=== PATIENT | male | born 1960 | race Caucasian/White ===

== ENCOUNTER 2017-09-03 15:31 | Emergency (ER) | payer MEDICARE, MEDICAID, SELFPAY ==
[2017-09-03 15:32] VITALS: BP 140/79; PULSE 104; RESP 22; TEMP 36.6; O2SAT 99; BMI 30.8
--- NOTE | 2017-09-03 15:54 | EKG12_ITS ---
Test Reason : CP Blood Pressure : / mmHG Vent. Rate : 100 BPM Atrial Rate : 100 BPM P-R Int : 140 ms QRS Dur : 072 ms QT Int : 364 ms P-R-T Axes : 040 -17 033 degrees QTc Int : 469 ms Normal sinus rhythm Normal ECG Confirmed by BALDO ASIF, VICTORIANO ([id number]), newspaper managing editor NGHIA SALAMANCA ([id number]) on 09/05/2017 1:46:38 PM Referred By: ABELINO Confirmed By:VICTORIANO BLAND MD
--- NOTE | 2017-09-03 15:55 | RAD_ITS ---
STUDY: X-RAY CHEST REASON FOR EXAM: Male, 57 years old. Chest pain x2 days TECHNIQUE: PA and lateral views of the chest. COMPARISON: July 10, 2013 FINDINGS: The lungs are clear and expanded. There is no demonstrated pleural abnormality. There is borderline cardiomegaly. Normal mediastinum and dread. Normal visualized pulmonary arteries. Normal visualized aortic arch and descending thoracic aorta. Normal visualized thoracic spine. Normal visualized ribs, clavicles, and shoulders. There is no demonstrated abnormality of the visualized soft tissue structures of the upper abdomen. RAD/Chest PA and Lateral IMPRESSION: No acute cardiopulmonary disease Electronically Signed: Dionisio Alcaraz DO at 16:42 EDT Tel , Service support ,
[2017-09-03 16:02] LABS: Absolute Lymphocyte Count 1.59 X10^3/ul (0.83-4.51); Absolute Neutrophil Count 4.9 X10^3/uL (2.0-7.7); Basophil# 0.02 X10^3/uL; Basophil% 0.3 % (0-1); Eosinophil# 0.15 X10^3/uL; Eosinophils% 2.1 % (0-5); Hematocrit 44.8 % (40-54); Hemoglobin 15.2 g/dl (13.0-16.5); Lymphocyte # 1.59 X10^3/ul (4.0); Lymphocyte % 21.9 % (19-41); Mean Corp Hgb Conc 33.9 g/gl (32-36); Mean Corpuscular Hgb 30.8 pg (27.0-32.0); Mean Corpuscular Volume 90.9 fL (80-94); Mean Platelet Vol. 11.3 fl (6.2-12.0); Monocyte# 0.54 X10^3/uL; Monocyte% 7.4 % (0-10); Neutrophil # 4.94 X10^3/uL (2.7-7.7); Neutrophil % 68.2 % (47-70); Platelet Count 155 K/mm3 (150-450); RBC Distribution Width CV 13.7 % (11.6-14.6); RBC Distribution Width SD 44.8 fl (35.1-43.9); Red Blood Count 4.93 M/mm3 (4.6-6.2); White Blood Count 7.3 K/mm3 (4.4-11.0)
[2017-09-03 16:10] LABS: Bedside Glucose 224 mg/dL (70-110)
[2017-09-03] MEDS: 0.9% Normal Saline 1,000 ML 1000 ML IV (16:12)
[2017-09-03 16:13] VITALS: BP 132/79; PULSE 87; RESP 24; O2SAT 97
[2017-09-03 16:16] LABS: Anion Gap 10 (5-15); BUN 20 mg/dL (7-18); BUN/Creat Ratio 14.4 RATIO (10-20); Calcium,Total 9.1 mg/dL (8.5-10.1); Chloride 108 mmol/L (98-107); Creatinine, Serum 1.39 mg/dL (0.70-1.30); EST Glomerular Filtration Rate 56 mL/min (>60); Est Glom Filt Rate - Afr Amer 67 mL/min (>60); Estimated Creatinine Clearance 46.05 ml/min; Glucose 201 mg/dL (74-106); Potassium 3.8 mmol/L (3.5-5.1); Sodium Level 143 mmol/L (136-145)
[2017-09-03 16:18] LABS: POSITIVE COUNT NO; POSITIVE DIFFERENTIAL NO; POSITIVE MORPHOLOGY NO
--- NOTE | 2017-09-03 16:45 | ED.DCSUM_ITS ---
- ER Visit Summary Date of Service: 09/03/17 Chief Complaint: Hypoglycemia and chest pain History of Present Illness: The patient is a 57 M presenting for evaluation first off for hyperglycemia. Patient states that over the course of the last couple days he has had blood sugars in the 300s. Patient states that this is not associated with any changes in his medication or diet. He denies any illness. Patient states that he has been getting some intermittent chest pain with this. Patient states that it has no exacerbating relieving factors will come on for a couple of seconds and then go away. States that it intermittently is associated with diaphoresis. Physical Examination: Vital signs are within normal limits except for blood pressure of 170/79 and heart rate of 104, patient is afebrile. General: Patient is well-nourished well-developed and in no acute distress. Head: Normocephalic, atraumatic Eyes: Pupils equal round and reactive bilaterally, extra occular motion intact bialterally ENT: Moist mucous membranes Neck: Supple, no lymphadenopathy, no JVD, no meningismus CVS: Heart regular rate and rhythm, 2 out of 6 systolic murmur, radial pulses 2 + bilaterally Resp: Respirations nondistressed, lung sounds clear bilaterally Abdomen: Soft, nontender, nondistended, no palpable masses, normal bowel sounds Back: Nontender Extremities: Nontender, atraumatic, active full range of motion, no peripheral edema Skin: warm, no rashes, no petechia Neuro: Alert and oriented x 4, CN 2-12 intact, no lateralizing neurological defecits Psyc: Normal affect Test Results: EKG shows sinus rate of [address] segments normal T waves no evidence of acute ischemia or arrhythmia. CBC unremarkable, chemistry shows creatinine 1.39 glucose of 201. Troponin found to be negative. Chest x- ray shows chronic changes. Emergency Department Course and Treatment: Patient presented for evaluation secondary chest pain. Patient has an aspirin allergy, aspirin was not administered. Patient's workup was negative as noted above. Patient's PRABHAKAR profile is 1 out of 7 his heart score is 3. His chest pain seems very atypical I do not believe he requires admission for this. Likewise the patient's hyperglycemia is only in the 200s and he does not have any evidence of anion gap or acidosis. I believe the patient can safely be discharged at this time. He will follow-up with his primary care physician. Disposition: Discharge Impression: 1. Chest pain 2. Hyperglycemia This note was generated with [employer] dictation software. It may contain incorrect words, spelling, and punctuation that were not noted in review of the chart prior to signing ED Disposition - Plan for ED Patient: Disposition: Home or Assisted Living Chief Complaint: Hyperglycemia Diagnosis: Chest pain, Hyperglycemia Instructions: ED Hyperglycemia Diabetic Referrals: Ligia Johnson MD [Primary Care Provider] - 1 Week
[2017-09-03 16:56] VITALS: BP 132/77; PULSE 85; RESP 17; O2SAT 95
== END 2017-09-03 16:57 | disposition home or self-care (01) ==
PROVIDERS: Emergency Provider Emergency Medicine; Family Provider Internal Medicine; PCP Internal Medicine
DX: R07.9 Chest pain, unspecified (principal); E11.65 Type 2 diabetes mellitus with hyperglycemia; I10 Essential (primary) hypertension; E78.00 Pure hypercholesterolemia, unspecified; J45.909 Unspecified asthma, uncomplicated; Z72.0 Tobacco use; Z88.6 Allergy status to analgesic agent; R01.1 Cardiac murmur, unspecified
CPT/HCPCS: 71046; 80048; 82962; 84484; 85025; 93005; 96360; 99285; J7030; A4216

== ENCOUNTER → 2017-10-11 08:47 | Outpatient (CLI) | payer MEDICARE, MEDICAID, SELFPAY ==
--- NOTE | 2017-10-11 08:52 | RAD_ITS ---
PROCEDURE: Fluoroscopic guided Hip Injection DATE: October 11, 2017. INDICATION: Male, 57 years old. Chronic right hip pain. PHYSICIAN: Darien Samuels M.D. MEDICATIONS: 80 mg of Kenalog, 3 cc of 0.5%.marcaine. 2.0% lidocaine administered subcutaneously for local anesthesia. ACCESS SITE: Right hip. NEEDLE: 22-gauge spinal needle. FLUOROSCOPY TIME (if supplied): (30 seconds) minutes/seconds FINDINGS: The risks, benefits, and alternatives to the procedure were explained to the patient. The specific risks of bleeding, infection, and neurovascular injury were detailed and accepted. Witnessed informed consent was obtained. A 22-gauge spinal needle was positioned under radiographic fluoroscopic localization. Approximately 2 cc of Isovue-300 instilled for localization purposes. Medication was then injected. The patient tolerated the procedure well without any immediate complications. The patient was placed supine with head elevated and returned to the floor in stable condition. RAD/Inj/Asp Fanatsma Jt Should/Hip/Knee IMPRESSION: 1. Successful fluoroscopic guided hip injection. Electronically Signed: Darien Samuels MD at 10:26 EDT Tel [phone], Service support ,
== END ==
PROVIDERS: Family Provider Internal Medicine; PCP Internal Medicine; Visit Provider Orthopaedic Surgery
DX: M16.11 Unilateral primary osteoarthritis, right hip (principal); M25.551 Pain in right hip
CPT/HCPCS: 20610; 77002; Q9965

== ENCOUNTER 2018-01-11 17:09 | Emergency (ER) | payer MEDICARE, SELFPAY ==
[2018-01-11 17:09] VITALS: BP 116/76; PULSE 95; RESP 18; TEMP 37.1; O2SAT 98; BMI 31.5
--- NOTE | 2018-01-11 17:44 | ED.DCSUM_ITS ---
"- ER Visit Summary Date of Service: 01/11/18 Chief Complaint: Hand wound History of Present Illness: The patient is a 57 M presenting with an abrasion on the dorsal aspect of his left hand. He believes that he scraped it against a door frame. Denies any other injuries. He noticed a small amount of bleeding and wanted to get it checked out. Denies any other injuries or pain with range of motion. Denies taking blood thinners. Physical Examination: He has a superficial approximately 2-3 mm abrasion on the dorsal aspect of his left hand. There is no bleeding. No evidence of infection. No bony tenderness at all. Test Results: None performed Emergency Department Course and Treatment: His wound was cleansed and dressed. He will use topical antibiotic ointment and follow-up as needed Treatment Plan: Disposition: Home stable condition Impression: Initial encounter superficial left hand abrasion This note was generated with [employer] dictation software. It may contain incorrect words, spelling, and punctuation that were not noted in review of the chart prior to signing ED Disposition - Plan for ED Patient: Chief Complaint: Wound Check Instructions: ED Wound Check Post Op No Infec Prescriptions: Bacitracin Ointment 1 applic TOPICAL 4X/DAY #1 tube Referrals: Ligia Johnson MD [Primary Care Provider] -"
== END 2018-01-11 17:50 | disposition home or self-care (01) ==
PROVIDERS: Emergency Provider Emergency Medicine; Family Provider Internal Medicine; PCP Internal Medicine
DX: S60.512A Abrasion of left hand, initial encounter (principal); W22.8XXA Striking against or struck by other objects, initial encounter; Y93.9 Activity, unspecified; Y92.89 Other specified places as the place of occurrence of the external cause; Y99.9 Unspecified external cause status
CPT/HCPCS: 99282

== ENCOUNTER 2018-03-09 11:26 | Emergency (ER) | payer MEDICARE, SELFPAY ==
[2018-03-09 11:27] VITALS: BP 128/89; PULSE 99; RESP 20; TEMP 36.1; O2SAT 99; BMI 30.4
--- NOTE | 2018-03-09 11:38 | CT_ITS ---
STUDY: CT ABDOMEN AND PELVIS WITH CONTRAST REASON FOR EXAM: Male, 58 years old. ABD PAIN, WHEEZING, ELEV BS RADIATION DOSAGE (If Supplied By Facility): CTDIvol = ( 16.88 ) mGy, DLP = ( 1031.44 ) mGycm TECHNIQUE: Transaxial images were obtained from the dome of the diaphragm to the symphysis pubis without oral contrast. 100cc ml of Isovue 300 contrast was administered. Sagittal and coronal images were reconstructed. Individualized dose optimization techniques were used for this CT. COMPARISON: None. FINDINGS: The visualized lung bases are unremarkable. The visualized portions of the heart are within normal limits. Normal liver. Normal gallbladder and extrahepatic biliary system. Normal spleen. Normal pancreas. Normal bilateral adrenal glands. Normal right kidney. Normal left kidney. Normal visualized stomach. Normal small intestine. Normal colon. The appendix is visualized and appears normal. Normal abdominal aorta. Normal inferior vena cava. Normal retroperitoneum. Normal urinary bladder. Normal abdominal wall. There are diffuse degenerative changes of the visualized lumbar spine. CT/Abdomen/Pelvis WITH Contrast IMPRESSION: Normal enhanced CT of the abdomen and pelvis. Electronically Signed: Francisco Calhoun MD at 14:26 EDT Tel , Service support ,
--- NOTE | 2018-03-09 11:38 | EKG12_ITS ---
Test Reason : HYPERGLYCEMIA Blood Pressure : / mmHG Vent. Rate : 084 BPM Atrial Rate : 084 BPM P-R Int : 136 ms QRS Dur : 070 ms QT Int : 372 ms P-R-T Axes : 040 -15 036 degrees QTc Int : 439 ms Normal sinus rhythm Possible Left atrial enlargement Septal infarct , age undetermined Abnormal ECG Confirmed by BALDO ASIF, VICTORIANO ([id number]), book or script editor NGHIA SALAMANCA ([id number]) on 03/13/2018 2:26:37 PM Referred By: HELEN Confirmed By:VICTORIANO BLAND MD
--- NOTE | 2018-03-09 11:50 | RAD_ITS ---
STUDY: X-RAY CHEST REASON FOR EXAM: Male, 58 years old. Wheezing, hyperglycemia TECHNIQUE: Single AP portable view of the chest. COMPARISON: 09/03/2017 FINDINGS: The lungs are clear and expanded. There is no demonstrated pleural abnormality. Normal size heart. Normal mediastinum and dread. Normal visualized pulmonary arteries. Normal visualized aortic arch and descending thoracic aorta. Normal visualized thoracic spine. Normal visualized ribs, clavicles, and shoulders. There is no demonstrated abnormality of the visualized soft tissue structures of the upper abdomen. RAD/Chest 1 View (Portable) IMPRESSION: No acute pulmonary process Electronically Signed: Rajesh Cote MD at 12:10 EDT , Service support ,
[2018-03-09] MEDS: 0.9% Normal Saline 1,000 ML 150 ML IV (12:01)
[2018-03-09 12:09] LABS: Basophil# 0.02 X10^3/uL; Basophil% 0.3 % (0-1); Eosinophil# 0.14 X10^3/uL; Eosinophils% 2.4 % (0-5); Hematocrit 44.5 % (40-54); Hemoglobin 15.6 g/dl (13.0-16.5); Lymphocyte % 22.1 % (19-41); Mean Corp Hgb Conc 35.1 g/gl (32-36); Mean Corpuscular Hgb 31.8 pg (27.0-32.0); Mean Corpuscular Volume 90.6 fL (80-94); Mean Platelet Vol. 10.7 fl (6.2-12.0); Monocyte# 0.45 X10^3/uL; Monocyte% 7.7 % (0-10); Neutrophil # 3.95 X10^3/uL (2.7-7.7); Neutrophil % 67.2 % (47-70); Platelet Count 153 K/mm3 (150-450); RBC Distribution Width CV 13.1 % (11.6-14.6); RBC Distribution Width SD 43.1 fl (35.1-43.9); Red Blood Count 4.91 M/mm3 (4.6-6.2); White Blood Count 5.9 K/mm3 (4.4-11.0)
[2018-03-09 12:10] LABS: POSITIVE COUNT NO; POSITIVE DIFFERENTIAL NO; POSITIVE MORPHOLOGY NO
--- NOTE | 2018-03-09 12:12 | ED.RN ---
ETOH 431 PER LAB, MD AND PRIMARY RN NOTIFIED.
[2018-03-09 12:24] LABS: ALB/GLOB Ratio 1.4 RATIO (0.9-2.4); AST(SGOT) 14 U/L (15-37); Alanine Aminotransfer ALT/SGPT 24 U/L (16-61); Albumin, Serum 4.4 g/dL (3.2-5.0); Alkaline Phosphatase 94 U/L (45-117); Anion Gap 9 (5-15); BUN 29 mg/dL (7-18); Calcium,Total 9.1 mg/dL (8.5-10.1); Chloride 103 mmol/L (98-107); Creatinine, Serum 1.21 mg/dL (0.70-1.30); EST Glomerular Filtration Rate 65 mL/min (>60); Est Glom Filt Rate - Afr Amer 79 mL/min (>60); Estimated Creatinine Clearance 50.14 ml/min; Globulin 3.1 g/dL (2.2-4.2); Glucose 200 mg/dL (74-106); Lipase 1202 U/L (73-393); Potassium 4.5 mmol/L (3.5-5.1); Protein, Total 7.5 g/dL (6.4-8.2); Sodium Level 136 mmol/L (136-145)
[2018-03-09 12:34] LABS: Lactic Acid 1.9 mmol/L (0.4-2.0)
[2018-03-09 12:39] LABS: Mucous, Urine 0 SEEN /hpf (<or=2+); Red Blood Cells-Urine 0 SEEN /hpf (0-5); Squamous Epithelial Cells - UA 0 SEEN /hpf (0-5); White Blood Cells 0 SEEN /hpf (0-5)
[2018-03-09 12:45] LABS: Color, Urine Yellow (Yellow); Glucose, Dipstick 1000 mg/dl (Normal); Ketone-Dipstick Negative (Negative); Leukocyte Esterase-Dipstick Negative /ul (Negative); Nitrite-Dipstick Negative (Negative); Occult Blood-Urine Negative /ul (Negative); Protein-Dipstick Negative (Negative); Specific Gravity, Urine 1.015 (1.002-1.030); Urine Bilirubin Dipstick Negative (Negative); Urine Clarity Clear (Clear); Urine Urobilinogen Normal (Normal)
[2018-03-09 13:10] LABS: Bacteria RARE /hpf (None Seen)
--- NOTE | 2018-03-09 14:49 | ED.VISSUMM ---
- ER Visit Summary Date of Service: 03/09/18 Chief Complaint: [Hyperglycemia] History of Present Illness: The patient is a 58 M [since the emergency department complaint of hyperglycemia since yesterday. Patient states yesterday his blood sugars were in the 300s. This morning the blood sugars were in the 200s. Patient also complains of diffuse abdominal discomfort. He has had no vomiting he denies any fever or cough but he states he had some wheezing. Patient has a history of diabetes and high cholesterol. Patient states that he has been compliant with his medications. Patient denies urinary symptoms.] Physical Examination: HEENT-PERRLA, EOMI. Cranial nerves II through XII grossly intact. TMs clear. Mucous membranes moist. No adenopathy. Patient nontoxic-appearing. Cardiovascular-regular rate and rhythm without murmur or ectopy Lungs-clear to auscultation, chest wall stable without crepitus or subcu emphysema Abdomen-normoactive bowel sounds, soft that is mildly tender in the epigastric region and right lower quadrant. There is no rebound, rigidity, or perineal signs.. Patient has somewhat of a protuberant abdomen Extremities-intact ?4, normal range of motion, normal pulses, atraumatic] Test Results: [CBC with differential is normal. Chemistries were normal. Urinalysis was normal. EKG obtained on arrival showed a sinus rhythm with a ventricular rate of 89 bpm with an old septal infarct. Chest x-ray showed nothing acute. CT scan of the abdomen pelvis was normal.] Blood glucose in the department was 200. Emergency Department Course and Treatment: [Patient was given normal saline in the emergency department] Treatment Plan: [On repeat examination patient is without any abdominal pain. He denies any difficult he breathing. He feels well.] Disposition: [Discharged home in stable condition.] Impression: [Hyperglycemia Abdominal pain-resolved] This note was generated with [employer] dictation software. It may contain incorrect words, spelling, and punctuation that were not noted in review of the chart prior to signing ED Disposition - Plan for ED Patient: Chief Complaint: Hyperglycemia Referrals: Ligia Johnson MD [Primary Care Provider] -
--- NOTE | 2018-03-09 14:52 | ED.DCSUM_ITS ---
- ER Visit Summary Date of Service: 03/09/18 Chief Complaint: [Hyperglycemia] History of Present Illness: The patient is a 58 M [since the emergency department complaint of hyperglycemia since yesterday. Patient states yesterday his blood sugars were in the 300s. This morning the blood sugars were in the 200s. Patient also complains of diffuse abdominal discomfort. He has had no vomiting he denies any fever or cough but he states he had some wheezing. Patient has a history of diabetes and high cholesterol. Patient states that he has been compliant with his medications. Patient denies urinary symptoms.] Physical Examination: HEENT-PERRLA, EOMI. Cranial nerves II through XII grossly intact. TMs clear. Mucous membranes moist. No adenopathy. Patient nontoxic- appearing. Cardiovascular-regular rate and rhythm without murmur or ectopy Lungs-clear to auscultation, chest wall stable without crepitus or subcu emphysema Abdomen-normoactive bowel sounds, soft that is mildly tender in the epigastric region and right lower quadrant. There is no rebound, rigidity, or perineal signs.. Patient has somewhat of a protuberant abdomen Extremities-intact ?4, normal range of motion, normal pulses, atraumatic] Test Results: [CBC with differential is normal. Chemistries were normal. Urinalysis was normal. EKG obtained on arrival showed a sinus rhythm with a ventricular rate of 89 bpm with an old septal infarct. Chest x-ray showed nothing acute. CT scan of the abdomen pelvis was normal.] Blood glucose in the department was 200. Emergency Department Course and Treatment: [Patient was given normal saline in the emergency department] Treatment Plan: [On repeat examination patient is without any abdominal pain. He denies any difficult he breathing. He feels well.] Disposition: [Discharged home in stable condition.] Impression: [Hyperglycemia Abdominal pain-resolved] This note was generated with [employer] dictation software. It may contain incorrect words, spelling, and punctuation that were not noted in review of the chart prior to signing ED Disposition - Plan for ED Patient: Chief Complaint: Hyperglycemia Referrals: Ligia Johnson MD [Primary Care Provider] -
--- NOTE | 2018-03-09 14:52 | ED.DEP ---
ED Disposition - Plan for ED Patient: Chief Complaint: Hyperglycemia Instructions: ED Hyperglycemia Diabetic, ED Abdominal Pain Unkn Cause Referrals: Ligia Johnson MD [Primary Care Provider] - 3-5 Days
[2018-03-09 15:00] VITALS: BP 103/72; PULSE 65; RESP 18; O2SAT 97
== END 2018-03-09 15:02 | disposition home or self-care (01) ==
LOC: ED 12:14
PROVIDERS: Emergency Provider Emergency Medicine; Family Provider Internal Medicine; PCP Internal Medicine
DX: E11.65 Type 2 diabetes mellitus with hyperglycemia (principal); R10.9 Unspecified abdominal pain; E78.00 Pure hypercholesterolemia, unspecified
CPT/HCPCS: 71045; 74177; 80053; 81001; 83605; 83690; 84484; 85025; 93005; 99283; J7030; Q9967; A4216

== ENCOUNTER → 2019-01-29 10:02 | Outpatient (CLI) | payer MEDICARE, SELFPAY ==
[2019-01-29 12:52] LABS: Basophil# 0.03 X10^3/uL; Basophil% 0.4 % (0-1); Hematocrit 43.8 % (40-54); Hemoglobin 14.4 g/dL (13.0-16.5); Lymphocyte % 14.9 % (19-41); Mean Corp Hgb Conc 32.9 g/dL (32-36); Mean Corpuscular Hgb 31.6 pg (27.0-32.0); Mean Corpuscular Volume 96.1 fL (80-94); Mean Platelet Vol. 11.8 fl (6.2-12.0); Monocyte# 0.45 X10^3/uL; Monocyte% 6.7 % (0-10); NRBC Flagged by Analyzer 0 % (0-5); Neutrophil # 5.01 X10^3/uL (2.7-7.7); Neutrophil % 74.7 % (47-70); Platelet Count 164 K/mm3 (150-450); RBC Distribution Width CV 13.3 % (11.6-14.6); RBC Distribution Width SD 47.5 fl (35.1-43.9); Red Blood Count 4.56 M/mm3 (4.6-6.2); White Blood Count 6.7 K/mm3 (4.4-11.0)
== END ==
PROVIDERS: Family Provider Internal Medicine; PCP Internal Medicine; Referring Provider Specialist; Visit Provider Specialist
DX: M16.11 Unilateral primary osteoarthritis, right hip (principal)
CPT/HCPCS: 36415; 85025

== ENCOUNTER 2019-03-28 05:26 | Inpatient (IN) | payer MEDICARE, SELFPAY ==
[2019-03-16 13:23] VITALS: BP 117/64; PULSE 72; RESP 16; TEMP 36.8; O2SAT 99; BMI 26.4
--- NOTE | 2019-03-16 13:39 | SDCEKG_ITS ---
Test Reason : Blood Pressure : / mmHG Vent. Rate : 075 BPM Atrial Rate : 075 BPM P-R Int : 132 ms QRS Dur : 070 ms QT Int : 382 ms P-R-T Axes : 053 -02 040 degrees QTc Int : 426 ms Normal sinus rhythm Septal infarct (cited on or before 09-MAR-2018), age undetermined Abnormal ECG Confirmed by GIAN ASIF, CHIDI ([id number]), visual effects editor BRIE BELL ([id number]) on 03/21/2019 9:49:00 A M Referred By: Gutierrez Billy Confirmed By:KARLA SPRINGER MD
--- NOTE | 2019-03-18 08:51 | PCM.HP.BLA ---
History and Physical Patient Name: Kal Laguerre : 1960 From: DANA MILLS PA-C DATE OF SURGERY: 03/28/2019 SCHEDULED PROCEDURE: right total hip arthroplasty HISTORY OF PRESENT ILLNESS: History and physical exam was performed on March 16, 2019. This is a 59-year-old male who has been having ongoing pain in his right hip for over 2 years. Patient does present with a caregiver. He has history of MRDD. Patient does ambulate with a cane. His pain is significantly increased over the past 1 year. Patient states his pain is constant, achy, sore. Pain is increased with going up and down stairs, walking, and sitting. He has difficult time with activities of daily living including shopping and leisure activities such as walking around town. He has difficult time with getting dressed and undressing himself. He has difficult time picking up items off the floor. Patient has fallen due to his hip pain. Patient has tried rest, ice, heat, elevation with no significant relief. He has tried home exercises without relief. Patient has been on oral anti-inflammatories, Tylenol, Voltaren gel without any relief in symptoms. He has been seen in the past for his right hip by Dr. Gomez at the [facility]. Patient currently denies any chest pain, shortness of breath, fevers chills, recent infections. Patient has medical history pertinent for diabetes, MRDD, and previous ulcers. He states he is unable to take aspirin. We have obtain surgical clearance from Dr. Johnson. After failing conservative measures and discussing treatment options with Dr. Gutierrez Billy, the patient does wish to proceed with a right total hip arthroplasty. REVIEW OF SYSTEMS: ROS: Const: Reports weight change, but denies change in appetite and fever. CV: Denies chest pain, heart murmur and irregular heartbeat. Resp: Denies cough, pneumonia, shortness of breath, tuberculosis and wheezing. GI: Denies constipation, diarrhea, heartburn, nausea, rectal itching, bloody stools and vomiting. : Denies incontinence. Musculo: Reports pain, trouble walking and weakness, but denies leg swelling. Skin: Reports tattoo, but denies Raynaud's and history of shingles. Neuro: Reports ambulatory dysfunction but denies dizziness, numbness/tingling and tremor. Psych: Denies anxiety, insomnia and stress. Frank/Lymph: Denies anemia, bleeding/bruising tendency and past transfusion. Reviewed, no changes. PAST MEDICAL HISTORY: Advance Care Plan: No Advance Directives Effective Date: 01/29/2019 PMH: Medical Problems: Arthritis, Diabetes, Hard of Hearing, Hypercholesterolemia, Ulcers Accidents: Fracture - RT Leg - [facility] LT Pinky - WC Surgical Hx: None Anesthesia Complications: None Assistive Devices: Glasses - Reading only, Hearing Aid, Cane Reviewed, no changes. SOCIAL HISTORY: SH: Marital: Single.Occupation: Not Currently Working.Work Status: Not Working Currently.Hand Dominance: Right-handed. Personal Habits: Cigarette Use: Former.Smokeless Tobacco: Never Used Smokeless Tobacco.E-Cigarette Use: Never used.Alcohol: Denies use.Drug Use: Denies Use.Enjoy Exercising: Daily. Reviewed and updated. VITALS: Ht: 60.5 Wt: 141lb Wt k.958 BMI: 27.1 BP: 98/66 Pulse: 70 Resp: 18 T: 98.2 T: 36.8C ALLERGIES: Codeine Aspir-Low MEDICATIONS: Ensure Surgery Immunonutrition Shake ensure surgery immuno nutrition shake bid with meals, Jardiance 25 mg 1po qday, Lisinopril 2.5 mg 1po qday, Onglyza 5 mg 1po qday, Esomeprazole Magnesium 20 mg 1po qday, Atorvastatin Calcium 40 mg 1po qday, Metformin HCL ER (Mod) 1000 mg 1po bid, Glimepiride 4 mg 1po qday, Oxaprozin 600 mg 1po bid PRE-OP EXAM: General appearance:NORMAL Other: Eyes: Conjunctivae and lids: NORMAL Pupils: ERR Ears, Nose, Mouth, and Throat: NORMAL Other: Inspection of lips, teeth and gums: NORMAL Other: Neck: Examination of neck: no masses noted. Respiratory: Assessment of respiratory effort: NORMAL Other: Auscultation of lungs: clear to auscultation no wheezes, rhonchi or rales. Cardiovascular: Auscultation of heart: regular rate and rhythm, no murmurs, gallops or rubs. Gastrointestinal: Exam of abdomen: soft, nontender, nondistended bowel sounds present. PHYSICAL EXAMINATION: Patient walks with an antalgic gait. Currently using cane. There is tenderness to palpation over the right greater trochanteric region. Range of motion right hip: Lacks 40 extension to 85 flexion, external rotation 10, internal rotation 5. Patient does have obligatory external rotation and flexion contracture. Sensation intact to light touch. IMAGING STUDIES: The right hip reveal severe joint space narrowing with subchondral sclerosis, osteophyte formation, subchondral cyst with severe osteoarthritis. IMPRESSION: 1. Severe right hip osteoarthritis 2. MR DD 3. Diabetes 4. Hypercholesterolemia 5. Ulcers PLAN: Dr. Gutierrez Billy did discuss and review with the patient all treatment options including surgical versus nonsurgical options. Patient does wish to proceed with the above-stated procedure. Potential risks, benefits, and complications of the procedure were discussed in detail including but not limited to , infection, nerve and blood vessel damage, persistent pain, numbness, tingling, paresthesias, blood clot, pulmonary embolism, and requirement for possible further surgery. The patient expressed full understanding and has no further questions for the doctor. Patient does agree to proceed with the above-stated procedure and has signed the surgery consent form. This dictation was created using voice recognition software. Phonetic and/or grammatical errors may exist. ___ I have re-examined the patient. There are no clinical changes since date of exam. ___ See progress notes for changes. ___ Dictated on admission Date: Time: Signature:
[2019-03-28] VITALS (16 sets, daily range): BP systolic 91–128; BP diastolic 52–68; PULSE 65–83; RESP 16–20; TEMP 36.1–36.8; O2SAT 95–100; BMI 26.4
[2019-03-28] MEDS: Lactated Ringers 1,000 ML 100 ML IV (06:38)
[2019-03-28] MEDS: Acetaminophen 500 MG Tablet 1000 MG PO ×3 (06:39→22:28)
[2019-03-28] MEDS: Magnesium Sulfate 4gm/100mL 4 GM/100 ML IV.SOLN. IV (06:39)
[2019-03-28] MEDS: Celecoxib 200 MG Capsule 400 MG PO (06:39)
[2019-03-28 06:40] LABS: Bedside Glucose 313 mg/dL (70-110)
[2019-03-28] MEDS: Gabapentin 600 MG Tablet PO (06:40)
[2019-03-28] MEDS: Lactated Ringers 1,000 ML 999 ML IV (07:16)
[2019-03-28] MEDS: Cefazolin 2 GM in 0.9% Normal Saline 100 ML IV (07:30)
--- NOTE | 2019-03-28 07:30 | HIP_PTH ---
PATIENT: WILLIAM JONES LOC: [id number] U#:[id number] AGE/SX: 59/M ROOM: [facility] [place]03/28/[address]: Dr. Gutierrez Billy MD : 1960 BED: 1 DIS: 03/30/2019 SPEC #: [id number] RECD: 03/28/19 13:28 STATUS: BERNA REQ #: [id number] ANAHI: 03/28/19 07:[address]: Gutierrez Billy DEPT: SURGICAL PATHOLOGY RECD BY: Pete Lopez ENTERED: 03/28/19 13:43 SP TYPE: TOTAL HIP OTHR DR: Dr. Ligia Johnson MD Tissues: Hip, NOS Procedures: Decalcification bone/plaque Surgery Specimen Level IV HEADER OPERATION: ERAS, total hip anterior approach PRE-OP DIAGNOSIS: Severe right hip osteoarthritis TISSUE SUBMITTED: Right hip bone MICROSCOPIC DIAGNOSIS Right hip bone, total hip replacement/resection: Femoral head with degenerative osteoarthritic changes. SJ:marilin 04/02/19 MICROSCOPIC DESCRIPTION Slides are reviewed. GROSS DESCRIPTION Received is one container labeled with the patient's name and designated right hip bone. The specimen consists of a rosa femoral head measuring 4.5 x 4.5 x 4.5 cm. The articular surface displays prominent osteophyte formation, eburnation and bone erosion. No soft tissue is identified. Regulatory Affairs Intern sections are submitted in one cassette after decalcification. / DEMARCUS:marilin 03/28/19 TC:5 CPT: 50907, 21845
--- NOTE | 2019-03-28 08:23 | RAD_ITS ---
STUDY: X-RAY - PELVIS AND RIGHT HIP REASON FOR EXAM: Male, 59 years old. Total hip replacement. TECHNIQUE: 3 views of the pelvis and hip. COMPARISON: None. FINDINGS: The patient is status post right total hip replacement. There is good alignment. Postoperative soft tissue changes. RAD/Hip 1 view with Pelvis IMPRESSION: Status post right total hip replacement. There is good alignment. Postoperative soft tissue changes Electronically Signed: Darien Samuels, at 10:37 EDT , Service support ,
--- NOTE | 2019-03-28 08:50 | PCM.OPRPT ---
Report of Operation Date of Procedure: 03/28/19 Pre-Operative Diagnosis: Right hip primary osteoarthritis Post-Operative Diagnosis: Right hip primary osteoarthritis Surgery/Procedure Performed:: Right minimally invasive direct anterior total hip replacement Description of Surgical Findings:: Stable hip with equal leg lengths on radiograph video game maker: Mela Chi Type of Anesthesia:: Spinal Anesthesiologist: Christopher Vargas Special Medications: 2 g Ancef, 1 g TXA at incision, 1 g TXA closure, 10 mg Decadron, joint cocktail (5 mg Duramorph, 30 mL of 0.5% Ropivicaine, 1000 units of epinephrine, 30 mg of Toradol) Specimen's removed: Bony cuts Estimated Blood Loss (mL): 150 Fluids Replaced: 1500 mL crystalloid Description of Procedure: Components used: 1. Accolade 2 Jethro femoral stem size 3 132? 2. Jethro trident 2 acetabular shell size 52 mm 3. Needham X3 polyethylene e 4. Needham Biolox delta 36mm, -5mm femoral head Brief history operative indications: 59 yo M who failed conservative measures for their hip osteoarthritis. X-rays were consistent with osteoarthritis including joint space narrowing, osteophyte formation and subchondral cysts. Total hip replacement was discussed with the patient with risks and benefits including but not limited to blood loss, DVTs, PEs, neurovascular damage, dislocation, general risks of anesthesia including loss of life. Patient demonstrated an understanding medical clearance is obtained the patient was consented for surgery. Procedure: On the date of procedure the patient's R hip was marked in the preoperative area. Patient was then taken back to the operating room where anesthesia assumed control of the C-spine and airway and administered anesthetic. Patient was transferred to the operating table and placed in the supine position. The hips were placed at the break of the bed and a sacral bump was placed. The R lower extremity was then prepped out in a sterile fashion using chlorhexidine while the surgeon scrubbed. The PA was vital in the positioning of the patient. Upon reentering the room the R lower extremity was draped in the standard orthopedic fashion and the incision was marked. A timeout was called and everyone agreed upon the side, the site, the procedure be performed, antibody given, and patient's identity. At this time incision was made through skin, subcutaneous tissue, and fat down to fascia. The fascia was then incised and the TFL was retracted laterally. A retractor was placed on the lateral border of the femoral neck. Attention was directed to the inferior portion of the approach and all crossing vessels were identified and appropriately coagulated. A retractor was then placed on the medial portion of the femoral neck. The anterior capsule was then cleared of all soft tissue and then H shaped capsulotomy was made. The retractors were then placed inside the capsule. The femoral neck was identified and a cleanup cut was made. At this time a power corkscrew was used to remove the femoral head. Attention was then turned toward the acetabulum where the soft tissues were appropriately retracted and the acetabulum was sequentially reamed to 52 mm. A 52 mm cup was then selected and impacted into place. Acetabular liner was impacted into place and locking mechanism was verified. The position of the acetabular cup was then verified under live fluoroscopy. Attention was then turned to the femur. Soft tissue releases on the medial and lateral femoral neck were appropriately done, the leg was externally rotated and lateralized. A Castañeda retractor was placed medially and proximally to the greater trochanter this allowed appropriate visualization and exposure of the femoral canal. Rongeour was then used to remove excess lateral bone. A canal finder and entry broach were used to open the proximal canal. Once we verified we were down the femoral canal we subsequently broached up to a size 3 femur. The appropriate neck was placed in the previously selected head was trialed with a -5 mm neck. Traction was pulled and the hip was reduced with internal rotation. Once it was appropriately reduced and stability was checked. There was minimal shuck, equal leg lengths and appropriate stability with hyperextension and external rotation as well as with 90? flexion and internal rotation. Fluoroscopy was then also used to verify the position of the components and leg lengths using the contralateral side for comparison. The trial components were then dislocated the proximal femur was again exposed and the components were removed from the wound. The final components were verified and opened. The wound was copiously irrigated out with normal saline. The acetabulum was checked for any residual debris. The final components were placed and impacted. Traction and internal rotation were again used to reduce the hip. After adequate reduction the hip remained stable with appropriate leg lengths. The final components were once again checked with live fluoroscopy and were found to be satisfactory. The wound was then copiously irrigated with normal saline once more, and hemostasis was obtained. Closure was then done using #1 Vicryl runner to close the fascia. A 2-0 vicryl interuppted sutures were used to close the subcutaneous skin. A 3-0 Monocryl and Steri-Strips were used for final skin closure. A Silverlon dressing was placed. Patient was awakened by anesthesia and transferred to the [facility]. Patient was then transferred to the PACU for recovery. Postoperative plan: Patient will get 24 hours postop antibiotics. Patient will get in-house physical therapy and will be weight-bear as tolerated. Patient will follow up in office in 2 weeks for a wound check and x-rays. Grafts/Implants Used: Jethro - Complications No intraoperative complications - Admit VTE Documentation VTE Present on Admission: No VTE Mechan Device Prophylaxis: SCD's, Thigh High FIDEL Hose VTE Pharm Prophylaxis ordered?: Yes
--- NOTE | 2019-03-28 09:34 | RAD_ITS ---
STUDY: X-RAY - PELVIS AND RIGHT HIP REASON FOR EXAM: Male, 59 years old. Total hip replacement. TECHNIQUE: 3 views of the pelvis and hip. COMPARISON: None. FINDINGS: The patient is status post right total hip replacement. There is good alignment. Postoperative soft tissue changes. RAD/Hip Min 2 Views (Portable) IMPRESSION: Status post right total hip replacement. There is good alignment. Postoperative soft tissue changes Electronically Signed: Darien Samuels, at 10:37 EDT , Service support ,
[2019-03-28 11:35] LABS: Bedside Glucose 151 mg/dL (70-110)
[2019-03-28] MEDS: Lactated Ringers 1,000 ML 125 ML IV ×3 (11:41→19:32)
--- NOTE | 2019-03-28 12:47 | PCM.CONS.GEN ---
Problem List (1) Arthropathy of right hip Status: Acute (2) DM2 (diabetes mellitus, type 2) Status: Chronic (3) Essential (primary) hypertension Status: Chronic (4) Dyslipidemia Status: Chronic Reason for Consult Date of Consultation: 03/28/19 Reason for Consultation: Postoperative medical management of diabetes and hypertension History of Present Illness: The patient is a 59 year old M with multiple comorbidities including diabetes hypertension generalized osteoarthritis who underwent right total hip arthroplasty on 03/28/2019. The hospitalist service was consulted by Dr. Billy orthopedic surgery to assist with management of patient medical comorbidities including above-mentioned problems.. Seen after surgery patient denies any shortness of breath no nausea no vomiting. Past Medical History Past Medical History (Chronic Problems): Chronic Problems DM2 (diabetes mellitus, type 2) (Chronic) Essential (primary) hypertension (Chronic) Dyslipidemia (Chronic) Allergies aspirin Allergy (Verified 03/28/19 06:00) Unknown codeine Allergy (Verified 03/28/19 06:00) Unknown Home Medications: Ambulatory Orders Medication Instructions Recorded Atorvastatin Calcium [Lipitor] 40 mg PO QHS 07/10/13 Esomeprazole Magnesium [Nexium] 20 mg PO DAILY 07/10/13 Ipratropium/Albuterol Respimat 1 puff INHALATION BID PRN 07/10/13 [Combivent Respimat Inhal [place]] Metformin [Metformin HCl] 1,000 mg PO BID 07/10/13 Glimepiride [Amaryl] 4 mg PO BID 06/16/17 Oxaprozin 600 mg PO BID 09/03/17 Acetaminophen [Tylenol] 650 mg PO BID 03/16/19 Empagliflozin [Jardiance] 25 mg PO DAILY 03/16/19 Fluticasone 0.05% [Flonase Nasal 1 spray NASAL DAILY 03/16/19 [place]] Lisinopril [Zestril] 2.5 mg PO DAILY 03/16/19 Saxagliptin HCl [Onglyza] 5 mg PO DAILY 03/16/19 Smoking Status: Former smoker Tobacco Use: Non-smoker - *Family History Paternal History Items: Heart Disease Review of Systems Constitutional: Denies: Anorexia, Chills, Fever, Night Sweats, Weight Change HEENT: Denies: Head Aches, Sinus Congestion, Sinus Drainage Cardiovascular: Denies: Chest Pain, Orthopnea, Palpitations, Paroxysmal Noc. Dyspnea Respiratory: Denies: Cough, Shortness of breath at rest, Shortness of breath upon exertion, Sputum production Gastrointestinal: Denies: Abdominal Pain, Hematemesis, Hematochezia, Nausea, Melena, Vomiting Genitourinary: Denies: Dysuria, Frequency, Hematuria, Urgency Musculoskeletal: Reports: Joint Pain. Denies: Joint Tenderness Skin: Denies: Rash Neurological: Denies: Focal weakness, Numbness, Tingling Psychiatric: Denies: Homicidal Ideations, Suicidal Ideations Hematologic/ Lymphatic: Denies: Easy Bruising, Easy Bleeding Patient Problems: Active and Suspected Problems Arthropathy of right hip (Acute) Objective: GENERAL: cooperative HEENT: Atraumatic; EYES; Anicteric, Normal Conjunctiva NECK; supple, normal thyroid, RESPIRATORY: Diminished to auscultation CARDIOVASCULAR: Regular S1 S2, GI: soft, normoactive bowel sounds, : No Renal angle tenderness; EXTREMITIES: No edema, no clubbing, MUSCULOSKELETAL: no muscle waisting NEURO: Awake; no lateralizing signs. SKIN: No Rash PSYCH; Flat affect - Physical Exam Vitals/I&O's: Vital Signs Temp Pulse Resp BP Pulse Ox 97.6 F L 74 18 109/68 100 03/28/19 12:05 03/28/19 12:05 03/28/19 12:05 03/28/19 12:05 03/28/19 12:05 Oxygen Flow Rate (L/min) 6 Oxygen Delivery Method Room Air Weight: 65.5 kg Body Mass Index (BMI) 26.4 Finger Stick Blood Glucose 224 Intake and Output for Last 24 Hours 03/26/19 03/27/19 03/28/19 23:59 23:59 23:59 Intake Total 2475.83 / 2475.83 Balance 2475.83 / 2475.83 Laboratory Results 03/28/19 06:10: POC Glucose 313 H 03/28/19 11:32: POC Glucose 151 H Current Medications Acetaminophen (Tylenol) 1,000 mg PO Q8 [facility] Albuterol/Ipratropium (Duoneb) 3 ml INHALATION Q6HWA.RT PRN PRN Reason: SOB &/OR WHEEZING Atorvastatin Calcium (Lipitor) 40 mg PO QHS [facility] Empagliflozin (Jardiance) 25 mg PO DAILY [facility] Enteral Nutritional Formula (Ensure Surgery) 237 ml PO TIDCM [facility] Last Admin: 03/28/19 12:04 Dose: Not Given Documented by: Famotidine (Pepcid) 20 mg PO DAILY [facility] Fluticasone Propionate (Flonase Nasal [place]) 1 spray NASAL DAILY [facility] Glimepiride (Amaryl) 4 mg PO BIDCM [facility] Lactated Ringer's () 1,000 mls @ 125 mls/hr IV .Q8H [facility] Cefazolin Sodium () 1 gm in 50 mls @ 150 mls/hr IV Q8H [facility] Stop: 03/28/19 23:49 Sodium Chloride () 250 mls @ 15 mls/hr IV .[id number] PRN PRN Reason: Saline Flush Insulin Human Lispro (Humalog Kwikpen (Bkc)) 1 - 6 unit SC Q4H PRN PRN; Protocol PRN Reason: BG>/= 180, SEE PROTOCOL Ketorolac Tromethamine (Toradol) 15 mg IV Q6H PRN PRN PRN Reason: Pain Score 1-5/10 Stop: 03/30/19 07:06 Linagliptin (Tradjenta) 5 mg PO DAILY [facility] Lisinopril (Zestril) 2.5 mg PO DAILY [facility] Meloxicam (Mobic) 7.5 mg PO BID [facility] Metformin HCl (Glucophage) 1,000 mg PO BIDCM [facility] Ondansetron HCl (Zofran) 4 mg IV Q8H PRN PRN PRN Reason: NAUSEA Oxycodone HCl (Oxyir) 2.5 mg PO Q4H PRN PRN PRN Reason: Pain Score 4-10/10 Pantoprazole Sodium (Protonix) 20 mg PO DAILY [facility] Promethazine HCl (Phenergan) 12.5 mg IM Q6H PRN PRN; Protocol PRN Reason: NAUSEA/VOMITING Rivaroxaban (Xarelto) 10 mg PO DAILY@0600 [facility] Senna/Docusate Sodium (Senokot-S, Guadalupe-Colace) 2 tablet PO BID [facility] Last Admin: 03/28/19 12:04 Dose: Not Given Documented by: Sodium Chloride () 10 - 40 ml IV UD PRN PRN Reason: SALINE FLUSH Assessment/Plan All Active Problems Arthropathy of right hip (Acute) 1. Status post right total hip arthroplasty ~ on 04/28/2019 on account of osteoarthritis involving the right hip for which patient filled conservative management 2. Diabetes mellitus type II ~Controlled patient's oral hypoglycemics held. Placed on long acting insulin, Accu-Cheks a.c. and at bedtime and covered with sliding scale insulin 3. Dyslipidemia ~patient is on statin therapy, continued at home dose 4. Hypertension ~ blood pressure controlled, home medications continued with dose adjustment as needed 5. Dyslipidemia ~patient is on statin therapy, continued at home dose 6. DVT prophylaxis ?P.o. Xarelto Code Visit Office Visits / Consults: [id number] IP Consult L4
[2019-03-28] MEDS: Famotidine 20 MG Tablet PO (13:24)
[2019-03-28] MEDS: LINAGLIPTIN 5 MG TABLET PO (13:25)
--- NOTE | 2019-03-28 13:34 | CASEMGMT ---
Addendum entered by Shivani Ellison 03/28/19 13:55: SW called [facility], spoke w/her in regard to pt and sent initial referral. PT/OT to be sent once completed. WERNER العلي Original Note: SW met w/pt and his supportive living tech, Isaakesa Briana in room, to talk about prior level of care and discharge plan. PCP: Dr. Johnson Insurance/Prescription plan: [facility] Pharmacy: [facility] BHATIA/LW/POA: Sister in law Pia Laguerre who is pt's POA, forms on chart. Pt is his own guardian. He states his brother and his sister in law is his POA but she has him make his own decisions. Support: Pt has Alina Warren supportive [employer] tech through [facility] [employer]. Pt has sister in law Pia Laguerre, though it seems is not very involved. Pt's managed services consultant through [facility] DD, Anahy Freeman. Pt is part of [facility]. Prior level of function: Alina helps pt with laundry, transporting to store/appointments, bills. Pt independent w/personal ADL's such as bathing and dressing. Pt uses a cane for ambulation. Pt lives in a one story apartment, no steps to enter DME: Has a cane, sister in law got pt a walker Discharge plan: Pt and supportive living tech state pt will need to go to a alf at discharge. Pt has not been to a alf in the past. Pt initially mentioned [facility], but then stated did not care where he went. ISABEL explained will bring a list to him for him to decide. Alina explained that they are working on getting an emergency waiver for pt to go to a retirement for 90 days for respite, but that has not come through yet. In the interim the plan would be for pt to go to alf as he lives alone and cannot care for himself, has a high tub and cannot get into it. ISABEL printed a list and brought it to pt, pt's first choice is [facility]. SW will start the referral process. WERNER العلي
--- NOTE | 2019-03-28 14:01 | CASEMGMT ---
LW/POA forms in paper chart. Pt's brother has ; pt' sister in law Pia Laguerre is POA. WERNER العلي
--- NOTE | 2019-03-28 14:04 | CASEMGMT ---
Social Work Note SW placed transfer to extended care facility document on pt's chart. Brittanie Camejo IMPROVEMENT MANAGER, ROUNDING AND BACKING MACHINE OPERATOR
[2019-03-28] MEDS: Fluticasone 0.05% 1 SPRAY NASAL.SRY NASAL (14:29)
[2019-03-28] MEDS: Empagliflozin 25 MG Tablet PO (14:30)
[2019-03-28] MEDS: Cefazolin 1 GM/50 ML BAG IV ×2 (14:32→22:28)
[2019-03-28] MEDS: metFORMIN HCl 1,000 MG Tablet 1000 MG PO (16:26)
[2019-03-28] MEDS: Glimepiride 4 MG Tablet PO (16:26)
[2019-03-28] MEDS: Ketorolac 15 MG/ML Vial IV (16:27)
[2019-03-28 16:35] LABS: Bedside Glucose 130 mg/dL (70-110)
[2019-03-28] MEDS: oxyCODONE 5 MG Tablet 2.5 MG PO (19:30)
[2019-03-28] MEDS: Senna/Docusate Sodium 1 Tablet 2 TABLET PO (22:28)
[2019-03-28] MEDS: Atorvastatin Calcium 40 MG Tablet PO (22:29)
[2019-03-29] MEDS: Ketorolac 15 MG/ML Vial IV ×2 (02:29→10:00)
[2019-03-29] MEDS: 0.9% Saline Lock 10 ML Syringe IV ×2 (02:30→10:00)
[2019-03-29 02:36] VITALS: BP 113/64; PULSE 67; RESP 16; TEMP 36.8; O2SAT 95
[2019-03-29] MEDS: Acetaminophen 500 MG Tablet 1000 MG PO ×3 (05:17→21:32)
[2019-03-29] MEDS: Rivaroxaban 10 MG Tablet PO (05:18)
[2019-03-29 05:23] LABS: Hematocrit 36.7 % (40-54); Hemoglobin 12.1 g/dL (13.0-16.5); Mean Corpuscular Hgb 31.8 pg (27.0-32.0); Mean Corpuscular Volume 96.6 fL (80-94); Mean Platelet Vol. 11.2 fl (6.2-12.0); Platelet Count 128 K/mm3 (150-450); RBC Distribution Width CV 12.8 % (11.6-14.6); RBC Distribution Width SD 45.1 fl (35.1-43.9); White Blood Count 6.3 K/mm3 (4.4-11.0)
[2019-03-29 05:26] LABS: Scan Indicated on CBC? Y/N NO
[2019-03-29 05:52] LABS: Anion Gap 4 (5-15); BUN 14 mg/dL (7-18); BUN/Creat Ratio 13.6 RATIO (10-20); Calcium,Total 8.1 mg/dL (8.5-10.1); Chloride 108 mmol/L (98-107); Creatinine, Serum 1.03 mg/dL (0.70-1.30); EST Glomerular Filtration Rate 78 mL/min (>60); Est Glom Filt Rate - Afr Amer 94 mL/min (>60); Estimated Creatinine Clearance 58.16 ml/min; Glucose 149 mg/dL (74-106); Potassium 4.5 mmol/L (3.5-5.1); Sodium Level 141 mmol/L (136-145)
[2019-03-29 05:54] VITALS: BP 98/47; PULSE 67; RESP 16; TEMP 37; O2SAT 96
[2019-03-29] MEDS: oxyCODONE 5 MG Tablet 2.5 MG PO ×3 (06:40→23:49)
--- NOTE | 2019-03-29 07:20 | PN_ITS ---
Patient Problems: Active and Suspected Problems Arthropathy of right hip (Acute) Subjective: CC follow-up right hip arthroplasty Postoperative day 1 following right hip arthroplasty, patient seen describes his pain at being 5 out of 10. Objective: GENERAL: cooperative HEENT: Atraumatic; EYES; Anicteric, Normal Conjunctiva NECK; supple, normal thyroid, RESPIRATORY: Diminished to auscultation CARDIOVASCULAR: Regular S1 S2, GI: soft, normoactive bowel sounds, : No Renal angle tenderness; EXTREMITIES: No edema, no clubbing, MUSCULOSKELETAL: no muscle waisting NEURO: Awake; no lateralizing signs. SKIN: No Rash PSYCH; Flat affect Vitals/I&O's: Vital Signs Temp Pulse Resp BP Pulse Ox 98.6 F 67 16 98/47 L 96 03/29/19 05:54 03/29/19 05:54 03/29/19 05:54 03/29/19 05:54 03/29/19 05:54 Oxygen Flow Rate (L/min) 6 Oxygen Delivery Method Room Air Weight: 65.5 kg Body Mass Index (BMI) 26.4 Finger Stick Blood Glucose 224 Intake and Output for Last 24 Hours 03/27/19 03/28/19 03/29/19 23:59 23:59 23:59 Intake Total 4190.00 / 4190.00 481.25 / 481.25 Balance 4190.00 / 4190.00 481.25 / 481.25 Laboratory Results 03/28/19 11:32: POC Glucose 151 H 03/28/19 16:11: POC Glucose 130 H 03/29/19 05:06: WBC 6.3, RBC 3.80 L, Hgb 12.1 L, Hct 36.7 L, MCV 96.6 H, MCH 31.8, MCHC 33.0, RDW Std Deviation 45.1 H, RDW Coeff of [place] 12.8, Plt Count 128 L, MPV 11.2 03/29/19 05:06: Sodium 141, Potassium 4.5, Chloride 108 H, Carbon Dioxide 29.0, Anion Gap 4 L, BUN 14, Creatinine 1.03, Estim Creat Clear Calc 58.16, Est GFR (MDRD) Af Amer 94, Est GFR (MDRD) Non-Af 78, BUN/Creatinine Ratio 13.6, Glucose 149 H, Calcium 8.1 L Current Medications Acetaminophen (Tylenol) 1,000 mg PO Q8 [facility] Last Admin: 03/29/19 05:17 Dose: 1,000 mg Documented by: Albuterol/Ipratropium (Duoneb) 3 ml INHALATION Q6HWA.RT PRN PRN Reason: SOB &/OR WHEEZING Atorvastatin Calcium (Lipitor) 40 mg PO QHS [facility] Last Admin: 03/28/19 22:29 Dose: 40 mg Documented by: Empagliflozin (Jardiance) 25 mg PO DAILY [facility] Last Admin: 03/28/19 14:30 Dose: 25 mg Documented by: Enteral Nutritional Formula (Ensure Surgery) 237 ml PO TIDCM [facility] Last Admin: 03/28/19 16:27 Dose: Not Given Documented by: Famotidine (Pepcid) 20 mg PO DAILY [facility] Last Admin: 03/28/19 13:24 Dose: 20 mg Documented by: Fluticasone Propionate (Flonase Nasal [place]) 1 spray NASAL DAILY [facility] Last Admin: 03/28/19 14:29 Dose: 1 spray Documented by: [facility] Admin: 03/28/19 16:26 Dose: 4 mg Documented by: Sodium Chloride () 250 mls @ 15 mls/hr IV .[id number] PRN PRN Reason: Saline Flush Ketorolac Tromethamine (Toradol) 15 mg IV Q6H PRN PRN PRN Reason: Pain Score 1-5/10 Stop: 03/30/19 07:06 Last Admin: 03/29/19 02:29 Dose: 15 mg Documented by: Linagliptin (Tradjenta) 5 mg PO DAILY [facility] Last Admin: 03/28/19 13:25 Dose: 5 mg Documented by: Lisinopril (Zestril) 2.5 mg PO DAILY [facility] Meloxicam (Mobic) 7.5 mg PO BID [facility] Metformin [facility] (Glucophage) [facility] Last Admin: 03/28/19 16:26 Dose: 1,000 mg Documented by: Ondansetron HCl (Zofran) 4 mg IV Q8H PRN PRN PRN Reason: NAUSEA Oxycodone HCl (Oxyir) 2.5 mg PO Q4H PRN PRN PRN Reason: Pain Score 4-10/10 Last Admin: 03/29/19 06:40 Dose: 2.5 mg Documented by: Pantoprazole Sodium (Protonix) 20 mg PO DAILY [facility] Promethazine HCl (Phenergan) 12.5 mg IM Q6H PRN PRN; Protocol PRN Reason: NAUSEA/VOMITING Rivaroxaban (Xarelto) 10 mg PO DAILY@0600 [facility] Last Admin: 03/29/19 05:18 Dose: 10 mg Documented by: Senna/Docusate Sodium (Senokot-S, Guadalupe-Colace) 2 tablet PO BID [facility] Last Admin: 03/28/19 22:28 Dose: 2 tablet Documented by: Sodium Chloride () 10 - 40 ml IV UD PRN PRN Reason: SALINE FLUSH Last Admin: 03/29/19 02:30 Dose: 10 ml Documented by: STROKE Vital Signs/Narrative: Vital Signs Temp Pulse Resp BP Pulse Ox 03/29/19 05:54 98.6 F 67 16 98/47 L 96 Medical Necessity - Tobacco Use Smoking Status: Former smoker Tobacco Use: Non-smoker Assessment/Plan All Active Problems Arthropathy of right hip (Acute) 1. Status post right total hip arthroplasty ~ on 03/28/2019 on account of osteoarthritis involving the right hip for which patient filled conservative management ?03/29/2019Postoperative day 1 following right hip arthroplasty, patient seen describes his pain at being 5 out of 10. 2. Diabetes mellitus type II ~Controlled patient's oral hypoglycemics held. Placed on long acting insulin, Accu-Cheks a.c. and at bedtime and covered with sliding scale insulin 3. Dyslipidemia ~patient is on statin therapy, continued at home dose 4. Hypertension ~ blood pressure controlled, home medications continued with dose adjustment as needed 5. Dyslipidemia ~patient is on statin therapy, continued at home dose 6. DVT prophylaxis ?P.o. Xarelto Code Visit Inpatient E&M: 99487 Subs Hosp L2
[2019-03-29 07:52] VITALS: BP 84/49; PULSE 81; RESP 18; TEMP 37; O2SAT 98
--- NOTE | 2019-03-29 08:01 | PCM.PN.ORT ---
Patient Problems: Active and Suspected Problems Arthropathy of right hip (Acute) Subjective: The patient was sitting in bedside chair upon examination. Patient denies any chest pain, shortness of breath, dizziness, lightheadedness, nausea or vomiting, or calf pain. Pain is controlled on medications. No adverse overnight events. Patient does report pain in his right hip. Medications are helpful. Plan is for patient to go to jail facility upon discharge. Objective: Vital signs stable and afebrile. Patient is able to plantarflex and dorsiflex actively. Sensation is intact to light touch to saphenous, sural, superficial and deep peroneal, and tibial distribution. Dressing is with drainage over the lateral one third of the incision, new dressing will be placed Negative Homans bilaterally, negative signs and symptoms of DVT. - Physical Exam Vitals/I&O's: Vital Signs Temp Pulse Resp BP Pulse Ox 98.6 F 81 18 84/49 L 98 03/29/19 07:52 03/29/19 07:52 03/29/19 07:52 03/29/19 07:52 03/29/19 07:52 Oxygen Flow Rate (L/min) 6 Oxygen Delivery Method Room Air Weight: 65.5 kg Body Mass Index (BMI) 26.4 Finger Stick Blood Glucose 224 Intake and Output for Last 24 Hours 03/27/19 03/28/19 03/29/19 23:59 23:59 23:59 Intake Total 4190.00 / 4190.00 481.25 / 481.25 Balance 4190.00 / 4190.00 481.25 / 481.25 General: Alert, Oriented x3, Cooperative, No apparent distress Laboratory Results 03/28/19 11:32: POC Glucose 151 H 03/28/19 16:11: POC Glucose 130 H 03/29/19 05:06: WBC 6.3, RBC 3.80 L, Hgb 12.1 L, Hct 36.7 L, MCV 96.6 H, MCH 31.8, MCHC 33.0, RDW Std Deviation 45.1 H, RDW Coeff of Namrata 12.8, Plt Count 128 L, MPV 11.2 03/29/19 05:06: Sodium 141, Potassium 4.5, Chloride 108 H, Carbon Dioxide 29.0, Anion Gap 4 L, BUN 14, Creatinine 1.03, Estim Creat Clear Calc 58.16, Est GFR (MDRD) Af Amer 94, Est GFR (MDRD) Non-Af 78, BUN/Creatinine Ratio 13.6, Glucose 149 H, Calcium 8.1 L Current Medications Acetaminophen (Tylenol) 1,000 mg PO Q8 [facility] Last Admin: 03/29/19 05:17 Dose: 1,000 mg Documented by: Albuterol/Ipratropium (Duoneb) 3 ml INHALATION Q6HWA.RT PRN PRN Reason: SOB &/OR WHEEZING Atorvastatin Calcium (Lipitor) 40 mg PO QHS [facility] Last Admin: 03/28/19 22:29 Dose: 40 mg Documented by: Empagliflozin (Jardiance) 25 mg PO DAILY [facility] Last Admin: 03/28/19 14:30 Dose: 25 mg Documented by: Enteral Nutritional Formula (Ensure Surgery) 237 ml PO TIDCM [facility] Last Admin: 03/28/19 16:27 Dose: Not Given Documented by: Famotidine (Pepcid) 20 mg PO DAILY [facility] Last Admin: 03/28/19 13:24 Dose: 20 mg Documented by: Fluticasone Propionate (Flonase Nasal [place]) 1 spray NASAL DAILY [facility] Last Admin: 03/28/19 14:29 Dose: 1 spray Documented by: [facility] ([facility]l) [facility] Last Admin: 03/28/19 16:26 Dose: 4 mg Documented by: Sodium Chloride () 250 mls @ 15 mls/hr IV .[id number] PRN PRN Reason: Saline Flush Ketorolac Tromethamine (Toradol) 15 mg IV Q6H PRN PRN PRN Reason: Pain Score 1-5/10 Stop: 03/30/19 07:06 Last Admin: 03/29/19 02:29 Dose: 15 mg Documented by: Linagliptin (Tradjenta) 5 mg PO DAILY [facility] Last Admin: 03/28/19 13:25 Dose: 5 mg Documented by: Lisinopril (Zestril) 2.5 mg PO DAILY [facility] Meloxicam (Mobic) 7.5 mg PO BID [facility] Metformin HCl (Glucophage) 1,000 mg PO BIDCM [facility] Last Admin: 03/28/19 16:26 Dose: 1,000 mg Documented by: Ondansetron HCl (Zofran) 4 mg IV Q8H PRN PRN PRN Reason: NAUSEA Oxycodone HCl (Oxyir) 2.5 mg PO Q4H PRN PRN PRN Reason: Pain Score 4-10/10 Last Admin: 03/29/19 06:40 Dose: 2.5 mg Documented by: Pantoprazole Sodium (Protonix) 20 mg PO DAILY [facility] Promethazine HCl (Phenergan) 12.5 mg IM Q6H PRN PRN; Protocol PRN Reason: NAUSEA/VOMITING Rivaroxaban (Xarelto) 10 mg PO DAILY@0600 [facility] Last Admin: 03/29/19 05:18 Dose: 10 mg Documented by: Senna/Docusate Sodium (Senokot-S, Guadalupe-Colace) 2 tablet PO BID [facility] Last Admin: 03/28/19 22:28 Dose: 2 tablet Documented by: Sodium Chloride () 10 - 40 ml IV UD PRN PRN Reason: SALINE FLUSH Last Admin: 03/29/19 02:30 Dose: 10 ml Documented by: Medical Necessity - Tobacco Use Smoking Status: Former smoker Tobacco Use: Non-smoker Assessment/Plan All Active Problems Arthropathy of right hip (Acute) 1. S/P right direct anterior total hip arthroplasty POD #1 2. Continue Pain Medications: Tylenol and OxyIR 3. DVT Prophylaxis: Xarelto 4. PT/OT: Weightbearing as tolerated 5. H & H: 12.1/36.7, asymptomatic 6. Continue postoperative medical management per medicine 7. Encouraged Incentive Spirometry 8. Disposition: Plan will be for discharge to jail facility. Case management is involved. Will replace Mepilex dressing over the right hip but continue with physical therapy. Continue to monitor.
[2019-03-29] MEDS: Glimepiride 4 MG Tablet PO ×2 (08:03→16:15)
[2019-03-29] MEDS: metFORMIN HCl 1,000 MG Tablet 1000 MG PO ×2 (08:04→16:16)
[2019-03-29] MEDS: Fluticasone 0.05% 1 SPRAY NASAL.SRY NASAL (08:05)
[2019-03-29] MEDS: Pantoprazole Sodium 20 MG Tablet PO (08:06)
[2019-03-29] MEDS: Meloxicam 7.5 MG Tablet PO ×2 (08:06→21:32)
[2019-03-29] MEDS: Empagliflozin 25 MG Tablet PO (08:06)
[2019-03-29] MEDS: Senna/Docusate Sodium 1 Tablet 2 TABLET PO ×2 (08:06→21:32)
[2019-03-29] MEDS: LINAGLIPTIN 5 MG TABLET PO (08:07)
[2019-03-29] MEDS: Ensure Surgery 237 ML LIQUID PO ×3 (08:23→16:15)
--- NOTE | 2019-03-29 08:51 | CASEMGMT ---
Staci from [facility] left a message stating they can take pt. ISABEL faxed PT/OT over this morning, left a message for Staci to let her know the notes are being faxed over and to follow up w/the SW on the floor. Staci had also asked about pt, being that he has services from [facility]. A hospital exemption can be completed, a PAS/RR is not needed as it is anticipated pt will be there less than 30 days and is inpt, so he will not need a further review. ISABEL explained this in the message to Staci. ISABEL remains available for any additional assist. WERNER العلي
[2019-03-29] MEDS: Famotidine 20 MG Tablet PO (10:12)
[2019-03-29 11:26] LABS: Bedside Glucose 135 mg/dL (70-110)
--- NOTE | 2019-03-29 13:37 | CASEMGMT ---
Social Work Note Esha from [facility] at [facility] and speaking with pt. SW received message from Staci at [facility] stating she submitted for pre-cert. SW received call from Hermelindo PALAFOX and updated him that pt will need pre-cert to go to SNF which will likely be obtained tomorrow. Plan: [facility] pending pre-cert Brittanie Camejo MEDICAL LIBRARIAN, SR. MANAGER
[2019-03-29 14:00] VITALS: BP 99/50; PULSE 78; RESP 18; TEMP 36.7; O2SAT 97
[2019-03-29 16:10] LABS: Bedside Glucose 195 mg/dL (70-110)
[2019-03-29 20:00] VITALS: BP 109/49; PULSE 79; RESP 16; TEMP 36.9; O2SAT 96
[2019-03-29] MEDS: Atorvastatin Calcium 40 MG Tablet PO (21:32)
[2019-03-30 02:00] VITALS: BP 127/66; PULSE 78; RESP 16; TEMP 36.7; O2SAT 98
[2019-03-30] MEDS: Rivaroxaban 10 MG Tablet PO (05:09)
[2019-03-30] MEDS: Acetaminophen 500 MG Tablet 1000 MG PO ×2 (05:10→13:10)
[2019-03-30 05:38] LABS: Hematocrit 32.5 % (40-54); Hemoglobin 10.6 g/dL (13.0-16.5); Mean Corp Hgb Conc 32.6 g/dL (32-36); Mean Corpuscular Hgb 31.7 pg (27.0-32.0); Mean Corpuscular Volume 97.3 fL (80-94); Mean Platelet Vol. 11.2 fl (6.2-12.0); Platelet Count 117 K/mm3 (150-450); RBC Distribution Width CV 12.7 % (11.6-14.6); RBC Distribution Width SD 45.3 fl (35.1-43.9); Red Blood Count 3.34 M/mm3 (4.6-6.2); White Blood Count 5.4 K/mm3 (4.4-11.0)
[2019-03-30 05:44] LABS: Scan Indicated on CBC? Y/N NO
--- NOTE | 2019-03-30 06:50 | PN.ORTHO_ITS ---
Patient Problems: Active and Suspected Problems Arthropathy of right hip (Acute) Subjective: The patient was sitting in bedside chair upon examination. Patient denies any chest pain, shortness of breath, dizziness, lightheadedness, nausea or vomiting, or calf pain. Pain is controlled on medications. No adverse overnight events. Patient states the pain is doing much better today. Dressing was also changed yesterday and there is no drainage today. We are waiting on precertification from the insurance for patient to go to [facility]. Patient is ready for discharge and we were waiting on insurance. Objective: Vital signs stable and afebrile. Patient is able to plantarflex and dorsiflex actively. Sensation is intact to light touch to saphenous, sural, superficial and deep peroneal, and tibial distribution. Dressing is clean dry and intact. Negative Homans bilaterally, negative signs and symptoms of DVT. - Physical Exam Vitals/I&O's: Vital Signs Temp Pulse Resp BP Pulse Ox 98.1 F 78 16 127/66 H 98 03/30/19 02:00 03/30/19 02:00 03/30/19 02:00 03/30/19 02:00 03/30/19 02:00 Oxygen Flow Rate (L/min) 6 Oxygen Delivery Method Room Air Weight: 65.5 kg Body Mass Index (BMI) 26.4 Finger Stick Blood Glucose 224 Intake and Output for Last 24 Hours 03/28/19 03/29/19 03/30/19 23:59 23:59 23:59 Intake Total 4190.00 / 4190.00 2691.25 / 2691.25 360 / 360 Balance 4190.00 / 4190.00 2691.25 / 2691.25 360 / 360 General: Alert, Oriented x3, Cooperative, No apparent distress Laboratory Results 03/29/19 11:20: POC Glucose 135 H 03/29/19 15:57: POC Glucose 195 H 03/30/19 05:04: WBC 5.4, RBC 3.34 L, Hgb 10.6 L, Hct 32.5 L, MCV 97.3 H, MCH 31.7, MCHC 32.6, RDW Std Deviation 45.3 H, RDW Coeff of Namrata 12.7, Plt Count 117 L, MPV 11.2 Current Medications Acetaminophen (Tylenol) 1,000 mg PO Q8 [facility] Last Admin: 03/30/19 05:10 Dose: 1,000 mg Documented by: Albuterol/Ipratropium (Duoneb) 3 ml INHALATION Q6HWA.RT PRN PRN Reason: SOB &/OR WHEEZING Atorvastatin Calcium (Lipitor) 40 mg PO QHS [facility] Last Admin: 03/29/19 21:32 Dose: 40 mg Documented by: Empagliflozin (Jardiance) 25 mg PO DAILY [facility] Last Admin: 03/29/19 08:06 Dose: 25 mg Documented by: Enteral Nutritional Formula (Ensure Surgery) 237 ml PO TIDCM [facility] Last Admin: 03/29/19 16:15 Dose: 237 ml Documented by: Famotidine (Pepcid) 20 mg PO DAILY [facility] Last Admin: 03/29/19 10:12 Dose: 20 mg Documented by: Fluticasone Propionate (Flonase Nasal [place]) 1 spray NASAL DAILY [facility] Last Admin: 03/29/19 08:05 Dose: 1 spray Documented by: [facility] Last Admin: 03/29/19 16:15 Dose: 4 mg Documented by: Sodium Chloride () 250 mls @ 15 mls/hr IV .[id number] PRN PRN Reason: Saline Flush Linagliptin (Tradjenta) 5 mg PO DAILY [facility] Last Admin: 03/29/19 08:07 Dose: 5 mg Documented by: Lisinopril (Zestril) 2.5 mg PO DAILY [facility] Last Admin: 03/29/19 09:54 Dose: Not Given Documented by: Meloxicam (Mobic) 7.5 mg PO BID [facility] Last Admin: 03/29/19 21:32 Dose: 7.5 mg Documented by: Metformin HCl (Glucophage) 1,000 mg PO BIDCM [facility] Last Admin: 03/29/19 16:16 Dose: 1,000 mg Documented by: Ondansetron HCl (Zofran) 4 mg IV Q8H PRN PRN PRN Reason: NAUSEA Oxycodone HCl (Oxyir) 2.5 mg PO Q4H PRN PRN PRN Reason: Pain Score 4-10/10 Last Admin: 03/29/19 23:49 Dose: 2.5 mg Documented by: Pantoprazole Sodium (Protonix) 20 mg PO DAILY [facility] Last Admin: 03/29/19 08:06 Dose: 20 mg Documented by: Promethazine HCl (Phenergan) 12.5 mg IM Q6H PRN PRN; Protocol PRN Reason: NAUSEA/VOMITING Rivaroxaban (Xarelto) 10 mg PO DAILY@0600 [facility] Last Admin: 03/30/19 05:09 Dose: 10 mg Documented by: Senna/Docusate Sodium (Senokot-S, Guadalupe-Colace) 2 tablet PO BID [facility] Last Admin: 03/29/19 21:32 Dose: 2 tablet Documented by: Sodium Chloride () 10 - 40 ml IV UD PRN PRN Reason: SALINE FLUSH Last Admin: 03/29/19 10:00 Dose: 10 ml Documented by: Medical Necessity - Tobacco Use Smoking Status: Former smoker Tobacco Use: Non-smoker Assessment/Plan All Active Problems Arthropathy of right hip (Acute) 1. S/P right direct anterior total hip arthroplasty POD #2 2. Continue Pain Medications: Tylenol and OxyIR 3. DVT Prophylaxis: Xarelto 3 weeks postoperatively 4. PT/OT: Weightbearing as tolerated 5. H & H: 10.6/32.5, asymptomatic 6. Continue postoperative medical management per medicine 7. Encouraged Incentive Spirometry 8. Disposition: Plan will be for discharge to shelter facility possibly today. Patient is orthopedically stable and we are only waiting on insurance with pre-CERT. Case management is involved. Prescriptions will be attached to chart. Patient will follow-up per postop instructions.
--- NOTE | 2019-03-30 06:58 | PCM.DC.THR ---
Discharge Diet: 1800 Calorie Control Diet Discharge Activity: May Not Drive - while taking narcotic pain medications. May shower in (days): 1 - Okay to shower if dressing intact to skin, turn dressing away from water Ice area for (Minutes): 20 - Every 1-2 hours while awake Weight Bearing Status: Weight bearing as tolerated - With walker Elevate: Operative Extremity Additional Activity Instructions:: Wear elastic stockings for 2 weeks. DO NOT use alcohol with narcotic pain medication. DO NOT make important decisions while taking narcotic medication. If you have problems with taking your medication (rash, itching, nausea, etc.) call the office at once. Call your doctor if your incision/area has: Increased Pain/ Swelling, Increased Redness, Foul Smelling Discharge Call your doctor if you observe: Fever of 101 or Higher Remove Dressing in (days):: 3 - Okay to remove dressing on April 02, 2019 Additional Instructions: Follow [place] [facility] postop instructions DVT prophylaxis: Will be placed on Xarelto for 3 weeks postoperatively for DVT prophylaxis Pain control: Proceed with x-ray strength Tylenol 500 mg 2 tablets 3 times daily for primary pain control, only use oxycodone for breakthrough pain. Physical therapy/Occupational Therapy: Total hip was done from anterior approach, there are no posterior hip dislocation precautions. Weightbearing as tolerated with walker and can progress to cane when appropriate. Allergies/Adverse Reactions: Allergies aspirin Allergy (Verified 03/28/19 06:00) Unknown codeine Allergy (Verified 03/28/19 06:00) Unknown Medications to take at Discharge Atorvastatin Calcium [Lipitor] 40 mg PO QHS 07/10/13 Esomeprazole Magnesium [Nexium] 20 mg PO DAILY 07/10/13 Ipratropium/Albuterol Respimat [Combivent Respimat Inhal Preemption] 1 puff INHALATION BID PRN 07/10/13 Metformin [Metformin HCl] 1,000 mg PO BID 07/10/13 Glimepiride [Amaryl] 4 mg PO BID 06/16/17 Oxaprozin 600 mg PO BID 09/03/17 Empagliflozin [Jardiance] 25 mg PO DAILY 03/16/19 Fluticasone 0.05% [Flonase Nasal Pre[facility]] 1 spray NASAL DAILY 03/16/19 Lisinopril [Zestril] 2.5 mg PO DAILY 03/16/19 Saxagliptin HCl [Onglyza] 5 mg PO DAILY 03/16/19 Acetaminophen [Tylenol] 1,000 mg PO Q8 14 Days tablet 03/30/19 Oxycodone [Oxyir] 5 mg PO Q4H PRN PRN 5 Days #30 tab 03/30/19 Rivaroxaban [Xarelto] 10 mg PO DAILY@0600 #19 tab 03/30/19 Senna/Docusate Sodium [Senokot-S] 2 tablet PO BID 2 Days tablet 03/30/19 The following prescriptions were given: Oxycodone [Oxyir] 5 mg PO Q4H PRN PRN 5 Days #30 tab PRN Reason: Pain Score 4-03/15 Prescription Printed Rivaroxaban [Xarelto] 10 mg PO DAILY@0600 #19 tab Prescription Printed Primary Care Physician: Ligia Johnson MD [Primary Care Provider] - Test Results: Test results from this visit will be discussed in further detail at your follow-up appointment, if applicable. Please Follow Up With: Quoc Saha PA-C When: 04/11/19 @ 10:00 am
--- NOTE | 2019-03-30 07:22 | PCM.PN.HOSP ---
Patient Problems: Active and Suspected Problems Arthropathy of right hip (Acute) Subjective: CC follow-up right hip arthroplasty Postoperative day 2 plans for patient to be discharged to a correction facility pending insurance precertification Objective: GENERAL: cooperative HEENT: Atraumatic; EYES; Anicteric, Normal Conjunctiva NECK; supple, normal thyroid, RESPIRATORY: Diminished to auscultation CARDIOVASCULAR: Regular S1 S2, GI: soft, normoactive bowel sounds, : No Renal angle tenderness; EXTREMITIES: No edema, no clubbing, MUSCULOSKELETAL: no muscle waisting NEURO: Awake; no lateralizing signs. SKIN: No Rash PSYCH; Flat affect Vitals/I&O's: Vital Signs Temp Pulse Resp BP Pulse Ox 98.1 F 78 16 127/66 H 98 03/30/19 02:00 03/30/19 02:00 03/30/19 02:00 03/30/19 02:00 03/30/19 02:00 Oxygen Flow Rate (L/min) 6 Oxygen Delivery Method Room Air Weight: 65.5 kg Body Mass Index (BMI) 26.4 Finger Stick Blood Glucose 224 Intake and Output for Last 24 Hours 03/28/19 03/29/19 03/30/19 23:59 23:59 23:59 Intake Total 4190.00 / 4190.00 2691.25 / 2691.25 360 / 360 Balance 4190.00 / 4190.00 2691.25 / 2691.25 360 / 360 Laboratory Results 03/29/19 11:20: POC Glucose 135 H 03/29/19 15:57: POC Glucose 195 H 03/30/19 05:04: WBC 5.4, RBC 3.34 L, Hgb 10.6 L, Hct 32.5 L, MCV 97.3 H, MCH 31.7, MCHC 32.6, RDW Std Deviation 45.3 H, RDW Coeff of Namrata 12.7, Plt Count 117 L, MPV 11.2 Current Medications Acetaminophen (Tylenol) 1,000 mg PO Q8 [facility] Last Admin: 03/30/19 05:10 Dose: 1,000 mg Documented by: Albuterol/Ipratropium (Duoneb) 3 ml INHALATION Q6HWA.RT PRN PRN Reason: SOB &/OR WHEEZING Atorvastatin Calcium (Lipitor) 40 mg PO QHS [facility] Last Admin: 03/29/19 21:32 Dose: 40 mg Documented by: Empagliflozin (Jardiance) 25 mg PO DAILY [facility] Last Admin: 03/29/19 08:06 Dose: 25 mg Documented by: Enteral Nutritional Formula (Ensure Surgery) 237 ml PO TIDCM [facility] Last Admin: 03/29/19 16:15 Dose: 237 ml Documented by: Famotidine (Pepcid) 20 mg PO DAILY [facility] Last Admin: 03/29/19 10:12 Dose: 20 mg Documented by: Fluticasone Propionate (Flonase Nasal [place]) 1 spray NASAL DAILY [facility] Last Admin: 03/29/19 08:05 Dose: 1 spray Documented by: Glimepiride (Amaryl) 4 mg PO BIDCM [facility] Last Admin: 03/29/19 16:15 Dose: 4 mg Documented by: Sodium Chloride () 250 mls @ 15 mls/hr IV .[id number] PRN PRN Reason: Saline Flush Linagliptin (Tradjenta) 5 mg PO DAILY [facility] Last Admin: 03/29/19 08:07 Dose: 5 mg Documented by: Lisinopril (Zestril) 2.5 mg PO DAILY [facility] Last Admin: 03/29/19 09:54 Dose: Not Given Documented by: Meloxicam (Mobic) 7.5 mg PO BID [facility] Last Admin: 03/29/19 21:32 Dose: 7.5 mg Documented by: Metformin HCl (Glucophage) 1,000 mg PO BIDCM [facility] Last Admin: 03/29/19 16:16 Dose: 1,000 mg Documented by: Ondansetron HCl (Zofran) 4 mg IV Q8H PRN PRN PRN Reason: NAUSEA Oxycodone HCl (Oxyir) 2.5 mg PO Q4H PRN PRN PRN Reason: Pain Score 4-10/10 Last Admin: 03/29/19 23:49 Dose: 2.5 mg Documented by: Pantoprazole Sodium (Protonix) 20 mg PO DAILY [facility] Last Admin: 03/29/19 08:06 Dose: 20 mg Documented by: Promethazine HCl (Phenergan) 12.5 mg IM Q6H PRN PRN; Protocol PRN Reason: NAUSEA/VOMITING Rivaroxaban (Xarelto) 10 mg PO DAILY@0600 [facility] Last Admin: 03/30/19 05:09 Dose: 10 mg Documented by: Senna/Docusate Sodium (Senokot-S, Guadalupe-Colace) 2 tablet PO BID [facility] Last Admin: 03/29/19 21:32 Dose: 2 tablet Documented by: Sodium Chloride () 10 - 40 ml IV UD PRN PRN Reason: SALINE FLUSH Last Admin: 03/29/19 10:00 Dose: 10 ml Documented by: Medical Necessity - Tobacco Use Smoking Status: Former smoker Tobacco Use: Non-smoker Assessment/Plan All Active Problems Arthropathy of right hip (Acute) 1. Status post right total hip arthroplasty ~ on 03/28/2019 on account of osteoarthritis involving the right hip for which patient filled conservative management ?03/29/2019Postoperative day 1 following right hip arthroplasty, patient seen describes his pain at being 5 out of 10. - 03/30/2019: Postoperative day 2 plans for patient to be discharged to a correction facility pending insurance precertification 2. Diabetes mellitus type II ~Controlled patient's oral hypoglycemics held. Placed on long acting insulin, Accu-Cheks a.c. and at bedtime and covered with sliding scale insulin 3. Dyslipidemia ~patient is on statin therapy, continued at home dose 4. Hypertension ~ blood pressure controlled, home medications continued with dose adjustment as needed 5. Dyslipidemia ~patient is on statin therapy, continued at home dose 6. DVT prophylaxis ?P.o. Xarelto Code Visit Inpatient E&M: 98927 Subs Hosp L2
[2019-03-30 07:28] VITALS: BP 114/55; PULSE 70; RESP 20; TEMP 36.9; O2SAT 98
[2019-03-30] MEDS: metFORMIN HCl 1,000 MG Tablet 1000 MG PO (07:57)
[2019-03-30] MEDS: Ensure Surgery 237 ML LIQUID PO (07:57)
[2019-03-30] MEDS: Senna/Docusate Sodium 1 Tablet 2 TABLET PO (07:58)
[2019-03-30] MEDS: Glimepiride 4 MG Tablet PO (07:58)
[2019-03-30] MEDS: Meloxicam 7.5 MG Tablet PO (07:59)
[2019-03-30] MEDS: Lisinopril 2.5 MG Tablet PO (07:59)
[2019-03-30] MEDS: Empagliflozin 25 MG Tablet PO (07:59)
[2019-03-30] MEDS: Pantoprazole Sodium 20 MG Tablet PO (07:59)
[2019-03-30] MEDS: LINAGLIPTIN 5 MG TABLET PO (08:00)
[2019-03-30] MEDS: Fluticasone 0.05% 1 SPRAY NASAL.SRY NASAL (08:00)
[2019-03-30] MEDS: Famotidine 20 MG Tablet PO (08:01)
--- NOTE | 2019-03-30 09:30 | CASEMGMT ---
Social Work Note SW received call from Staci at [facility] stating pt has been denied SNF. Staci faxed over denial information. ISABEL informed Staci that ortho physicians will not do peer to peers. SW in to speak with pt. SW informed pt that his insurance has denied him SNF. Pt states benjy fisher. SW offered support to pt. SW informed pt that his options are to pay privately for SNF or return home with HHC or outpatient therapy. Pt states no one is coming into my home. Pt informed this worker that it is up to his lining inserter Alina what he does. Pt informed this worker to call Alina. SW placed a call to pt's caregiver Alina an informed Alina that pt has been denied SNF. SW informed Alina the options of private pay for SNF, vs home with HHC vs outpatient therapy. Alina states pt doesn't have the funds to pay privately and pt is not able to return home at discharge as his apartment is not good at this time. Alina states pt recently decided to move and his apartment is behind a shop that works on cars and pt's apartment is dirty. SW informed Alina that pt is moving well with PT/OT (supervision 100ft and contact guard for stairs) and is moving well enough to go home and just because pt's apartment is dirty doesn't justify SNF placement. Alina states she will have to work on getting pt emergency longterm placement. Alina states that plan was for pt to go to SNF and then work on getting waiver arranged for pt to go to longterm from SNF. Alina states she will work on alternative placement options. SW received call from Staci at [facility] stating she is able to complete LOC [facility] but she will need a PAS/RR. ISABEL informed Staci that pt is ready for discharge today and pt will trip the screen and will likely be at [facility] through the weekend waiting for evaluations from Board of . Staci states she will call pt's insurance and will also call [facility] and find out if PAS/RR has to be completed now or can be completed when pt is at facility. ISABEL spoke with Shivani CALDERA who states pt is in inpatient status and convalescent 7000 can be completed and not PAS/RR. ISABEL placed a call back to Staci at [facility] and updated her that convalescent 7000 can be completed and pt won't trip the screen then. Staci states she will work on getting LOC for pt for intermediate care. SW completed convalescent 7000 in HENS and faxed copy to Staci at [facility]. SW received another call from pt's lining inserter Alina who asked for reason behind denial. ISABEL read to Alina what the insurance said in the denial form for pt. Alina states she will speak with Director of coordination services to determine if emergency placement to longterm can happen today. Plan: [facility] pending LOC Brittanie Camejo HIDE HANDLER, FIBER OPTIC TECHNICIAN
[2019-03-30] MEDS: oxyCODONE 5 MG Tablet 2.5 MG PO (10:43)
--- NOTE | 2019-03-30 11:00 | CASEMGMT ---
Social Work Note ISABEL received call from Staci at [facility] stating she received pending authorization through pt's medicaid for pt to admit. ISABEL asked Staci to clarify if that means pt can discharge to [facility] today. Staci states that pt is able to admit to [facility] today under his medicaid. ISABEL placed a call to Alina that pt can be admitted to [facility] today under his medicaid. Alina states understanding, states she will be at [facility] around 2:00pm to transport pt. ISABEL faxed completed discharge paperwork to Staci at [facility] including transfer to extended care facility, signed medication list and any scripts. Original in SNF folder and copy on pt's chart. ISABEL completed convalescent 7000 in HENS. Original in SNF folder and copy on pt's chart. ISABEL updated ward secretary, RN and pt on approval to [facility] and transportation time. ISABEL placed a call to Staci at [facility] and updated her on transportation time. Plan: [facility] today intermediate with pt's caregiver/filament wound parts fabricator Alina transporting pt around 2:00pm Brittanie Camejo OUTPATIENT COORDINATOR, MEDICAL GRADE SHOEMAKER
[2019-03-30 13:09] VITALS: BP 119/64; PULSE 89; RESP 18; TEMP 36.6; O2SAT 100
== END 2019-03-30 13:25 | disposition intermediate care facility (04) | DRG 470 ==
LOC: ACINP 05:27 → MS3 07:21
PROVIDERS: Admitting Provider Specialist; Family Provider Internal Medicine; PCP Internal Medicine; Referring Provider Specialist; Visit Provider Specialist
PROC: 0SR904A Replacement of Right Hip Joint with Ceramic on Polyethylene Synthetic Substitute, Uncemented, Open Approach (ICD-10-PCS; CPT 27284; principal; 2019-03-28 07:05)
DX: M16.11 Unilateral primary osteoarthritis, right hip (principal); E11.9 Type 2 diabetes mellitus without complications; E78.5 Hyperlipidemia, unspecified; I10 Essential (primary) hypertension; Z79.84 Long term (current) use of oral hypoglycemic drugs; Z87.891 Personal history of nicotine dependence
CPT/HCPCS: 36415; 73501; 73502; 76000; 80048; 82962; 85027; 87081; 88305; 88311; 93005; 97116; 97162; 97166; 97530; 97535; 99251; C1776; J7120; A4216; G0463

== ENCOUNTER 2019-11-25 21:53 | Emergency (ER) | payer MEDICARE, MEDICAID, SELFPAY ==
[2019-03-28 11:59] VITALS: BMI 26.4
[2019-11-25 21:54] VITALS: BP 151/88; PULSE 121; RESP 19; TEMP 37; O2SAT 98; BMI 28.5
--- NOTE | 2019-11-25 22:09 | EKG12_ITS ---
Test Reason : GI BLEED Blood Pressure : / mmHG Vent. Rate : 107 BPM Atrial Rate : 107 BPM P-R Int : 144 ms QRS Dur : 076 ms QT Int : 344 ms P-R-T Axes : 050 -11 050 degrees QTc Int : 459 ms Sinus tachycardia Septal infarct , age undetermined Abnormal ECG Confirmed by BALDO ASIF, VICTORIANO ([id number]), assistant production editor BRIE BELL ([id number]) on 11/27/2019 9:20:16 AM Referred By: HELEN Confirmed By:VICTORIANO BLAND MD
[2019-11-25 22:27] LABS: Absolute Lymphocyte Count 1.66 X10^3/uL (0.83-4.51); Absolute Neutrophil Count 5.6 X10^3/uL (2.0-7.7); Basophil# 0.04 X10^3/uL; Basophil% 0.5 % (0-1); Eosinophil# 0.14 X10^3/uL; Eosinophils% 1.7 % (0-5); Hematocrit 42.8 % (40-54); Hemoglobin 13.5 g/dL (13.0-16.5); Lymphocyte # 1.66 X10^3/ul (4.0); Lymphocyte % 20.4 % (19-41); Mean Corp Hgb Conc 31.5 g/dL (32-36); Mean Corpuscular Volume 88.8 fL (80-94); Mean Platelet Vol. 11.2 fl (6.2-12.0); Monocyte# 0.69 X10^3/uL; Monocyte% 8.5 % (0-10); NRBC Flagged by Analyzer 0 % (0-5); Neutrophil # 5.56 X10^3/uL (2.7-7.7); Neutrophil % 68.4 % (47-70); Platelet Count 184 K/mm3 (150-450); RBC Distribution Width CV 15.4 % (11.6-14.6); RBC Distribution Width SD 49.4 fl (35.1-43.9); Red Blood Count 4.82 M/mm3 (4.6-6.2); White Blood Count 8.1 K/mm3 (4.4-11.0)
--- NOTE | 2019-11-25 22:38 | ED.DCSUM_ITS ---
- ER Visit Summary Date of Service: 11/25/19 Chief Complaint: [Rectal bleeding] History of Present Illness: The patient is a 59 M [presents to the emergency department complaint of rectal bleeding that started today. Patient denies any abdominal pain today. Patient states he had a little bit of abdominal pain yesterday but none today. Patient states that he thinks he has hemorrhoids. It is unclear if he is on anticoagulation it appears at one point he was on Xarelto for unknown reason. Patient is currently at an assisted living facility. He has a history of diabetes, hypertension, high cholesterol. Patient tells me that his primary care physician has scheduled him to have a colonoscopy soon.] Physical Examination: [HEENT-PERRLA, EOMI. Cranial nerves II through XII grossly intact. TMs clear. Mucous membranes moist. No adenopathy. Cardiovascular-regular rate and rhythm without murmur or ectopy Lungs-clear to auscultation, chest wall stable without crepitus or subcu emphysema Abdomen-normoactive bowel sounds, soft, nontender, no rebound or rigidity, no peritoneal signs. Rectal exam-patient does have external hemorrhoids. It is noted that he does have oozing from 1 of the hemorrhoids at the 6 o'clock position. 2 of the hemorrhoids are slightly firm but nontender. No evidence of thrombosed hemorrhoids. Extremities-intact ?4, normal range of motion, normal pulses, atraumatic] Test Results: [EKG obtained arrival shows sinus tachycardia with a ventricular rate of 107 bpm with no acute segment changes. CBC with differential showing of 8.1, hemoglobin 13, hematocrit 43, plates 184. Chemistries unremarkable. BUN 23 and creatinine 1.58. Lactate was 2.2. Orthostatic vital signs were negative.] Emergency Department Course and Treatment: [ Established on arrival. Patient had a type and screen ordered on arrival.] Treatment Plan: [Case discussed with general surgeon on-call Dr. Gutierrez. Patient currently no longer bleeding. He will follow-up with general surgeon on-call.] Disposition: [Discharged home in stable condition] Impression: [Lower GI bleed-stable Bleeding hemorrhoids] This note was generated with [employer] software. It may contain incorrect words, spelling, and punctuation that were not noted in review of the chart prior to signing ED Disposition - Plan for ED Patient: Referrals: Ligia Johnson MD [Primary Care Provider] -
[2019-11-25 22:42] LABS: Anion Gap 9 (5-15); BUN 23 mg/dL (7-18); BUN/Creat Ratio 14.6 RATIO (10-20); Calcium,Total 9.4 mg/dL (8.5-10.1); Chloride 101 mmol/L (98-107); Creatinine, Serum 1.58 mg/dL (0.70-1.30); EST Glomerular Filtration Rate 48 mL/min (>60); Est Glom Filt Rate - Afr Amer 58 mL/min (>60); Estimated Creatinine Clearance 39.51 ml/min; Glucose 184 mg/dL (74-106); Potassium 3.8 mmol/L (3.5-5.1); Sodium Level 138 mmol/L (136-145)
[2019-11-25 22:57] LABS: Lactic Acid 2.2 mmol/L (0.4-1.9)
[2019-11-25] MEDS: 0.9% Normal Saline 1,000 ML 125 ML IV (22:57)
[2019-11-25 22:58] VITALS: BP 90/66; PULSE 100; RESP 20; O2SAT 95
[2019-11-25 23:02] VITALS: BP 118/80; BP 119/73; BP 139/72; PULSE 102; PULSE 116; PULSE 96
--- NOTE | 2019-11-25 23:58 | ED.DEP ---
ED Disposition - Plan for ED Patient: Instructions: ED Hemorrhoids, ED Hematochezia Stable Referrals: Ligia Johnson MD [Primary Care Provider] - Rohith Gutierrez MD [STAFF PHYSICIAN] - 3-5 Days
[2019-11-26 00:18] VITALS: BP 132/78; PULSE 90; RESP 18; O2SAT 98
[2019-11-26 02:25] LABS: Reflex Lactate? Y
== END 2019-11-26 00:28 | disposition home or self-care (01) ==
PROVIDERS: Emergency Provider Emergency Medicine; PCP Internal Medicine
DX: K92.2 Gastrointestinal hemorrhage, unspecified (principal); K64.8 Other hemorrhoids; E11.9 Type 2 diabetes mellitus without complications; I10 Essential (primary) hypertension; E78.00 Pure hypercholesterolemia, unspecified; Z79.899 Other long term (current) drug therapy; Z79.84 Long term (current) use of oral hypoglycemic drugs
CPT/HCPCS: 80048; 83605; 85025; 86850; 86900; 86901; 93005; 96360; 96361; 99285; J7030; A4216

== ENCOUNTER 2020-01-04 06:55 | Day surgery (SDC) | payer MEDICARE, MEDICAID, SELFPAY ==
[2019-12-12 09:04] VITALS: BMI 28.5
--- NOTE | 2019-12-13 02:31 | HP_ITS ---
Intake Vital Signs 12/12/19 Height 5 ft 3 in 12/12/19 Weight: 159 lb 12/12/19 BMI 28.1 12/12/19 BP 111/71 12/12/19 Blood Pressure Location Rt brachial 12/12/19 Position Sitting 12/12/19 Respiration 18 12/12/19 Temp 97.4 F L 12/12/19 Temp Source Temporal Intake Visit Reasons: Hemorrhoids Chief Complaint: hemorrhoids Typing Secretary Required: No Is patient in pain?: No Allergies aspirin Allergy (Verified 12/12/19 09:00) Unknown codeine Allergy (Verified 12/12/19 09:00) Unknown Medications Atorvastatin Calcium [Lipitor] 40 mg PO QHS 07/10/13 [History Confirmed 12/12/19] Ipratropium/Albuterol Respimat [Combivent Respimat Inhal [place]] 1 puff INHALATION BID PRN 07/10/13 [History Confirmed 12/12/19] Metformin [Metformin HCl] 1,000 mg PO BID 07/10/13 [History Confirmed 12/12/19] Glimepiride [Amaryl] 4 mg PO DAILY 06/16/17 [History Confirmed 12/12/19] Oxaprozin 600 mg PO BID 09/03/17 [History Confirmed 12/12/19] Empagliflozin [Jardiance] 25 mg PO DAILY 03/16/19 [History Confirmed 12/12/19] Fluticasone 0.05% [Flonase Nasal [place]] 1 spray NASAL DAILY 03/16/19 [History Confirmed 12/12/19] Lisinopril [Zestril] 2.5 mg PO DAILY 03/16/19 [History Confirmed 12/12/19] Glimepiride 2 mg PO DAILY 11/25/19 [History Confirmed 12/12/19] omeprazole 20 mg capsule,delayed release 20 mg PO DAILY 12/12/19 [History Confirmed 12/12/19] oxycodone 5 mg capsule 5 mg PO BID PRN 12/12/19 [History Confirmed 12/12/19] sennosides 8.6 mg capsule 8.6 mg PO BID PRN 12/12/19 [History Confirmed 12/12/19] [facility] Medical History GERD (gastroesophageal reflux disease) (Acute) Intellectual disability (Acute) DM2 (diabetes mellitus, type 2) (Chronic) Essential (primary) hypertension (Chronic) Dyslipidemia (Chronic) Surgical History Arthropathy of right hip (Acute) Family History Mother Diabetes Social History (Updated 12/13/19 @ 14:[address] Rohith Gutierrez MD) Smoking Status: Former smoker alcohol intake: never HPI HPI HPI: WILLIAM JONES, is a 59 M who presents to the office today for HPI HPI Surgical H&P: Yes HPI: WILLIAM JONES, is a 59 M who presents to the office today for Rectal bleeding. The patient was in the emergency room with pain in his rectum and bleeding. Physical exam at that time revealed an ulcerated hemorrhoid with some mild bleeding. Patient reports that his bleeding is stopped and he is having no abdominal or rectal pain at this time. Patient reports he is due for colonoscopy as his last one was over 10 years ago. ROS General General: No weight change or fatigue Cardio Cardiovascular: No murmur, pacemaker, heart disease, atrial fibrillation, high blood pressure, heart attack, heart stent, palpitations, shortness of breat with exertion or chest pain Psych Psychiatric: No depression or anxiety Resp Respiratory: No shortness of breath, No sleep apnea, No cough, No COPD, No asthma, No emphysema, No wheezing Gastro Gastrointestinal: No abdominal pain, No nausea or vomiting, No diarrhea, No constipation, Yes blood in stool, No acid reflux, Yes hemorrhoids, No ulcers, No gallbladder problem, No black,tarry stools Frank Hematologic: No blood thinners Exam Const General: cooperative Orientation: alert, oriented x3 Resp Effort & Inspection: normal respiratory effort Auscultation: clear to auscultation bilaterally Cardio Rate: regular rate Rhythm: regular rhythm Heart Sounds: no murmurs GI Inspection: non-distended Palpation: soft, nontender Assessment & Plan Problems 1. Rectal hemorrhage K62.5 Plan Patient was having rectal bleeding which has now resolved. He is not having any blood in his stool. At the time of his emergency room visit it was reported that the patient had hemorrhoids. During today's visit I did not note any hemorrhoids in the rectal area. Patient may have had thrombosed hemorrhoids at the time that have now shrunk. He is due for colonoscopy anyway as it is been over 10 years since his last colonoscopy. Plan for colonoscopy for evaluation of the rectal bleeding. I explained endoscopy in detail to the patient. I explained the risks including but not limited to stroke or heart attack with anesthesia, perforation of the GI tract, bleeding, infection. I explained that any of these could necessitate further emergency surgery. The patient understands and all questions were answered sufficiently. The patient wishes to proceed with procedure. We discussed the current risks associated with COVID-19. While it is understood that there is a community spread of COVID-19, the risk of patty COVID-19 while at [facility] ([facility]) is very low; however, the risk cannot be completely mitigated because of the community spread of the disease. We discussed in detail the risk of exposure to and/or potential harm posed by the COVID-19 virus with having a surgery/procedure at this time versus the risk of delaying the surgery/procedure. It is not possible to know either the risk of delaying the surgery or procedure or chance of getting an infection with perfect accuracy, but a joint decision was made to proceed at this time with the scheduled surgery/procedure as indicated on the consent form. Patient was notified that we will need to comply with any screening or testing [facility] wishes to perform or that surgery may be delayed for any positive results. Rohith Gutierrez MD Pager: [facility] [address] [place] [address], [address] [place] [address] Office: Orders Orders: Colonoscopy Today K62.5 Coding Level of Care Code Off vis,new,level 3 Diagnoses Rectal hemorrhage K62.5 12/13/19 1431 <Electronically signed by Rohith bravo MD> Date _ Rohith Gutierrez MD I have re-examined the patient. There are no clinical changes since date of exam.
--- NOTE | 2020-01-04 | COLBX_PTH ---
PATIENT: WILLIAM JONES LOC: EN U#:[id number] AGE/SX: 59/M ROOM: RE01/04/[address]: Dr. Rohith Gutierrez MD : 1960 BED: DIS: 01/04/2020 SPEC #: [id number] RECD: 01/04/20 13:18 STATUS: BERNA DUNAWAYAlfonso #: [id number] ANAHI: 01/04/20 00:[address]: Rohith Gutierrez DEPT: SURGICAL PATHOLOGY RECD BY: Bill Denny ENTERED: 01/07/20 08:34 SP TYPE: COLON BX OTHR DR: Dr. Ligia Johnson MD Tissues: Sigmoid colon biopsy Procedures: Surgery Specimen Level IV HEADER OPERATION: Colonoscopy (MAC) PRE-OP DIAGNOSIS: Rectal hemorrhoids TISSUE SUBMITTED: Rectosigmoid junction colon polyp MICROSCOPIC DIAGNOSIS Rectosigmoid junction colon polyp, biopsy: Fragments of colonic mucosa, no pathologic diagnosis. SJ:marilin 01/08/20 MICROSCOPIC DESCRIPTION Slides are reviewed. GROSS DESCRIPTION Received in fixative is one container labeled with the patient's name and designated rectosigmoid junction polyp biopsy. The specimen consists of multiple irregular fragments of light rosa soft tissue that in aggregate measure 1 x 0.2 x 0.1 cm. The specimen is totally submitted in one cassette. / DEMARCUS:marilin 01/07/20 TC:4 CPT: 69824
[2020-01-04 07:18] VITALS: BP 124/74; PULSE 97; RESP 16; TEMP 36.8; O2SAT 100; BMI 28.0
[2020-01-04] MEDS: Lactated Ringers 1,000 ML 100 ML IV (07:35)
[2020-01-04 07:41] LABS: Bedside Glucose 121 mg/dL (70-110)
[2020-01-04 08:52] VITALS: BP 124/74; BP 99/73; PULSE 71; RESP 16; TEMP 36.3; O2SAT 100
--- NOTE | 2020-01-04 08:52 | OP.COLON_ITS ---
Patient Name: Kal Laguerre Procedure Date: 01/04/2020 8:22 AM Date of : 1960 Age: 59 Procedure: Colonoscopy Indications: Hematochezia Providers: Rohith Gutierrez MD Referring MD: Ligia Johnson Medicines: Monitored Anesthesia Care Patient Profile: This is a 59 year old male. Refer to note in patient chart for documentation of history and physical. Last Colonoscopy: more than 10 years ago. Complications: No immediate complications. Estimated blood loss: Minimal. Procedure: Pre-Anesthesia Assessment: - Prior to the procedure, a History and Physical was performed, and patient medications and allergies were reviewed. The patient's tolerance of previous anesthesia was also reviewed. The risks and benefits of the procedure and the sedation options and risks were discussed with the patient. All questions were answered, and informed consent was obtained. Prior Anticoagulants: The patient has taken no previous anticoagulant or antiplatelet agents. After reviewing the risks and benefits, the patient was deemed in satisfactory condition to undergo the procedure. After I obtained informed consent, the scope was passed under direct vision. Throughout the procedure, the patient's blood pressure, pulse, and oxygen saturations were monitored continuously. The Colonoscope was introduced through the anus and advanced to the cecum, identified by appendiceal orifice and ileocecal valve. The colonoscopy was performed without difficulty. The patient tolerated the procedure well. The quality of the bowel preparation was good. Scope In: 8:23:58 AM Scope Withdrawal Time 0 hours 14 minutes 7 seconds Scope Out: 8:45:39 AM Total Procedure Duration Time 0 hours 21 minutes 41 seconds Findings: A polyp was found in the recto-sigmoid colon. The polyp was semi-pedunculated. The polyp was removed with a hot snare. Resection and retrieval were complete. To prevent bleeding after the polypectomy, one hemostatic clip was successfully placed. There was no bleeding at the end of the procedure. Non-bleeding internal hemorrhoids were found during retroflexion. The hemorrhoids were Grade III (internal hemorrhoids that prolapse but require manual reduction). The exam was otherwise without abnormality on direct and retroflexion views. Impression: - One polyp at the recto-sigmoid colon, removed with a hot snare. Resected and retrieved. Clip was placed. - Non-bleeding internal hemorrhoids. - The examination was otherwise normal on direct and retroflexion views. Recommendation: - Discharge patient to home. - Resume previous diet. - Continue present medications. - Await pathology results. - Repeat colonoscopy in 5 years for surveillance based on pathology results. Procedure Code(s): --- Professional --- 19292, Colonoscopy, flexible; with removal of tumor(s), polyp(s), or other lesion(s) by snare technique Diagnosis Code(s): --- Professional --- D12.7, Benign neoplasm of rectosigmoid junction K64.2, Third degree hemorrhoids K92.1, Melena (includes Hematochezia) CPT copyright 2017 [employer]. All rights reserved. The codes documented in this report are preliminary and upon continuous pickling line pickler helper review may be revised to meet current compliance requirements. Rohith Gutierrez MD 01/04/2020 8:52:13 AM This report has been signed electronically. Number of Addenda: 0 Note Initiated On: 01/04/2020 8:22 AM
--- NOTE | 2020-01-04 08:53 | OP.CCLET_ITS ---
01/04/2020 Ligia Johnson [address] [place] [address] Re : Colonoscopy procedure for Kal Laguerre Dear Dr. Johnson This procedure was performed on Saturday, January 04, 2020. My impressions and recommendations are as follows: Impressions : - One polyp at the recto-sigmoid colon, removed with a hot snare. Resected and retrieved. Clip was placed. - Non-bleeding internal hemorrhoids. - The examination was otherwise normal on direct and retroflexion views. Recommendations : - Discharge patient to home. - Resume previous diet. - Continue present medications. - Await pathology results. - Repeat colonoscopy in 5 years for surveillance based on pathology results. My findings are described in the full procedure note, which is enclosed. If I can be of further assistance, please feel free to contact me at Doctor phone number(s): , Work: . Sincerely, Rohith Gutirerez MD 01/04/2020 8:52:13 AM This report has been signed electronically.
[2020-01-04 08:55] VITALS: BP 102/61; BP 124/74; PULSE 77; RESP 16; O2SAT 99
[2020-01-04 09:00] VITALS: BP 102/68; BP 124/74; PULSE 81; RESP 16; O2SAT 100
[2020-01-04 09:05] VITALS: BP 103/56; BP 124/74; PULSE 79; RESP 16; TEMP 36.8; O2SAT 100
[2020-01-04 09:26] VITALS: BP 124/74
== END 2020-01-04 09:27 | disposition home or self-care (01) ==
LOC: EN 06:56 → AC 06:57
PROVIDERS: Anesthesiology; PCP Internal Medicine; Referring Provider Internal Medicine; Visit Provider Surgery
PROC: 0DJD8ZZ Inspection of Lower Intestinal Tract, Via Natural or Artificial Opening Endoscopic (ICD-10-PCS; CPT 45378; principal; 2020-01-04 08:10)
DX: D12.7 Benign neoplasm of rectosigmoid junction (principal); K64.2 Third degree hemorrhoids; K92.1 Melena; Z79.84 Long term (current) use of oral hypoglycemic drugs; Z87.891 Personal history of nicotine dependence; E11.9 Type 2 diabetes mellitus without complications; I10 Essential (primary) hypertension; E78.5 Hyperlipidemia, unspecified
CPT/HCPCS: 45385; 82962; 87635; 88305; 94799; J7120; J2405; U0003

== ENCOUNTER 2020-03-22 16:54 | Observation (INO) | payer MEDICARE, MEDICAID, SELFPAY ==
[2020-03-22] VITALS (7 sets, daily range): BP systolic 120–141; BP diastolic 65–83; PULSE 67–83; RESP 14–18; TEMP 36.7–36.8; O2SAT 97–100; BMI 31.4; BMI 29.3; BMI 29.4
--- NOTE | 2020-03-22 17:07 | EKG12_ITS ---
Test Reason : CP Blood Pressure : / mmHG Vent. Rate : 082 BPM Atrial Rate : 082 BPM P-R Int : 138 ms QRS Dur : 078 ms QT Int : 380 ms P-R-T Axes : 054 -09 048 degrees QTc Int : 443 ms Normal sinus rhythm Poor R wave progression Lateral infarct , age undetermined Abnormal ECG Confirmed by SAVANNAH ASIF, SHO (1988), food editor BRIE BELL ([id number]) on 03/25/2020 8:17:18 AM Referred By: ALLYSSA Confirmed By:SHO NUÑEZ MD
--- NOTE | 2020-03-22 17:34 | ED.VIS.GEN ---
History of Present Illness Chief Complaint: Chest Pain Informant: Patient Onset: Today Current Severity: Mild Maximum Severity: Moderate Narrative: Patient presents secondary to abrupt onset of chest pain. Patient states he had gone and takes medication and shortly after that had sudden onset of sharp pain in the lower sternal area. He states he felt short of breath and like he was wheezing. He states his arms also look yellow in color. All of his symptoms are currently improving. He denies significant cardiac history. - Past Medical History (1) GERD (gastroesophageal reflux disease) Status: Chronic (2) Intellectual disability Status: Chronic (3) DM2 (diabetes mellitus, type 2) Status: Chronic (4) Dyslipidemia Status: Chronic (5) Essential (primary) hypertension Status: Chronic Past Medical History - Allergies and Home Meds Allergies/Adverse Reactions: Allergies aspirin Allergy (Verified 03/22/20 17:03) Unknown codeine Allergy (Verified 03/22/20 17:03) Unknown Primary Care Physician: Ligia Johnson MD [Primary Care Provider] - Prior records reviewed: Yes Lives: [facility] Smoking Status: Former smoker - Family History Paternal Family History: Family History (Last Reviewed 12/12/19 @ 08:59 by Silva Mcdonald) Mother Diabetes Family History: Reports: Heart Disease Review of Systems General: Denies: Chills, Fever Eyes: Denies: Visual changes - bilaterally ENT: Denies: Bilateral ear pain Cardiovascular: Reports: Chest pain Respiratory: Reports: Dyspnea. Denies: Cough Gastrointestinal: Denies: Abdominal pain, Nausea, Vomiting, Diarrhea Genitourinary: Denies: Dysuria Musculoskeletal: Denies: Swelling, Extremity Pain Skin: Denies: Rash Neurological: Denies: Headache Hematologic: Denies: Easy bruising, Easy bleeding Allergy: Denies: Uticaria Physical Exam Vital Signs/Narrative: Vital Signs Temp Pulse Resp BP Pulse Ox 03/22/20 16:58 98.2 F 83 18 141/83 H 98 Inital Vital Signs reviewed: Yes General: Well nourished, Well developed Head: Normocephalic ENT: Moist mucous membranes Neck: Supple Cardiovascular: Regular rate, Regular rhythm Respiratory: No distress, CTA bilaterally, Chest tenderness - Mild tenderness of the anterior chest wall. No crepitus. Abdomen: Soft, Nontender Extremities: Nontender Skin: Normal color Neurological: Alert, Oriented x3 Psychological: Normal affect Diagnostic/Tx/Re-eval 03/22/20 17:39 Chest 1 View (Portable) [RAD] Stat IMPRESSION: Left basilar atelectasis. Laboratory Results 03/22/20 03/22/20 03/22/20 17:30 17:30 17:36 WBC 6.5 RBC 4.28 L Hgb 11.7 L Hct 37.4 L MCV 87.4 MCH 27.3 MCHC 31.3 L RDW Std Deviation 44.6 H RDW Coeff of [place] 14.0 Plt Count 193 MPV 10.8 Immature Gran % (Auto) 0.500 Neut % (Auto) 66.3 Lymph % (Auto) 21.6 [place] % (Auto) 8.6 Eos % (Auto) 2.5 Baso % (Auto) 0.5 Absolute Neuts (auto) 4.3 Absolute Lymphs (auto) 1.40 Nucleated RBC % 0 D-Dimer Quant (PE/DVT) 0.42 Sodium 141 Potassium 4.4 Chloride 107 Carbon Dioxide 28.0 Anion Gap 6 BUN 22 H Creatinine 1.25 Estim Creat Clear Calc 45.33 Est GFR (MDRD) Af Amer 75 Est GFR (MDRD) Non-Af 62 BUN/Creatinine Ratio 17.6 Glucose 192 H Calcium 9.0 Total Bilirubin 0.30 Direct Bilirubin 0.07 AST 15 ALT 22 Alkaline Phosphatase 87 Troponin I < 0.015 Total Protein 7.2 Albumin 4.1 Globulin 3.1 - EKG Initial EKG Interpretation: Sinus Rhythm - Sinus 82 with no acute ischemia. - Medical Decision Making Patient did not receive aspirin as he does have a documented allergy. He was ordered a dose of Protonix here. On repeat evaluation he is resting more comfortably. It is not sound like he has had significant cardiac evaluation in the past and he does have significant risk factors including hypertension, high cholesterol, and diabetes. I have recommended admission for cycling of cardiac enzymes. ED Disposition - Plan for ED Patient: Disposition: Acute Care [facility] Diagnosis: Chest pain Referrals: Ligia Johnson MD [Primary Care Provider] -
--- NOTE | 2020-03-22 17:39 | RAD_ITS ---
STUDY: X-RAY CHEST REASON FOR EXAM: Male, 60 years old. CHEST PAIN TECHNIQUE: Frontal view COMPARISON: 03/09/2018. FINDINGS: The lungs are expanded. Left basilar atelectasis. Normal size heart. Normal mediastinum and dread. Normal visualized pulmonary arteries. Normal visualized aortic arch and descending thoracic aorta. Normal visualized thoracic spine. Normal visualized ribs, clavicles, and shoulders. There is no demonstrated abnormality of the visualized soft tissue structures of the upper abdomen. RAD/Chest 1 View (Portable) IMPRESSION: Left basilar atelectasis. Electronically Signed: Roney Alcocer DO at 18:15 EDT Tel [phone], Service support ,
[2020-03-22 17:44] LABS: Absolute Neutrophil Count 4.3 X10^3/uL (2.0-7.7); Basophil# 0.03 X10^3/uL; Basophil% 0.5 % (0-1); Eosinophil# 0.16 X10^3/uL; Eosinophils% 2.5 % (0-5); Hematocrit 37.4 % (40-54); Hemoglobin 11.7 g/dL (13.0-16.5); Lymphocyte % 21.6 % (19-41); Mean Corp Hgb Conc 31.3 g/dL (32-36); Mean Corpuscular Hgb 27.3 pg (27.0-32.0); Mean Corpuscular Volume 87.4 fL (80-94); Mean Platelet Vol. 10.8 fl (6.2-12.0); Monocyte# 0.56 X10^3/uL; Monocyte% 8.6 % (0-10); NRBC Flagged by Analyzer 0 % (0-5); Neutrophil % 66.3 % (47-70); Platelet Count 193 K/mm3 (150-450); RBC Distribution Width SD 44.6 fl (35.1-43.9); Red Blood Count 4.28 M/mm3 (4.6-6.2); White Blood Count 6.5 K/mm3 (4.4-11.0)
[2020-03-22 18:04] LABS: D-Dimer Quantitative (DVT/PE) 0.42 FEU/ug/m (0.27-0.49)
[2020-03-22 18:12] LABS: AST(SGOT) 15 U/L (15-37); Alanine Aminotransfer ALT/SGPT 22 U/L (16-61); Albumin, Serum 4.1 g/dL (3.2-5.0); Alkaline Phosphatase 87 U/L (45-117); Anion Gap 6 (5-15); BUN 22 mg/dL (7-18); BUN/Creat Ratio 17.6 RATIO (10-20); Bilirubin, Direct 0.07 mg/dL (0.00-0.30); Chloride 107 mmol/L (98-107); Creatinine, Serum 1.25 mg/dL (0.70-1.30); EST Glomerular Filtration Rate 62 mL/min (>60); Est Glom Filt Rate - Afr Amer 75 mL/min (>60); Estimated Creatinine Clearance 45.33 ml/min; Globulin 3.1 g/dL (2.2-4.2); Glucose 192 mg/dL (74-106); Potassium 4.4 mmol/L (3.5-5.1); Protein, Total 7.2 g/dL (6.4-8.2); Sodium Level 141 mmol/L (136-145)
[2020-03-22] MEDS: 0.9% Normal Saline 1,000 ML 150 ML IV (18:24)
--- NOTE | 2020-03-22 18:50 | HP.PCM_ITS ---
Problem List (1) Chest pain Status: Acute (2) GERD (gastroesophageal reflux disease) Status: Chronic (3) Intellectual disability Status: Chronic (4) DM2 (diabetes mellitus, type 2) Status: Chronic (5) Essential (primary) hypertension Status: Chronic (6) Dyslipidemia Status: Chronic History of Present Illness Date of Admission: 03/22/20 Chief Complaint: Chest pain. The patient is a 60 year old M with past medical history as mentioned above pr esented to the emergency room because of chest pain. Symptoms started today afternoon with sudden onset chest pain, started after he took his pills, described as sharp pain, in the lower sternal region, associated with shortness of breath and wheezing and he mentioned that his arms with yellow in color and there was no aggravating relieving factors. He denies dizziness or vertiginous. He denied syncope or presyncope. Currently, he mentioned that his pain is getting better. He denied nausea or vomiting. He denied abdominal pain, heartburn. In the emergency department, his vital signs were stable. His routine blood work was unremarkable. LFT was normal. D-dimer was normal. Chest x-ray showed no acute findings. EKG revealed normal sinus rhythm, no acute segment changes. Troponin is negative. He is being admitted for chest pain for evaluation. Past Medical History Past Medical History (Chronic Problems): Chronic Problems (Last Reviewed 12/12/19 @ 08:59 by Silva Mcdonald) GERD (gastroesophageal reflux disease) (Chronic) Intellectual disability (Chronic) Arthropathy of right hip (Chronic) DM2 (diabetes mellitus, type 2) (Chronic) Essential (primary) hypertension (Chronic) Dyslipidemia (Chronic) Medical History: Medical History (Last Reviewed 12/12/19 @ 08:59 by Silva Mcdonald) GERD (gastroesophageal reflux disease) (Chronic) K21.9 Intellectual disability (Chronic) F79 DM2 (diabetes mellitus, type 2) (Chronic) E11.9 Essential (primary) hypertension (Chronic) I10 Dyslipidemia (Chronic) E78.5 Allergies aspirin Allergy (Verified 03/22/20 17:03) Unknown codeine Allergy (Verified 03/22/20 17:03) Unknown Home Medications: Ambulatory Orders Medication Instructions Recorded Atorvastatin Calcium [Lipitor] 40 mg PO QHS 07/10/13 Ipratropium/Albuterol Respimat 1 puff INHALATION BID PRN 07/10/13 [Combivent Respimat Inhal Coral] Metformin [Metformin HCl] 1,000 mg PO BID 07/10/13 Glimepiride [Amaryl] 4 mg PO DAILY 06/16/17 Oxaprozin 600 mg PO BID 09/03/17 Empagliflozin [Jardiance] 25 mg PO DAILY 03/16/19 Fluticasone 0.05% [Flonase Nasal 1 spray NASAL DAILY 03/16/19 Coral] Lisinopril [Zestril] 2.5 mg PO DAILY 03/16/19 Glimepiride 2 mg PO QHS 11/25/19 omeprazole 20 mg capsule,delayed 20 mg PO DAILY 12/12/19 release oxycodone 5 mg capsule 5 mg PO Q4H PRN PRN 12/12/19 sennosides 8.6 mg capsule 8.6 mg PO BID PRN 12/12/19 Acetaminophen 325 mg PO Q4H PRN PRN 12/19/19 Docusate Sodium [Colace] 1 - 2 mg PO DAILY PRN PRN 12/19/19 Guaifenesin [Cough Syrup] 10 ml PO PRN PRN 12/19/19 Linagliptin [Tradjenta] 5 mg PO DAILY 12/19/19 Surgical History: Surgical History (Last Reviewed 03/22/20 @ 18:[address] Graeme Fink MD) Arthropathy of right hip (Chronic) M16.11 Surgical History: total hip arthroplasty Psychiatric History: No pertinent psych hx Lives: - - Assisted living. Smoking Status: Never smoker Alcohol: None Drugs: None - *Family History Paternal Family History: Family History (Last Reviewed 03/22/20 @ 18:[address] Graeme Fink MD) Mother Diabetes History Items: Heart Disease Review of Systems Constitutional: Denies: Anorexia, Chills, Fever, Weakness Eyes: Denies: Blurred vision, Double vision, Drainage, Redness HEENT: Denies: Difficulty Hearing, Dysphasia, Ear Pain, Eye Pain, Nasal Congestion, Sore Throat Cardiovascular: Reports: Chest Pain, Chest Pressure. Denies: Edema, Heaviness, Light Headedness, Palpitations, Syncope Respiratory: Reports: Shortness of Breath. Denies: Cough, Hemoptysis, Pleuritic Pain, Sputum production, Wheezing Gastrointestinal: Denies: Abdominal Pain, Constipation, Diarrhea, Nausea, Vomiting Genitourinary: Denies: Dysuria, Frequency, Hematuria Musculoskeletal: Denies: Arm Pain, Back Pain, Foot Pain Skin: Denies: Dryness, Rash Neurological: Denies: Balance problems, Blurred vision, Double vision, Change in Speech, Slurred speech, Confusion, Focal weakness, Headaches, Incoordination Psychiatric: Denies: Anxiety, Depression Endocrine: Denies: Change in Body Habitus, Polydipsia, Polyuria VTE Information - Inpt Only VTE Present on Admission: No VTE Mechan Device Prophylaxis: None VTE Pharm Prophylaxis ordered?: Yes Patient Problems: Active and Suspected Problems (Last Reviewed 12/12/19 @ 08:59 by Silva Mcdonald) Chest pain (Acute) - Physical Exam Vitals/I&O's: Vital Signs Temp Pulse Resp BP Pulse Ox 98.2 F 71 14 128/75 H 99 03/22/20 16:58 03/22/20 18:30 03/22/20 18:30 03/22/20 18:30 03/22/20 18:30 Oxygen Delivery Method Room Air Weight: 166 lb 6.4 oz Body Mass Index (BMI) 31.4 Finger Stick Blood Glucose 224 General: Alert, Oriented x3, Cooperative, No apparent distress HEENT: Atraumatic, PERRLA, EOMI, Normocephalic Oral: Moist Mucosa, No Gingival or Mucosal Lesions/ Ulcerations Neck: Supple, No JVD, Negative Carotid Bruits, Trachea Midline, Thyroid Normal Size and Texture Lungs: Clear to auscultation, Normal air movement, No rhonchi, No wheeze, No rales Cardiovascular: Regular rate, Regular Rhythm, Normal S1, Normal S2, PMI Normal Abdomen: Bowel Sounds Present, Soft, Non Tender, Non-Distended, No Hepato- splenomegaly Extremities: No clubbing, No cyanosis, No edema Skin: No rashes, No breakdown Lymphatic: No Cervical, Supraclavicular, or Inguinal Adenopathy Neurological: Cranial nerves II-XII grossly intact, Motor Exam 5/5 strength throughout Psych/Mental Status: Normal Affect, Appropriate, Alert and oriented to time, place, person, mood and affect Laboratory Results 03/22/20 17:30: WBC 6.5, RBC 4.28 L, Hgb 11.7 L, Hct 37.4 L, MCV 87.4, MCH 27.3, MCHC 31.3 L, RDW Std Deviation 44.6 H, RDW Coeff of [place] 14.0, Plt Count 193, MPV 10.8, Immature Gran % (Auto) 0.500, Neut % (Auto) 66.3, Lymph % (Auto) 21.6, [place] % (Auto) 8.6, Eos % (Auto) 2.5, Baso % (Auto) 0.5, Absolute Neuts (auto) 4.3, Absolute Lymphs (auto) 1.40, Nucleated RBC % 0 03/22/20 17:30: Sodium 141, Potassium 4.4, Chloride 107, Carbon Dioxide 28.0, Anion Gap 6, BUN 22 H, Creatinine 1.25, Estim Creat Clear Calc 45.33, Est GFR (MDRD) Af Amer 75, Est GFR (MDRD) Non-Af 62, BUN/Creatinine Ratio 17.6, Glucose 192 H, Calcium 9.0, Total Bilirubin 0.30, Direct Bilirubin 0.07, AST 15, ALT 22, Alkaline Phosphatase 87, Troponin I < 0.015, Total Protein 7.2, Albumin 4.1, Globulin 3.1 03/22/20 17:36: D-Dimer Quant (PE/DVT) 0.42 Current Medications Sodium Chloride () 1,000 mls @ 150 mls/hr IV .Q6H40M [facility] Last Admin: 03/22/20 18:24 Dose: 150 mls/hr Documented by: Assessment/Plan All Active Problems (Last Reviewed 12/12/19 @ 08:59 by Silva Mcdonald) Chest pain (Acute) This is a 60 years old male patient presented to the emergency room because of chest pain and he is being admitted for evaluation. #1 atypical chest pain: Could be due to the medication that he took causing some esophagitis or gastritis. EKG was unremarkable chest x-ray showed no acute findings. Troponin and D-dimer was normal. He has no history of cardiac disease. Plan: Admit to PCU observation, cardiac monitoring, Tylenol as needed, Zofran as needed, try Mylanta as needed, continue PPI, nitroglycerin as needed for pain, nuclear stress test tomorrow if cardiac enzymes are negative. #2 type 2 diabetes mellitus: ADA diet, Accu-Cheks, insulin sliding scale, continue Jardiance and glimepiride, hold metformin for now. #3 hypertension: Blood pressure stable, continue lisinopril. #4 hyperlipidemia: Continue statins. #5 GERD: Continue PPI. #6 intellectual disabilities: Supportive treatment. #7 DVT prophylaxis: Subcu Lovenox. This note was generated with MySQUARation software. It may contain incorrect words, spelling, and punctuation that were not noted in checking the note before signing. OBSV E&M: [id number] Initial observation care L2
--- NOTE | 2020-03-22 19:39 | EKG12_ITS ---
Test Reason : CP ADMIT Blood Pressure : / mmHG Vent. Rate : 064 BPM Atrial Rate : 064 BPM P-R Int : 138 ms QRS Dur : 072 ms QT Int : 426 ms P-R-T Axes : 038 -14 017 degrees QTc Int : 439 ms Normal sinus rhythm Normal ECG Confirmed by SAVANNAH ASIF, SHO ([id number]), associate editor BRIE BELL ([id number]) on 03/25/2020 8:26:06 AM Referred By: TERESA Confirmed By:SHO NUÑEZ MD
--- NOTE | 2020-03-22 20:10 | NURSING ---
Pt. on phone with Alina Warren from [facility] at this time. Pt. handed this nurse the phone to update her on pt. condition. This nurse gave updates and she will be listed as main visitor and be here tomorrow to visit.
[2020-03-22] MEDS: 0.9% Saline Lock 10 ML Syringe IV (20:17)
[2020-03-22] MEDS: Atorvastatin Calcium 40 MG Tablet PO (22:14)
[2020-03-22 22:21] LABS: Bedside Glucose 116 mg/dL (70-110)
--- NOTE | 2020-03-22 23:18 | NURSING ---
Spoke with Sydney MOSS at [facility] regarding pt. Pt. has not received flu shot this season per Sydney.
[2020-03-23] VITALS (11 sets, daily range): BP systolic 109–133; BP diastolic 57–66; PULSE 64–76; RESP 16–18; TEMP 36.4–36.8; O2SAT 95–99
[2020-03-23 07:00] LABS: Bedside Glucose 96 mg/dL (70-110)
[2020-03-23] MEDS: Glimepiride 4 MG Tablet PO (07:54)
[2020-03-23] MEDS: Ibuprofen 600 MG Tablet PO (07:54)
[2020-03-23] MEDS: Mag Hydrox/Al Hydrox/Simeth 30 ML UDC 15 ML PO (09:29)
[2020-03-23] MEDS: Fluticasone 0.05% 1 SPRAY NASAL.SRY NASAL (09:30)
[2020-03-23] MEDS: LINAGLIPTIN 5 MG TABLET PO (09:31)
[2020-03-23] MEDS: Lisinopril 2.5 MG Tablet PO (09:31)
[2020-03-23] MEDS: Empagliflozin 25 MG Tablet PO (09:31)
[2020-03-23] MEDS: Pantoprazole Sodium 20 MG Tablet PO ×2 (09:31→11:33)
[2020-03-23 11:00] LABS: Iron 36 ug/dL (65-175); Iron Binding Capacity,Total 489 ug/dL (250-450); PERCENT IRON SATURATION 7.4 % (15.0-55.0)
--- NOTE | 2020-03-23 11:13 | PN_ITS ---
<Lc Hutchinson - Last Filed: 03/23/20 11:13> Patient Problems: Active and Suspected Problems (Last Reviewed 12/12/19 @ 08:59 by Silva Mcdonald) Chest pain (Acute) Reason for Visit: chest pain Subjective: patient resting comfortably in bed NAD. Pt localizes his chest pain to the epigastric area and states that it feels like his ulcer is acting up. It is described as stabbing/sharp pain. His pain was worse after taking ibuprofen. He denies black stools. He did have a small amount of red blood in his stools recently however he states his hemorrhoids were bleeding. He has no dizziness/LH. No SOB. Vitals/I&O's: Vital Signs Temp Pulse Resp BP Pulse Ox 97.9 F 72 16 112/60 97 03/23/20 09:50 03/23/20 09:50 03/23/20 09:50 03/23/20 09:50 03/23/20 09:50 Oxygen Delivery Method Room Air Weight: 165 lb 12.602 oz Body Mass Index (BMI) 29.3 Finger Stick Blood Glucose 224 Intake and Output for Last 24 Hours 03/21/20 03/22/20 03/23/20 23:59 23:59 23:59 Intake Total 770 / 770 120 / 120 Balance 770 / 770 120 / 120 General: Alert, Oriented x3, Cooperative HEENT: Atraumatic, PERRLA, EOMI, Normocephalic Neck: Supple, No JVD, Negative Carotid Bruits Lungs: Clear to auscultation, Normal air movement Cardiovascular: Regular rate, No murmurs Abdomen: Bowel Sounds Present, Soft, Tender - tender to light palp over the epigastrum Extremities: No edema, Capillary Refill Less than 3 Seconds Skin: No rashes, No breakdown Musculoskeletal: No Tenderness to Palpation of Joints or Extremities Neurological: Cranial nerves II-XII grossly intact Psych/Mental Status: Normal Affect, Appropriate, Alert and oriented to time, place, person, mood and affect Laboratory Results 03/22/20 17:30: WBC 6.5, RBC 4.28 L, Hgb 11.7 L, Hct 37.4 L, MCV 87.4, MCH 27.3, MCHC 31.3 L, RDW Std Deviation 44.6 H, RDW Coeff of [place] 14.0, Plt Count 193, MPV 10.8, Immature Gran % (Auto) 0.500, Neut % (Auto) 66.3, Lymph % (Auto) 21.6, [place] % (Auto) 8.6, Eos % (Auto) 2.5, Baso % (Auto) 0.5, Absolute Neuts (auto) 4.3, Absolute Lymphs (auto) 1.40, Nucleated RBC % 0 03/22/20 17:30: Sodium 141, Potassium 4.4, Chloride 107, Carbon Dioxide 28.0, Anion Gap 6, BUN 22 H, Creatinine 1.25, Estim Creat Clear Calc 45.33, Est GFR (MDRD) Af Amer 75, Est GFR (MDRD) Non-Af 62, BUN/Creatinine Ratio 17.6, Glucose 192 H, Calcium 9.0, Total Bilirubin 0.30, Direct Bilirubin 0.07, AST 15, ALT 22, Alkaline Phosphatase 87, Troponin I < 0.015, Total Protein 7.2, Albumin 4.1, Globulin 3.1 03/22/20 17:36: D-Dimer Quant (PE/DVT) 0.42 03/22/20 21:00: Troponin I < 0.015 03/22/20 22:13: POC Glucose 116 H 03/23/20 00:06: Troponin I < 0.015 03/23/20 00:06: Iron 36 L, TIBC 489 H, Iron Saturation 7.4 L 03/23/20 06:53: POC Glucose 96 Current Medications Acetaminophen (Acetaminophen 325 Mg Tablet) 650 mg PO Q6H PRN PRN PRN Reason: Pain Score 1-10/Temp > 100.7 F Al Hydroxide/Mg Hydroxide (Mag Hydrox/Al Hydrox/Simeth 30 Ml Udc) 15 ml PO Q6H PRN PRN PRN Reason: Epigastric pain, h-burn,indig. Last Admin: 03/23/20 09:29 Dose: 15 ml Documented by: Albuterol/Ipratropium (Ipratropium/Albuterol Sulfate 3 Ml Ampul.Neb) 3 ml INHALATION BID PRN PRN PRN Reason: SOB &/OR WHEEZING Atorvastatin Calcium (Atorvastatin Calcium 40 Mg Tablet) 40 mg PO QHS [facility] Last Admin: 03/22/20 22:14 Dose: 40 mg Documented by: Calcium Carbonate (Calcium Carbonate 500 Mg Tablet) 500 mg PO Q4H PRN PRN PRN Reason: HEARTBURN Empagliflozin (Empagliflozin 25 Mg Tablet) 25 mg PO DAILY [facility] Last Admin: 03/23/20 09:31 Dose: 25 mg Documented by: Enoxaparin Sodium (Enoxaparin 40 Mg/0.4 Ml Syringe) 40 mg SC DAILY [facility] Fluticasone Propionate (Fluticasone 0.05% 1 [place] Nasal.Sry) 1 spray NASAL DAILY [facility] Last Admin: 03/23/20 09:30 Dose: 1 spray Documented by: Glimepiride ([facility] 4 Mg Tablet) [facility] Last Admin: 03/23/20 07:54 Dose: 4 mg Documented by: Glimepiride (Glimepiride 2 Mg Tablet) 2 mg PO DINNER [facility] Sodium Chloride () 250 mls @ 15 mls/hr IV .[id number] PRN PRN Reason: Saline Flush Sodium Chloride () 250 mls @ 15 mls/hr IV .[id number] PRN PRN Reason: Additional IVPB Infusion Insulin Human Lispro (Insulin Lispro 100 Unit/Ml Insuln.Pen) 0 unit SC ACHS [facility]; Protocol Last Admin: 03/23/20 06:55 Dose: Not Given Documented by: Linagliptin (Linagliptin 5 Mg Tablet) 5 mg PO DAILY [facility] Last Admin: 03/23/20 09:31 Dose: 5 mg Documented by: Lisinopril (Lisinopril 2.5 Mg Tablet) 2.5 mg PO DAILY [facility] Last Admin: 03/23/20 09:31 Dose: 2.5 mg Documented by: Nitroglycerin (Nitroglycerin (Inpatient Use) 0.4 Mg Tab.Subl) 0.4 mg SUBLINGUAL Q5M PRN PRN Reason: CHEST PAIN Ondansetron HCl (Ondansetron 4 Mg/2 Ml Vial) 4 mg IV Q8H PRN PRN PRN Reason: NAUSEA/VOMITING Oxycodone HCl (Oxycodone 5 Mg Tablet) 5 mg PO Q4H PRN PRN PRN Reason: Pain Score 1-10 Pantoprazole Sodium (Pantoprazole Sodium 40 Mg Tablet) 40 mg PO BID [facility] Senna (Senna Tablet) 8.6 tablet PO BID PRN PRN PRN Reason: Constipation Senna/Docusate Sodium (Senna/Docusate Sodium 1 Tablet) 2 tablet PO BID PRN PRN PRN Reason: Constipation Sodium Chloride (0.9% Saline Lock 10 Ml Syringe) 10 - 40 ml IV UD PRN PRN Reason: SALINE FLUSH Last Admin: 03/22/20 20:17 Dose: 10 ml Documented by: Zolpidem Tartrate (Zolpidem Tartrate 5 Mg Tablet) 5 mg PO QHS PRN PRN PRN Reason: INSOMNIA STROKE Vital Signs/Narrative: Vital Signs Temp Pulse Resp BP Pulse Ox 03/23/20 09:50 97.9 F 72 16 112/60 97 03/23/20 07:36 95 Medical Necessity - Tobacco Use Smoking Status: Former smoker Tobacco Use: Non-smoker Assessment/Plan All Active Problems (Last Reviewed 12/12/19 @ 08:59 by Silva Mcdonald) Chest pain (Acute) 1. Chest pain - atypical. trop negx3. cxr neg. no events on tele. ekg neg. stress test in am. d dimer neg. 2. Epigastric pain with hx gerd and stomach ulcer - with iron def. anemia. pain is c/w ulcer. protonix BID. ordered stool for occult blood. venofer x1. start daily iron. Discontinue daily daypro abd ibuprofen/all nsaids. 3. DMt2 - jardiance, amaryl, trajenta, SSI. metformin held. 4. HTN - stable 5. HLD - on statin therapy. DVT ppx: SCDs. This patient was seen by Lc Hutchinson PA-C under the supervision of Dr. Cedeno <Ariana Cedeno - Last Filed: 03/23/20 13:29> Subjective: Pain is located in the epigastrium and radiates to back. Pt states that it feels like his ulcer is acting up but when I asked him if they ever did a scope to his stomach he said no. Has been on Daypro 600 mg BID for quite some time. Denies obvious blood in stools on a regular basis and denies black tarry stools as well. Vitals/I&O's: Vital Signs Temp Pulse Resp BP Pulse Ox 97.9 F 72 16 112/60 97 03/23/20 09:50 03/23/20 09:50 03/23/20 09:50 03/23/20 09:50 03/23/20 09:50 Oxygen Delivery Method Room Air Weight: 75.2 kg Body Mass Index (BMI) 29.3 Finger Stick Blood Glucose 224 Intake and Output for Last 24 Hours 03/21/20 03/22/20 03/23/20 23:59 23:59 23:59 Intake Total 770 / 770 420 / 420 Balance 770 / 770 420 / 420 General: Alert, Oriented x3, Cooperative, No apparent distress, Well developed, Well nourished HEENT: Atraumatic, Normocephalic Neck: Supple, Trachea Midline, Thyroid Normal Size and Texture Lungs: Clear to auscultation, Normal air movement, No rhonchi, No wheeze, No rales Cardiovascular: Regular rate, Regular Rhythm, Normal S1, Normal S2, No murmurs, No Ectopic Activity, No rub noted, No Gallop Abdomen: Bowel Sounds Present, Soft, Non-Distended, Tender - tender to light palp over the epigastrum and upper central abdomen Extremities: No clubbing, No cyanosis, No edema, Capillary Refill Less than 3 Seconds, Peripheral Pulses Normal Skin: No rashes, No breakdown Neurological: Cranial nerves II-XII grossly intact, Neuro grossly intact Psych/Mental Status: Appropriate, - - pt seems a bit simple, Alert and oriented to time, place, person, mood and affect Laboratory Results 03/22/20 17:30: WBC 6.5, RBC 4.28 L, Hgb 11.7 L, Hct 37.4 L, MCV 87.4, MCH 27.3, MCHC 31.3 L, RDW Std Deviation 44.6 H, RDW Coeff of [place] 14.0, Plt Count 193, MPV 10.8, Immature Gran % (Auto) 0.500, Neut % (Auto) 66.3, Lymph % (Auto) 21.6, [place] % (Auto) 8.6, Eos % (Auto) 2.5, Baso % (Auto) 0.5, Absolute Neuts (auto) 4.3, Absolute Lymphs (auto) 1.40, Nucleated RBC % 0 03/22/20 17:30: Sodium 141, Potassium 4.4, Chloride 107, Carbon Dioxide 28.0, Anion Gap 6, BUN 22 H, Creatinine 1.25, Estim Creat Clear Calc 45.33, Est GFR (MDRD) Af Amer 75, Est GFR (MDRD) Non-Af 62, BUN/Creatinine Ratio 17.6, Glucose 192 H, Calcium 9.0, Total Bilirubin 0.30, Direct Bilirubin 0.07, AST 15, ALT 22, Alkaline Phosphatase 87, Troponin I < 0.015, Total Protein 7.2, Albumin 4.1, Globulin 3.1 03/22/20 17:36: D-Dimer Quant (PE/DVT) 0.42 03/22/20 21:00: Troponin I < 0.015 03/22/20 22:13: POC Glucose 116 H 03/23/20 00:06: Troponin I < 0.015 03/23/20 00:06: Iron 36 L, TIBC 489 H, Iron Saturation 7.4 L 03/23/20 06:53: POC Glucose 96 03/23/20 11:25: POC Glucose 189 H Current Medications Acetaminophen (Acetaminophen 325 Mg Tablet) 650 mg PO Q6H PRN PRN PRN Reason: Pain Score 1-10/Temp > 100.7 F Al Hydroxide/Mg Hydroxide (Mag Hydrox/Al Hydrox/Simeth 30 Ml Udc) 15 ml PO Q6H PRN PRN PRN Reason: Epigastric pain, h-burn,indig. Last Admin: 03/23/20 09:29 Dose: 15 ml Documented by: Albuterol/Ipratropium (Ipratropium/Albuterol Sulfate 3 Ml Ampul.Neb) 3 ml INHALATION BID PRN PRN PRN Reason: SOB &/OR WHEEZING Atorvastatin Calcium (Atorvastatin Calcium 40 Mg Tablet) 40 mg PO QHS [facility] Last Admin: 03/22/20 22:14 Dose: 40 mg Documented by: Calcium Carbonate (Calcium Carbonate 500 Mg Tablet) 500 mg PO Q4H PRN PRN PRN Reason: HEARTBURN Empagliflozin (Empagliflozin 25 Mg Tablet) 25 mg PO DAILY [facility] Last Admin: 03/23/20 09:31 Dose: 25 mg Documented by: Fluticasone Propionate (Fluticasone 0.05% 1 [place] Nasal.Sry) 1 spray NASAL DAILY [facility] Last Admin: 03/23/20 09:30 Dose: 1 spray Documented by: Glimepiride (Glimepir[facility] 4 Mg Tablet) [facility] Last Admin: 03/23/20 07:54 Dose: 4 mg Documented by: Glimepiride (Glimepiride 2 Mg Tablet) 2 mg PO DINNER [facility] Sodium Chloride () 250 mls @ 15 mls/hr IV .[id number] PRN PRN Reason: Saline Flush Sodium Chloride () 250 mls @ 15 mls/hr IV .[id number] PRN PRN Reason: Additional IVPB Infusion Ferric Sodium Gluconate Complex 250 mg/ Sodium Chloride 270 mls @ 135 mls/hr IV X1 ONE Stop: 03/23/20 13:59 Last Admin: 03/23/20 11:48 Dose: 135 mls/hr Documented by: Insulin Human Lispro (Insulin Lispro 100 Unit/Ml Insuln.Pen) 0 unit SC ACHS [facility]; Protocol Last Admin: 03/23/20 11:26 Dose: 1 units Documented by: Linagliptin (Linagliptin 5 Mg Tablet) 5 mg PO DAILY [facility] Last Admin: 03/23/20 09:31 Dose: 5 mg Documented by: Lisinopril (Lisinopril 2.5 Mg Tablet) 2.5 mg PO DAILY [facility] Last Admin: 03/23/20 09:31 Dose: 2.5 mg Documented by: Nitroglycerin (Nitroglycerin (Inpatient Use) 0.4 Mg Tab.Subl) 0.4 mg SUBLINGUAL Q5M PRN PRN Reason: CHEST PAIN Ondansetron HCl (Ondansetron 4 Mg/2 Ml Vial) 4 mg IV Q8H PRN PRN PRN Reason: NAUSEA/VOMITING Oxycodone HCl (Oxycodone 5 Mg Tablet) 5 mg PO Q4H PRN PRN PRN Reason: Pain Score 1-10 Pantoprazole Sodium (Pantoprazole Sodium 40 Mg Tablet) 40 mg PO BID [facility] Polysaccharide Iron Complex (Iron Polysaccharide Complex 150 Mg Capsule) 150 mg PO DAILY [facility] Senna (Senna Tablet) 8.6 tablet PO BID PRN PRN PRN Reason: Constipation Senna/Docusate Sodium (Senna/Docusate Sodium 1 Tablet) 2 tablet PO BID PRN PRN PRN Reason: Constipation Sodium Chloride (0.9% Saline Lock 10 Ml Syringe) 10 - 40 ml IV UD PRN PRN Reason: SALINE FLUSH Last Admin: 03/23/20 11:49 Dose: 10 ml Documented by: Zolpidem Tartrate (Zolpidem Tartrate 5 Mg Tablet) 5 mg PO QHS PRN PRN PRN Reason: INSOMNIA STROKE Vital Signs/Narrative: Vital Signs Temp Pulse Resp BP Pulse Ox 03/23/20 09:50 97.9 F 72 16 112/60 97 Assessment/Plan I agree with the above and the following is a reflection of my own independent history and physical exam ASSESSMENT CP Epigastric Pain Acute Anemia-mild DM-2 GERD HPL COPD PLAN -hgb at baseline was 13.5 when he was in ED for hemorrhoids--> 11.7 on admission -Fe studies are consistent with Fe deficiency and IV Fe was given -suspect this pain is gastric related -BID PPI -d/c all NSAIDS -occult stool for blood -GS consult for EGD if Stress neg and Hemoccult + -if now Hemoccult + would recommend f/u for outpt EGD -continue home meds -Stress test in am -trops neg x 3 -check am for CBC Inpatient E&M: 79241 Subs Hosp L2
[2020-03-23] MEDS: Insulin Lispro 100 UNIT/ML INSULN.PEN SC ×3 (11:26→22:00)
[2020-03-23 11:35] LABS: Bedside Glucose 189 mg/dL (70-110)
[2020-03-23] MEDS: Sodium Ferric Gluconat 250 MG in 0.9% Normal Saline 250 ML 135 MG IV (11:48)
[2020-03-23] MEDS: 0.9% Saline Lock 10 ML Syringe IV (11:49)
[2020-03-23] MEDS: Glimepiride 2 MG Tablet PO (16:28)
[2020-03-23 16:45] LABS: Bedside Glucose 181 mg/dL (70-110)
[2020-03-23] MEDS: Pantoprazole Sodium 40 MG Tablet PO (22:00)
[2020-03-23] MEDS: Calcium Carbonate 500 MG Tablet PO (22:00)
[2020-03-23] MEDS: Atorvastatin Calcium 40 MG Tablet PO (22:00)
[2020-03-23 23:21] LABS: Bedside Glucose 164 mg/dL (70-110)
[2020-03-24] VITALS (7 sets, daily range): BP systolic 112–128; BP diastolic 60–79; PULSE 58–83; RESP 16–18; TEMP 36.5–37; O2SAT 98–99
[2020-03-24 05:32] LABS: Absolute Lymphocyte Count 1.07 X10^3/uL (0.83-4.51); Absolute Neutrophil Count 3.8 X10^3/uL (2.0-7.7); Basophil# 0.04 X10^3/uL; Basophil% 0.7 % (0-1); Eosinophil# 0.18 X10^3/uL; Eosinophils% 3.1 % (0-5); Hematocrit 40.2 % (40-54); Hemoglobin 12.5 g/dL (13.0-16.5); Lymphocyte # 1.07 X10^3/ul (4.0); Lymphocyte % 18.5 % (19-41); Mean Corp Hgb Conc 31.1 g/dL (32-36); Mean Corpuscular Hgb 27.1 pg (27.0-32.0); Mean Corpuscular Volume 87.2 fL (80-94); Mean Platelet Vol. 10.8 fl (6.2-12.0); Monocyte# 0.63 X10^3/uL; Monocyte% 10.9 % (0-10); NRBC Flagged by Analyzer 0 % (0-5); Neutrophil # 3.84 X10^3/uL (2.7-7.7); Neutrophil % 66.5 % (47-70); Platelet Count 178 K/mm3 (150-450); RBC Distribution Width SD 44.2 fl (35.1-43.9); Red Blood Count 4.61 M/mm3 (4.6-6.2); White Blood Count 5.8 K/mm3 (4.4-11.0)
--- NOTE | 2020-03-24 05:55 | EKG12_ITS ---
Test Reason : AM EKG Blood Pressure : / mmHG Vent. Rate : 073 BPM Atrial Rate : 073 BPM P-R Int : 138 ms QRS Dur : 074 ms QT Int : 396 ms P-R-T Axes : 045 -12 028 degrees QTc Int : 436 ms Normal sinus rhythm Septal infarct , age undetermined Abnormal ECG When compared with ECG of 22-MAR-2020 20:23, MANUAL COMPARISON REQUIRED, DATA IS UNCONFIRMED Confirmed by GIAN ASIF, CHIDI ([id number]), editor publications BRIE BELL ([id number]) on 04/03/2020 9:44:12 A M Referred By: DR MARRERO Confirmed By:KARLA SPRINGER MD
[2020-03-24] MEDS: Lisinopril 2.5 MG Tablet PO (06:45)
[2020-03-24 07:01] LABS: Bedside Glucose 167 mg/dL (70-110)
[2020-03-24] MEDS: Empagliflozin 25 MG Tablet PO (09:34)
[2020-03-24] MEDS: Glimepiride 4 MG Tablet PO (09:34)
[2020-03-24] MEDS: Fluticasone 0.05% 1 SPRAY NASAL.SRY NASAL (09:34)
[2020-03-24] MEDS: Iron Polysaccharide Complex 150 MG CAPSULE PO (09:34)
[2020-03-24] MEDS: LINAGLIPTIN 5 MG TABLET PO (09:35)
[2020-03-24] MEDS: Pantoprazole Sodium 40 MG Tablet PO (09:35)
[2020-03-24] MEDS: Senna/Docusate Sodium 1 Tablet 2 TABLET PO (09:37)
[2020-03-24] MEDS: Insulin Lispro 100 UNIT/ML INSULN.PEN SC ×2 (11:24→16:35)
[2020-03-24 11:35] LABS: Bedside Glucose 171 mg/dL (70-110)
--- NOTE | 2020-03-24 11:50 | PCM.DC ---
- Discharge Diagnoses Current Active Problems: Current Active and Chronic Problems (Last Reviewed 12/12/19 @ 08:59 by Silva Mcdonald) Chest pain (Acute) GERD (gastroesophageal reflux disease) (Chronic) Intellectual disability (Chronic) DM2 (diabetes mellitus, type 2) (Chronic) Essential (primary) hypertension (Chronic) Dyslipidemia (Chronic) You will use the following diet at home:: Cardiac Your food should be the consistency of: Regular Your liquids should be the consistency of: Regular/Thin Discharge Activity: Return to Normal Activity Additional Instructions: No NSAID use Allergies/Adverse Reactions: Allergies aspirin Allergy (Verified 03/22/20 17:03) Unknown codeine Allergy (Verified 03/22/20 17:03) Unknown Medications to take at Discharge Atorvastatin Calcium [Lipitor] 40 mg PO QHS 07/10/13 Ipratropium/Albuterol Respimat [Combivent Respimat Inhal [place]] 1 puff INHALATION BID PRN 07/10/13 Metformin [Metformin HCl] 1,000 mg PO BID 07/10/13 Glimepiride [Amaryl] 4 mg PO DAILY 06/16/17 Empagliflozin [Jardiance] 25 mg PO DAILY 03/16/19 Fluticasone 0.05% [Flonase Nasal [place]] 1 spray NASAL DAILY 03/16/19 Lisinopril [Zestril] 2.5 mg PO DAILY 03/16/19 Glimepiride 2 mg PO QHS 11/25/19 oxycodone 5 mg capsule 5 mg PO Q4H PRN PRN 12/12/19 sennosides 8.6 mg capsule 8.6 mg PO BID PRN 12/12/19 Docusate Sodium [Colace] 1 - 2 mg PO DAILY PRN PRN 12/19/19 Linagliptin [Tradjenta] 5 mg PO DAILY 12/19/19 Acetaminophen [Tylenol Tablet] 650 mg PO Q6H PRN PRN tab 03/24/20 Iron Polysaccharide Complex [Ferrex 150] 150 mg PO DAILY #30 cap 03/24/20 Pantoprazole Sodium [Protonix] 40 mg PO BID #60 tab 03/24/20 The following prescriptions were given: Iron Polysaccharide Complex [Ferrex 150] 150 mg PO DAILY #30 cap [facility] [id number] Pantoprazole Sodium [Protonix] 40 mg PO BID #60 tab Transmission Status: Pending to [facility], [place] - [place] - [address] Primary Care Physician: Ligia Johnson MD [Primary Care Provider] - Test Results: Test results from this visit will be discussed in further detail at your follow-up appointment, if applicable. Please Follow Up With: Donovan Valero MD - History of ulcer, iron deficiency anemia When: 2 weeks Proposed Discharge Date: 03/24/20
--- NOTE | 2020-03-24 12:25 | CASEMGMT ---
THis RN CM to room with HCAND form at this time, explanation done-pt voices understanding and signs CHAND form at this time. Pt is A/Ox4 at this time and answers all questions appropriately at this time. Original to chart and copy to pt at this time. Pt voices no further questions/concerns/needs at this time. SStaten EDUARD CM
--- NOTE | 2020-03-24 13:52 | CASEMGMT ---
Social Work Note Pt is listed as being from [facility]. Pt has caregiver Alina through [facility]. ISABEL placed a call to Alina Alina confirms pt is from [facility] and will be returning at discharge. Alina states pending on the time she may be able to transport pt back to [facility] or will arrange transportation. ISABEL met with pt. ISABEL introduced self and role at [facility]. Pt is alert and orientated x3. Pt confirms that he came from [facility] and plan is to return. Pt also states that Alina should be able to transport pt. ISABEL placed a call to [facility] and left message for Lei inquiring if pt will need COVID test to return. ISABEL also placed a call to [facility] nurse station and left message asking if pt will need COVID test to return. ISABEL received message from Fabiana CHAPA at [facility] stating pt doesn't need COVID test to return. ISABEL faxed discharge paperwork to [facility]. ISABEL spoke with RN, pt's stress test results need to come back before pt can discharge. Plan: Return to [facility] once medically cleared Brittanie Camejo STUDENT SUCCESS COACH, MAINFRAME SOFTWARE DEVELOPER
--- NOTE | 2020-03-24 14:01 | PHA.DC.MR ---
Pharmacy Service has performed discharge medication reconciliation for this patient. The patient's discharge medication list was reviewed for discrepancies and discrepancies were resolved. Home Medications Atorvastatin Calcium [Lipitor] 40 mg PO QHS 07/10/13 Ipratropium/Albuterol Respimat [Combivent Respimat Inhal [place]] 1 puff INHALATION BID PRN 07/10/13 Metformin [Metformin HCl] 1,000 mg PO BID 07/10/13 Glimepiride [Amaryl] 4 mg PO DAILY 06/16/17 Empagliflozin [Jardiance] 25 mg PO DAILY 03/16/19 Fluticasone 0.05% [Flonase Nasal [place]] 1 spray NASAL DAILY 03/16/19 Lisinopril [Zestril] 2.5 mg PO DAILY 03/16/19 Glimepiride 2 mg PO QHS 11/25/19 oxycodone 5 mg capsule 5 mg PO Q4H PRN PRN 12/12/19 sennosides 8.6 mg capsule 8.6 mg PO BID PRN 12/12/19 Docusate Sodium [Colace] 1 - 2 mg PO DAILY PRN PRN 12/19/19 Linagliptin [Tradjenta] 5 mg PO DAILY 12/19/19 Acetaminophen [Tylenol Tablet] 650 mg PO Q6H PRN PRN tab 03/24/20 Iron Polysaccharide Complex [Ferrex 150] 150 mg PO DAILY #30 cap 03/24/20 Pantoprazole Sodium [Protonix] 40 mg PO BID #60 tab 03/24/20
--- NOTE | 2020-03-24 14:44 | PCM.DC.SUM ---
<Lc Hutchinson - Last Filed: 03/24/20 16:09> Discharge Date and Diagnosis - Problem List Patient Problems: Active and Suspected Problems (Last Reviewed 12/12/19 @ 08:59 by Silva Mcdonald) Chest pain (Acute) Date of Admission: 03/22/20 Date of Discharge: 03/24/20 - Primary Discharge Diagnosis Acute Problems: Active Problems (Last Reviewed 12/12/19 @ 08:59 by Silva Mcdonald) Chest pain/Epigastric pain 2/2 GERD/Suspected Ulcer Hx gastric ulcer Iron def anemia - Secondary Discharge Diagnosis Chronic Problems: Chronic Problems (Last Reviewed 12/12/19 @ 08:59 by Silva Mcdonald) GERD (gastroesophageal reflux disease) (Chronic) Intellectual disability (Chronic) Arthropathy of right hip (Chronic) DM2 (diabetes mellitus, type 2) (Chronic) Essential (primary) hypertension (Chronic) Dyslipidemia (Chronic) Hospital Course and Treatment Imaging Results: 03/24/20 05:55 Nuclear Stress Test - Chemical [NM] AM (NON MEDS) RAD/Chest 1 View (Portable) IMPRESSION: Left basilar atelectasis. Operations: None Procedures: Stress test Summary of Care Provided: Hospital Course: The patient is a 60 year old M with pmhx of gastric ulcer who presented to the ER with epigastric/chest pain. This began after he took his home medications. He takes daypro regularly at home. He described it as a sharp pain. The patient was admitted for chest pain workup. He had troponin negative x3. EKG was negative. D dimer was negative. CXR was negative. No events on tele. The patient was taken for a stress test which was negative. He had an episode of chest pain after taking ibuprofen. He was felt to have GERD or recurrence of his prior stomach ulcer. He was mildly anemic. He had significant iron deficiency. He was placed on protonix BID and iron replacement therapy. Hgb remained stable. I recommended he follow up with general surgery in 2 weeks as he may need endoscopy as he has a high risk of having worsening of his ulcers. He will also need follow up with his PCP in 1-2 weeks. He was advised to discontinue all NSAID use. This patient was seen by Lc Hutchinson PA-C under the supervision of Dr. Rosenberg [] Patient Problems: Active and Suspected Problems (Last Reviewed 12/12/19 @ 08:59 by Silva Mcdonald) Chest pain (Acute) - Physical Exam Vitals/I&O's: Vital Signs Temp Pulse Resp BP Pulse Ox 97.7 F L 79 17 119/60 99 03/24/20 09:17 03/24/20 09:17 03/24/20 09:17 03/24/20 09:17 03/24/20 09:17 Oxygen Delivery Method Room Air Weight: 165 lb 12.602 oz Body Mass Index (BMI) 29.3 Finger Stick Blood Glucose 224 Intake and Output for Last 24 Hours 03/22/20 03/23/20 03/24/20 23:59 23:59 23:59 Intake Total 770 / 770 1570 / 1570 240 / 240 Output Total 0 / 0 Balance 770 / 770 1570 / 1570 240 / 240 General: Alert, Oriented x3, Cooperative HEENT: Atraumatic, PERRLA, EOMI, Normocephalic Neck: Supple, No JVD, Negative Carotid Bruits Lungs: Clear to auscultation, Normal air movement Cardiovascular: Regular rate, No murmurs Abdomen: Bowel Sounds Present, Soft, Non Tender Extremities: No edema, Capillary Refill Less than 3 Seconds Skin: No rashes, No breakdown Musculoskeletal: No Tenderness to Palpation of Joints or Extremities Neurological: Cranial nerves II-XII grossly intact Psych/Mental Status: Normal Affect, Appropriate, Alert and oriented to time, place, person, mood and affect Laboratory Results 03/23/20 16:26: POC Glucose 181 H 03/23/20 21:59: POC Glucose 164 H 03/24/20 04:58: WBC 5.8, RBC 4.61, Hgb 12.5 L, Hct 40.2, MCV 87.2, MCH 27.1, MCHC 31.1 L, RDW Std Deviation 44.2 H, RDW Coeff of [place] 14.0, Plt Count 178, MPV 10.8, Immature Gran % (Auto) 0.300, Neut % (Auto) 66.5, Lymph % (Auto) 18.5 L, Glades % (Auto) 10.9 H, Eos % (Auto) 3.1, Baso % (Auto) 0.7, Absolute Neuts (auto) 3.8, Absolute Lymphs (auto) 1.07, Nucleated RBC % 0 03/24/20 06:44: POC Glucose 167 H 03/24/20 11:22: POC Glucose 171 H Current Medications Acetaminophen (Acetaminophen 325 Mg Tablet) 650 mg PO Q6H PRN PRN PRN Reason: Pain Score 1-10/Temp > 100.7 F Al Hydroxide/Mg Hydroxide (Mag Hydrox/Al Hydrox/Simeth 30 Ml Udc) 15 ml PO Q6H PRN PRN PRN Reason: Epigastric pain, h-burn,indig. Last Admin: 03/23/20 09:29 Dose: 15 ml Documented by: Albuterol/Ipratropium (Ipratropium/Albuterol Sulfate 3 Ml Ampul.Neb) 3 ml INHALATION BID PRN PRN PRN Reason: SOB &/OR WHEEZING Atorvastatin Calcium (Atorvastatin Calcium 40 Mg Tablet) 40 mg PO QHS [facility] Last Admin: 03/23/20 22:00 Dose: 40 mg Documented by: Calcium Carbonate (Calcium Carbonate 500 Mg Tablet) 500 mg PO Q4H PRN PRN PRN Reason: HEARTBURN Last Admin: 03/23/20 22:00 Dose: 500 mg Documented by: Empagliflozin (Empagliflozin 25 Mg Tablet) 25 mg PO DAILY [facility] Last Admin: 03/24/20 09:34 Dose: 25 mg Documented by: Fluticasone Propionate (Fluticasone 0.05% 1 [place] Nasal.Sry) 1 spray NASAL DAILY [facility] Last Admin: 03/24/20 09:34 Dose: 1 spray Documented by: Glimepiride (Glimepiride 4 Mg Tablet) 4 mg PO DAILYCM [facility] Last Admin: 03/24/20 09:34 Dose: 4 mg Documented by: Glimepiride (Glimepiride 2 Mg Tablet) 2 mg PO DINNER [facility] Last Admin: 03/23/20 16:28 Dose: 2 mg Documented by: Sodium Chloride () 250 mls @ 15 mls/hr IV .[id number] PRN PRN Reason: Saline Flush Sodium Chloride () 250 mls @ 15 mls/hr IV .[id number] PRN PRN Reason: Additional IVPB Infusion Insulin Human Lispro (Insulin Lispro 100 Unit/Ml Insuln.Pen) 0 unit SC ACHS [facility]; Protocol Last Admin: 03/24/20 11:24 Dose: 1 units Documented by: Linagliptin (Linagliptin 5 Mg Tablet) 5 mg PO DAILY [facility] Last Admin: 03/24/20 09:35 Dose: 5 mg Documented by: Lisinopril (Lisinopril 2.5 Mg Tablet) 2.5 mg PO DAILY [facility] Last Admin: 03/24/20 06:45 Dose: 2.5 mg Documented by: Nitroglycerin (Nitroglycerin (Inpatient Use) 0.4 Mg Tab.Subl) 0.4 mg SUBLINGUAL Q5M PRN PRN Reason: CHEST PAIN Ondansetron HCl (Ondansetron 4 Mg/2 Ml Vial) 4 mg IV Q8H PRN PRN PRN Reason: NAUSEA/VOMITING Oxycodone HCl (Oxycodone 5 Mg Tablet) 5 mg PO Q4H PRN PRN PRN Reason: Pain Score 1-10 Pantoprazole Sodium (Pantoprazole Sodium 40 Mg Tablet) 40 mg PO BID [facility] Last Admin: 03/24/20 09:35 Dose: 40 mg Documented by: Polysaccharide Iron Complex (Iron Polysaccharide Complex 150 Mg Capsule) 150 mg PO DAILY [facility] Last Admin: 03/24/20 09:34 Dose: 150 mg Documented by: Senna (Senna Tablet) 8.6 tablet PO BID PRN PRN PRN Reason: Constipation Senna/Docusate Sodium (Senna/Docusate Sodium 1 Tablet) 2 tablet PO BID PRN PRN PRN Reason: Constipation Last Admin: 03/24/20 09:37 Dose: 2 tablet Documented by: Sodium Chloride (0.9% Saline Lock 10 Ml Syringe) 10 - 40 ml IV UD PRN PRN Reason: SALINE FLUSH Last Admin: 03/23/20 11:49 Dose: 10 ml Documented by: Zolpidem Tartrate (Zolpidem Tartrate 5 Mg Tablet) 5 mg PO QHS PRN PRN PRN Reason: INSOMNIA Discharge Diet: Low fat/ Low Cholesterol, 2000 mg Sodium Diet Discharge Activity: Return to Normal Activity Home Medications: Medications to take at Discharge Atorvastatin Calcium [Lipitor] 40 mg PO QHS 07/10/13 Ipratropium/Albuterol Respimat [Combivent Respimat Inhal [place]] 1 puff INHALATION BID PRN 07/10/13 Metformin [Metformin HCl] 1,000 mg PO BID 07/10/13 Glimepiride [Amaryl] 4 mg PO DAILY 01/11/18 Empagliflozin [Jardiance] 25 mg PO DAILY 03/16/19 Fluticasone 0.05% [Flonase Nasal [place]] 1 spray NASAL DAILY 03/16/19 Lisinopril [Zestril] 2.5 mg PO DAILY 03/16/19 Glimepiride 2 mg PO QHS 11/25/19 oxycodone 5 mg capsule 5 mg PO Q4H PRN PRN 12/12/19 sennosides 8.6 mg capsule 8.6 mg PO BID PRN 12/12/19 Docusate Sodium [Colace] 1 - 2 mg PO DAILY PRN PRN 12/19/19 Linagliptin [Tradjenta] 5 mg PO DAILY 12/19/19 Acetaminophen [Tylenol Tablet] 650 mg PO Q6H PRN PRN tab 03/24/20 Iron Polysaccharide Complex [Ferrex 150] 150 mg PO DAILY #30 cap 03/24/20 Pantoprazole Sodium [Protonix] 40 mg PO BID #60 tab 03/24/20 Following Prescriptions Were Given to Patient: Iron Polysaccharide Complex [Ferrex 150] 150 mg PO DAILY #30 cap Transmission Status: Received by [facility] [address] Pantoprazole Sodium [Protonix] 40 mg PO BID #60 tab Transmission Status: Received by [facility] [address] Primary Care Physician: Ligia Johnson MD [Primary Care Provider] - Please Follow Up With: Donovan Valero MD - History of ulcer, iron deficiency anemia When: 2 weeks Disposition: Home Minutes spent on discharge:: 35 Patient Condition:: Stable Medical Necessity - Tobacco Use Smoking Status: Former smoker Tobacco Use: Non-smoker Meaningful Use Info Meaningful Use Diagnoses (Choose all that apply): None applicable <Kal Rosenberg - Last Filed: 03/24/20 16:13> Discharge Date and Diagnosis - Primary Discharge Diagnosis Acute Problems: Active Problems (Last Reviewed 12/12/19 @ 08:59 by Silva Mcdonald) Chest pain (Acute) - Secondary Discharge Diagnosis Chronic Problems: Chronic Problems (Last Reviewed 12/12/19 @ 08:59 by Silva Mcdonald) GERD (gastroesophageal reflux disease) (Chronic) Intellectual disability (Chronic) Arthropathy of right hip (Chronic) DM2 (diabetes mellitus, type 2) (Chronic) Essential (primary) hypertension (Chronic) Dyslipidemia (Chronic) Hospital Course and Treatment Imaging Results: 03/25/20 05:55 Nuclear Stress Test - Chemical [NM] AM (NON MEDS) Summary of Care Provided: This patient was seen in conjunction with Lc Hutchinson PA-C . I have independently interviewed and examined the patient and reviewed pertinent historical, laboratory, and other data. Please refer to Lc Hutchinson PA-C note for details of this patient's presentation, findings, and recommendations. I have reviewed Lc Hutchinson PA-C note and concur with documented findings. In brief, patient is a senior 60-year-old gentleman admitted with epigastric discomfort. Placed on a monitored bed [place] was ruled out with serial cardiac enzymes. Patient underwent a nuclear stress test which was negative for stress-induced ischemia It was felt patient symptoms were secondary to gastritis due to NSAID use instructed to follow-up with PCP within 1 to 2 weeks to be referred to GI for endoscopic evaluation Hospital course; as documented above - Physical Exam Vitals/I&O's: Vital Signs Temp Pulse Resp BP Pulse Ox 98.6 F 83 18 112/60 98 03/24/20 15:17 03/24/20 15:17 03/24/20 15:17 03/24/20 15:17 03/24/20 15:17 Oxygen Delivery Method Room Air Weight: 75.2 kg Body Mass Index (BMI) 29.3 Finger Stick Blood Glucose 224 Intake and Output for Last 24 Hours 03/22/20 03/23/20 03/24/20 23:59 23:59 23:59 Intake Total 770 / 770 1570 / 1570 480 / 480 Output Total 0 / 0 Balance 770 / 770 1570 / 1570 480 / 480 Laboratory Results 03/23/20 16:26: POC Glucose 181 H 03/23/20 21:59: POC Glucose 164 H 03/24/20 04:58: WBC 5.8, RBC 4.61, Hgb 12.5 L, Hct 40.2, MCV 87.2, MCH 27.1, MCHC 31.1 L, RDW Std Deviation 44.2 H, RDW Coeff of [place] 14.0, Plt Count 178, MPV 10.8, Immature Gran % (Auto) 0.300, Neut % (Auto) 66.5, Lymph % (Auto) 18.5 L, [place] % (Auto) 10.9 H, Eos % (Auto) 3.1, Baso % (Auto) 0.7, Absolute Neuts (auto) 3.8, Absolute Lymphs (auto) 1.07, Nucleated RBC % 0 03/24/20 06:44: POC Glucose 167 H 03/24/20 11:22: POC Glucose 171 H Current Medications Acetaminophen (Acetaminophen 325 Mg Tablet) 650 mg PO Q6H PRN PRN PRN Reason: Pain Score 1-10/Temp > 100.7 F Al Hydroxide/Mg Hydroxide (Mag Hydrox/Al Hydrox/Simeth 30 Ml Udc) 15 ml PO Q6H PRN PRN PRN Reason: Epigastric pain, h-burn,indig. Last Admin: 03/23/20 09:29 Dose: 15 ml Documented by: Albuterol/Ipratropium (Ipratropium/Albuterol Sulfate 3 Ml Ampul.Neb) 3 ml INHALATION BID PRN PRN PRN Reason: SOB &/OR WHEEZING Atorvastatin Calcium (Atorvastatin Calcium 40 Mg Tablet) 40 mg PO QHS [facility] Last Admin: 03/23/20 22:00 Dose: 40 mg Documented by: Calcium Carbonate (Calcium Carbonate 500 Mg Tablet) 500 mg PO Q4H PRN PRN PRN Reason: HEARTBURN Last Admin: 03/23/20 22:00 Dose: 500 mg Documented by: Empagliflozin (Empagliflozin 25 Mg Tablet) 25 mg PO DAILY [facility] Last Admin: 03/24/20 09:34 Dose: 25 mg Documented by: Fluticasone Propionate (Fluticasone 0.05% 1 [place] Nasal.Sry) 1 spray NASAL DAILY [facility] Last Admin: 03/24/20 09:34 Dose: 1 spray Documented by: [facility]pir[facility] ([facility] 4 Mg Table[facility]) [facility] Last Admin: 03/24/20 09:34 Dose: 4 mg Documented by: Glimepiride (Glimepiride 2 Mg Tablet) 2 mg PO DINNER [facility] Last Admin: 03/23/20 16:28 Dose: 2 mg Documented by: Sodium Chloride () 250 mls @ 15 mls/hr IV .[id number] PRN PRN Reason: Saline Flush Sodium Chloride () 250 mls @ 15 mls/hr IV .[id number] PRN PRN Reason: Additional IVPB Infusion Insulin Human Lispro (Insulin Lispro 100 Unit/Ml Insuln.Pen) 0 unit SC ACHS [facility]; Protocol Last Admin: 03/24/20 11:24 Dose: 1 units Documented by: Linagliptin (Linagliptin 5 Mg Tablet) 5 mg PO DAILY [facility] Last Admin: 03/24/20 09:35 Dose: 5 mg Documented by: Lisinopril (Lisinopril 2.5 Mg Tablet) 2.5 mg PO DAILY [facility] Last Admin: 03/24/20 06:45 Dose: 2.5 mg Documented by: Nitroglycerin (Nitroglycerin (Inpatient Use) 0.4 Mg Tab.Subl) 0.4 mg SUBLINGUAL Q5M PRN PRN Reason: CHEST PAIN Ondansetron HCl (Ondansetron 4 Mg/2 Ml Vial) 4 mg IV Q8H PRN PRN PRN Reason: NAUSEA/VOMITING Oxycodone HCl (Oxycodone 5 Mg Tablet) 5 mg PO Q4H PRN PRN PRN Reason: Pain Score 1-10 Pantoprazole Sodium (Pantoprazole Sodium 40 Mg Tablet) 40 mg PO BID [facility] Last Admin: 03/24/20 09:35 Dose: 40 mg Documented by: Polysaccharide Iron Complex (Iron Polysaccharide Complex 150 Mg Capsule) 150 mg PO DAILY [facility] Last Admin: 03/24/20 09:34 Dose: 150 mg Documented by: Senna (Senna Tablet) 8.6 tablet PO BID PRN PRN PRN Reason: Constipation Senna/Docusate Sodium (Senna/Docusate Sodium 1 Tablet) 2 tablet PO BID PRN PRN PRN Reason: Constipation Last Admin: 03/24/20 09:37 Dose: 2 tablet Documented by: Sodium Chloride (0.9% Saline Lock 10 Ml Syringe) 10 - 40 ml IV UD PRN PRN Reason: SALINE FLUSH Last Admin: 03/23/20 11:49 Dose: 10 ml Documented by: Zolpidem Tartrate (Zolpidem Tartrate 5 Mg Tablet) 5 mg PO QHS PRN PRN PRN Reason: INSOMNIA OBSV E&M: [id number] Observation care discharge
--- NOTE | 2020-03-24 15:38 | STRESSREP_ITS ---
Stress Test Report Date: 03/24/2020 Procedure: Pharmacologic stress nuclear imaging study Indications: Chest pain Consent: Per the patient Procedure: The patient underwent pharmacologic (Regadenoson) evaluation with a peak heart rate of 123 beats per minute (77%predicted maximal heart rate) and a peak blood pressure of 148/82 mmHg. The baseline ECG demonstrated normal sinus rhythm. EKG during lexiscan infusion revealed no significant ischemic changes. EKG post infusion revealed no significant ischemic changes [There were no cardiac dysrhythmias pretest, during pharmacologic infusion, or recovery]. [There was no complaint of chest discomfort during pharmacologic infusion or recovery]. The examination was discontinued secondary to completion of protocol. Impression: 1. Lexiscan stress test test is negative for Lexiscan infusion induced EKG changes of ischemia. 2. Lexiscan stress test test is negative for Lexiscan infusion induced chest pain. 3. Results of the nuclear portion of the test is as below Myocardial perfusion imaging study: Technique: The patient was injected with 11.1 millicuries of technetium 99m Cardiolite and subsequently rest SPECT Cardiolite nuclear imaging was obtained in the horizontal long, vertical long, and short axis views. The patient underwent pharmacologic (Regadenoson) evaluation. Please see above for details. The patient was injected with 32.9 millicuries of technetium 99m Cardiolite and subsequently stress SPECT Cardiolite nuclear imaging was obtained in the horizontal long, vertical long, and short axis views. A gated Cardiolite study at peak stress was obtained. Interpretation: Rest and stress SPECT Cardiolite nuclear imaging status post realignment, normalization, and attenuation correction demonstrate overall normal myocardial radioisotope uptake. There is no evidence of significant ischemia or infarction. Gated images reveal no significant regional wall motion abnormalities. The reported LVEF is greater than 70%. Impression: 1. There is no evidence of significant ischemia or infarction. 2. Estimated ejection fraction is greater than 70%. This note was generated with [employer] software. It may contain incorrect words, spelling, and punctuation that were not noted in checking the note before signing.
--- NOTE | 2020-03-24 15:51 | CASEMGMT ---
Addendum entered by Brittanie Camejo 03/24/20 16:35: RN updated on transportation time. Original Note: Social Work Note SW updated that pt's stress test came back negative and pt can discharge to [facility] today. ISABEL placed a call to Alina and updated her. Alina states she gets off work at 7:00pm and will be at [facility] around then to transport pt. ISABEL placed a call to [facility] and left message for RN nurse station that pt will be discharged today and transportation will be at [facility] around 7:00pm to transport pt. ISABEL previously faxed discharge paperwork to [facility]. Plan: Discharge to [facility] today with Alina transporting pt at 7:00pm Brittanie Camejo PROFESSOR OF BIOSTATISTICS, STAINED GLASS WINDOW DESIGNER
[2020-03-24] MEDS: Glimepiride 2 MG Tablet PO (16:35)
[2020-03-24 16:45] LABS: Bedside Glucose 176 mg/dL (70-110)
== END 2020-03-24 11:51 | disposition home or self-care (01) ==
LOC: ED 18:23 → PCU 20:04
PROVIDERS: Internal Medicine; Physician Assistant; Admitting Provider Hospitalist; Emergency Provider Emergency Medicine; PCP Internal Medicine; Visit Provider Internal Medicine
DX: R07.89 Other chest pain (principal); Z23 Encounter for immunization; K21.9 Gastro-esophageal reflux disease without esophagitis; F79 Unspecified intellectual disabilities; E78.5 Hyperlipidemia, unspecified; I10 Essential (primary) hypertension; E11.9 Type 2 diabetes mellitus without complications; D50.9 Iron deficiency anemia, unspecified; J44.9 Chronic obstructive pulmonary disease, unspecified; Z79.899 Other long term (current) drug therapy; Z87.11 Personal history of peptic ulcer disease; Z79.84 Long term (current) use of oral hypoglycemic drugs
CPT/HCPCS: 36415; 71045; 78452; 80048; 80076; 82962; 83540; 83550; 84484; 85025; 85379; 93005; 93017; 94760; 96361; 96365; 96367; 99218; 99283; 99285; A9500; J7030; J7050; 90686; A4216; G0378; J2785; J2916

== ENCOUNTER 2020-07-22 10:59 | Emergency (ER) | payer MEDICARE, MEDICAID, SELFPAY ==
[2020-07-22 11:00] VITALS: BP 138/77; PULSE 108; RESP 20; TEMP 36.6; O2SAT 96; BMI 30.9
--- NOTE | 2020-07-22 11:20 | ED.VIS.UPPEX ---
History of Present Illness Chief Complaint: Upper Extremity Injury Informant: Patient, [employer] Onset: Days - 2-3, pt unsure exactly Context: - - awoke w/ pain Timing: Continuous Quality of Pain: Aching Location: left shoulder Current Severity: Moderate Maximum Severity: Severe Worsened by: movement, especially overhead Relieved by: remaining still w/ arm at side Associated Symptoms: Negative for: Parasthesia, Weakness, Loss of Funtion Narrative: Patient is in assisted living, states that he woke up couple days ago with pain in his left shoulder that has been present ever since. He states moving overhead is especially painful. Most of his pain is anterior. He denies any overuse, heavy lifting, falls/injuries that he can think of. He denies any fevers, chills, feeling poorly, or any other symptoms. - Past Medical History (1) Arthropathy of right hip Status: Chronic (2) DM2 (diabetes mellitus, type 2) Status: Chronic (3) Dyslipidemia Status: Chronic (4) Essential (primary) hypertension Status: Chronic (5) GERD (gastroesophageal reflux disease) Status: Chronic (6) Intellectual disability Status: Chronic Past Medical History - Allergies and Home Meds Allergies/Adverse Reactions: Allergies aspirin Allergy (Verified 07/22/20 11:04) Unknown codeine Allergy (Verified 07/22/20 11:04) Unknown Primary Care Physician: Ligia Johnson MD [Primary Care Provider] - Surgical History: total hip arthroplasty Lives: - - Assisted living Smoking Status: Former smoker - Family History Paternal Family History: Family History (Last Reviewed 04/16/20 @ 09:10 by Silva Mcdonald) Mother Diabetes Family History: Reports: Heart Disease Review of Systems General: Denies: Chills, Fever, Malaise, Sweats Eyes: Denies: Visual changes - bilaterally, Diplopia ENT: Denies: Rhinorrhea, Sore throat Cardiovascular: Denies: Chest pain, Palpitations Respiratory: Denies: Dyspnea, Cough, Dyspnea on exertion Gastrointestinal: Denies: Abdominal pain, Nausea, Vomiting, Diarrhea, Melena, Hematochezia Genitourinary: Denies: Dysuria, Hematuria, Frequency Musculoskeletal: Reports: Extremity Pain - Left shoulder. See HPI.. Denies: Neck pain, Back pain, Swelling Skin: Denies: Rash, Wounds Neurological: Denies: Headache, Weakness, Numbness Physical Exam Vital Signs/Narrative: Vital Signs Temp Pulse Resp BP Pulse Ox 07/22/20 11:00 97.9 F 108 H 20 H 138/77 H 96 General: Well nourished, Well developed, - - Well-appearing no distress. Conversive in full sentences and cooperative, follows commands. Head: Normocephalic, Atraumatic Eyes: Perrl, EOMI ENT: No Trauma, Moist Mucous Membranes Neck: Nontender, Full ROM Back: Nontender. Negative for: CVA Tenderness - Right, CVA Tenderness - Left, Spinal Tenderness Extremeties: Full range of motion left shoulder although patient has pain with going overhead. He is able to abduct to 90 degrees without any apparent difficulty. He has tenderness anteriorly with increased pain anteriorly with Yergason maneuver. There is very mild subacromial tenderness without fullness or increased warmth or erythema. There is no deformity. No acromioclavicular tenderness/swelling. With ranging, there is no crepitance or clunks. All left upper arm compartments soft and nondistended and nontender other than as noted above. Full range of motion of the elbow and wrist without difficulty or pain. Skin: Normal color, No rash, No Trauma, - - no LUE cords or abn skin findings Neurological: Alert, Oriented x3, Cranial nerves II-XII grossly intact, Normal Strength, Normal Sensation Psychological: Normal affect, Normal Mood Diagnostic/Tx/Re-eval Clinical Impression(s) from Imaging Studies Shoulder X-Ray 07/22/20 11:35 IMPRESSION: Mild acromioclavicular arthrosis. Questionable nodule at the left lung base, consider chest radiograph. Electronically Signed: Severo Manriquez MD at 12:00 EST Tel , Service support , Chest X-Ray 07/22/20 14:07 IMPRESSION: Stable mild increased linear markings at the left lung base suggestive of linear scarring. Electronically Signed: Darien Samuels MD at 14:45 EST , Service support , - Medical Decision Making Three-view x-ray of the left shoulder was obtained, it shows chronic abnormalities but no acute abnormalities. It did also show the possibility of a left lung nodule and recommended a chest x-ray which I obtained, which did not show a nodule. Differential includes bursitis, impingement, rotator cuff pathology, but given his excellent range of motion and lack of clinical findings of infection, crystal induced arthritis, I do not think he needs an emergent arthrocentesis at this time based on my exam. Additionally, after a dose of tramadol, he is moving his shoulder even better and had some relief. Follow-up advised. ED Disposition - Plan for ED Patient: Disposition: Home or Assisted Living Diagnosis: Acute pain of left shoulder Instructions: ED Shoulder Pain, Uncertain Cause Prescriptions: traMADol [Ultram] 50 mg PO Q4H PRN PRN 2 Days #10 tab PRN Reason: Pain Prescription Printed Referrals: Ligia Johnson MD [Primary Care Provider] - Gutierrez Billy MD [STAFF PHYSICIAN] - 1 Week if not improving
--- NOTE | 2020-07-22 11:35 | RAD_ITS ---
STUDY: X-RAY - LEFT SHOULDER REASON FOR EXAM: Left shoulder pain for several days. TECHNIQUE: 4 view(s) of the shoulder. COMPARISON: Radiographs 11/29/2014. FINDINGS: Normal glenohumeral articulation. There is mild acromioclavicular arthrosis. Normal acromion. Normal humeral head and visualized proximal humerus. The soft tissue structures are unremarkable. There is a questionable nodule at the left lung base. RAD/Shoulder min 2 Views IMPRESSION: Mild acromioclavicular arthrosis. Questionable nodule at the left lung base, consider chest radiograph. Electronically Signed: Severo Manriquez MD at 12:00 EST Tel , Service support ,
[2020-07-22] MEDS: traMADol 50 MG Tablet PO (11:44)
--- NOTE | 2020-07-22 14:07 | RAD_ITS ---
STUDY: X-RAY CHEST REASON FOR EXAM: Male, 60 years old. Pt with left shoulder pain for several days. States hurts with movement. Unable to lift over his head. TECHNIQUE: Single AP portable view of the chest. COMPARISON: Comparison is made with prior study dated 03/22/2020. FINDINGS: Stable mild increased linear markings at the left lung base suggestive of a mild scarring. There is no demonstrated pleural abnormality. There is borderline cardiomegaly. Normal mediastinum and dread. Normal visualized pulmonary arteries. Normal visualized aortic arch and descending thoracic aorta. Normal visualized thoracic spine. Normal visualized ribs, clavicles, and shoulders. There is no demonstrated abnormality of the visualized soft tissue structures of the upper abdomen. RAD/Chest 1 View (Portable) IMPRESSION: Stable mild increased linear markings at the left lung base suggestive of linear scarring. Electronically Signed: Darien Samuels MD at 14:45 EST , Service support ,
[2020-07-22 15:22] VITALS: BP 134/82; PULSE 79; PULSE 81; RESP 16; O2SAT 95; O2SAT 96
== END 2020-07-22 16:12 | disposition home or self-care (01) ==
PROVIDERS: Emergency Provider Emergency Medicine; PCP Internal Medicine
DX: M19.012 Primary osteoarthritis, left shoulder (principal); E11.9 Type 2 diabetes mellitus without complications; E78.5 Hyperlipidemia, unspecified; I10 Essential (primary) hypertension; K21.9 Gastro-esophageal reflux disease without esophagitis; F79 Unspecified intellectual disabilities; Z82.49 Family history of ischemic heart disease and other diseases of the circulatory system; Z83.3 Family history of diabetes mellitus; Z87.891 Personal history of nicotine dependence
CPT/HCPCS: 71045; 73030; 99284

== ENCOUNTER → 2020-11-18 05:00 | Outpatient (REF) | payer MEDICARE, MEDICAID, SELFPAY ==
[2020-11-18 07:32] LABS: Hematocrit 46.3 % (40-54); Hemoglobin 14.2 g/dL (13.0-16.5); Mean Corp Hgb Conc 30.7 g/dL (32-36); Mean Corpuscular Volume 84.8 fL (80-94); Mean Platelet Vol. 11.4 fl (6.2-12.0); Platelet Count 189 K/mm3 (150-450); RBC Distribution Width CV 14.6 % (11.6-14.6); Red Blood Count 5.46 M/mm3 (4.6-6.2); White Blood Count 6.7 K/mm3 (4.4-11.0)
[2020-11-18 08:01] LABS: ALB/GLOB Ratio 1.2 RATIO (0.9-2.4); AST(SGOT) 17 U/L (15-37); Alanine Aminotransfer ALT/SGPT 21 U/L (16-61); Alkaline Phosphatase 118 U/L (45-117); Anion Gap 7 (5-15); BUN 27 mg/dL (7-18); BUN/Creat Ratio 26.5 RATIO (10-20); Calcium,Total 9.2 mg/dL (8.5-10.1); Chloride 105 mmol/L (98-107); Creatinine, Serum 1.02 mg/dL (0.70-1.30); EST Glomerular Filtration Rate 79 mL/min (>60); Est Glom Filt Rate - Afr Amer 95 mL/min (>60); Globulin 3.4 g/dL (2.2-4.2); Glucose 98 mg/dL (74-106); Potassium 3.6 mmol/L (3.5-5.1); Protein, Total 7.4 g/dL (6.4-8.2); Sodium Level 140 mmol/L (136-145)
== END ==
LOC: OLS.SWAL 05:00
PROVIDERS: PCP Internal Medicine; Visit Provider Internal Medicine
DX: E11.9 Type 2 diabetes mellitus without complications (principal)
CPT/HCPCS: 36415; 80053; 83036; 85027

== ENCOUNTER 2020-12-03 22:15 | Emergency (ER) | payer MEDICARE, MEDICAID, SELFPAY ==
[2020-12-03 22:16] VITALS: BP 151/75; PULSE 105; RESP 18; TEMP 37.4; O2SAT 98; BMI 30.8
--- NOTE | 2020-12-03 22:37 | EDS_ITS ---
HPI History of Present Illness Chief Complaint: GI Bleed Informant: patient Onset/Context/Timing Onset: Today Quality: Bright red blood Location: Rectal Current Severity: Mild Maximum Severity: Mild Worsened by: Nothing Relieved by: Nothing Associated Symptoms Associated Symptoms: History of hemorrhoids, no pain, no other GI symptoms, no blood thinners Narrative Prior similar symptoms: Yes Recent Illness/Hospitalization: No PFSH PFSH Medical History DM2 (diabetes mellitus, type 2) Dyslipidemia Essential (primary) hypertension GERD (gastroesophageal reflux disease) Hemorrhoid Intellectual disability Home Medications atorvastatin 40 mg PO QHS 07/10/13 [History Last Taken Unknown] ipratropium-albuterol 1 puff INHALATION BID PRN 07/10/13 [History Last Taken Unknown] metformin 1,000 mg PO BID 07/10/13 [History Last Taken Unknown] glimepiride 4 mg PO BID 06/16/17 [History Last Taken Unknown] empagliflozin [Jardiance] 25 mg PO DAILY 03/16/19 [History Last Taken Unknown] fluticasone propionate 1 spray NASAL DAILY 03/16/19 [History Last Taken Unknown] lisinopril 2.5 mg PO DAILY 03/16/19 [History Last Taken 01/04/20] oxycodone 5 mg capsule 5 mg PO Q4H PRN PRN 12/12/19 [History Last Taken Unknown] sennosides 8.6 mg capsule 8.6 mg PO BID PRN 12/12/19 [History Last Taken Unknown] docusate sodium 1 - 2 mg PO DAILY PRN PRN 12/19/19 [History Last Taken Unknown] acetaminophen 650 mg PO Q6H PRN PRN tab 03/24/20 [Rx Last Taken Unknown] pantoprazole 40 mg PO BID #60 tab 03/24/20 [Rx Last Taken Unknown] polysaccharide iron complex 150 mg PO DAILY #30 cap 03/24/20 [Rx Last Taken Unknown] polysaccharide iron complex 150 mg iron capsule 150 mg PO DAILY 04/16/20 [History Last Taken Unknown] docusate sodium [Colace] 100 mg PO BID #30 cap 12/03/20 [Rx Last Taken Unknown] insulin glargine [Lantus Solostar U-100 Insulin] 14 unit SUBCUT QPM 12/03/20 [History Last Taken Unknown] ipratropium-albuterol [Combivent Respimat] 1 puff INHALATION BID 12/03/20 [History Last Taken Unknown] polysaccharide iron complex [Ferrex 150] 150 mg DAILY 12/03/20 [History Last Taken Unknown] tramadol 50 mg PO Q4H PRN 12/03/20 [History Last Taken Unknown] witch summer [Tucks (witch summer)] 1 pad TOPICAL BID PRN #40 ea 12/03/20 [Rx Last Taken Unknown] Allergy/AdvReac Type Severity Reaction Status Date / Time aspirin Allergy Unknown Verified 07/22/20 11:04 codeine Allergy Unknown Verified 07/22/20 11:04 Family History Mother Diabetes Surgical History Arthropathy of right hip Social History Smoking Status: Former smoker alcohol intake: never ROS ROS ED Constitutional Constitutional ED: Denies chills or fever(s) Eyes Eyes: Denies change in vision ENT ENT ED: Denies ear pain Cardiovascular Cardiovascular: Denies chest pain Respiratory/Chest Respiratory/Chest: Denies dyspnea Gastrointestinal Gastrointestinal: Denies abdominal pain, constipation, diarrhea, melena, nausea or vomiting Genitourinary Genitourinary ED: Denies dysuria Musculoskeletal Musculoskeletal: Denies myalgias Integumentary Denies rash Neurologic Neurologic: Denies headache(s) Psychiatric Psychiatric: Denies depression Endocrine Endocrinology: Denies polyuria Allergic/Immunologic Allergic/Immunologic ED: Denies urticaria EXAM Physical Exam Const Vital Signs: 12/03/20 22:16 Temperature 99.4 F H Temperature Source Temporal Pulse Rate 105 H Respiratory Rate 18 Blood Pressure 151/75 H Blood Pressure Mean 100 Pulse Ox 98 Oxygen Delivery Method Room Air Positive well nourished and well developed General Appearance ED: well developed; Negative for pallor HEENT Negative for trauma or tenderness Eyes EOMs intact bilaterally Neck supple Chest Wall inspection of chest normal Resp normal respiratory effort Cardio regular rate GI normal to inspection, nondistended, normoactive bowel sounds, non-tender and non-distended GI Narrative: Multiple external hemorrhoids, soft, nonthrombosed. There is 1 at 3:00 that is slightly erythematous with a small amount of bright red blood. No blood from the anus. Auscultation: normoactive bowel sounds Palpation: soft Extremity normal to inspection Neuro oriented x3 Sensorium / Orientation: alert Psych mental status grossly normal Skin no rashes or lesions noted, no wounds and skin turgor normal General Skin Exam: Negative for jaundice or pallor MDM MDM MDM Narrative Medical decision making narrative: Patient has an external hemorrhoid that is bleeding. The bleeding is mild. I do not appreciate any other sources of bleeding. He had labs a couple weeks ago. We will check to make sure that they are stable. I do not see any blood thinners on his records, and he denies taking any. He has no pain or any other associated symptoms. If his labs are stable and vitals are stable, he may follow-up as an outpatient with prescriptions for hemorrhoid care. I reviewed the patient's lab work. Hemoglobin is down 1.5 from earlier this month, but it was similar to previous. BUN stable. Other labs unremarkable. I spoke with him again. He has only had bleeding from his hemorrhoid. He has not had blood in his stool. He has not passed large movements of blood or clots. Nothing that suggests GI bleed. His repeat heart rate is 82. He has no pain. He has no further bleeding. We will start him on stool softeners and medicated pads. Referred to surgery for follow-up. Return right away for pain, worsening bleeding, or any other symptoms. Lab Data Attestation: I reviewed the patient's lab results. Labs: Laboratory Results - last 24 hr 12/03/20 12/03/20 12/03/20 22:35 22:35 22:38 WBC 7.0 RBC 4.75 Hgb 12.6 L Hct 39.6 L MCV 83.4 MCH 26.5 L MCHC 31.8 L RDW Std Deviation 43.3 RDW Coeff of [place] 14.4 Plt Count 167 MPV 10.7 Immature Gran % (Auto) 1.200 H Neut % (Auto) 63.7 Lymph % (Auto) 24.2 [place] % (Auto) 8.1 Eos % (Auto) 2.4 Baso % (Auto) 0.4 Absolute Neuts (auto) 4.4 Absolute Lymphs (auto) 1.68 Nucleated RBC % 0 PT 12.5 INR 1.0 APTT 26.7 Sodium 140 Potassium 4.1 Chloride 106 Carbon Dioxide 27.0 Anion Gap 7 BUN 28 H Creatinine 1.26 Estim Creat Clear Calc 48.92 Est GFR (MDRD) Af Amer 74 Est GFR (MDRD) Non-Af 62 BUN/Creatinine Ratio 22.2 H Glucose 264 H Calcium 8.9 Discharge Plan Triage Chief Complaint: GI Bleed ED Provider: Donovan Lara Dx/Rx/DC Orders Clinical Impression: Hemorrhoids Instructions: ED Hemorrhoids Prescriptions: New docusate sodium [Colace] 100 mg capsule 100 mg PO BID Qty: 30 RF: 0 Tucks (witch summer) 50 % pads, medicated 1 pad topical BID PRN (Reason: skin cleansing) Qty: 40 RF: 0 No Action senna 8.6 mg capsule 8.6 mg PO BID PRN (Reason: Constipation) RF: 0 oxycodone 5 mg capsule 5 mg PO Q4H PRN PRN (Reason: Pain Or Fever) RF: 0 polysaccharide iron complex [Ferrex 150] 150 mg iron capsule 150 mg PO DAILY RF: 0 atorvastatin 20 MG tablet 40 mg PO QHS RF: 0 metformin 850 MG tablet 1,000 mg PO BID RF: 0 ipratropium-albuterol 1 PUFF inhaler 1 puff INHALATION BID PRN (Reason: Sob &/Or Wheezing) RF: 0 glimepiride 4 MG tablet 4 mg PO BID RF: 0 lisinopril 2.5 MG tablet 2.5 mg PO DAILY RF: 0 Jardiance 25 MG tablet 25 mg PO DAILY RF: 0 fluticasone propionate 1 SPRAY spray,suspension 1 spray NASAL DAILY RF: 0 docusate sodium 100 MG capsule 1 - 2 mg PO DAILY PRN PRN (Reason: Constipation) RF: 0 acetaminophen 325 MG tablet 650 mg PO Q6H PRN PRN (Reason: Pain Score 1-10/Temp > 100.7 F) RF: 0 polysaccharide iron complex 150 MG capsule 150 mg PO DAILY Qty: 30 RF: 0 pantoprazole 40 MG tablet 40 mg PO BID Qty: 60 RF: 0 Combivent Respimat 20-100 mcg/actuation Mist 1 puff INHALATION BID RF: 0 polysaccharide iron complex [Ferrex 150] 150 mg iron Capsule 150 mg DAILY RF: 0 Lantus Solostar U-100 Insulin 100 unit/mL (3 mL) Insulin Pen 14 unit SUBCUT QPM RF: 0 tramadol 50 mg Tablet 50 mg PO Q4H PRN (Reason: Pain) RF: 0 Primary Care Provider: Ligia Johnson Referrals: Rohith Gutierrez MD [STAFF PHYSICIAN] - Disposition Disposition: Home, Self Care
[2020-12-03 22:53] LABS: Absolute Lymphocyte Count 1.68 X10^3/uL (0.83-4.51); Absolute Neutrophil Count 4.4 X10^3/uL (2.0-7.7); Basophil# 0.03 X10^3/uL; Basophil% 0.4 % (0-1); Eosinophil# 0.17 X10^3/uL; Eosinophils% 2.4 % (0-5); Hematocrit 39.6 % (40-54); Hemoglobin 12.6 g/dL (13.0-16.5); Lymphocyte # 1.68 X10^3/ul (0.83-4.51); Lymphocyte % 24.2 % (19-41); Mean Corp Hgb Conc 31.8 g/dL (32-36); Mean Corpuscular Hgb 26.5 pg (27.0-32.0); Mean Corpuscular Volume 83.4 fL (80-94); Mean Platelet Vol. 10.7 fl (6.2-12.0); Monocyte# 0.56 X10^3/uL; Monocyte% 8.1 % (0-10); NRBC Flagged by Analyzer 0 % (0-5); Neutrophil # 4.43 X10^3/uL (2.7-7.7); Neutrophil % 63.7 % (47-70); Platelet Count 167 K/mm3 (150-450); RBC Distribution Width CV 14.4 % (11.6-14.6); RBC Distribution Width SD 43.3 fl (35.1-43.9); Red Blood Count 4.75 M/mm3 (4.6-6.2)
[2020-12-03 22:54] LABS: Partial Thromboplast Time 26.7 Seconds (24.1-36.2); Prothrombin Time (Protime)PT. 12.5 SECONDS (11.7-14.9)
[2020-12-03 22:56] LABS: Anion Gap 7 (5-15); BUN 28 mg/dL (7-18); BUN/Creat Ratio 22.2 RATIO (10-20); Calcium,Total 8.9 mg/dL (8.5-10.1); Chloride 106 mmol/L (98-107); Creatinine, Serum 1.26 mg/dL (0.70-1.30); EST Glomerular Filtration Rate 62 mL/min (>60); Est Glom Filt Rate - Afr Amer 74 mL/min (>60); Estimated Creatinine Clearance 48.92 ml/min; Glucose 264 mg/dL (74-106); Potassium 4.1 mmol/L (3.5-5.1); Sodium Level 140 mmol/L (136-145)
--- NOTE | 2020-12-03 23:44 | ED.RN ---
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 has prescriptions.
== END 2020-12-03 23:44 | disposition home or self-care (01) ==
PROVIDERS: Emergency Provider Emergency Medicine; PCP Internal Medicine
DX: K64.4 Residual hemorrhoidal skin tags (principal); Z87.891 Personal history of nicotine dependence; E11.9 Type 2 diabetes mellitus without complications; E78.5 Hyperlipidemia, unspecified; I10 Essential (primary) hypertension; K21.9 Gastro-esophageal reflux disease without esophagitis; F79 Unspecified intellectual disabilities
CPT/HCPCS: 80048; 85025; 85610; 85730; 99284; A4216

== ENCOUNTER → 2021-02-18 05:00 | Outpatient (REF) | payer MEDICARE, MEDICAID, SELFPAY ==
[2021-02-18 10:01] LABS: Hematocrit 44.1 % (40-54); Hemoglobin 13.3 g/dL (13.0-16.5); Mean Corp Hgb Conc 30.2 g/dL (32-36); Mean Corpuscular Hgb 25.5 pg (27.0-32.0); Mean Corpuscular Volume 84.6 fL (80-94); Mean Platelet Vol. 11.3 fl (6.2-12.0); Platelet Count 173 K/mm3 (150-450); RBC Distribution Width CV 15.4 % (11.6-14.6); RBC Distribution Width SD 46.8 fl (35.1-43.9); Red Blood Count 5.21 M/mm3 (4.6-6.2); White Blood Count 5.6 K/mm3 (4.4-11.0)
[2021-02-18 10:14] LABS: AST(SGOT) 13 U/L (15-37); Alanine Aminotransfer ALT/SGPT 25 U/L (16-61); Albumin, Serum 3.5 g/dL (3.2-5.0); Alkaline Phosphatase 100 U/L (45-117); Anion Gap 4 (5-15); BUN 18 mg/dL (7-18); BUN/Creat Ratio 19.3 RATIO (10-20); Calcium,Total 8.7 mg/dL (8.5-10.1); Chloride 104 mmol/L (98-107); Creatinine, Serum 0.93 mg/dL (0.70-1.30); EST Glomerular Filtration Rate 87 mL/min (>60); Est Glom Filt Rate - Afr Amer 105 mL/min (>60); Globulin 3.6 g/dL (2.2-4.2); Glucose 166 mg/dL (74-106); Potassium 3.9 mmol/L (3.5-5.1); Protein, Total 7.1 g/dL (6.4-8.2); Sodium Level 138 mmol/L (136-145)
[2021-02-18 11:26] LABS: Hemoglobin A1c 8.3 % (3.8-5.6)
[2021-02-18 11:27] LABS: Microalbumin,Random Urine 6.8 mg/L (NO RANGE EST.); Microalbumin:Creatinine Ratio 17.8 mg/g CRE (<30 mg/g CRE)
== END ==
LOC: OLS.SWAL 05:00
PROVIDERS: PCP Internal Medicine; Visit Provider Internal Medicine
DX: I10 Essential (primary) hypertension (principal); E11.9 Type 2 diabetes mellitus without complications; M62.50 Muscle wasting and atrophy, not elsewhere classified, unspecified site; M19.90 Unspecified osteoarthritis, unspecified site
CPT/HCPCS: 36415; 80053; 82043; 82570; 83036; 85027

== ENCOUNTER 2021-04-19 11:12 | Emergency (ER) | payer MEDICARE, MEDICAID, SELFPAY ==
[2021-04-19 11:14] VITALS: BP 131/79; PULSE 96; RESP 14; TEMP 36.6; O2SAT 95; BMI 31.6
--- NOTE | 2021-04-19 11:38 | EX.ED.DYSGE1 ---
HPI History of Present Illness Chief Complaint: GI Bleed Informant: patient Narrative Narrative: 61-year-old male from group home presents to the emergency department with rectal bleeding. Patient states that he has had a history of hemorrhoids and is supposed to take stool softeners. He states he followed up with a cancer doctor who stated that if he started bleeding again they may require surgery to fix his hemorrhoids. He states that today he had a bowel movement and there was blood on the toilet paper. He denies any rectal pain. Review of his chart showed that he was seen by Dr. Gutierrez from surgery. [facility] Medical History DM2 (diabetes mellitus, type 2) Dyslipidemia Essential (primary) hypertension GERD (gastroesophageal reflux disease) Hemorrhoid Intellectual disability Home Medications atorvastatin 40 mg PO QHS 07/10/13 [History Last Taken Unknown] ipratropium-albuterol 1 puff INHALATION BID PRN 07/10/13 [History Last Taken Unknown] metformin 1,000 mg PO BID 07/10/13 [History Last Taken Unknown] glimepiride 4 mg PO BID 06/16/17 [History Last Taken Unknown] empagliflozin [Jardiance] 25 mg PO DAILY 03/16/19 [History Last Taken Unknown] fluticasone propionate 1 spray NASAL DAILY 03/16/19 [History Last Taken Unknown] lisinopril 0.5 mg PO DAILY 03/16/19 [History Last Taken 01/04/20] sennosides 8.6 mg capsule 8.6 mg PO BID PRN 12/12/19 [History Last Taken Unknown] acetaminophen 650 mg PO Q6H PRN PRN tab 03/24/20 [Rx Last Taken Unknown] pantoprazole 40 mg PO BID #60 tab 03/24/20 [Rx Last Taken Unknown] polysaccharide iron complex 150 mg iron capsule 150 mg PO DAILY 04/16/20 [History Last Taken Unknown] docusate sodium [Colace] 100 mg PO BID #30 cap 12/03/20 [Rx Last Taken Unknown] insulin glargine [Lantus Solostar U-100 Insulin] 14 unit SUBCUT QPM 12/03/20 [History Last Taken Unknown] witch summer [Tucks (witch summer)] 1 pad TOPICAL BID PRN #40 ea 12/03/20 [Rx Last Taken Unknown] hydrocortisone-pramoxine [Proctofoam HC] 1 applic PA BID PRN #10 g 04/19/21 [Rx Last Taken Unknown] Allergy/AdvReac Type Severity Reaction Status Date / Time aspirin Allergy Unknown Verified 04/19/21 11:16 codeine Allergy Unknown Verified 04/19/21 11:16 Family History Mother Diabetes Surgical History Arthropathy of right hip History of colonoscopy (~12/2019) Social History Smoking Status: Former smoker alcohol intake: never ROS ROS ED Constitutional Constitutional ED: Denies chills or weight loss Eyes Eyes: Denies change in vision or diplopia ENT ENT ED: Denies ear pain, rhinorrhea or sore throat Cardiovascular Cardiovascular: Denies chest pain, orthopnea, palpitations or racing heartbeat Respiratory/Chest Respiratory/Chest: Denies cough, dyspnea or orthopnea Gastrointestinal Gastrointestinal: Reports other Details: Bright red blood after bowel movement this morning ; Denies abdominal pain, diarrhea, nausea or vomiting Genitourinary Genitourinary ED: Denies dysuria, hematuria or urinary frequency Musculoskeletal Musculoskeletal: Denies arthralgias or myalgias Integumentary Denies abscess or rash Neurologic Neurologic: Denies headache(s) or weakness Psychiatric Psychiatric: Denies anxiety, depression, suicidal ideation or suicidal thoughts Endocrine Endocrinology: Denies polydipsia, polyphagia or polyuria Allergic/Immunologic Allergic/Immunologic ED: Denies mouth swelling, tongue swelling or urticaria EXAM Physical Exam Const Vital Signs: 04/19/21 11:14 Temperature 97.9 F Temperature Source Temporal Pulse Rate 96 Respiratory Rate 14 Blood Pressure 131/79 H Blood Pressure Mean 96 Pulse Ox 95 Oxygen Delivery Method Room Air Positive well nourished, well developed and obese General Appearance ED: well developed Nutritional Appearance: obese HEENT Reports normocephalic, head/scalp atraumatic, TM's clear and moist mucous membranes Negative for trauma Tympanic Membrane ED: Yes TM's clear Eyes PERRL and EOMs intact bilaterally Neck no lymphadenopathy, supple and no JVD Resp normal respiratory effort and clear to auscultation bilaterally Cardio regular rate, regular rhythm and no murmurs GI normal to inspection, nondistended, normoactive bowel sounds and non-tender Palpation: soft Narrative: On rectal exam patient has evidence of internal hemorrhoids that are inflamed. They are prolapsed outside of the anus. They are easily reduced. There is no active bleeding Back/Spine no CVA tenderness and normal ROM Extremity normal to inspection General Extremety ED: Negative for edema General Extremity: Negative for edema Neuro oriented x3 and CN's II-XII intact bilaterally Sensorium / Orientation: alert Motor Exam: strength 5/5 throughout Psych mental status grossly normal Mood & Affect: Negative for depressed or tearful Skin no rashes or lesions noted and no wounds MDM MDM MDM Narrative Medical decision making narrative: I can prescribe to have the patient use some Proctofoam. If symptoms continue would recommend follow-up with surgery again. Discharge Plan Triage Chief Complaint: GI Bleed ED Provider: Donovan Cameron Dx/Rx/DC Orders Clinical Impression: Rectal bleeding, Bleeding internal hemorrhoids Instructions: ED Hemorrhoids Prescriptions: New Proctofoam HC 1-1 % foam 1 applic PA BID PRN (Reason: hemorrhoids) Qty: 10 RF: 0 No Action senna 8.6 mg capsule 8.6 mg PO BID PRN (Reason: Constipation) RF: 0 polysaccharide iron complex [Ferrex 150] 150 mg iron capsule 150 mg PO DAILY RF: 0 atorvastatin 20 MG tablet 40 mg PO QHS RF: 0 metformin 850 MG tablet 1,000 mg PO BID RF: 0 ipratropium-albuterol 1 PUFF inhaler 1 puff INHALATION BID PRN (Reason: Sob &/Or Wheezing) RF: 0 glimepiride 4 MG tablet 4 mg PO BID RF: 0 lisinopril 2.5 MG tablet 0.5 mg PO DAILY RF: 0 Jardiance 25 MG tablet 25 mg PO DAILY RF: 0 fluticasone propionate 1 SPRAY spray,suspension 1 spray NASAL DAILY RF: 0 acetaminophen 325 MG tablet 650 mg PO Q6H PRN PRN (Reason: Pain Score 1-10/Temp > 100.7 F) RF: 0 pantoprazole 40 MG tablet 40 mg PO BID Qty: 60 RF: 0 Lantus Solostar U-100 Insulin 100 unit/mL (3 mL) Insulin Pen 14 unit SUBCUT QPM RF: 0 docusate sodium [Colace] 100 mg capsule 100 mg PO BID Qty: 30 RF: 0 Tucks (witch summer) 50 % pads, medicated 1 pad topical BID PRN (Reason: skin cleansing) Qty: 40 RF: 0 Primary Care Provider: Ligia Johnson Referrals: Rohith Gutierrez MD [STAFF PHYSICIAN] - As Needed (for general surgery) Ligia Johnson MD [Primary Care Provider] - Disposition Disposition: Home, Self Care
--- NOTE | 2021-04-19 12:04 | ED.RN ---
rn left message to give nurse report for nurse at [facility].
== END 2021-04-19 13:52 | disposition home or self-care (01) ==
LOC: ED 11:47
PROVIDERS: Emergency Provider Emergency Medicine; PCP Internal Medicine
DX: K62.5 Hemorrhage of anus and rectum (principal); K64.8 Other hemorrhoids; E66.9 Obesity, unspecified; Z87.891 Personal history of nicotine dependence; E11.9 Type 2 diabetes mellitus without complications; E78.5 Hyperlipidemia, unspecified; F79 Unspecified intellectual disabilities; I10 Essential (primary) hypertension; K21.9 Gastro-esophageal reflux disease without esophagitis; Z79.4 Long term (current) use of insulin; Z87.19 Personal history of other diseases of the digestive system
CPT/HCPCS: 99284

== ENCOUNTER → 2021-05-20 04:00 | Outpatient (REF) | payer MEDICARE, MEDICAID, SELFPAY ==
[2021-05-20 08:36] LABS: Hematocrit 44.3 % (40-54); Hemoglobin 13.9 g/dL (13.0-16.5); Mean Corp Hgb Conc 31.4 g/dL (32-36); Mean Corpuscular Hgb 25.5 pg (27.0-32.0); Mean Corpuscular Volume 81.1 fL (80-94); Mean Platelet Vol. 11.1 fl (6.2-12.0); Platelet Count 180 K/mm3 (150-450); RBC Distribution Width CV 15.9 % (11.6-14.6); RBC Distribution Width SD 46.7 fl (35.1-43.9); Red Blood Count 5.46 M/mm3 (4.6-6.2); White Blood Count 6.5 K/mm3 (4.4-11.0)
[2021-05-20 08:52] LABS: ALB/GLOB Ratio 1.1 RATIO (0.9-2.4); AST(SGOT) 14 U/L (15-37); Alanine Aminotransfer ALT/SGPT 26 U/L (16-61); Alkaline Phosphatase 121 U/L (45-117); Anion Gap 8 (5-15); BUN 24 mg/dL (7-18); BUN/Creat Ratio 22.9 RATIO (10-20); Calcium,Total 9.4 mg/dL (8.5-10.1); Chloride 103 mmol/L (98-107); Creatinine, Serum 1.05 mg/dL (0.70-1.30); EST Glomerular Filtration Rate 76 mL/min (>60); Est Glom Filt Rate - Afr Amer 92 mL/min (>60); Globulin 3.6 g/dL (2.2-4.2); Glucose 226 mg/dL (74-106); Protein, Total 7.6 g/dL (6.4-8.2); Sodium Level 140 mmol/L (136-145)
[2021-05-20 08:55] LABS: Hemoglobin A1c 8.3 % (3.8-5.6)
== END ==
LOC: OLS.SWAL 04:00
PROVIDERS: PCP Internal Medicine; Referring Provider Internal Medicine; Visit Provider Internal Medicine
DX: M62.50 Muscle wasting and atrophy, not elsewhere classified, unspecified site (principal); M19.90 Unspecified osteoarthritis, unspecified site; I10 Essential (primary) hypertension; E11.9 Type 2 diabetes mellitus without complications
CPT/HCPCS: 36415; 80053; 83036; 85027

== ENCOUNTER 2021-05-29 07:59 | Emergency (ER) | payer MEDICARE, MEDICAID, SELFPAY ==
[2021-05-29 08:00] VITALS: BP 133/72; PULSE 91; RESP 18; TEMP 36.8; O2SAT 96; BMI 30.6
--- NOTE | 2021-05-29 08:16 | EDS_ITS ---
HPI History of Present Illness Chief Complaint: Upper Extremity Injury Informant: patient Narrative Narrative: Patient presents with right thumb pain for about 2 to 3 days. He does not know of any specific injury. When asked where it hurts he points mostly to the carpal metacarpal junction area more on the volar surface of the thumb than on the dorsal. He can move it without any marked difficulty. It has not been swollen. He denies fevers or chills. He denies any recent infections such as skin or dental infections. No recent antibiotics. He has no other sore joints. He states other than that sore area he feels just fine. Nothing really makes it better or worse. Even motion does not seem to bother it much. [facility] Medical History DM2 (diabetes mellitus, type 2) Dyslipidemia Essential (primary) hypertension GERD (gastroesophageal reflux disease) Hemorrhoid Intellectual disability Home Medications atorvastatin 40 mg PO QHS 07/10/13 [History Last Taken Unknown] ipratropium-albuterol 1 puff INHALATION BID PRN 07/10/13 [History Last Taken Unknown] metformin 1,000 mg PO BID 07/10/13 [History Last Taken Unknown] empagliflozin [Jardiance] 25 mg PO DAILY 03/16/19 [History Last Taken Unknown] lisinopril 0.5 mg PO DAILY 03/16/19 [History Last Taken 01/04/20] sennosides 8.6 mg capsule 8.6 mg PO BID PRN 12/12/19 [History Last Taken Unknown] acetaminophen 650 mg PO Q6H PRN PRN tab 03/24/20 [Rx Last Taken Unknown] pantoprazole 40 mg PO BID #60 tab 03/24/20 [Rx Last Taken Unknown] polysaccharide iron complex 150 mg iron capsule 150 mg PO DAILY 04/16/20 [History Last Taken Unknown] insulin glargine [Lantus Solostar U-100 Insulin] 14 unit SUBCUT QPM 12/03/20 [History Last Taken Unknown] witch summer [Tucks (witch summer)] 1 pad TOPICAL BID PRN #40 ea 12/03/20 [Rx Last Taken Unknown] dextrose [Glucose Gel] 20 g PO Q15M PRN 05/29/21 [History Last Taken Unknown] docusate sodium [Colace] 100 mg PO DAILY 05/29/21 [History Last Taken Unknown] docusate sodium [Colace] 100 mg PO DAILY PRN PRN 05/29/21 [History Last Taken Unknown] dulaglutide [Trulicity] 0.75 mg SUBCUT TH 05/29/21 [History Last Taken Unknown] Allergy/AdvReac Type Severity Reaction Status Date / Time aspirin Allergy Unknown Verified 05/29/21 08:04 codeine Allergy Unknown Verified 05/29/21 08:04 Family History Mother Diabetes Surgical History Arthropathy of right hip History of colonoscopy (~12/2019) Social History Smoking Status: Former smoker alcohol intake: never ROS ROS ED Constitutional Constitutional ED: Denies chills or fever(s) ENT ENT ED: Denies sore throat Cardiovascular Cardiovascular: Denies chest pain Respiratory/Chest Respiratory/Chest: Denies cough or dyspnea Gastrointestinal Gastrointestinal: Denies nausea or vomiting Musculoskeletal Musculoskeletal: Reports other Details: See history of present illness. ; Denies back pain, myalgias or neck pain Integumentary Denies abscess or rash Neurologic Neurologic: Denies paresthesias or weakness Hematologic/Lymphatic Hematologic/Lymphatic: Denies easy bleeding or easy bruising Allergic/Immunologic Allergic/Immunologic ED: Denies mouth swelling or urticaria EXAM Physical Exam Const Vital Signs: 05/29/21 08:00 Temperature 98.2 F Temperature Source Oral Pulse Rate 91 Respiratory Rate 18 Blood Pressure 133/72 H Blood Pressure Mean 92 Pulse Ox 96 Oxygen Delivery Method Room Air Positive well nourished and well developed General Appearance ED: well developed and NAD HEENT normocephalic and atraumatic Neck full ROM and supple Chest Wall inspection of chest normal Resp normal respiratory effort and clear to auscultation bilaterally Auscultation: Negative for rales, rhonchi or wheezes Cardio regular rate and regular rhythm GI non-tender Palpation: soft Extremity Extremity Narrative: Patient has an Rah wrap on his right wrist and hand area. This is unwrapped. There are some indentations from the Rah wrap. However, no notable edema or erythema at this time. I can individually move each joint of his fingers including thumb. I can move his wrist. There is no sign of notable pain. He does have slight tenderness with palpation of the snuffbox and base of the thenar eminence. He seems to have most of the discomfort around the carpometacarpal joint at the base of his thumb. Neuro oriented x3 Sensorium / Orientation: alert Skin Lesions: no lesions Rashes: no rashes MDM MDM MDM Narrative Medical decision making narrative: Three-view x-ray of the patient's wrist looked at by me and read by radiology shows no sign of acute process. There is mild arthritic changes. Patient is rechecked. His Rah wrap has been off for a while now. There is no erythema. There is no swelling. I am not getting any notable pain with motion. With axial loading of his first CMC joint there is some mild discomfort. I do not see any bruising developing. Patient has no fever or recent infections. He has no swelling. He has no warmth. He has no erythema. He has no notable pain with range of motion. I do not think this represents an infected joint. I think Tylenol, rest will be appropriate. We will try to get a thumb spica splint on him here. He should wear this for several days but take it off for some gentle range of motion a few times a day to prevent stiffness. If he develops fevers, chills, notable swelling we may need reassess him. Discharge Plan Triage Chief Complaint: Upper Extremity Injury ED Provider: Dick Young Dx/Rx/DC Orders Clinical Impression: Right wrist pain Instructions: ED Arthralgia Prescriptions: No Action senna 8.6 mg capsule 8.6 mg PO BID PRN (Reason: Constipation) RF: 0 polysaccharide iron complex [Ferrex 150] 150 mg iron capsule 150 mg PO DAILY RF: 0 atorvastatin 20 MG tablet 40 mg PO QHS RF: 0 metformin 850 MG tablet 1,000 mg PO BID RF: 0 ipratropium-albuterol 1 PUFF inhaler 1 puff INHALATION BID PRN (Reason: Sob &/Or Wheezing) RF: 0 lisinopril 2.5 MG tablet 0.5 mg PO DAILY RF: 0 Jardiance 25 MG tablet 25 mg PO DAILY RF: 0 acetaminophen 325 MG tablet 650 mg PO Q6H PRN PRN (Reason: Pain Score 1-10/Temp > 100.7 F) RF: 0 pantoprazole 40 MG tablet 40 mg PO BID Qty: 60 RF: 0 Lantus Solostar U-100 Insulin 100 unit/mL (3 mL) Insulin Pen 14 unit SUBCUT QPM RF: 0 Tucks (witch summer) 50 % pads, medicated 1 pad topical BID PRN (Reason: skin cleansing) Qty: 40 RF: 0 dextrose [Glucose Gel] 40 % Gel 20 g PO Q15M PRN (Reason: Hypoglycemia) RF: 0 docusate sodium [Colace] 100 mg Capsule 100 mg PO DAILY PRN PRN (Reason: Constipation) RF: 0 Trulicity 0.75 mg/0.5 mL Pen Injector 0.75 mg SUBCUT TH RF: 0 docusate sodium [Colace] 100 mg capsule 100 mg PO DAILY RF: 0 Primary Care Provider: Ligia Johnson Referrals: Ligia Johnson MD [Primary Care Provider] - 3-5 Days if not improving Disposition Disposition: Home, Self Care Discharge Date/Time: 05/29/21 09:38
--- NOTE | 2021-05-29 08:25 | RAD_ITS ---
STUDY: X-RAY - RIGHT WRIST REASON FOR EXAM: Male, 61 years old. pain TECHNIQUE: 3 view(s) of the wrist were obtained. COMPARISON: None. FINDINGS: Normal visualized distal radius and ulna. Normal radiocarpal articulation. Normal distal radioulnar articulation. Normal carpal bones. Normal carpal articulations. Normal carpometacarpal articulation of the thumb. Normal second through fifth carpometacarpal articulations. Normal visualized metacarpal bones. The soft tissue structures are unremarkable. RAD/Wrist min 3 Views IMPRESSION: Normal x-ray examination of the wrist. Electronically Signed: Davey Nguyễn MD at 8:42 EST Tel , Service support ,
--- NOTE | 2021-05-29 09:05 | NURSING ---
CALLED [facility], ETA IS 30 - 45
== END 2021-05-29 09:38 | disposition home or self-care (01) ==
PROVIDERS: Emergency Provider Emergency Medicine; PCP Internal Medicine
DX: M25.531 Pain in right wrist (principal); Z87.891 Personal history of nicotine dependence; E11.9 Type 2 diabetes mellitus without complications; E78.5 Hyperlipidemia, unspecified; I10 Essential (primary) hypertension; K21.9 Gastro-esophageal reflux disease without esophagitis; F79 Unspecified intellectual disabilities; Z79.4 Long term (current) use of insulin; Z79.899 Other long term (current) drug therapy
CPT/HCPCS: 73110; 99284

== ENCOUNTER 2021-06-18 04:00 | Outpatient (REF) | payer MEDICARE, MEDICAID, SELFPAY ==
[2021-06-18 07:54] LABS: Albumin, Serum 3.4 g/dL (3.2-5.0); Creatinine, Serum 0.89 mg/dL (0.70-1.30); EST Glomerular Filtration Rate 91 mL/min (>60); Est Glom Filt Rate - Afr Amer 111 mL/min (>60)
[2021-06-18 07:56] LABS: Microalbumin,Random Urine 12.2 mg/L (NO RANGE EST.); Microalbumin:Creatinine Ratio 33.5 mg/g CRE (<30 mg/g CRE)
== END 2021-06-18 23:59 | disposition home or self-care (01) ==
LOC: OLS.SWAL 04:00
PROVIDERS: PCP Internal Medicine; Visit Provider Internal Medicine
DX: E11.9 Type 2 diabetes mellitus without complications (principal); I10 Essential (primary) hypertension; E78.5 Hyperlipidemia, unspecified
CPT/HCPCS: 36415; 82040; 82043; 82565; 82570

== ENCOUNTER 2022-01-09 20:49 | Emergency (ER) | payer MEDICARE, MEDICAID, SELFPAY ==
[2022-01-09 20:49] VITALS: BP 144/71; PULSE 86; RESP 18; TEMP 36.6; O2SAT 98; BMI 32.5
--- NOTE | 2022-01-09 21:00 | EKG12_ITS ---
Test Reason : Blood Pressure : / mmHG Vent. Rate : 087 BPM Atrial Rate : 087 BPM P-R Int : 140 ms QRS Dur : 074 ms QT Int : 374 ms P-R-T Axes : 045 -14 032 degrees QTc Int : 450 ms Normal sinus rhythm Minimal voltage criteria for LVH, may be normal variant ( R in aVL ) Borderline ECG Confirmed by BALDO ASIF, VICTORIANO ([id number]), supervising editor news reel BRIE BELL ([id number]) on 01/11/2022 1:16:02 PM Referred By: Confirmed By:VICTORIANO BLAND MD
--- NOTE | 2022-01-09 21:02 | RAD_ITS ---
STUDY: X-RAY CHEST REASON FOR EXAM: Male, 61 years old. CHEST PAIN chest pain TECHNIQUE: XR Chest 1 View COMPARISON: None FINDINGS: There is no demonstrated pleural abnormality. Normal size heart. Normal mediastinum and dread. Normal visualized pulmonary arteries. Normal visualized aortic arch and descending thoracic aorta. Normal visualized thoracic spine. Normal visualized ribs, clavicles, and shoulders. There is no demonstrated abnormality of the visualized soft tissue structures of the upper abdomen. RAD/Chest 1 View (Portable) IMPRESSION: There are no acute findings. Electronically Signed: Bassam Pacheco MD at 21:19 EDT ,
[2022-01-09 21:12] LABS: Absolute Lymphocyte Count 1.84 X10^3/uL (0.83-4.51); Absolute Neutrophil Count 4.7 X10^3/uL (2.0-7.7); Basophil# 0.03 X10^3/uL; Basophil% 0.4 % (0-1); Eosinophil# 0.28 X10^3/uL; Eosinophils% 3.7 % (0-5); Hemoglobin 14.2 g/dL (13.0-16.5); Lymphocyte # 1.84 X10^3/ul (0.83-4.51); Lymphocyte % 24.4 % (19-41); Mean Corp Hgb Conc 30.9 g/dL (32-36); Mean Corpuscular Hgb 25.6 pg (27.0-32.0); Mean Platelet Vol. 10.9 fl (6.2-12.0); Monocyte# 0.69 X10^3/uL; Monocyte% 9.1 % (0-10); NRBC Flagged by Analyzer 0 % (0-5); Neutrophil # 4.69 X10^3/uL (2.7-7.7); Neutrophil % 62.1 % (47-70); Platelet Count 183 K/mm3 (150-450); RBC Distribution Width CV 16.9 % (11.6-14.6); Red Blood Count 5.54 M/mm3 (4.6-6.2); White Blood Count 7.6 K/mm3 (4.4-11.0)
[2022-01-09 21:31] LABS: Anion Gap 6 (5-15); BUN 24 mg/dL (7-18); Calcium,Total 9.3 mg/dL (8.5-10.1); Chloride 105 mmol/L (98-107); EST Glomerular Filtration Rate 65 mL/min (>60); Est Glom Filt Rate - Afr Amer 78 mL/min (>60); Estimated Creatinine Clearance 50.71 ml/min; Glucose 227 mg/dL (74-106); Potassium 3.9 mmol/L (3.5-5.1); Sodium Level 140 mmol/L (136-145); Troponin-I HS 26 pg/mL (3.0-78.0)
--- NOTE | 2022-01-09 21:43 | EDS_ITS ---
HPI History of Present Illness Chief Complaint: Chest Pain Narrative Narrative: 61-year-old male presenting with chest pain. He states is intermittent. It can last anywhere from a minute to an hour. He denies diaphoresis, nausea, lightheadedness. He states it feels like a strep pain. Patient denies cardiac history. He has history of diabetes, hypertension, hyperlipidemia, GERD. He is not had any fever, chills, cough. No abdominal pain. No diarrhea constipation. Denies any trauma. [facility] Medical History DM2 (diabetes mellitus, type 2) Dyslipidemia Essential (primary) hypertension GERD (gastroesophageal reflux disease) Hemorrhoid Intellectual disability Home Medications atorvastatin 20 mg tablet 40 mg PO QHS cholesterol 07/10/13 [History Last Taken Unknown] ipratropium 20 mcg-albuterol 100 mcg/actuation mist for inhalation 1 puff inhalation BID PRN Sob &/Or Wheezing 07/10/13 [History Last Taken Unknown] metformin 850 mg tablet 1,000 mg PO BID diabetes 07/10/13 [History Last Taken Unknown] empagliflozin 25 mg tablet (Jardiance) 25 mg PO DAILY diabetes 03/16/19 [History Last Taken Unknown] lisinopril 2.5 mg tablet 0.5 mg PO DAILY bp 03/16/19 [History Last Taken 01/04/20] acetaminophen 325 mg tablet 650 mg PO Q6H PRN PRN Pain Score 1-10/Temp > 100.7 F 03/24/20 [Rx Last Taken Unknown] pantoprazole 40 mg tablet,delayed release 40 mg PO BID #60 tabs 03/24/20 [Rx Last Taken Unknown] insulin glargine 100 unit/mL (3 mL) subcutaneous pen (Lantus Solostar U-100 Insulin) 14 unit subcut QPM 12/03/20 [History Last Taken Unknown] dextrose 40 % oral gel (Glucose Gel) 20 g PO Q15M PRN Hypoglycemia 05/29/21 [History Last Taken Unknown] docusate sodium 100 mg capsule (Colace) 100 mg PO DAILY 05/29/21 [History Last Taken Unknown] docusate sodium 100 mg capsule (Colace) 100 mg PO DAILY PRN PRN Constipation 05/29/21 [History Last Taken Unknown] dulaglutide 0.75 mg/0.5 mL subcutaneous pen injector (Trulicity) 0.75 mg subcut TH 05/29/21 [History Last Taken Unknown] Allergy/AdvReac Type Severity Reaction Status Date / Time aspirin Allergy Unknown Verified 01/09/22 20:53 codeine Allergy Unknown Verified 01/09/22 20:53 Family History Mother Diabetes Surgical History Arthropathy of right hip History of colonoscopy (~12/2019) Social History Smoking Status: Former smoker alcohol intake: never ROS ROS ED Constitutional Constitutional ED: Denies chills or fever(s) Eyes Eyes: Denies blurry vision or change in vision ENT ENT ED: Denies rhinorrhea or sore throat Cardiovascular Cardiovascular: Reports as per HPI Respiratory/Chest Respiratory/Chest: Denies cough, dyspnea or dyspnea on exertion Gastrointestinal Gastrointestinal: Denies abdominal pain, constipation, nausea or vomiting Genitourinary Genitourinary ED: Denies dysuria or hematuria Musculoskeletal Musculoskeletal: Denies arthralgias or back pain Integumentary Denies abscess Neurologic Neurologic: Denies headache(s) or paresthesias Psychiatric Psychiatric: Denies anxiety or depression Endocrine Endocrinology: Denies cold intolerance or heat intolerance EXAM Physical Exam Const Vital Signs: 01/09/22 20:49 01/09/22 21:06 Temperature 97.9 F Temperature Source Temporal Pulse Rate 86 Respiratory Rate 18 Respiratory Effort Normal Non-Labored Blood Pressure 144/71 H Blood Pressure Mean 95 Pulse Ox 98 Oxygen Delivery Method Room Air Positive well nourished General Appearance ED: NAD; Negative for pallor HEENT Reports moist mucous membranes normocephalic Eyes PERRL and EOMs intact bilaterally Resp normal respiratory effort and clear to auscultation bilaterally Auscultation: Negative for rales, rhonchi or wheezes Cardio regular rate and regular rhythm GI normal to inspection, nondistended, normoactive bowel sounds Back/Spine no CVA tenderness Neuro oriented x3 and CN's II-XII intact bilaterally Sensorium / Orientation: awake and alert Psych mental status grossly normal Skin General Skin Exam: Negative for jaundice or pallor Heart Score History: Slightly/Non-Suspicious ECG: Normal Age: >/= 65 years Risk Factors: >/= 3 Risk Factors or History of CAD Troponin: </= Normal Limit Score: 4 MDM MDM MDM Narrative Medical decision making narrative: Patient presenting with chest pain which is been intermittent over the course of the last day or so. EKG on my interpretation shows a sinus rhythm with a ventricular rate of 87 bpm without sign of ischemic change or dysrhythmia. Chest x-ray on my interpretation shows no acute cardiopulmonary process and radiologist agree. Patient is PERC negative. CBC and BMP are unremarkable. Initial high-sensitivity troponin is 26. Delta troponin is 25. There is no significant overall change. Given this ultimately negative work-up I feel the patient stable for discharge home. Patient to follow-up with his primary care physician to ensure resolution. Impression: 1. Chest pain Lab Data Attestation: I reviewed the patient's lab results. Labs: Laboratory Results - last 24 hr 01/09/22 01/09/22 01/09/22 20:40 20:40 23:36 WBC 7.6 RBC 5.54 Hgb 14.2 Hct 46.0 MCV 83.0 MCH 25.6 L MCHC 30.9 L RDW Std Deviation 51.0 H RDW Coeff of [place] 16.9 H Plt Count 183 MPV 10.9 Immature Gran % (Auto) 0.300 Neut % (Auto) 62.1 Lymph % (Auto) 24.4 [place] % (Auto) 9.1 Eos % (Auto) 3.7 Baso % (Auto) 0.4 Absolute Neuts (auto) 4.7 Absolute Lymphs (auto) 1.84 Nucleated RBC % 0 Sodium 140 Potassium 3.9 Chloride 105 Carbon Dioxide 29.0 Anion Gap 6 BUN 24 H Creatinine 1.20 Estim Creat Clear Calc 50.71 Est GFR (MDRD) Af Amer 78 Est GFR (MDRD) Non-Af 65 BUN/Creatinine Ratio 20.0 Glucose 227 H Calcium 9.3 Troponin I High Sens 26 25 Radiography Diagnostic Testing: Clinical Impression(s) from Imaging Studies Chest X-Ray 01/09/22 21:02 IMPRESSION: There are no acute findings. Electronically Signed: Bassam Pacheco MD at 21:19 EDT Reading Location ID and State: [facility] / [place] , Service support , Discharge Plan Triage Chief Complaint: Chest Pain ED Provider: Forrest Rutledge Dx/Rx/DC Orders Prescriptions: No Action atorvastatin 20 MG tablet 40 mg PO QHS metformin 850 MG tablet 1,000 mg PO BID ipratropium-albuterol 1 PUFF inhaler 1 puff INHALATION BID PRN (Reason: Sob &/Or Wheezing) lisinopril 2.5 MG tablet 0.5 mg PO DAILY Jardiance 25 MG tablet 25 mg PO DAILY acetaminophen 325 MG tablet 650 mg PO Q6H PRN PRN (Reason: Pain Score 1-10/Temp > 100.7 F) 0RF pantoprazole 40 MG tablet 40 mg PO BID Qty: 60 0RF insulin glargine [Lantus Solostar U-100 Insulin] 100 unit/mL (3 mL) Insulin Pen 14 unit SUBCUT QPM dextrose [Glucose Gel] 40 % Gel 20 g PO Q15M PRN (Reason: Hypoglycemia) docusate sodium [Colace] 100 mg Capsule 100 mg PO DAILY PRN PRN (Reason: Constipation) Trulicity 0.75 mg/0.5 mL Pen Injector 0.75 mg SUBCUT TH docusate sodium [Colace] 100 mg capsule 100 mg PO DAILY Primary Care Provider: Ligia Johnson Referrals: Ligia Johnson MD [Primary Care Provider] -
[2022-01-10 00:17] LABS: Troponin-I HS 25 pg/mL (3.0-78.0)
[2022-01-10 00:25] VITALS: BP 118/77; PULSE 66; RESP 20; O2SAT 95
== END 2022-01-10 00:26 | disposition home or self-care (01) ==
PROVIDERS: Emergency Provider Student in an Organized Health Care Education/Training Program; PCP Internal Medicine; Visit Provider Student in an Organized Health Care Education/Training Program
DX: R07.9 Chest pain, unspecified (principal); E11.9 Type 2 diabetes mellitus without complications; E78.5 Hyperlipidemia, unspecified; I10 Essential (primary) hypertension; Z87.891 Personal history of nicotine dependence
CPT/HCPCS: 71045; 80048; 84484; 85025; 93005; 99284; A4216

== ENCOUNTER 2022-02-04 16:13 | Emergency (ER) | payer MEDICARE, MEDICAID, SELFPAY ==
[2022-02-04 16:15] VITALS: BP 114/84; PULSE 113; RESP 16; TEMP 36.9; O2SAT 96; BMI 30.9
--- NOTE | 2022-02-04 16:36 | RAD_ITS ---
STUDY: X-RAY - RIGHT RADIUS AND ULNA REASON FOR EXAM: Male, 61 years old. injury TECHNIQUE: 2 view(s) of the forearm. COMPARISON: None. FINDINGS: There is no demonstrated soft tissue swelling. Normal visualized radius. Normal visualized ulna. RAD/Forearm 2 Views IMPRESSION: Normal x-ray examination of the radius and ulna. Electronically Signed: Davey Nguyễn MD at 16:49 EDT ,
--- NOTE | 2022-02-04 16:37 | EDS_ITS ---
HPI History of Present Illness Chief Complaint: Fall Informant: patient and EMS Narrative Narrative: Brought in by EMS mechanical fall. History developmental delay. Was walking down a hill stumbled grabbing a pool injuring his forearm. Abrasion. Denies any significant pain. No head injuries. No anticoagulants. His health technician hearing is on the phone discussing states she saw him earlier today states he is not feeling well. He denies fevers headache cough vomiting diarrhea or any urinary symptoms. She discussed with him if he did not continue to feel well she would obtain a COVID test for him tomorrow. [facility] Medical History DM2 (diabetes mellitus, type 2) Dyslipidemia Essential (primary) hypertension GERD (gastroesophageal reflux disease) Hemorrhoid Intellectual disability Home Medications atorvastatin 20 mg tablet 40 mg PO QHS cholesterol 07/10/13 [History Last Taken Unknown] ipratropium 20 mcg-albuterol 100 mcg/actuation mist for inhalation 1 puff inhalation BID PRN Sob &/Or Wheezing 07/10/13 [History Last Taken Unknown] metformin 850 mg tablet 1,000 mg PO BID diabetes 07/10/13 [History Last Taken Unknown] empagliflozin 25 mg tablet (Jardiance) 25 mg PO DAILY diabetes 03/16/19 [History Last Taken Unknown] lisinopril 2.5 mg tablet 0.5 mg PO DAILY bp 03/16/19 [History Last Taken 01/04/20] acetaminophen 325 mg tablet 650 mg PO Q6H PRN PRN Pain Score 1-10/Temp > 100.7 F 03/24/20 [Rx Last Taken Unknown] pantoprazole 40 mg tablet,delayed release 40 mg PO BID #60 tabs 03/24/20 [Rx Last Taken Unknown] insulin glargine 100 unit/mL (3 mL) subcutaneous pen (Lantus Solostar U-100 Insulin) 14 unit subcut QPM 12/03/20 [History Last Taken Unknown] dextrose 40 % oral gel (Glucose Gel) 20 g PO Q15M PRN Hypoglycemia 05/29/21 [History Last Taken Unknown] docusate sodium 100 mg capsule (Colace) 100 mg PO DAILY 05/29/21 [History Last Taken Unknown] docusate sodium 100 mg capsule (Colace) 100 mg PO DAILY PRN PRN Constipation 05/29/21 [History Last Taken Unknown] dulaglutide 0.75 mg/0.5 mL subcutaneous pen injector (Trulicity) 0.75 mg subcut TH 05/29/21 [History Last Taken Unknown] nirmatrelvir 300 mg (150 mg x2)-ritonavir 100 mg tablet,dose pack(EUA) (Paxlovid) See Rx Instructions PO .COMPLEX #30 tabs 02/04/22 [Rx Last Taken Unknown] Allergy/AdvReac Type Severity Reaction Status Date / Time aspirin Allergy Unknown Verified 02/04/22 16:20 codeine Allergy Unknown Verified 02/04/22 16:20 Family History Mother Diabetes Surgical History Arthropathy of right hip History of colonoscopy (~12/2019) Social History Smoking Status: Former smoker alcohol intake: never ROS ROS ED Constitutional Constitutional ED: Denies chills, fever(s) or sweats Eyes Eyes: Denies change in vision ENT ENT ED: Denies dysphagia or sore throat Cardiovascular Cardiovascular: Denies chest pain, leg edema, palpitations or racing heartbeat Respiratory/Chest Respiratory/Chest: Denies cough, dyspnea or dyspnea on exertion Gastrointestinal Gastrointestinal: Denies abdominal pain, diarrhea, nausea or vomiting Genitourinary Genitourinary ED: Denies dysuria, hematuria or urinary frequency Musculoskeletal Musculoskeletal: Denies back pain, extremity pain or neck pain Integumentary Reports wounds; Denies rash Neurologic Neurologic: Denies headache(s), paresthesias or weakness EXAM Physical Exam Const Vital Signs: 02/04/22 16:15 Temperature 98.4 F Temperature Source Temporal Pulse Rate 113 H Respiratory Rate 16 Blood Pressure 114/84 H Blood Pressure Mean 94 Pulse Ox 96 Oxygen Delivery Method Room Air Positive well nourished and well developed General Appearance ED: well developed and NAD HEENT Reports moist mucous membranes normocephalic and atraumatic Eyes PERRL, EOMs intact bilaterally and conjunctivae normal General Eye ED: Yes normal appearance of both eyes Neck no lymphadenopathy and supple General: Negative for tenderness Chest Wall Chest: Negative for tenderness Resp normal respiratory effort and normal air movement Effort and Inspection: symmetric chest movement; Negative for respiratory distress Cardio regular rate, regular rhythm and no murmurs Peripheral Pulses: pulses 2+ throughout GI normal to inspection, nondistended, normoactive bowel sounds and non-tender Palpation: Negative for guarding or rebound tenderness present Back/Spine no CVA tenderness and no thoracic nor lumbar tenderness Extremity normal to inspection Extremity Narrative: Right forearm superficial abrasions distal volar aspect, no active bleeding. No deformities. Neuro vas intact distally. General Extremety ED: Negative for edema or tenderness General Extremity: Negative for edema Neuro oriented x3 and no sensory deficits noted Sensorium / Orientation: awake and alert Skin Skin Narrative: See above MDM MDM MDM Narrative Medical decision making narrative: Patient right forearm abrasion. 2 view x-ray forearm obtained reviewed by myself and read by radiology shows no fracture or any acute process. Dressing placed by nursing. His child welfare caseworker is on the phone reported he just not feeling well today he was denying any COVID type symptoms. However discussed obtaining 1 ED since he is here was plan to get 1 tomorrow. Results returned positive. He is vaccinated with no infections in the past he is a diabetic. I rediscussed with child welfare caseworker options of treatment. He is placed on Paxlovid, he will hold his statin while on this medication. Pulse ox 96% on room air. He will follow-up as an outpatient. Radiography Diagnostic Testing: Clinical Impression(s) from Imaging Studies Forearm X-Ray 02/04/22 16:36 IMPRESSION: Normal x-ray examination of the radius and ulna. Electronically Signed: Davey Nguyễn MD at 16:49 EDT , Discharge Plan Triage Chief Complaint: Fall ED Provider: Abraham Collazo Dx/Rx/DC Orders Clinical Impression: Abrasion of forearm, right, COVID-19 virus infection, Intellectual disability, DM2 (diabetes mellitus, type 2) Instructions: Coronavirus Disease 2019 (COVID-19): Caring for Yourself or Others, ED Abrasion Prescriptions: New Paxlovid (EUA) 300 mg (150 mg x 2)-100 mg tablets,dose pack See Rx Instructions .ROUTE .COMPLEX Qty: 30 0RF Rx Instructions: take TWO 150 mg tablets of nirmatrelvir with ONE 100 mg tablet of ritonavir twice daily for 5 days No Action atorvastatin 20 MG tablet 40 mg PO QHS metformin 850 MG tablet 1,000 mg PO BID ipratropium-albuterol 1 PUFF inhaler 1 puff INHALATION BID PRN (Reason: Sob &/Or Wheezing) lisinopril 2.5 MG tablet 0.5 mg PO DAILY Jardiance 25 MG tablet 25 mg PO DAILY acetaminophen 325 MG tablet 650 mg PO Q6H PRN PRN (Reason: Pain Score 1-10/Temp > 100.7 F) 0RF pantoprazole 40 MG tablet 40 mg PO BID Qty: 60 0RF insulin glargine [Lantus Solostar U-100 Insulin] 100 unit/mL (3 mL) Insulin Pen 14 unit SUBCUT QPM dextrose [Glucose Gel] 40 % Gel 20 g PO Q15M PRN (Reason: Hypoglycemia) docusate sodium [Colace] 100 mg Capsule 100 mg PO DAILY PRN PRN (Reason: Constipation) Trulicity 0.75 mg/0.5 mL Pen Injector 0.75 mg SUBCUT TH docusate sodium [Colace] 100 mg capsule 100 mg PO DAILY Primary Care Provider: Care Physician,No Primary Referrals: Care Physician,No Primary [Primary Care Provider] - Activity Restrictions/Additional Instructions: Hold atorvastatin while taking Paxlovid. X-ray right forearm negative. Follow- up with your doctor in 1 week. Disposition Disposition: Home, Self Care Discharge Date/Time: 02/04/22 18:11
--- NOTE | 2022-02-04 16:50 | CM.ED ---
SW Note ISABEL noted on tracker that patient has no PCP. SW met with patient and he reports he has a PCP however, he can not recall the name. Patient voiced no other issues or concerns. SW remains available if needs arise. Viola VILLALPANDO
== END 2022-02-04 18:11 | disposition home or self-care (01) ==
PROVIDERS: Emergency Provider Emergency Medicine; Visit Provider Emergency Medicine
DX: S50.811A Abrasion of right forearm, initial encounter (principal); E11.9 Type 2 diabetes mellitus without complications; W01.0XXA Fall on same level from slipping, tripping and stumbling without subsequent striking against object, initial encounter; U07.1 COVID-19; I10 Essential (primary) hypertension; F79 Unspecified intellectual disabilities; E78.5 Hyperlipidemia, unspecified; Z87.891 Personal history of nicotine dependence
CPT/HCPCS: 73090; 87811; 99282

== ENCOUNTER → 2022-02-12 | Outpatient (CLI) | payer MEDICARE, MEDICAID, SELFPAY ==
[2022-02-12 12:38] LABS: Absolute Lymphocyte Count 1.32 X10^3/uL (0.83-4.51); Absolute Neutrophil Count 4.9 X10^3/uL (2.0-7.7); Basophil# 0.02 X10^3/uL; Basophil% 0.3 % (0-1); Eosinophil# 0.07 X10^3/uL; Hematocrit 46.3 % (40-54); Hemoglobin 14.6 g/dL (13.0-16.5); Lymphocyte # 1.32 X10^3/ul (0.83-4.51); Mean Corp Hgb Conc 31.5 g/dL (32-36); Mean Corpuscular Hgb 25.9 pg (27.0-32.0); Mean Corpuscular Volume 82.1 fL (80-94); Mean Platelet Vol. 11.5 fl (6.2-12.0); Monocyte# 0.54 X10^3/uL; Monocyte% 7.8 % (0-10); NRBC Flagged by Analyzer 0 % (0-5); Neutrophil # 4.93 X10^3/uL (2.7-7.7); Platelet Count 172 K/mm3 (150-450); RBC Distribution Width CV 17.2 % (11.6-14.6); RBC Distribution Width SD 49.4 fl (35.1-43.9); Red Blood Count 5.64 M/mm3 (4.6-6.2); White Blood Count 6.9 K/mm3 (4.4-11.0)
[2022-02-12 13:00] LABS: ALB/GLOB Ratio 1.1 RATIO (0.9-2.4); AST(SGOT) 13 U/L (15-37); Alanine Aminotransfer ALT/SGPT 26 U/L (16-61); Albumin, Serum 3.9 g/dL (3.2-5.0); Alkaline Phosphatase 109 U/L (45-117); Anion Gap 10 (5-15); BUN 21 mg/dL (7-18); BUN/Creat Ratio 21.1 RATIO (10-20); Calcium,Total 10.6 mg/dL (8.5-10.1); Chloride 104 mmol/L (98-107); EST Glomerular Filtration Rate 80 mL/min (>60); Est Glom Filt Rate - Afr Amer 97 mL/min (>60); Globulin 3.6 g/dL (2.2-4.2); Glucose 183 mg/dL (74-106); Potassium 4.4 mmol/L (3.5-5.1); Protein, Total 7.5 g/dL (6.4-8.2); Sodium Level 139 mmol/L (136-145); Thyroid Stim Hormone (TSH) 0.74 uIU/mL (0.358-3.74)
[2022-02-12 13:25] LABS: Hepatitis C Antibody Non-Reactive (Nonreactive)
== END | disposition home or self-care (01) ==
LOC: POLAB3 10:46
PROVIDERS: Visit Provider Family Medicine Geriatric Medicine
DX: Z00.00 Encounter for general adult medical examination without abnormal findings (principal); R53.83 Other fatigue; E55.9 Vitamin D deficiency, unspecified
CPT/HCPCS: 36415; 80053; 82306; 84443; 85025; 86803

== ENCOUNTER → 2022-05-10 | Outpatient (CLI) | payer MEDICARE, MEDICAID, SELFPAY ==
[2022-05-10 13:17] LABS: Absolute Lymphocyte Count 1.69 X10^3/uL (0.83-4.51); Absolute Neutrophil Count 4.4 X10^3/uL (2.0-7.7); Basophil# 0.04 X10^3/uL; Basophil% 0.6 % (0-1); Eosinophil# 0.15 X10^3/uL; Eosinophils% 2.2 % (0-5); Hematocrit 44.7 % (40-54); Hemoglobin 14.7 g/dL (13.0-16.5); Lymphocyte # 1.69 X10^3/ul (0.83-4.51); Lymphocyte % 24.7 % (19-41); Mean Corp Hgb Conc 32.9 g/dL (32-36); Mean Corpuscular Volume 85.1 fL (80-94); Mean Platelet Vol. 11.5 fl (6.2-12.0); Monocyte# 0.58 X10^3/uL; Monocyte% 8.5 % (0-10); NRBC Flagged by Analyzer 0 % (0-5); Neutrophil # 4.37 X10^3/uL (2.7-7.7); Neutrophil % 63.7 % (47-70); Platelet Count 193 K/mm3 (150-450); RBC Distribution Width SD 49.9 fl (35.1-43.9); Red Blood Count 5.25 M/mm3 (4.6-6.2); White Blood Count 6.9 K/mm3 (4.4-11.0)
[2022-05-10 13:51] LABS: ALB/GLOB Ratio 1.2 RATIO (0.9-2.4); AST(SGOT) 16 U/L (15-37); Alanine Aminotransfer ALT/SGPT 21 U/L (16-61); Albumin, Serum 3.8 g/dL (3.2-5.0); Alkaline Phosphatase 88 U/L (45-117); Anion Gap 8 (5-15); BUN 15 mg/dL (7-18); BUN/Creat Ratio 16.1 RATIO (10-20); Calcium,Total 8.9 mg/dL (8.5-10.1); Chloride 103 mmol/L (98-107); Creatinine, Serum 0.93 mg/dL (0.70-1.30); EST Glomerular Filtration Rate 87 mL/min (>60); Est Glom Filt Rate - Afr Amer 105 mL/min (>60); Globulin 3.2 g/dL (2.2-4.2); Glucose 159 mg/dL (74-106); Potassium 4.2 mmol/L (3.5-5.1); Sodium Level 138 mmol/L (136-145); Thyroid Stim Hormone (TSH) 0.89 uIU/mL (0.358-3.74)
== END | disposition home or self-care (01) ==
LOC: POLAB3 11:02
PROVIDERS: Visit Provider Family Medicine Geriatric Medicine
DX: I10 Essential (primary) hypertension (principal); E11.65 Type 2 diabetes mellitus with hyperglycemia
CPT/HCPCS: 36415; 80053; 84443; 85025

== ENCOUNTER → 2022-08-09 | Outpatient (CLI) | payer MEDICARE, MEDICAID, SELFPAY ==
[2022-08-09 13:09] LABS: Absolute Lymphocyte Count 1.75 X10^3/uL (0.83-4.51); Absolute Neutrophil Count 3.8 X10^3/uL (2.0-7.7); Basophil# 0.03 X10^3/uL; Basophil% 0.5 % (0-1); Eosinophil# 0.16 X10^3/uL; Eosinophils% 2.5 % (0-5); Hematocrit 45.8 % (40-54); Hemoglobin 15.2 g/dL (13.0-16.5); Lymphocyte # 1.75 X10^3/ul (0.83-4.51); Lymphocyte % 27.5 % (19-41); Mean Corp Hgb Conc 33.2 g/dL (32-36); Mean Corpuscular Hgb 28.8 pg (27.0-32.0); Mean Corpuscular Volume 86.7 fL (80-94); Mean Platelet Vol. 11.1 fl (6.2-12.0); Monocyte% 9.4 % (0-10); NRBC Flagged by Analyzer 0 % (0-5); Neutrophil # 3.81 X10^3/uL (2.7-7.7); Neutrophil % 59.8 % (47-70); Platelet Count 175 K/mm3 (150-450); RBC Distribution Width SD 47.7 fl (35.1-43.9); Red Blood Count 5.28 M/mm3 (4.6-6.2); White Blood Count 6.4 K/mm3 (4.4-11.0)
[2022-08-09 13:40] LABS: ALB/GLOB Ratio 1.2 RATIO (0.9-2.4); AST(SGOT) 18 U/L (15-37); Alanine Aminotransfer ALT/SGPT 23 U/L (16-61); Albumin, Serum 4.1 g/dL (3.2-5.0); Alkaline Phosphatase 84 U/L (45-117); Anion Gap 10 (5-15); BUN 24 mg/dL (7-18); BUN/Creat Ratio 24.5 RATIO (10-20); Calcium,Total 9.2 mg/dL (8.5-10.1); Chloride 104 mmol/L (98-107); Creatinine, Serum 0.98 mg/dL (0.70-1.30); EST Glomerular Filtration Rate 82 mL/min (>60); Est Glom Filt Rate - Afr Amer 99 mL/min (>60); Globulin 3.4 g/dL (2.2-4.2); Glucose 130 mg/dL (74-106); Potassium 4.3 mmol/L (3.5-5.1); Protein, Total 7.5 g/dL (6.4-8.2); Sodium Level 137 mmol/L (136-145); Thyroid Stim Hormone (TSH) 1.45 uIU/mL (0.358-3.74)
== END | disposition home or self-care (01) ==
LOC: POLAB3 09:37
PROVIDERS: Visit Provider Family Medicine Geriatric Medicine
DX: E11.65 Type 2 diabetes mellitus with hyperglycemia (principal); I10 Essential (primary) hypertension
CPT/HCPCS: 36415; 80053; 84443; 85025

== ENCOUNTER 2022-10-07 18:07 | Emergency (ER) | payer MEDICARE, MEDICAID, SELFPAY ==
[2022-10-07 18:08] VITALS: BP 108/77; PULSE 100; PULSE 134; RESP 14; RESP 16; TEMP 36.6; O2SAT 98; O2SAT 99; BMI 30.2
--- NOTE | 2022-10-07 18:25 | EX.ED.UPPERE ---
HPI History of Present Illness Chief Complaint: Laceration Informant: patient Narrative Narrative: Patient presents with a laceration to his dominant hand right index finger laterally. This occurred shortly before arrival. It was on a piece of sharp metal. No loss of function or numbness or tingling. Last tetanus is unknown. He is not on any blood thinners. He does have cholesterol and diabetes. It bled slightly at first but stopped very quickly. No bleeding since. No loss of function at all. No other injury PFSH PFS Medical History DM2 (diabetes mellitus, type 2) Dyslipidemia Essential (primary) hypertension GERD (gastroesophageal reflux disease) Hemorrhoid Intellectual disability Home Medications atorvastatin 20 mg tablet 40 mg PO QHS cholesterol 07/10/13 [History Last Taken Unknown] ipratropium 20 mcg-albuterol 100 mcg/actuation mist for inhalation 1 puff inhalation BID PRN Sob &/Or Wheezing 07/10/13 [History Last Taken Unknown] metformin 850 mg tablet 1,000 mg PO BID diabetes 07/10/13 [History Last Taken Unknown] empagliflozin 25 mg tablet (Jardiance) 25 mg PO DAILY diabetes 03/16/19 [History Last Taken Unknown] lisinopril 2.5 mg tablet 0.5 mg PO DAILY bp 03/16/19 [History Last Taken 01/04/20] acetaminophen 325 mg tablet 650 mg PO Q6H PRN PRN Pain Score 1-10/Temp > 100.7 F 03/24/20 [Rx Last Taken Unknown] pantoprazole 40 mg tablet,delayed release 40 mg PO BID #60 tabs 03/24/20 [Rx Last Taken Unknown] insulin glargine 100 unit/mL (3 mL) subcutaneous pen (Lantus Solostar U-100 Insulin) 14 unit subcut QPM 12/03/20 [History Last Taken Unknown] dextrose 40 % oral gel (Glucose Gel) 20 g PO Q15M PRN Hypoglycemia 05/29/21 [History Last Taken Unknown] docusate sodium 100 mg capsule (Colace) 100 mg PO DAILY 05/29/21 [History Last Taken Unknown] docusate sodium 100 mg capsule (Colace) 100 mg PO DAILY PRN PRN Constipation 05/29/21 [History Last Taken Unknown] dulaglutide 0.75 mg/0.5 mL subcutaneous pen injector (Trulicity) 0.75 mg subcut TH 05/29/21 [History Last Taken Unknown] nirmatrelvir 300 mg (150 mg x2)-ritonavir 100 mg tablet,dose pack(EUA) (Paxlovid) See Rx Instructions PO .COMPLEX #30 tabs 02/04/22 [Rx Last Taken Unknown] Allergy/AdvReac Type Severity Reaction Status Date / Time aspirin Allergy Unknown Verified 10/07/22 18:10 codeine Allergy Unknown Verified 10/07/22 18:10 Family History Mother Diabetes Surgical History Arthropathy of right hip History of colonoscopy (~12/2019) Social History Smoking Status: Former smoker alcohol intake: never ROS ROS ED Constitutional Constitutional ED: Denies fever(s) Gastrointestinal Gastrointestinal: Denies nausea or vomiting Integumentary Reports other Details: Laceration right index finger. Neurologic Neurologic: Denies paresthesias or weakness Hematologic/Lymphatic Hematologic/Lymphatic: Denies easy bleeding or easy bruising EXAM Physical Exam Narrative Exam Narrative: Patient sitting in bed. Comfortable nontoxic. No dressing on the hand but no bleeding. HEENT shows no trauma Lungs are clear bilaterally. Heart is regular with a rate about 90. Extremities do show a laceration over the right index finger overlying the middle phalanx all laterally. It is about 1.5 cm in length. It is very shallow. It really does not open up at all. Even after soaking it and cleaning it when I put tension on the wound the widest I can get it to open is a millimeter or less. Tendon function both extensor and both volar tendons are intact. Sensation is intact. Capillary refill is intact. Const Vital Signs: 10/07/22 18:08 10/07/22 18:08 Temperature 97.9 F Temperature Source Temporal Pulse Rate 134 H 100 Respiratory Rate 16 14 Blood Pressure 108/77 Blood Pressure Mean 87 Pulse Ox 99 98 Oxygen Delivery Method Room Air Room Air MDM MDM MDM Narrative Medical decision making narrative: I discussed options with the patient. I really do not think this is something that needs to be sutured. It really does not even open up. We did talk about cleaning it. I will still put Dermabond and Steri-Strips just to keep it a little bit close. He would prefer that as he really does not want to get sutures. Procedure: Closure of superficial laceration right index finger The area was scrubbed and cleaned. I then cleaned with alcohol. 3 layers of Dermabond were placed over the incision. I then placed 2 Steri-Strips in an angular longitudinal fashion. This allowed finger to still have a range of motion and did not put a circumferential band on the finger. He tolerated this well. We discussed that these will fall off. He can add Steri-Strips on and he was given a few extra. If he gets redness pain streaking up the arm fevers drainage or other concerning findings he should return for repeat evaluation. Discharge Plan Triage Chief Complaint: Laceration ED Provider: Dick Young Dx/Rx/DC Orders Clinical Impression: Laceration of right index finger Instructions: ED Laceration, Hand: All Closures Prescriptions: No Action atorvastatin 20 MG tablet 40 mg PO QHS metformin 850 MG tablet 1,000 mg PO BID ipratropium-albuterol 1 PUFF inhaler 1 puff INHALATION BID PRN (Reason: Sob &/Or Wheezing) lisinopril 2.5 MG tablet 0.5 mg PO DAILY Jardiance 25 MG tablet 25 mg PO DAILY acetaminophen 325 MG tablet 650 mg PO Q6H PRN PRN (Reason: Pain Score 1-10/Temp > 100.7 F) 0RF pantoprazole 40 MG tablet 40 mg PO BID Qty: 60 0RF insulin glargine [Lantus Solostar U-100 Insulin] 100 unit/mL (3 mL) Insulin Pen 14 unit SUBCUT QPM dextrose [Glucose Gel] 40 % Gel 20 g PO Q15M PRN (Reason: Hypoglycemia) docusate sodium [Colace] 100 mg Capsule 100 mg PO DAILY PRN PRN (Reason: Constipation) Trulicity 0.75 mg/0.5 mL Pen Injector 0.75 mg SUBCUT TH docusate sodium [Colace] 100 mg capsule 100 mg PO DAILY Paxlovid (EUA) 300 mg (150 mg x 2)-100 mg tablets,dose pack See Rx Instructions .ROUTE .COMPLEX Qty: 30 0RF Rx Instructions: take TWO 150 mg tablets of nirmatrelvir with ONE 100 mg tablet of ritonavir twice daily for 5 days Primary Care Provider: Care Physician,No Primary Referrals: Jerry Linda Chi, MD [Med Staff - Active Staff] - 3-5 Days if not improving Care Physician,No Primary [Primary Care Provider] - Disposition Disposition: Home, Self Care
[2022-10-07 18:35] VITALS: PULSE 89; RESP 16; O2SAT 99
[2022-10-07] MEDS: Diphth,Pertuss(Acell),Tet Vac 0.5 ML Vial IM (18:48)
== END 2022-10-07 18:51 | disposition home or self-care (01) ==
LOC: ED 18:30
PROVIDERS: Emergency Provider Emergency Medicine; Visit Provider Emergency Medicine
DX: S61.210A Laceration without foreign body of right index finger without damage to nail, initial encounter (principal); E11.9 Type 2 diabetes mellitus without complications; E78.5 Hyperlipidemia, unspecified; Z87.891 Personal history of nicotine dependence; I10 Essential (primary) hypertension; K21.9 Gastro-esophageal reflux disease without esophagitis; W26.8XXA Contact with other sharp object(s), not elsewhere classified, initial encounter; Z23 Encounter for immunization
CPT/HCPCS: 12001; 90471; 90715; 99282

== ENCOUNTER → 2022-11-11 | Outpatient (CLI) | payer MEDICARE, MEDICAID, SELFPAY ==
[2022-11-11 10:52] LABS: Absolute Lymphocyte Count 1.42 X10^3/uL (0.83-4.51); Absolute Neutrophil Count 4.6 X10^3/uL (2.0-7.7); Basophil# 0.03 X10^3/uL; Basophil% 0.4 % (0-1); Eosinophil# 0.26 X10^3/uL; Eosinophils% 3.8 % (0-5); Hematocrit 46.8 % (40-54); Hemoglobin 14.3 g/dL (13.0-16.5); Lymphocyte # 1.42 X10^3/ul (0.83-4.51); Lymphocyte % 20.6 % (19-41); Mean Corp Hgb Conc 30.6 g/dL (32-36); Mean Corpuscular Volume 88.5 fL (80-94); Mean Platelet Vol. 10.8 fl (6.2-12.0); Monocyte# 0.54 X10^3/uL; Monocyte% 7.8 % (0-10); NRBC Flagged by Analyzer 0 % (0-5); Neutrophil # 4.62 X10^3/uL (2.7-7.7); Platelet Count 207 K/mm3 (150-450); RBC Distribution Width SD 48.6 fl (35.1-43.9); Red Blood Count 5.29 M/mm3 (4.6-6.2); White Blood Count 6.9 K/mm3 (4.4-11.0)
[2022-11-11 11:30] LABS: Hemoglobin A1c 6.2 % (3.8-5.6)
[2022-11-11 11:51] LABS: ALB/GLOB Ratio 1.1 RATIO (0.9-2.4); AST(SGOT) 15 U/L (15-37); Alanine Aminotransfer ALT/SGPT 17 U/L (16-61); Alkaline Phosphatase 87 U/L (45-117); Anion Gap 7 (5-15); BUN 20 mg/dL (7-18); BUN/Creat Ratio 20.5 RATIO (10-20); Calcium,Total 9.1 mg/dL (8.5-10.1); Chloride 108 mmol/L (98-107); Cholesterol 86 mg/dL (200); Creatinine, Serum 0.98 mg/dL (0.70-1.30); EST Glomerular Filtration Rate 82 mL/min (>60); Est Glom Filt Rate - Afr Amer 99 mL/min (>60); Globulin 3.5 g/dL (2.2-4.2); Glucose 120 mg/dL (74-106); High Density Lipoprotein 39 mg/dL; Potassium 4.7 mmol/L (3.5-5.1); Protein, Total 7.5 g/dL (6.4-8.2); Sodium Level 138 mmol/L (136-145); Thyroid Stim Hormone (TSH) 0.95 uIU/mL (0.358-3.74); Triglycerides 86 mg/dL; Very Low Density Lipoprotein 17 mg/dL (5-40)
== END | disposition home or self-care (01) ==
PROVIDERS: PCP Family Medicine Geriatric Medicine; Referring Provider Family Medicine Geriatric Medicine; Visit Provider Family Medicine Geriatric Medicine
DX: E11.65 Type 2 diabetes mellitus with hyperglycemia (principal); I10 Essential (primary) hypertension
CPT/HCPCS: 36415; 80053; 80061; 83036; 84443; 85025

== ENCOUNTER 2023-02-08 12:27 | Emergency (ER) | payer MEDICARE, MEDICAID, SELFPAY ==
[2023-02-08 12:29] VITALS: BP 77/49; PULSE 88; RESP 14; TEMP 36.6; O2SAT 98
[2023-02-08 12:47] VITALS: BP 102/59; PULSE 60; RESP 18; O2SAT 95
[2023-02-08 12:49] VITALS: BMI 23.4
--- NOTE | 2023-02-08 13:42 | EKG12_ITS ---
Test Reason : CHEST PAIN Blood Pressure : / mmHG Vent. Rate : 090 BPM Atrial Rate : 090 BPM P-R Int : 130 ms QRS Dur : 070 ms QT Int : 358 ms P-R-T Axes : 069 016 069 degrees QTc Int : 437 ms Normal sinus rhythm Septal infarct , age undetermined Abnormal ECG Confirmed by BALDO ASIF, VICTORIANO ([id number]), editor & co founder POONAM MCKNIGHT ([id number]) on 02/11/2023 12:25:38 PM Referred By: Confirmed By:VICTORIANO BLAND MD
--- NOTE | 2023-02-08 13:43 | EX.ED.DYSGE1 ---
HPI <Dr. Abraham Collazo DO - Last Filed: 02/10/23 14:34> History of Present Illness Chief Complaint: Weakness Informant: patient Narrative Narrative: Brought in by EMS from [facility] lightheaded symptoms cause him to fall down. History of intellectual disability however states he does live alone. He is a diabetic on insulin. States sitting on the bench got up felt lightheaded fell to the ground. Denies passing out. He states he had some mid abdominal pain that is resolved. Denies recent vomiting or diarrhea. Denies urinary symptoms. Reported he was hypotensive. Blood glucose 186 per EMS. Denies any current chest pains occasional cough. Denies any cardiac history. [facility] <Dr. Abraham Collazo DO - Last Filed: 02/10/23 14:34> [facility] Medical History DM2 (diabetes mellitus, type 2) Dyslipidemia Essential (primary) hypertension GERD (gastroesophageal reflux disease) Hemorrhoid Intellectual disability Home Medications atorvastatin 20 mg tablet 40 mg PO QHS cholesterol 07/10/13 [History Last Taken Unknown] ipratropium 20 mcg-albuterol 100 mcg/actuation mist for inhalation 1 puff inhalation BID PRN Sob &/Or Wheezing 07/10/13 [History Last Taken Unknown] metformin 850 mg tablet 1,000 mg PO BID diabetes 07/10/13 [History Last Taken Unknown] empagliflozin 25 mg tablet (Jardiance) 25 mg PO DAILY diabetes 03/16/19 [History Last Taken Unknown] lisinopril 2.5 mg tablet 0.5 mg PO DAILY bp 03/16/19 [History Last Taken 01/04/20] acetaminophen 325 mg tablet 650 mg (2 x 325 mg) PO Q6H PRN PRN Pain Score 1-10/Temp > 100.7 F 03/24/20 [Rx Last Taken Unknown] pantoprazole 40 mg tablet,delayed release 40 mg PO BID #60 tabs 03/24/20 [Rx Last Taken Unknown] insulin glargine 100 unit/mL (3 mL) subcutaneous pen (Lantus Solostar U-100 Insulin) 14 unit subcut QPM 12/03/20 [History Last Taken Unknown] dextrose 40 % oral gel (Glucose Gel) 20 g PO Q15M PRN Hypoglycemia 05/29/21 [History Last Taken Unknown] docusate sodium 100 mg capsule (Colace) 100 mg PO DAILY 05/29/21 [History Last Taken Unknown] docusate sodium 100 mg capsule (Colace) 100 mg PO DAILY PRN PRN Constipation 05/29/21 [History Last Taken Unknown] dulaglutide 0.75 mg/0.5 mL subcutaneous pen injector (Trulicity) 0.75 mg subcut TH 05/29/21 [History Last Taken Unknown] nirmatrelvir 300 mg (150 mg x2)-ritonavir 100 mg tablet,dose pack (Paxlovid) See Rx Instructions PO .COMPLEX #30 tabs 02/04/22 [Rx Last Taken Unknown] Allergy/AdvReac Type Severity Reaction Status Date / Time aspirin Allergy Unknown Verified 02/08/23 12:29 codeine Allergy Unknown Verified 02/08/23 12:29 Family History Mother Diabetes Surgical History Arthropathy of right hip History of colonoscopy (~12/2019) Social History Smoking Status: Former smoker alcohol intake: never ROS <Dr. Abraham Collazo DO - Last Filed: 02/10/23 14:34> ROS ED Constitutional Constitutional ED: Denies chills, fever(s) or sweats Eyes Eyes: Denies change in vision ENT ENT ED: Denies dysphagia or sore throat Cardiovascular Cardiovascular: Denies chest pain, leg edema, palpitations or racing heartbeat Respiratory/Chest Respiratory/Chest: Reports cough; Denies dyspnea or dyspnea on exertion Gastrointestinal Gastrointestinal: Reports abdominal pain; Denies diarrhea, nausea or vomiting Genitourinary Genitourinary ED: Denies dysuria, hematuria or urinary frequency Musculoskeletal Musculoskeletal: Denies back pain, extremity pain or neck pain Integumentary Denies rash or wounds Neurologic Neurologic: Denies headache(s), paresthesias or weakness EXAM <Dr. Abraham Collazo DO - Last Filed: 02/10/23 14:34> Physical Exam Const Vital Signs: 02/08/23 12:29 02/08/23 12:47 02/08/23 12:47 Temperature 98 F Temperature Source Temporal Pulse Rate 88 60 Respiratory Rate 14 18 Respiratory Effort Normal Respiratory Pattern Normal Blood Pressure 77/49 L 102/59 L Blood Pressure Mean 58 73 Pulse Ox 98 95 Oxygen Delivery Method Room Air 02/08/23 13:42 02/08/23 14:38 02/08/23 13:45 Temperature Temperature Source Pulse Rate 77 75 Respiratory Rate 18 18 Respiratory Effort Respiratory Pattern Blood Pressure 108/61 94/53 L Blood Pressure Mean 76 66 Pulse Ox 95 94 Oxygen Delivery Method Room Air Room Air 02/08/23 18:10 Temperature Temperature Source Pulse Rate 74 Respiratory Rate 16 Respiratory Effort Respiratory Pattern Blood Pressure 105/58 L Blood Pressure Mean 73 Pulse Ox 96 Oxygen Delivery Method Room Air Positive well nourished and well developed Constitutional Narrative: Developmental delay however able to conversation answering questions appropriately. General Appearance ED: well developed and NAD HEENT Reports moist mucous membranes normocephalic and atraumatic Eyes PERRL, EOMs intact bilaterally and conjunctivae normal General Eye ED: Yes normal appearance of both eyes Neck no lymphadenopathy and supple General: Negative for tenderness Chest Wall Chest: Negative for tenderness Resp normal respiratory effort and normal air movement Effort and Inspection: symmetric chest movement; Negative for respiratory distress Cardio regular rate, regular rhythm and no murmurs Peripheral Pulses: pulses 2+ throughout GI normal to inspection, nondistended, normoactive bowel sounds and non-tender GI Narrative: Negative Menon's McBurney's tenderness. Palpation: Negative for guarding or rebound tenderness present Back/Spine no CVA tenderness and no thoracic nor lumbar tenderness Extremity normal to inspection General Extremety ED: Negative for edema or tenderness General Extremity: Negative for edema Neuro oriented x3, CN's II-XII intact bilaterally and no sensory deficits noted Sensorium / Orientation: awake and alert Skin no rashes or lesions noted and no wounds <Dr. Forrest Rutledge, DO - Last Filed: 02/08/23 18:48> Physical Exam Const Vital Signs: 02/08/23 12:29 02/08/23 12:47 02/08/23 12:47 Temperature 98 F Temperature Source Temporal Pulse Rate 88 60 Respiratory Rate 14 18 Respiratory Effort Normal Respiratory Pattern Normal Blood Pressure 77/49 L 102/59 L Blood Pressure Mean 58 73 Pulse Ox 98 95 Oxygen Delivery Method Room Air 02/08/23 13:42 02/08/23 14:38 02/08/23 13:45 Temperature Temperature Source Pulse Rate 77 75 Respiratory Rate 18 18 Respiratory Effort Respiratory Pattern Blood Pressure 108/61 94/53 L Blood Pressure Mean 76 66 Pulse Ox 95 94 Oxygen Delivery Method Room Air Room Air 02/08/23 18:10 Temperature Temperature Source Pulse Rate 74 Respiratory Rate 16 Respiratory Effort Respiratory Pattern Blood Pressure 105/58 L Blood Pressure Mean 73 Pulse Ox 96 Oxygen Delivery Method Room Air MDM <Dr. Abraham Collazo, DO - Last Filed: 02/10/23 14:34> MDM MDM Narrative Medical decision making narrative: Interventions / MDM: Differential diagnosis: Infectious cause, hypotension, near syncope Diagnosis considered but do not suspect: N/A My EKG interpretation: Sinus rate of 90, no ST changes, isolated T wave version aVL. QTc 437. Imaging independently reviewed and interpreted by myself: 2 view chest x-ray: No acute process. External documents reviewed: N/A Test considered but not ordered:N/A ED course: Patient presenting near syncope. EKG sinus rhythm. Came in blood pressure in the 70s he denied any symptoms. He is given fluids. Sepsis labs were ordered Due to his hypotension. He is afebrile. Lab slight renal sufficient creatinine 1.62. Glucose 120. White count 10.4. Chest x-ray negative. 1555: Pending urine collection at this time blood pressure 108/61. Clinically stable currently. Patient signed out to oncoming physician Dr. Rutledge. Discussed plan with urine collected reevaluation blood pressure and ambulation trial. Re-evaluation: stable Disposition discussed with patient/family/significant other: Case discussed with consulting clinician: N/A This note was generated with [employer] dictation software. It may contain incorrect words, spelling, and punctuation that were not noted in checking the note before signing. Dr. Rutledge dictating: Patient signed out to me for monitoring until we can obtain a urinalysis. Patient was hydrated with IV fluids. Urinalysis was obtained and is negative. Patient was ambulated in the hallway with a stable gait. He feels comfortable going home at this point. Blood pressures come up to 105/58. Patient discharged in stable condition. Lab Data Attestation: I reviewed the patient's lab results. Labs: Laboratory Results - last 24 hr 02/08/23 02/08/23 14:45 17:45 WBC 10.4 RBC 4.99 Hgb 13.6 Hct 42.1 MCV 84.4 MCH 27.3 MCHC 32.3 RDW Std Deviation 45.8 H RDW Coeff of [place] 15.2 H Plt Count 199 MPV 11.1 Immature Gran % (Auto) 0.100 Neut % (Auto) 85.4 H Lymph % (Auto) 8.9 L [place] % (Auto) 5.0 Eos % (Auto) 0.3 Baso % (Auto) 0.3 Absolute Neuts (auto) 8.9 H Absolute Lymphs (auto) 0.93 Nucleated RBC % 0 PT 12.6 INR 1.0 APTT 20.6 L Sodium 139 Potassium 4.3 Chloride 105 Carbon Dioxide 25.0 Anion Gap 9 BUN 28 H Creatinine 1.62 H Estim Creat Clear Calc 37.07 Est GFR (MDRD) Af Amer 55 L Est GFR (MDRD) Non-Af 46 L BUN/Creatinine Ratio 17.3 Glucose 120 H Lactic Acid 1.9 Calcium 9.4 Total Bilirubin 0.80 AST 21 ALT 21 Alkaline Phosphatase 81 Total Protein 7.4 Albumin 4.1 Globulin 3.3 Albumin/Globulin Ratio 1.2 Lipase 80 H Urine Color Yellow Urine Clarity Clear Urine pH 5.0 Ur Specific [place] 1.015 Urine Protein Negative Urine Glucose (UA) 1000 H Urine Ketones 5 H Urine Occult Blood Negative Urine Nitrite Negative Urine Bilirubin Negative Urine Urobilinogen Normal Ur Leukocyte Esterase Negative Urine RBC 0 SEEN Urine WBC 0 SEEN Ur Squamous Epith Cells 0 SEEN Urine Bacteria 0 SEEN Urine Mucus 0 SEEN Radiography Diagnostic Testing: Clinical Impression(s) from Imaging Studies Chest X-Ray 02/08/23 15:15 IMPRESSION: Stable mild increased markings at the left lung base suggestive of mild degree of scarring. Electronically Signed: Darien Samuels MD at 15:48 EDT , <Dr. Forrest Rutledge, DO - Last Filed: 02/08/23 18:48> MDM MDM Narrative Medical decision making narrative: Interventions / MDM: Differential diagnosis: Infectious cause, hypotension, near syncope Diagnosis considered but do not suspect: N/A My EKG interpretation: Sinus rate of 90, no ST changes, isolated T wave version aVL. QTc 437. Imaging independently reviewed and interpreted by myself: 2 view chest x-ray: No acute process. External documents reviewed: N/A Test considered but not ordered:N/A ED course: Patient presenting near syncope. EKG sinus rhythm. Came in blood pressure in the 70s he denied any symptoms. He is given fluids. Sepsis labs were ordered Due to his hypotension. He is afebrile. Lab slight renal sufficient creatinine 1.62. Glucose 120. White count 10.4. Chest x-ray negative. 1555: Pending urine collection at this time blood pressure 108/61. Clinically stable currently. Patient signed out to oncoming physician Dr. Rutledge. Discussed plan with urine collected reevaluation blood pressure and ambulation trial. Re-evaluation: stable Disposition discussed with patient/family/significant other: Case discussed with consulting clinician: N/A This note was generated with [employer] dictation software. It may contain incorrect words, spelling, and punctuation that were not noted in checking the note before signing. Dr. Rutledge dictating: Patient signed out to me for monitoring until we can obtain a urinalysis. Patient was hydrated with IV fluids. Urinalysis was obtained and is negative. Patient was ambulated in the hallway with a stable gait. He feels comfortable going home at this point. Blood pressures come up to 105/58. Patient discharged in stable condition.df Lab Data Labs: Laboratory Results - last 24 hr 02/08/23 02/08/23 14:45 17:45 WBC 10.4 RBC 4.99 Hgb 13.6 Hct 42.1 MCV 84.4 MCH 27.3 MCHC 32.3 RDW Std Deviation 45.8 H RDW Coeff of [place] 15.2 H Plt Count 199 MPV 11.1 Immature Gran % (Auto) 0.100 Neut % (Auto) 85.4 H Lymph % (Auto) 8.9 L [place] % (Auto) 5.0 Eos % (Auto) 0.3 Baso % (Auto) 0.3 Absolute Neuts (auto) 8.9 H Absolute Lymphs (auto) 0.93 Nucleated RBC % 0 PT 12.6 INR 1.0 APTT 20.6 L Sodium 139 Potassium 4.3 Chloride 105 Carbon Dioxide 25.0 Anion Gap 9 BUN 28 H Creatinine 1.62 H Estim Creat Clear Calc 37.07 Est GFR (MDRD) Af Amer 55 L Est GFR (MDRD) Non-Af 46 L BUN/Creatinine Ratio 17.3 Glucose 120 H Lactic Acid 1.9 Calcium 9.4 Total Bilirubin 0.80 AST 21 ALT 21 Alkaline Phosphatase 81 Total Protein 7.4 Albumin 4.1 Globulin 3.3 Albumin/Globulin Ratio 1.2 Lipase 80 H Urine Color Yellow Urine Clarity Clear Urine pH 5.0 Ur Specific [place] 1.015 Urine Protein Negative Urine Glucose (UA) 1000 H Urine Ketones 5 H Urine Occult Blood Negative Urine Nitrite Negative Urine Bilirubin Negative Urine Urobilinogen Normal Ur Leukocyte Esterase Negative Urine RBC 0 SEEN Urine WBC 0 SEEN Ur Squamous Epith Cells 0 SEEN Urine Bacteria 0 SEEN Urine Mucus 0 SEEN Radiography Diagnostic Testing: Clinical Impression(s) from Imaging Studies Chest X-Ray 02/08/23 15:15 IMPRESSION: Stable mild increased markings at the left lung base suggestive of mild degree of scarring. Electronically Signed: Darien Samuels MD at 15:48 EDT , Discharge Plan Triage Chief Complaint: Weakness ED Provider: Abraham Collazo Dx/Rx/DC Orders Clinical Impression: Acute renal insufficiency, Near syncope, Hypotension Prescriptions: No Action atorvastatin 20 MG tablet 40 mg PO QHS metformin 850 MG tablet 1,000 mg PO BID ipratropium-albuterol 1 PUFF inhaler 1 puff INHALATION BID PRN (Reason: Sob &/Or Wheezing) lisinopril 2.5 MG tablet 0.5 mg PO DAILY Jardiance 25 MG tablet 25 mg PO DAILY acetaminophen 325 MG tablet 650 mg PO Q6H PRN PRN (Reason: Pain Score 1-10/Temp > 100.7 F) 0RF pantoprazole 40 MG tablet 40 mg PO BID Qty: 60 0RF insulin glargine [Lantus Solostar U-100 Insulin] 100 unit/mL (3 mL) Insulin Pen 14 unit SUBCUT QPM dextrose [Glucose Gel] 40 % Gel 20 g PO Q15M PRN (Reason: Hypoglycemia) docusate sodium [Colace] 100 mg Capsule 100 mg PO DAILY PRN PRN (Reason: Constipation) Trulicity 0.75 mg/0.5 mL Pen Injector 0.75 mg SUBCUT TH docusate sodium [Colace] 100 mg capsule 100 mg PO DAILY Paxlovid 300 mg (150 mg x 2)-100 mg tablets,dose pack See Rx Instructions .ROUTE .COMPLEX Qty: 30 0RF Rx Instructions: take TWO 150 mg tablets of nirmatrelvir with ONE 100 mg tablet of ritonavir twice daily for 5 days Primary Care Provider: Jerry Linda Chi Referrals: Jerry Linda Chi, MD [Primary Care Provider] - Disposition Disposition: Home, Self Care Discharge Date/Time: 02/08/23 19:09
[2023-02-08 13:45] VITALS: BP 94/53; PULSE 75; RESP 18; O2SAT 94
[2023-02-08] MEDS: 0.9% Normal Saline 1,000 ML 999 ML IV (14:30)
[2023-02-08 14:38] VITALS: BP 108/61; PULSE 77; RESP 18; O2SAT 95
[2023-02-08 14:57] LABS: Absolute Lymphocyte Count 0.93 X10^3/uL (0.83-4.51); Absolute Neutrophil Count 8.9 X10^3/uL (2.0-7.7); Basophil# 0.03 X10^3/uL; Basophil% 0.3 % (0-1); Eosinophil# 0.03 X10^3/uL; Eosinophils% 0.3 % (0-5); Hematocrit 42.1 % (40-54); Hemoglobin 13.6 g/dL (13.0-16.5); Lymphocyte # 0.93 X10^3/ul (0.83-4.51); Lymphocyte % 8.9 % (19-41); Mean Corp Hgb Conc 32.3 g/dL (32-36); Mean Corpuscular Hgb 27.3 pg (27.0-32.0); Mean Corpuscular Volume 84.4 fL (80-94); Mean Platelet Vol. 11.1 fl (6.2-12.0); Monocyte# 0.52 X10^3/uL; NRBC Flagged by Analyzer 0 % (0-5); Neutrophil % 85.4 % (47-70); Platelet Count 199 K/mm3 (150-450); RBC Distribution Width CV 15.2 % (11.6-14.6); RBC Distribution Width SD 45.8 fl (35.1-43.9); Red Blood Count 4.99 M/mm3 (4.6-6.2); White Blood Count 10.4 K/mm3 (4.4-11.0)
[2023-02-08 15:05] LABS: Partial Thromboplast Time 20.6 Seconds (24.1-36.2); Prothrombin Time (Protime)PT. 12.6 SECONDS (11.7-14.9)
--- NOTE | 2023-02-08 15:15 | RAD_ITS ---
STUDY: X-RAY CHEST REASON FOR EXAM: Male, 62 years old. Cough TECHNIQUE: PA and lateral views of the chest. COMPARISON: Comparison is made with prior study January 09, 2022. FINDINGS: EKG electrodes are seen. Stable minimal increased markings at the left lung base suggestive of scarring. There is no demonstrated pleural abnormality. Normal size heart. Normal mediastinum and dread. Normal visualized pulmonary arteries. Normal visualized aortic arch and descending thoracic aorta. There are diffuse degenerative changes of the visualized thoracic spine. Normal visualized ribs, clavicles, and shoulders. There is no demonstrated abnormality of the visualized soft tissue structures of the upper abdomen. RAD/Chest PA and Lateral IMPRESSION: Stable mild increased markings at the left lung base suggestive of mild degree of scarring. Electronically Signed: Darien Samuels MD at 15:48 EDT ,
[2023-02-08 15:21] LABS: ALB/GLOB Ratio 1.2 RATIO (0.9-2.4); AST(SGOT) 21 U/L (15-37); Alanine Aminotransfer ALT/SGPT 21 U/L (16-61); Albumin, Serum 4.1 g/dL (3.2-5.0); Alkaline Phosphatase 81 U/L (45-117); Anion Gap 9 (5-15); BUN 28 mg/dL (7-18); BUN/Creat Ratio 17.3 RATIO (10-20); Calcium,Total 9.4 mg/dL (8.5-10.1); Chloride 105 mmol/L (98-107); Creatinine, Serum 1.62 mg/dL (0.70-1.30); EST Glomerular Filtration Rate 46 mL/min (>60); Est Glom Filt Rate - Afr Amer 55 mL/min (>60); Estimated Creatinine Clearance 37.07 ml/min; Globulin 3.3 g/dL (2.2-4.2); Glucose 120 mg/dL (74-106); Lipase 80 U/L (13-75); Potassium 4.3 mmol/L (3.5-5.1); Protein, Total 7.4 g/dL (6.4-8.2); Sodium Level 139 mmol/L (136-145)
[2023-02-08 15:39] LABS: Lactic Acid 1.9 mmol/L (0.4-1.9)
[2023-02-08 17:51] LABS: Bacteria 0 SEEN /hpf (None Seen); Mucous, Urine 0 SEEN /hpf (<or=2+); Red Blood Cells-Urine 0 SEEN /hpf (0-5); Squamous Epithelial Cells - UA 0 SEEN /hpf (0-5); White Blood Cells 0 SEEN /hpf (0-5)
[2023-02-08 17:54] LABS: Color, Urine Yellow (Yellow); Glucose, Dipstick 1000 mg/dl (Normal); Ketone-Dipstick 5 mg/dl (Negative); Leukocyte Esterase-Dipstick Negative /ul (Negative); Nitrite-Dipstick Negative (Negative); Occult Blood-Urine Negative /ul (Negative); Protein-Dipstick Negative (Negative); Specific Gravity, Urine 1.015 (1.002-1.030); Urine Bilirubin Dipstick Negative (Negative); Urine Clarity Clear (Clear); Urine Urobilinogen Normal (Normal)
[2023-02-08 18:10] VITALS: BP 105/58; PULSE 74; RESP 16; O2SAT 96
[2023-02-08 19:08] VITALS: BP 101/62; PULSE 78; RESP 16; O2SAT 97
--- NOTE | 2023-02-08 19:30 | CM.ED ---
Social Work SW updated by CM Director Yessy Goddard. patient's CM is Anita and was calling to inquire about patient's discharge plan. SW left a VM for patient's CM to inform her patient was d/c home. Yola ROBIN, LIYAH
== END 2023-02-08 19:09 | disposition home or self-care (01) ==
PROVIDERS: Emergency Provider Emergency Medicine; PCP Family Medicine Geriatric Medicine; Visit Provider Emergency Medicine
DX: N28.9 Disorder of kidney and ureter, unspecified (principal); E11.9 Type 2 diabetes mellitus without complications; R55 Syncope and collapse; Z87.891 Personal history of nicotine dependence; I10 Essential (primary) hypertension; R53.1 Weakness; I95.9 Hypotension, unspecified; E78.5 Hyperlipidemia, unspecified
CPT/HCPCS: 71046; 80053; 81001; 83605; 83690; 85025; 85610; 85730; 87040; 87086; 87088; 93005; 96360; 99284; J7030; A4216

== ENCOUNTER → 2023-02-16 | Outpatient (CLI) | payer MEDICARE, MEDICAID, SELFPAY ==
[2023-02-16 11:04] LABS: Absolute Lymphocyte Count 1.31 X10^3/uL (0.83-4.51); Absolute Neutrophil Count 5.3 X10^3/uL (2.0-7.7); Basophil# 0.04 X10^3/uL; Basophil% 0.5 % (0-1); Eosinophil# 0.25 X10^3/uL; Eosinophils% 3.3 % (0-5); Hematocrit 43.1 % (40-54); Hemoglobin 13.7 g/dL (13.0-16.5); Lymphocyte # 1.31 X10^3/ul (0.83-4.51); Lymphocyte % 17.4 % (19-41); Mean Corp Hgb Conc 31.8 g/dL (32-36); Mean Corpuscular Hgb 27.2 pg (27.0-32.0); Mean Corpuscular Volume 85.5 fL (80-94); Mean Platelet Vol. 11.4 fl (6.2-12.0); Monocyte# 0.63 X10^3/uL; Monocyte% 8.4 % (0-10); NRBC Flagged by Analyzer 0 % (0-5); Neutrophil # 5.26 X10^3/uL (2.7-7.7); Platelet Count 224 K/mm3 (150-450); RBC Distribution Width CV 15.5 % (11.6-14.6); Red Blood Count 5.04 M/mm3 (4.6-6.2); White Blood Count 7.5 K/mm3 (4.4-11.0)
[2023-02-16 11:26] LABS: ALB/GLOB Ratio 1.1 RATIO (0.9-2.4); AST(SGOT) 15 U/L (15-37); Alanine Aminotransfer ALT/SGPT 20 U/L (16-61); Albumin, Serum 3.7 g/dL (3.2-5.0); Alkaline Phosphatase 76 U/L (45-117); Anion Gap 5 (5-15); BUN 15 mg/dL (7-18); BUN/Creat Ratio 15.2 RATIO (10-20); Calcium,Total 8.6 mg/dL (8.5-10.1); Chloride 107 mmol/L (98-107); Cholesterol 78 mg/dL (200); Creatinine, Serum 0.99 mg/dL (0.70-1.30); EST Glomerular Filtration Rate 81 mL/min (>60); Est Glom Filt Rate - Afr Amer 98 mL/min (>60); Globulin 3.3 g/dL (2.2-4.2); Glucose 132 mg/dL (74-106); High Density Lipoprotein 45 mg/dL; PSA,Total - Annual Screen 0.69 ng/mL (0.00-4.00); Potassium 3.9 mmol/L (3.5-5.1); Sodium Level 139 mmol/L (136-145); Thyroid Stim Hormone (TSH) 1.09 uIU/mL (0.358-3.74); Triglycerides 51 mg/dL; Very Low Density Lipoprotein 10 mg/dL (5-40)
[2023-02-16 12:11] LABS: Hemoglobin A1c 6.1 % (3.8-5.6)
== END | disposition home or self-care (01) ==
LOC: POLAB3 09:21
PROVIDERS: PCP Family Medicine Geriatric Medicine; Visit Provider Family Medicine Geriatric Medicine
DX: E78.5 Hyperlipidemia, unspecified (principal); E11.65 Type 2 diabetes mellitus with hyperglycemia; Z12.5 Encounter for screening for malignant neoplasm of prostate
CPT/HCPCS: 36415; 80053; 80061; 83036; 84153; 84443; 85025; G0103

== ENCOUNTER → 2023-02-17 | Outpatient (CLI) | payer MEDICARE, MEDICAID, SELFPAY ==
[2023-02-17 12:41] LABS: Microalbumin,Random Urine 8.4 mg/L (NO RANGE EST.)
== END | disposition home or self-care (01) ==
LOC: POLAB3 11:29
PROVIDERS: PCP Family Medicine Geriatric Medicine; Visit Provider Family Medicine Geriatric Medicine
DX: E11.65 Type 2 diabetes mellitus with hyperglycemia (principal); I10 Essential (primary) hypertension
CPT/HCPCS: 82043

== ENCOUNTER → 2023-05-19 | Outpatient (CLI) | payer MEDICARE, MEDICAID, SELFPAY ==
[2023-05-19 13:16] LABS: Absolute Lymphocyte Count 1.26 X10^3/uL (0.83-4.51); Absolute Neutrophil Count 3.3 X10^3/uL (2.0-7.7); Basophil# 0.03 X10^3/uL; Basophil% 0.6 % (0-1); Eosinophil# 0.26 X10^3/uL; Eosinophils% 4.9 % (0-5); Hematocrit 44.8 % (40-54); Hemoglobin 13.9 g/dL (13.0-16.5); Lymphocyte # 1.26 X10^3/ul (0.83-4.51); Lymphocyte % 23.8 % (19-41); Mean Corpuscular Hgb 26.7 pg (27.0-32.0); Mean Corpuscular Volume 86.2 fL (80-94); Monocyte# 0.46 X10^3/uL; Monocyte% 8.7 % (0-10); NRBC Flagged by Analyzer 0 % (0-5); Neutrophil # 3.26 X10^3/uL (2.7-7.7); Neutrophil % 61.6 % (47-70); Platelet Count 175 K/mm3 (150-450); White Blood Count 5.3 K/mm3 (4.4-11.0)
[2023-05-19 13:29] LABS: Vitamin D,25 Hydroxy 12.8 ng/mL
[2023-05-19 13:33] LABS: ALB/GLOB Ratio 1.2 RATIO (0.9-2.4); AST(SGOT) 17 U/L (15-37); Alanine Aminotransfer ALT/SGPT 23 U/L (16-61); Albumin, Serum 4.1 g/dL (3.2-5.0); Alkaline Phosphatase 68 U/L (45-117); Anion Gap 6 (5-15); BUN 13 mg/dL (7-18); BUN/Creat Ratio 14.9 RATIO (10-20); Calcium,Total 8.5 mg/dL (8.5-10.1); Chloride 107 mmol/L (98-107); Cholesterol 93 mg/dL (200); Creatinine, Serum 0.87 mg/dL (0.70-1.30); EST Glomerular Filtration Rate 93 mL/min (>60); Est Glom Filt Rate - Afr Amer 113 mL/min (>60); Globulin 3.3 g/dL (2.2-4.2); Glucose 130 mg/dL (74-106); High Density Lipoprotein 48 mg/dL; Potassium 3.9 mmol/L (3.5-5.1); Protein, Total 7.4 g/dL (6.4-8.2); Sodium Level 141 mmol/L (136-145); Thyroid Stim Hormone (TSH) 0.84 uIU/mL (0.358-3.74); Triglycerides 99 mg/dL; Very Low Density Lipoprotein 20 mg/dL (5-40)
[2023-05-19 13:51] LABS: Hemoglobin A1c 6.6 % (3.8-5.6)
== END | disposition home or self-care (01) ==
LOC: POLAB3 09:50
PROVIDERS: PCP Family Medicine Geriatric Medicine; Visit Provider Family Medicine Geriatric Medicine
DX: E11.65 Type 2 diabetes mellitus with hyperglycemia (principal); I10 Essential (primary) hypertension; E78.5 Hyperlipidemia, unspecified; E55.9 Vitamin D deficiency, unspecified
CPT/HCPCS: 36415; 80053; 80061; 82306; 83036; 84443; 85025

== ENCOUNTER 2023-07-22 14:58 | Emergency (ER) | payer MEDICARE, MEDICAID, SELFPAY ==
[2023-07-22 14:58] VITALS: BP 139/99; PULSE 92; RESP 18; TEMP 36.6; O2SAT 98
--- NOTE | 2023-07-22 15:01 | EKG12_ITS ---
Test Reason : CP Blood Pressure : / mmHG Vent. Rate : 084 BPM Atrial Rate : 084 BPM P-R Int : 134 ms QRS Dur : 078 ms QT Int : 380 ms P-R-T Axes : 047 -14 041 degrees QTc Int : 449 ms Normal sinus rhythm Normal ECG Confirmed by Adan Bonilla ([id number]), news video editor BRIE BELL ([id number]) on 07/25/2023 9:44:36 AM Referred By: Confirmed By:Adan Bonilla
[2023-07-22 15:23] VITALS: O2SAT 100
[2023-07-22 15:24] VITALS: BP 127/66; PULSE 89; RESP 13; O2SAT 100
--- NOTE | 2023-07-22 15:28 | ED.VIS.CHEST ---
HPI History of Present Illness Chief Complaint: Chest Pain Informant: patient Onset/Context/Timing Onset: Today Activity at onset: sudden Timing: Continuous Quality: Positive for Sharp Location: Substernal, Left Parasternal and Left Chest Worsened By: Nothing Relieved By: Nothing Associated Symptoms: Positive for Diaphoresis and Dyspnea; Negative for Nausea, Vomiting, Cough, Fever, Lightheadedness, Acid Reflux or Palpitations Narrative Narrative: Patient presents with chest pain that began just prior to arrival. Patient states it began rather suddenly. Patient states he was sitting at the table putting a puzzle together when the pain began. Patient describes the pain as sharp. Patient states the pain is over the substernal area and radiates to the left side of his chest. Patient states nothing makes it better and nothing makes it worse. Patient admits to some diaphoresis and some shortness of breath. Patient also admits to some wheezing. Patient denies any nausea or vomiting. Patient denies any fevers or chills. Patient denies any cough. [facility] Medical History DM2 (diabetes mellitus, type 2) Dyslipidemia Essential (primary) hypertension GERD (gastroesophageal reflux disease) Hemorrhoid Intellectual disability Home Medications ipratropium 20 mcg-albuterol 100 mcg/actuation mist for inhalation 1 puff inhalation BID PRN Sob &/Or Wheezing 07/10/13 [History Last Taken Unknown] empagliflozin 25 mg tablet (Jardiance) 25 mg PO DAILY diabetes 03/16/19 [History Last Taken Unknown] acetaminophen 325 mg tablet 650 mg (2 x 325 mg) PO Q6H PRN PRN Pain Score 1-10/Temp > 100.7 F 03/24/20 [Rx Last Taken Unknown] pantoprazole 40 mg tablet,delayed release 40 mg PO BID #60 tabs 03/24/20 [Rx Last Taken Unknown] insulin glargine 100 unit/mL (3 mL) subcutaneous pen (Lantus Solostar U-100 Insulin) 14 unit subcut QPM 12/03/20 [History Last Taken Unknown] dextrose 40 % oral gel (Glucose Gel) 20 g PO Q15M PRN Hypoglycemia 05/29/21 [History Last Taken Unknown] docusate sodium 100 mg capsule (Colace) 100 mg PO DAILY PRN PRN Constipation 05/29/21 [History Last Taken Unknown] nirmatrelvir 300 mg (150 mg x2)-ritonavir 100 mg tablet,dose pack (Paxlovid) See Rx Instructions PO .COMPLEX #30 tabs 02/04/22 [Rx Last Taken Unknown] atorvastatin 40 mg tablet 40 mg PO DAILY 07/22/23 [History Last Taken Unknown] dulaglutide 1.5 mg/0.5 mL subcutaneous pen injector (Trulicity) 3 mg subcut QWEEK 07/22/23 [History Last Taken Unknown] famotidine 40 mg tablet 40 mg PO DAILY 07/22/23 [History Last Taken Unknown] glimepiride 4 mg tablet 4 mg PO DAILY 07/22/23 [History Last Taken Unknown] lisinopril 10 mg tablet 10 mg PO DAILY 07/22/23 [History Last Taken Unknown] metformin 1,000 mg tablet 1,000 mg PO BID 07/22/23 [History Last Taken Unknown] Allergy/AdvReac Type Severity Reaction Status Date / Time aspirin Allergy Unknown Verified 07/22/23 15:01 codeine Allergy Unknown Verified 07/22/23 15:01 Family History Mother Diabetes Surgical History Arthropathy of right hip History of colonoscopy (~12/2019) Social History Smoking Status: Former smoker alcohol intake: never ROS ROS ED Constitutional Constitutional ED: Denies chills or fever(s) Eyes Eyes: Denies blurry vision or change in vision ENT ENT ED: Denies rhinorrhea or sore throat Cardiovascular Cardiovascular: Reports chest pain; Denies palpitations Respiratory/Chest Respiratory/Chest: Reports dyspnea; Denies cough Gastrointestinal Gastrointestinal: Denies nausea or vomiting Genitourinary Genitourinary ED: Denies dysuria or hematuria Musculoskeletal Musculoskeletal: Denies back pain or neck pain Integumentary Denies abscess or rash Neurologic Neurologic: Denies headache(s) or weakness Allergic/Immunologic Allergic/Immunologic ED: Denies mouth swelling or urticaria EXAM Physical Exam Const Vital Signs: 07/22/23 14:58 07/22/23 15:23 07/22/23 15:23 Temperature 97.8 F Temperature Source Temporal Pulse Rate 92 Respiratory Rate 18 Respiratory Effort Normal Non-Labored Blood Pressure 139/99 H Blood Pressure Mean 112 Pulse Ox 98 100 Oxygen Delivery Method Room Air Room Air 07/22/23 15:24 07/22/23 17:07 Temperature Temperature Source Pulse Rate 89 77 Respiratory Rate 13 16 Respiratory Effort Blood Pressure 127/66 H 124/70 H Blood Pressure Mean 86 88 Pulse Ox 100 100 Oxygen Delivery Method Room Air Room Air Positive well nourished and well developed General Appearance ED: well developed and NAD HEENT Reports moist mucous membranes Neck supple and no JVD Resp normal respiratory effort and clear to auscultation bilaterally Cardio regular rate and regular rhythm GI soft to palpation, non-tender and non-distended Neuro oriented x3, CN's II-XII intact bilaterally and no sensory deficits noted Sensorium / Orientation: awake and alert Motor Exam: strength 5/5 throughout Psych mental status grossly normal Heart Score History: Slightly/Non-Suspicious ECG: Normal Age: >/= 65 years Risk Factors: 1 or 2 Risk Factors Troponin: </= Normal Limit Score: 3 MDM MDM MDM Narrative Medical decision making narrative: Differential diagnosis includes cardiac dysrhythmia, cardiac ischemia, pneumonia, pneumothorax, gastroesophageal reflux disease, musculoskeletal pain, and anxiety. Patient has a Wells score of 0. I do not feel this is from a pulmonary embolism. EKG will be obtained to assess for cardiac dysrhythmia and cardiac ischemia. Chest x-ray will be obtained to assess for pneumonia and pneumothorax. CBC will be obtained to assess for leukocytosis and anemia. Basic metabolic profile will be obtained to assess for electrolyte abnormality and renal function. High-sensitivity troponin will be obtained to assess for cardiac ischemia. 2-hour repeat high-sensitivity troponin will be obtained to assess for ongoing cardiac ischemia. Lab Data Attestation: I reviewed the patient's lab results. Lab results narrative: CBC was reviewed and was within normal limits. Basic metabolic profile was reviewed. Glucose was slightly elevated at 152. The remainder was within normal limits. Anion gap was normal. Initial high-sensitivity troponin was reviewed and was normal at 27. 2-hour repeat high-sensitivity troponin was reviewed and was normal at 22. Labs: Laboratory Results - last 24 hr 07/22/23 07/22/23 15:36 19:06 WBC 6.9 RBC 5.35 Hgb 14.3 Hct 45.3 MCV 84.7 MCH 26.7 L MCHC 31.6 L RDW Std Deviation 47.0 H RDW Coeff of [place] 15.3 H Plt Count 174 MPV 11.0 Immature Gran % (Auto) 0.300 Neut % (Auto) 63.8 Lymph % (Auto) 24.1 [place] % (Auto) 7.5 Eos % (Auto) 3.9 Baso % (Auto) 0.4 Absolute Neuts (auto) 4.4 Absolute Lymphs (auto) 1.67 Nucleated RBC % 0 Sodium 141 Potassium 4.1 Chloride 109 H Carbon Dioxide 24.0 Anion Gap 8 BUN 14 Creatinine 1.10 Est GFR (MDRD) Af Amer 86 Est GFR (MDRD) Non-Af 71 BUN/Creatinine Ratio 12.7 Glucose 152 H Calcium 9.4 Troponin I High Sens 27 22 Radiography Chest X-Ray - ED: 1 View, Read by ED Physician, Read by Radiologist and No Acute Disease Diagnostic Testing: Clinical Impression(s) from Imaging Studies Chest X-Ray 07/22/23 15:42 IMPRESSION: No acute cardiopulmonary abnormality. Left clavicular fracture. No interval change. Electronically Signed: Siva Friend MD at 16:20 EST , Portable 1 view chest x-ray was obtained. On my independent interpretation, lung aldrich are clear. There is normal cardiac silhouette. Bony thorax is normal. There is no acute process noted. Radiologist also interpreted the x-ray and agrees. EKG Initial EKG: Attestation: I personally reviewed and interpreted this EKG as follows: Interpretation: Sinus Rhythm (84) Comments: EKG was obtained. On my independent interpretation, it showed a normal sinus rhythm with a rate of 84. SD interval, QRS interval, and QTc intervals were all normal. There is borderline left axis deviation at -14. There are no acute ST or T wave changes. Prior EKG tracings: available for review Prior: Unchanged (02/08/2023) Treatment and Re-Evaluation :: Patient is allergic to aspirin so this was withheld. Patient was advised of his findings. Patient is feeling better on reevaluation. Patient has a HEART score of 3. Patient was advised that this is low risk for acute cardiac event. Patient was instructed to follow-up with his primary care physician in 5 to 7 days for further evaluation. Patient understood and was agreeable with the plan. All questions were answered. Discharge Plan Triage Chief Complaint: Chest Pain ED Provider: Christopher Casanova Dx/Rx/DC Orders Clinical Impression: Essential (primary) hypertension, Chest pain Instructions: ED Chest Pain, Uncertain Cause Prescriptions: No Action ipratropium-albuterol 1 PUFF inhaler 1 puff INHALATION BID PRN (Reason: Sob &/Or Wheezing) Jardiance 25 MG tablet 25 mg PO DAILY acetaminophen 325 MG tablet 650 mg PO Q6H PRN PRN (Reason: Pain Score 1-10/Temp > 100.7 F) 0RF pantoprazole 40 MG tablet 40 mg PO BID Qty: 60 0RF insulin glargine [Lantus Solostar U-100 Insulin] 100 unit/mL (3 mL) Insulin Pen 14 unit SUBCUT QPM dextrose [Glucose Gel] 40 % Gel 20 g PO Q15M PRN (Reason: Hypoglycemia) docusate sodium [Colace] 100 mg Capsule 100 mg PO DAILY PRN PRN (Reason: Constipation) Paxlovid 300 mg (150 mg x 2)-100 mg tablets,dose pack See Rx Instructions .ROUTE .COMPLEX Qty: 30 0RF Rx Instructions: take TWO 150 mg tablets of nirmatrelvir with ONE 100 mg tablet of ritonavir twice daily for 5 days atorvastatin 40 mg tablet 40 mg PO DAILY Trulicity 1.5 mg/0.5 mL pen injector 3 mg SUBCUT QWEEK famotidine 40 mg tablet 40 mg PO DAILY glimepiride 4 mg tablet 4 mg PO DAILY lisinopril 10 mg tablet 10 mg PO DAILY metformin 1,000 mg tablet 1,000 mg PO BID Primary Care Provider: Jerry Linda Chi Referrals: Jerry Linda Chi, MD [Primary Care Provider] - 5-7 Days Disposition Disposition: Home, Self Care
--- NOTE | 2023-07-22 15:42 | RAD_ITS ---
EXAM: XR CHEST, 1 VIEW CLINICAL INDICATION: chest pain TECHNIQUE: Frontal view of the chest. COMPARISON: XR Chest dated 02/08/2023 FINDINGS: LUNGS AND PLEURAL SPACES: Normal. No consolidation or edema. No pneumothorax. No effusion. HEART: Normal heart size. MEDIASTINUM: No mediastinal or hilar mass. BONES/JOINTS: Fracture of the medial portion of the left clavicle again noted. RAD/Chest 1 View (Portable) IMPRESSION: No acute cardiopulmonary abnormality. Left clavicular fracture. No interval change. Electronically Signed: Siva Friend MD at 16:20 EST ,
[2023-07-22 15:46] LABS: Absolute Lymphocyte Count 1.67 X10^3/uL (0.83-4.51); Absolute Neutrophil Count 4.4 X10^3/uL (2.0-7.7); Basophil# 0.03 X10^3/uL; Basophil% 0.4 % (0-1); Eosinophil# 0.27 X10^3/uL; Eosinophils% 3.9 % (0-5); Hematocrit 45.3 % (40-54); Hemoglobin 14.3 g/dL (13.0-16.5); Lymphocyte # 1.67 X10^3/ul (0.83-4.51); Lymphocyte % 24.1 % (19-41); Mean Corp Hgb Conc 31.6 g/dL (32-36); Mean Corpuscular Hgb 26.7 pg (27.0-32.0); Mean Corpuscular Volume 84.7 fL (80-94); Monocyte# 0.52 X10^3/uL; Monocyte% 7.5 % (0-10); NRBC Flagged by Analyzer 0 % (0-5); Neutrophil # 4.42 X10^3/uL (2.7-7.7); Neutrophil % 63.8 % (47-70); Platelet Count 174 K/mm3 (150-450); RBC Distribution Width CV 15.3 % (11.6-14.6); Red Blood Count 5.35 M/mm3 (4.6-6.2); White Blood Count 6.9 K/mm3 (4.4-11.0)
[2023-07-22 16:05] LABS: Anion Gap 8 (5-15); BUN 14 mg/dL (7-18); BUN/Creat Ratio 12.7 RATIO (10-20); Calcium,Total 9.4 mg/dL (8.5-10.1); Chloride 109 mmol/L (98-107); EST Glomerular Filtration Rate 71 mL/min (>60); Est Glom Filt Rate - Afr Amer 86 mL/min (>60); Glucose 152 mg/dL (74-106); Potassium 4.1 mmol/L (3.5-5.1); Sodium Level 141 mmol/L (136-145); Troponin-I HS (w/2H Reflex) 27 pg/mL (3.0-78.0)
[2023-07-22 17:07] VITALS: BP 124/70; PULSE 77; RESP 16; O2SAT 100
--- OUTSIDE RECORDS SUMMARY | 2023-07-22 17:35 | XMS RPT_ITS | CCD ---
Author Name Unknown Address [address] [place] [address] [address] [place] [address] Organization [facility] Care Team Providers Care Manager [place] Name Role Phone Alex ASIF, Leonidas Stock Primary Care Provider Macy [facility], Radha Unavailable Allergies Allergy Classification Reported Allergen(s) Allergy Type Date of Onset Reaction(s) Facility (19 sources) Codeine Drug Allergy 02-18-2005 [facility] Work Phone: (10 sources) Salicylic Acid Drug Allergy 02-18-2005 Unknown [facility] Work Phone: (9 sources) Salicylate product Propensity to adverse reactions to drug 02-18-2005 Unknown [facility] Work Phone: Medications Current Medications Medication Drug Class(es) Dates Sig (Normalized) Sig (Original) ammonium lactate 120 mg/ml topical cream (10 sources) Start: 11-30-2021 End: 11-30-2022 ammonium lactate (LAC-HYDRIN) 12 % cream Apply to affected area twice daily at 6AM and 9PM. 140 g 11 11/30/2021 11/30/2022 Active Completed/Discontinued Medications Medication Drug Class(es) Dates Sig (Normalized) Sig (Original) acetaminophen 325 mg oral tablet (19 sources) Start: 05-31-2019 take 2 tablets by mouth twice daily for pain acetaminophen (TYLENOL) 325 mg tablet Indications: Right knee pain, unspecified chronicity Take 2 tablets by mouth twice daily. for pain 112 tablet 5 05/31/2019 Active Problems Active Problems Problem Classification Problem Date Documented Da te Episodic/Chronic Cardiac and circulatory congenital anomalies (19 sources) Ventricular septal defect; Translations: [Ventricular septal defect] Onset: 6 07-30-2008 Chronic Chronic obstructive pulmonary disease and bronchiectasis (19 sources) Chronic obstructive lung disease; Translations: [Chronic obstructive pulmonary disease, unspecified] Onset: 9 05-04-2019 Chronic Developmental disorders (19 sources) Mild intellectual disability; Translations: [Mild intellectual disabilities] Onset: 6 01-27-2006 Chronic Diabetes mellitus with complications (20 sources) Type 2 diabetes mellitus; Translations: [Type 2 diabetes mellitus with hyperglycemia] Onset: 6 06-16-2021 Chronic Disorders of lipid metabolism (20 sources) Mixed hyperlipidemia; Translations: [Mixed hyperlipidemia] Onset: 6 Chronic Esophageal disorders (19 sources) Gastroesophageal reflux disease; Translations: [Gastro-esophageal reflux disease without esophagitis] 01-02-2014 Chronic Hemorrhoids (1 source) Hemorrhoids; Translations: [Unspecified hemorrhoids] Episodic Osteoarthritis (20 sources) Osteoarthritis of right knee joint; Translations: [Unilateral primary osteoarthritis, right knee] Onset: 1 07-17-2010 Chronic Other connective tissue disease (19 sources) History of repair of hip joint; Translations: [Presence of right artificial hip joint] Onset: 9 05-04-2019 Chronic Other ear and sense organ disorders (19 sources) Hearing loss; Translations: [Unspecified hearing loss, unspecified ear] Onset: 7 08-30-2006 Chronic Other gastrointestinal disorders (1 source) Constipation; Translations: [Constipation, unspecified] Episodic Other liver diseases (19 sources) Steatosis of liver; Translations: [Fatty (change of) liver, not elsewhere classified] Onset: 4 06-01-2021 Chronic Other skin disorders (1 source) Keratosis; Translations: [Epidermal thickening, unspecified] Episodic Other skin disorders (1 source) Asteatosis cutis; Translations: [Xerosis cutis] Episodic Other upper respiratory infections (3 sources) Upper respiratory infection; Translations: [Acute upper respiratory infection, unspecified] Episodic Past or Other Problems Problem Classification Problem Date Documented Da te Episodic/Chronic Acquired foot deformities (19 sources) Acquired deformity of toe; Translations: [Other deformities of toe(s) (acquired), unspecified foot] Onset: 07-17-2009 10-28-2009 Episodic Other connective tissue disease (19 sources) Plantar fascial fibromatosis; Translations: [Plantar fascial fibromatosis] Onset: 12-11-2013 12-11-2013 Episodic Other connective tissue disease (19 sources) Pain in limb; Translations: [Pain in unspecified limb] Onset: 08-30-2014 08-30-2014 Episodic Other fractures (19 sources) Closed fracture of clavicle; Translations: [Fracture of unspecified part of left clavicle, subsequent encounter for fracture with routine healing] Onset: 10-28-2020 10-28-2020 Episodic Other lower respiratory disease (19 sources) Nodule of lung; Translations: [Solitary pulmonary nodule] Onset: 10-28-2020 10-28-2020 Episodic Screening and history of mental health and substance abuse codes (19 sources) Tobacco use and exposure - finding; Translations: [Personal history of nicotine dependence] Onset: 12-29-2006 01-02-2014 Episodic Results Test Name Value Interpretation Reference Range Facil ity Vital Signs Date Time Vital Sign Value Performing Clinician Faci lity 09-10-2021 10:47-0400 Body temperature 97.9 [degF] Kem Ramirez APRN.CHAIR FINISHER Work Phone: [facility] 09-10-2021 10:47-0400 Body weight 77.11 kg Kem Ramirez APRN.CHAIR FINISHER Work Phone: [facility] 09-10-2021 10:47-0400 Diastolic blood pressure 74 mm[Hg] Kem Ramirez APRN.CHAIR FINISHER Work Phone: [facility] 09-10-2021 10:47-0400 Heart rate 78 /min Kem Ramirez APRN.CHAIR FINISHER Work Phone: [facility] 09-10-2021 10:47-0400 Respiratory rate 18 /min Kem Ramirez APRN.CHAIR FINISHER Work Phone: [facility] 09-10-2021 10:47-0400 SaO2% (BldA) [Mass fraction] 98 % Kem Ramirez APRN.CHAIR FINISHER Work Phone: [facility] 09-10-2021 10:47-0400 Systolic blood pressure 118 mm[Hg] Kem Ramirez APRN.CHAIR FINISHER Work Phone: [facility] Encounters Encounter Date Encounter Type Care Provider Facility Start: 07-27-2022 Telephone encounter Leonidas ware MD Work Phone: [facility] Procedures Date Procedure Procedure Detail Performing Clinician Start: 05-08-2021 Adult depression scr eening assessment Leonidas Johnson MD Work Phone: Start: 01-04-2020 Colonoscopy Leonidas tyler MD Work Phone: Plan of Treatment Date Care Activity Detail Author Start: 04-24-2025 PROSTATE CANCER SCRE ENING DISCUSSION PROSTATE CANCER SCREENING DISCUSSION [facility] Start: 01-03-2025 Colonoscopy COLONOSCOPY [facility] Start: 01-03-2025 COLORECTAL CANCER SCREENING COLORECTAL CANCER SCREENING [facility] Start: 04-23-2024 Urine microalbumin profile DTA P,TDAP,TD (2 - Td or Tdap) [facility] Start: 11-30-2022 3 comp foot exam completed DIABETIC FOOT EXAM [facility] Start: 06-16-2022 ANNUAL PCP TEAM AMBULANCE ASSISTANT NITISH DISEASE VISIT ANNUAL PCP TEAM CHRONIC DISEASE VISIT [facility] Start: 06-16-2022 Hepatitis B surface antibody level LDL CHOLESTEROL [facility] Start: 06-06-2022 DEPRESSION ASSESSMENT DEPRESSION ASS ESSMENT [facility] Start: 05-08-2022 Adult depression scr eening assessment DEPRESSION SCREENING [facility] Start: 05-08-2022 Hepatitis C antibody , confirmatory test DILATED RETINAL EXAM [facility] Start: 04-14-2022 ANNUAL PCP TEAM AMBULANCE ASSISTANT NITISH DISEASE VISIT ANNUAL PCP TEAM CHRONIC DISEASE VISIT [facility] Start: 02-18-2022 Hepatitis B screening URINE AL BUMIN:CREATININE RATIO [facility] Start: 02-04-2022 Influenza vaccination INFLUENZA (#1) [facility] Start: 09-14-2021 Hemoglobin A1c/Hemoglobin.total in Blood HBA1C [facility] Start: 06-06-2021 DEPRESSION ASSESSMENT DEPRESSION ASS ESSMENT [facility] Start: 01-29-2021 3 comp foot exam completed DIABETIC FOOT EXAM [facility] Start: 12-05-2020 COVID-19 VACCINE (3 - Booster for Pfizer series) COVID-19 VACCINE (3 - Booster for Pfizer series) [facility] Start: 09-02-2020 COVID-19 VACCINE (3 - Booster for Pfizer series) COVID-19 VACCINE (3 - Booster for Pfizer series) [facility] Start: 06-26-2013 PNEUMOCOCCAL (2 - PCV) PNEUMOCOCCAL (2 - PCV) [facility] Start: 2008 SHINGRIX VACCINE (1 of 2) SHINGRIX V ACCINE (1 of 2) [facility] Start: 2003 COLOGUARD (FIT-DNA) COLOGUARD (FIT-D NA) [facility] Start: [address] COLONOGRAPHY [facility] Start: 2003 FECAL OCCULT BLOOD FECAL OCCULT BLOO D [facility] Start: 2003 SIGMOIDOSCOPY SIGMOIDOSCOPY [facility] Start: 1988 Zoledronic acid therapy ALPHA- 1 ANTITRYPSIN DEFICIENCY SCREENING [facility] Start: 1976 SPIROMETRY SPIROMETRY [facility] Start: 1964 PNEUMOCOCCAL (1 - PCV) PNEUMOCOCCAL (1 - PCV) [facility] Immunizations Immunization Date Immunization Notes Care Provider Sharron batista 03-10-2021 influenza, seasonal, injectable Leonidas Johnson MD Work Phone: [facility] Work Phone: 03-09-2021 influenza, seasonal, injectable Leonidas Johnson MD Work Phone: [facility] Work Phone: 03-23-2020 influenza, seasonal, injectable, preservative free Leonidas Johnson MD Work Phone: [facility] Work Phone: 03-14-2018 influenza, injectabl e, quadrivalent, contains preservative Leonidas Johnson MD Work Phone: [facility] Work Phone: 06-30-2015 influenza, injectabl e, quadrivalent, contains preservative Leonidas Johnson MD Work Phone: [facility] Work Phone: 04-23-2014 tetanus toxoid, redu muna diphtheria toxoid, and acellular pertussis vaccine, adsorbed Leonidas Johnson MD Work Phone: [facility] 03-07-2013 influenza virus vacc ine, unspecified formulation Leonidas Johnson MD Work Phone: [facility] 06-26-2012 pneumococcal polysaccharide vaccine, 23 valent Leonidas Johnson MD Work Phone: [facility] 04-25-2012 influenza virus vacc ine, unspecified formulation Leonidas Johnson MD Work Phone: [facility] Work Phone: 03-07-2012 influenza virus vacc ine, unspecified formulation Leonidas Johnson MD Work Phone: [facility] 04-14-2010 influenza virus vacc ine, unspecified formulation Leonidas Johnson MD Work Phone: [facility] Work Phone: 04-24-2008 influenza virus vacc makayla, unspecified formulation Leonidas Johnson MD Work Phone: [facility] 10-19-2007 tetanus and diphther ia toxoids, adsorbed, preservative free, for adult use (2 Lf of tetanus toxoid and 2 Lf of diphtheria toxoid) Leonidas Johnson MD Work Phone: [facility] Work Phone: 03-28-2007 influenza virus vacc ine, unspecified formulation Leonidas Johnson MD Work Phone: [facility] 04-13-2006 influenza virus vacc ine, unspecified formulation Leonidas Johnson MD Work Phone: [facility] Payers Date Payer Category Payer Medicaid [facility]ICA[facility] [employer] [facility] MEDICA[facility] [id number] 2017-Present [phone] [address] [place] [address] Medicaid [id number] 2017 Medicare [id number] 2017 Medicare [facility] MEDIC[facility] [employer] [facility] MEDIC[employer] [id number] 2017-Present [phone] [address] [place] [address] Medicare [id number] Social History Date Type Detail Facility Start: 02-22-2019 Tobacco smoking stat us NHIS Ex-smoker [facility] Work Phone: Start: 01-22-2019 History of tobacco use Cigarette Smo ker [facility] Work Phone: Start: 02-22-2019 Cigarettes smoked current (pack per day) - Reported 0.25 [facility] Start: 02-22-2019 Tobacco use and exposure Smokeless tobacco non-user [facility] Work Phone: Start: 06-16-2021 End: 09-10-2021 Alcohol intake Current non-drinker of alcohol (finding) [facility] Start: 1960 Sex Assigned At Not on file C [facility] Start: 08-31-2021 End: 11-30-2021 Exposure to SARS-CoV-2 (event) Not sure [facility] Work Phone: Start: 01-22-2019 History of tobacco use Current smoke r [facility] Work Phone: Medical Equipment Procedure Code Equipment Code Equipment Origin al Text Equipment Identifier Dates Start: 09-01-2018 End: 10-31-2021 Goals Date Patient Goal Desired Activity /State Clinical Notes 04-22-2014 to 07-27-2022 Telephone Encounter - Judi Valdes LPN - 07/27/2022 4:06 PM ESTTelephone Encounter - Michelle Hernandez LPN - 07/26/2022 4:33 PM ESTTelephone Encounter - Yasmin Gallardo LPN - 07/26/2022 3:21 PM EST Note Date & Type Note Facility 07-27-2022 Miscellaneous Notes opened in error Judi Valdes LPN documented in this encounter [facility] 07-26-2022 Miscellaneous Notes Detailed message left that he is due for an appointment. Patient needs an appointment for further refills. Last appt: 06/16/21 - No future appts scheduled. Last lipid panel: Component Latest Ref Rng & Units 06/16/2021 Total Cholesterol, Nonfasting <200 mg/dL 87 Triglycerides, Nonfasting <150 mg/dL 157 (H) HDL Cholesterol, Nonfasting >39 mg/dL 33 (L) LDL Cholesterol, Nonfasting <100 mg/dL 23 Non HDL Cholesterol, Nonfasting <130 mg/dL 54 VLDL Cholesterol, Nonfasting <30 mg/dL 31 (H) Total Chol/HDL Ratio, Nonfasting <5.10 mg/dL 2.64 LDL/HDL Ratio, Nonfasting <2.54 mg/dL 0.70 Patient has been identified by name and date of : Yes Requested Prescriptions Pending Prescriptions Disp Refills atorvastatin (LIPITOR) 40 mg tablet 30 tablet 5 Sig: Take 1 tablet by mouth every evening. RX INSTRUCTIONS: Pharmacy initiated this request. No need to notify patient. Yasmin Gallardo LPN documented in this encounter [facility] 06-01-2022 Miscellaneous Notes Patient has been identified by name and date of : Yes, Provider Keysha Boone RN Date 06/01/2022 Time 9:14 am Pharmacy phones for refill(s): Requested Prescriptions Pending Prescriptions Disp Refills ipratropium 20 mcg-albuterol 100 mcg (COMBIVENT RESPIMAT) 20-100 mcg/actuation inhaler 1 Each 1 Sig: Inhale 1 Puff as instructed every 6 hours as needed. Date of last office visit with pcp: 06/16/2021 Future appt: none Last 2 Encounter Wt Readings: Date: Wt: 09/10/2021 77.1 kg (170 lb) 06/16/2021 74.8 kg (165 lb) Previous labs/tests for medication: Blood Pressure: BUN (mg/dL) Date Value 06/16/2021 17 Sodium (mmol/L) Date Value 06/16/2021 134 Last 1 Encounter BP Readings: Date: BP: 09/10/2021 118/74 Liver Function: ALT (U/L) Date Value 06/16/2021 23 AST (U/L) Date Value 06/16/2021 20 Please advise. Thank you. Keysha Boone RN documented in this encounter [facility] 04-28-2022 Miscellaneous Notes Patient has been identified by name and date of : Yes Pharmacy phones for refill(s): Requested Prescriptions Pending Prescriptions Disp Refills ipratropium 20 mcg-albuterol 100 mcg (COMBIVENT RESPIMAT) 20-100 mcg/actuation inhaler Sig: Inhale 1 Puff as instructed every 6 hours as needed. Date of last office visit in primary care: 06/16/21 Last 2 Encounter Wt Readings: Date: Wt: 09/10/2021 77.1 kg (170 lb) 06/16/2021 74.8 kg (165 lb) Please advise. Thank you. Evelin Cisse RN documented in this encounter [facility] 03-30-2022 Miscellaneous Notes [facility] calling and requesting refill for patient's alcohol swabs. Script pended for review. Thank you. documented in this encounter [facility] 02-06-2022 Miscellaneous Notes Okayed Patient has been identified by name and date of : Yes Pharmacy phones for refill(s): Requested Prescriptions Pending Prescriptions Disp Refills atorvastatin (LIPITOR) 40 mg tablet 30 tablet 5 Sig: Take 1 tablet by mouth every evening. Date of last office visit with pcp: 06-16-21. Next appt: none Last 2 Encounter Wt Readings: Date: Wt: 09/10/2021 77.1 kg (170 lb) 06/16/2021 74.8 kg (165 lb) Previous labs/tests for medication: Cholesterol: HDL Cholesterol (mg/dL) Date Value 07/17/2018 44 HDL Cholesterol, Nonfasting (mg/dL) Date Value 06/16/2021 33 LDL Cholesterol (mg/dL) Date Value 07/17/2018 60 LDL Cholesterol, Nonfasting (mg/dL) Date Value 06/16/2021 23 ALT (U/L) Date Value 06/16/2021 23 Non HDL Cholesterol, Nonfasting (mg/dL) Date Value 06/16/2021 54 Please advise. Thank you. Nizta Harman RN documented in this encounter [facility] 01-09-2022 Miscellaneous Notes Reason for call: Patient calling with complaint of chest pain that started today. Patient states pain is intermittent, last for 5-10 minutes at a time, and is occurring more frequently. He denies difficulty breathing, sweating, nausea, and pain radiation. Patient is currently experiencing the pain; it is mid-sternal, described as sharp, and rates 8/10. Outcome: Go to ED now; patient verbalized understanding. Patient states he does not have a way to get to ED so he will call 911 when he hangs up the phone. Reason for Disposition [1] Chest pain (or angina ) comes and goes AND [2] is happening more often (increasing in frequency) or getting worse (increasing in severity) (Exception: chest pains that last only a few seconds) Protocols used: Chest [id number] documented in this encounter [facility] 01-07-2022 Miscellaneous Notes Patient has been identified by name and date of : Yes Pharmacy phones for refill(s): Pending Prescriptions Disp Refills LISINOPRIL 2.5 MG TABLET 30 tablet 5 Sig: Take 1 tablet by mouth once daily. HERMAN: No METFORMIN 1,000 MG TABLET 60 tablet 5 Sig: Take 1 tablet by mouth twice daily. HERMAN: No FERREX 150 FORTE 150 MG-25 MCG-1 MG CAPSULE 30 capsule 5 Sig: Take 1 capsule by mouth once daily. HERMAN: No COMBIVENT RESPIMAT 20 MCG-100 MCG/ACTUATION SOLUTION FOR INHALATION 1 Inhaler 5 Sig: Inhale 1 Puff as instructed every 6 hours as needed. HERMAN: No EMPAGLIFLOZIN 25 MG TABLET 28 tablet 5 Sig: Take 1 tablet by mouth once daily. HERMAN: No DOCUSATE SODIUM 100 MG CAPSULE 30 capsule 5 Sig: Take 1 capsule by mouth once daily. for constipation HERMAN: No Date of last office visit with pcp: 06-16-21. Next appt: none Last 2 Encounter Wt Readings: Date: Wt: 09/10/2021 77.1 kg (170 lb) 06/16/2021 74.8 kg (165 lb) Previous labs/tests for medication: Diabetes: Hemoglobin A1C (%) Date Value 06/16/2021 9.4 04/24/2020 8.0 Blood Pressure: BUN (mg/dL) Date Value 06/16/2021 17 Sodium (mmol/L) Date Value 06/16/2021 134 Last 1 Encounter BP Readings: Date: BP: 09/10/2021 118/74 Blood Counts: WBC (k/uL) Date Value 04/24/2020 6.70 RBC (m/uL) Date Value 04/24/2020 4.82 Hematocrit (%) Date Value 04/24/2020 42.3 Hemoglobin (g/dL) Date Value 04/24/2020 13.0 Platelet Count (k/uL) Date Value 04/24/2020 202 Liver Function: ALT (U/L) Date Value 06/16/2021 23 AST (U/L) Date Value 06/16/2021 20 Please advise. Thank you. Nitza Harman RN documented in this encounter [facility] 11-30-2021 Note HNO ID: [id number] Author: Zeferino Gutierrez Service: ? Author Type: Physician Type: Progress Notes Filed: 11/30/2021 10:11 AM Note Text: Consultation requested by Dr. Minna Falcon for an opinion regarding diabetic foot exam. My final recommendations will be communicated back to the requesting physician by way of shared Medical record or letter to requesting physician via US mail. Initial Office Visit Subjective: This 61 year old male presents to clinic for diabetic foot check. Patient has no issues with his feet. He has thick nails but they tend to not grow. He does have callus and dryness which he applies lotion to. He is here requesting diabetic shoes. Patient admits to being diabetic for many years now. Patient -B/T/N in feet at this time. Patient -pain in legs when walking. No other pedal complaints at this time. No change in medications or medical history since last visit. PAIN EVALUATION No data found in the last 1 encounters. Hemoglobin A1C (%) Date Value 06/16/2021 9.4 04/24/2020 8.0 01/22/2019 6.4 10/17/2018 7.1 07/17/2018 8.4 PCP: Leonidas Johnson MD PAST MEDICAL HISTORY Diagnosis Date - Acute duodenal ulcer with hemorrhage, perforation, and obstruction (HCC) - GERD (gastroesophageal reflux disease) - Obesity, unspecified - Other and unspecified hyperlipidemia - Other nonspecific findings on examination of blood(790.99) pos. micro albumin - Type II or unspecified type diabetes mellitus without mention of complication, not stated as uncontrolled - Unspecified intellectual disabilities can't read - Ventricular septal defect resolved Current Outpatient Medications Medication Sig - blood sugar diagnostic (BLOOD GLUCOSE TEST) test strip Test blood sugar(s) 2 times daily. Dx: E11.65 Insulin: Yes - fluticasone (FLONASE) 50 mcg/actuation nasal spray Use 2 Sprays in each nostril once daily. Rinse mouth after use. - alcohol swabs (ALCOHOL PADS) Apply 1 application to affected area once daily. For diabetic testing. - diclofenac (VOLTAREN) 1 % topical gel Apply 4 g to affected area four times daily. as needed for knee pain - Blood-Glucose Meter monitoring kit Glucose Meter of Choice Kit - Dx: Type 2 DM Uncontrolled E11.65 Test blood sugar twice daily Insulin:Yes - Lancets lancets Test blood sugar(s) 2 times daily. Dx: Type 2 DM - Uncontrolled E11.65 Insulin: No - blood sugar diagnostic (PRODIGY NO CODING) test strip Use as instructed to check blood sugar twice daily DM: yes DX: E11. - lisinopril 2.5 mg tablet Take 1 tablet by mouth once daily. - metFORMIN (GLUCOPHAGE) 1,000 mg tablet Take 1 tablet by mouth twice daily. - Iron Polysacch [id number] (FERREX 150 FORTE) 150-25-1 mg-mcg-mg cap Take 1 capsule by mouth once daily. - ipratropium 20 mcg-albuterol 100 mcg (COMBIVENT RESPIMAT) 20-100 mcg/actuation inhaler Inhale 1 Puff as instructed every 6 hours as needed. - atorvastatin (LIPITOR) 40 mg tablet Take 1 tablet by mouth every evening. - empagliflozin (JARDIANCE) 25 mg tablet Take 1 tablet by mouth once daily. - docusate sodium (COLACE) 100 mg capsule Take 1 capsule by mouth once daily. for constipation - glucose (DEX4 GLUCOSE) 4 gram chewable tablet Take 3 tablets by mouth as needed. If sugar is less than 70 - Insulin [place], Disposable, (PEN NEEDLE) 30 gauge x 5/16 ndle Use once daily as directed. Dx: Type 2 DM - Uncontrolled Insulin: Yes - insulin glargine (LANTUS SOLOSTAR U-100 INSULIN) 100 unit/mL (3 mL) Inject 24 Units once daily in the morning - dulaglutide (TRULICITY) 0.75 mg/0.5 mL pen injector Inject 0.75 mg subcutaneously one time a week. - glimepiride (AMARYL) 4 mg tablet Take 1 tablet by mouth twice daily with meals. - Sennosides (SENNA) 8.6 mg cap Take by mouth. - acetaminophen (TYLENOL) 325 mg tablet Take 2 tablets by mouth twice daily. for pain - COMPOUNDED PRESCRIPTION Adjustable cane - COMPOUNDED PRESCRIPTION Jobst Sensifoot 8-15mmHg Diagnosis varicose vein, leg pain and leg swelling Dispense 3 pair - COMPOUNDED PRESCRIPTION Cane Dx: 719.46 (R Knee Pain) - guaiFENesin (MUCINEX) 600 mg 12 hr tablet Take 1 tablet by mouth twice daily. (Patient not taking: Reported on 11/30/2021 ) - benzonatate (TESSALON PERLE) 100 mg capsule Take 2 capsules by mouth three times daily as needed. (Patient not taking: Reported on 11/30/2021 ) - pantoprazole DR (PROTONIX) 40 mg tablet Take 1 tablet by mouth once daily. (Patient not taking: Reported on 11/30/2021 ) - oxyCODONE ir (OXYIR) 5 mg capsule Take 5 mg by mouth every 4 hours as needed. (Patient not taking: Reported on 06/16/2021) - traMADol (ULTRAM) 50 mg tablet Take 50 mg by mouth every 6 hours as needed. (Patient not taking: Reported on 03/13/2021) No current facility-administered medications for this visit. ALLERGIES Allergen Reactions - Asa [Salicylates] Unknown He doesn't know what happens - Codeine PAST SURGICAL HISTORY Proce (more content not included)... [facility] 11-30-2021 Note HNO ID: [id number] Author: Purvi Carrizales RN Service: ? Author Type: Registered Nurse Type: Progress Notes Filed: 11/30/2021 10:11 AM Note Text: Patient presents with: Right Foot - New: Nail care Left Foot - New: Nail care AMB ROOMING INTAKE FLOWSHEET DATA Risk Screening Do you have concerns about personal safety or safety in the home?: No [facility] 11-30-2021 Instructions Zeferino Gutierrez - 11/30/2021 10:07 AM EDT Diabetes Foot Care Instructions When you have diabetes, proper foot care is very important. Poor foot care may lead to amputation of a foot or leg. As a person with diabetes, you are more vulnerable to foot problems, because diabetes can damage your nerves and reduce blood flow to your feet. Here are some diabetes foot care tips to follow: Wash and Dry Your Feet Daily Use mild soaps Use warm water Pat your skin dry; do not rub. Thoroughly dry your feet. After washing, use lotion on your feet to prevent cracking. Do not put lotion between your toes. Examine Your Feet Each Day Check the tops and bottoms of your feet. Have someone else look at your feet if you cannot see them. Check for dry, cracked skin. Look for blisters, cuts, scratches, or other sores. Check for redness, increased warmth, or tenderness when touching any area of your feet. Check for ingrown toenails, corns, and calluses. If you get a blister or sore from your shoes, do not pop it. Apply a bandage and wear a different pair of shoes. Take Care of Your Toenails Cut toenails after bathing, when they are soft. Cut toenails straight across and smooth with a nail file. Avoid cutting into the corners of toes. Do not cut cuticles. If you have neuropathy (or decreased sensation in your feet) a applications support specialist should always cut your toenails. Be Careful When Exercising Walk and exercise in comfortable shoes. Do not exercise when you have open sores on your feet. Protect Your Feet With Shoes and Socks Never go barefoot. Always protect your feet by wearing shoes or hard-soled slippers or footwear. Avoid shoes with high heels and pointed toes. Avoid shoes that expose your toes or heels (such as open-toed shoes or sandals). These types of shoes increase your risk for injury and potential infections. Try on new footwear with the type of socks you usually wear. Do not wear new shoes for more than an hour at a time. Change your socks daily. Look and feel inside your shoes before putting them on to make sure there are no foreign objects or rough areas. Avoid tight socks. Wear natural-fiber socks (cotton, wool, or a cotton-wool blend). Wear special shoes if your health care provider recommends them. Wear shoes/boots that will protect your feet from various weather conditions (cold, moisture, etc.). Make sure your shoes fit properly. If you have neuropathy (nerve damage), you may not notice that your shoes are too tight. Perform the footwear test described below. Footwear Test Use this simple test to see if your shoes fit correctly: Stand on a piece of paper. (Make sure you are standing and not sitting, because your foot changes shape when you stand.) Trace the outline of your foot. Trace the outline of your shoe. Compare the tracings: Is the shoe too narrow? Is your foot crammed into the shoe? The shoe should be at least 1/2 inch longer than your longest toe and as wide as your foot. Proper Shoe Choices The following types of shoes are best for people with diabetes Closed toes and heels Leather uppers without a seam inside At least 1/2 inch extra space at the end of your longest toe Inside of shoe should be soft with no rough areas Outer sole should be made of stiff material Shoes should be at least as wide as your feet Tips for Foot Care in Diabetes Don't wait to treat a minor foot problem if you have diabetes. Follow your health care provider's guidelines and first aid guidelines. Report foot injuries and infections to your health care provider immediately. Check water temperature with your elbow, not your foot. Do not use a heating pad on your feet. Do not cross your legs. Do not self-treat your corns, calluses, or other foot problems. Go to your health care provider or applications support specialist to treat these conditions. documented in this encounter [facility] 11-30-2021 History of Presen t illness Narrative Consultation requested by Dr. Minna Falcon for an opinion regarding diabetic foot exam. My final recommendations will be communicated back to the requesting physician by way of shared Medical record or letter to requesting physician via US mail. Initial Office Visit Subjective: This 61 year old male presents to clinic for diabetic foot check. Patient has no issues with his feet. He has thick nails but they tend to not grow. He does have callus and dryness which he applies lotion to. He is here requesting diabetic shoes. Patient admits to being diabetic for many years now. Patient -B/T/N in feet at this time. Patient -pain in legs when walking. No other pedal complaints at this time. No change in medications or medical history since last visit. PAIN EVALUATION No data found in the last 1 encounters. Hemoglobin A1C (%) Date Value 06/16/2021 9.4 04/24/2020 8.0 01/22/2019 6.4 10/17/2018 7.1 07/17/2018 8.4 PCP: Leonidas Johnson MD PAST MEDICAL HISTORY Diagnosis Date Acute duodenal ulcer with hemorrhage, perforation, and obstruction (HCC) GERD (gastroesophageal reflux disease) Obesity, unspecified Other and unspecified hyperlipidemia Other nonspecific findings on examination of blood(790.99) pos. micro albumin Type II or unspecified type diabetes mellitus without mention of complication, not stated as uncontrolled Unspecified intellectual disabilities can't read Ventricular septal defect resolved Current Outpatient Medications Medication Sig blood sugar diagnostic (BLOOD GLUCOSE TEST) test strip Test blood sugar(s) 2 times daily. Dx: Insulin: Yes fluticasone (FLONASE) 50 mcg/actuation nasal spray Use 2 Sprays in each nostril once daily. Rinse mouth after use. alcohol swabs (ALCOHOL PADS) Apply 1 application to affected area once daily. For diabetic testing. diclofenac (VOLTAREN) 1 % topical gel Apply 4 g to affected area four times daily. as needed for knee pain Blood-Glucose Meter monitoring kit Glucose Meter of Choice Kit - Dx: Type 2 DM Uncontrolled Test blood sugar twice daily Insulin:Yes Lancets lancets Test blood sugar(s) 2 times daily. Dx: Type 2 DM - Uncontrolled Insulin: No blood sugar diagnostic (PRODIGY NO CODING) test strip Use as instructed to check blood sugar twice daily DM: yes DX: lisinopril 2.5 mg tablet Take 1 tablet by mouth once daily. metFORMIN (GLUCOPHAGE) 1,000 mg tablet Take 1 tablet by mouth twice daily. Iron Polysacch [id number] (FERREX 150 FORTE) 150-25-1 mg-mcg-mg cap Take 1 capsule by mouth once daily. ipratropium 20 mcg-albuterol 100 mcg (COMBIVENT RESPIMAT) 20-100 mcg/actuation inhaler Inhale 1 Puff as instructed every 6 hours as needed. atorvastatin (LIPITOR) 40 mg tablet Take 1 tablet by mouth every evening. empagliflozin (JARDIANCE) 25 mg tablet Take 1 tablet by mouth once daily. docusate sodium (COLACE) 100 mg capsule Take 1 capsule by mouth once daily. for constipation glucose (DEX4 GLUCOSE) 4 gram chewable tablet Take 3 tablets by mouth as needed. If sugar is less than 70 Insulin [place], Disposable, (PEN NEEDLE) 30 gauge x 5/16 ndle Use once daily as directed. Dx: Type 2 DM - Uncontrolled Insulin: Yes insulin glargine (LANTUS SOLOSTAR U-100 INSULIN) 100 unit/mL (3 mL) Inject 24 Units once daily in the morning dulaglutide (TRULICITY) 0.75 mg/0.5 mL pen injector Inject 0.75 mg subcutaneously one time a week. glimepiride (AMARYL) 4 mg tablet Take 1 tablet by mouth twice daily with meals. Sennosides (SENNA) 8.6 mg cap Take by mouth. acetaminophen (TYLENOL) 325 mg tablet Take 2 tablets by mouth twice daily. for pain COMPOUNDED PRESCRIPTION Adjustable cane COMPOUNDED PRESCRIPTION Jobst Sensifoot 8-15mmHg Diagnosis varicose vein, leg pain and leg swelling Dispense 3 pair COMPOUNDED PRESCRIPTION Cane Dx: 719.46 (R Knee Pain) guaiFENesin (MUCINEX) 600 mg 12 hr tablet Take 1 tablet by mouth twice daily. (Patient not taking: Reported on 11/30/2021 ) benzonatate (TESSALON PERLE) 100 mg capsule Take 2 capsules by mouth three times daily as needed. (Patient not taking: Reported on 11/30/2021 ) pantoprazole DR (PROTONIX) 40 mg tablet Take 1 tablet by mouth once daily. (Patient not taking: Reported on 11/30/2021 ) oxyCODONE ir (OXYIR) 5 mg capsule Take 5 mg by mouth every 4 hours as needed. (Patient not taking: Reported on 06/16/2021) traMADol (ULTRAM) 50 mg tablet Take 50 mg by mouth every 6 hours as needed. (Patient not taking: Reported on 03/13/2021) No current facility-administered medications for this visit. ALLERGIES Allergen Reactions Asa [Salicylates] Unknown He doesn't know what happens Codeine PAST SURGICAL HISTORY Procedure Laterality Date ECHO 05/06/2001 PAST SURGICAL HISTORY OF 05/1985 bilateral partial vasectomy FAMILY HISTORY Problem Relation Age of Onset Heart Father Arthritis Mother Stroke Sister Social History Tobacco Use Smoking status: Former Smoker Packs/day: 0.25 Types: Cigarettes Start date: 01/22/2019 Smokeless tobacco: Never Used Substance Use Topics Alcohol use: No Drug use: No REVIEW OF SYSTEMS GENERAL: Negative for Malaise, significant weight loss, fever RESPIRATORY: Negative for cough, wheezing and shortness of breath CARDIOVASCULAR: Negative for chest pain, leg swelling and palpitations GI: Negative for abdominal discomfort, blood in stools or black stools and change in bowel habits : Negative for dysuria, frequency and incontinence MUSCULOSKELETAL: Negative for joint pain or swelling, back pain, and muscle pain. SKIN: Negative for lesions, rash, and itching. HEMATOLOGY/LYMPHOLOGY Negative for prolonged bleeding, bruising easily, and swollen nodes. ENDOCRINE: Negative for cold or heat intolerance, polyuria, polydipsia and goiter. NEURO: negative The remainder of the review of systems is noncontributory. Objective: Patient presents to clinic ambulating in diabetic shoes Constitutional: Pt is a well developed 61 year old male who is alert, oriented, cooperative and in no apparent distress. Eyes: Following during examination. No redness or drainage. Respiratory: RR normal and nonlabored. Even breathing. No evidence of distress. Psychology: Patient is engaged during conversation. Normal affect and mood. Does not appear depressed or anxious. Vasc: DP and PT pulses are palpable bilateral. CFT is less than 5 seconds bilateral. Skin temperature is warm to warm proximal to distal bilateral. There is no edema or varicosities noted. Hair growth present. Neuro: Protective sensation is decreased to the foot and toes when tested with the 5.07 SWM bilateral. Vibratory sensation is decreased at the hallux bilateral. + Significant neurological defecits. Derm: Inspection and palpation performed. Nails 1-5 b/l are thick but normal length. Skin is dry. Hyperkeratosis noted to right lateral heel. NO ulcerations, scars, verruca or other lesions noted. Ortho: Ankle joint DF is full with the knee extended and full with knee flexed. No pain or crepitus noted. STJ, MTJ ROM are full and free of pain or crepitus. Muscle strength is 5/5 for dorsiflexors, plantarflexors, inverters, everters. Digital deformities include no. Assessment: (E11.40) Type 2 diabetes mellitus with diabetic neuropathy, without long-term current use of insulin ([facility]) (primary encounter diagnosis) (L85.9) Hyperkeratosis (L85.3) Xerosis cutis Plan: 1. Patient was seen and evaluated. 2. Patient was instructed on the continued importance of diabetic foot care along with proper diet and keeping their blood sugar under control to prevent complications. Instructions given both oral and written. 3. Diabetic shoes ordered. Diabetic shoes are necessary as this patient has neuropathy and develops callus. 4. amlactin prescribed. 5. Nails do not appear to be growing. Continue to file them down periodically as needed or he could elect for removal 6. F/u in 1 year for diabetic foot exam. Zeferino Gutierrez DPM Patient presents with: Right Foot - New: Nail care Left Foot - New: Nail care AMB ROOMING INTAKE FLOWSHEET DATA Risk Screening Do you have concerns about personal safety or safety in the home?: No documented in this encounter [facility] 11-01-2021 Miscellaneous Notes Williamay Patient has been identified by name and date of : Yes Last office visit in this department: Visit date not found RX INSTRUCTIONS: Patient aware RX will be sent to pharmacy. No need to notify patient. Patient phones requesting refills as follows: No medications selected for refill. Please review and advise. Yanelis Dugan documented in this encounter [facility] 10-29-2021 Miscellaneous Notes Patient has been identified by name and date of : Yes Pharmacy phones for refill(s): Pending Prescriptions Disp Refills FLUTICASONE PROPIONATE 50 MCG/ACTUATION NASAL SPRAY,SUSPENSION 1 Each Sig: Use 2 Sprays in each nostril once daily. Rinse mouth after use. HERMAN: No Date of last office visit with pcp: 06/16/2021 Future appt: 01/08/2022 Last 2 Encounter Wt Readings: Date: Wt: 09/10/2021 77.1 kg (170 lb) 06/16/2021 74.8 kg (165 lb) Previous labs/tests for medication: Blood Pressure: BUN (mg/dL) Date Value 06/16/2021 17 Sodium (mmol/L) Date Value 06/16/2021 134 Last 1 Encounter BP Readings: Date: BP: 09/10/2021 118/74 Liver Function: ALT (U/L) Date Value 06/16/2021 23 AST (U/L) Date Value 06/16/2021 20 Please advise. Thank you. Keysha Boone RN documented in this encounter [facility] 10-09-2021 Miscellaneous Notes Patient has been identified by name and date of : Yes Patient phones for refill(s): Pending Prescriptions Disp Refills DICLOFENAC 1 % TOPICAL GEL 20 g Sig: Apply 4 g to affected area four times daily. as needed for knee pain HERMAN: No Date of last office visit in primary care: 06/16/21, NOV: 01/08/22 Last 2 Encounter Wt Readings: Date: Wt: 09/10/2021 77.1 kg (170 lb) 06/16/2021 74.8 kg (165 lb) Please advise. Thank you. Evelin Cisse RN documented in this encounter [facility] 10-05-2021 Miscellaneous Notes Patient has been identified by name and date of : Yes Patient phones for refill(s): Pending Prescriptions Disp Refills FLUTICASONE PROPIONATE 50 MCG/ACTUATION NASAL SPRAY,SUSPENSION 1 Each 0 Sig: Use 2 Sprays in each nostril once daily. Rinse mouth after use. HERMAN: No Date of last office visit with pcp: 06-16-21. Next appt: 01-08-22 Last 2 Encounter Wt Readings: Date: Wt: 09/10/2021 77.1 kg (170 lb) 06/16/2021 74.8 kg (165 lb) Previous labs/tests for medication: Blood Pressure: BUN (mg/dL) Date Value 06/16/2021 17 Sodium (mmol/L) Date Value 06/16/2021 134 Last 1 Encounter BP Readings: Date: BP: 09/10/2021 118/74 Liver Function: ALT (U/L) Date Value 06/16/2021 23 AST (U/L) Date Value 06/16/2021 20 Please advise. Thank you. Nitza Harman RN documented in this encounter [facility] 09-28-2021 Miscellaneous Notes Check to see if someone is assisting with his medications; this may be needed. Unclear why he would be running out of insulin early Silva with [facility] calls to verify current dose of Lantus insulin. Patient requested a refill and reports he is completely out but should have almost 10 days left on current prescription. Verified current dose of lantus is 24 units daily. [facility] to refill prescription but uncertain why patient keeps running out so soon. Keysha Boone RN documented in this encounter [facility] 09-10-2021 Note HNO ID: [id number] Author: Kem Ramirez APRN.CHAIR FINISHER Service: ? Author Type: Nurse Practitioner Type: Progress Notes Filed: 09/10/2021 11:42 AM Note Text: Subjective HPI HPI William Laguerre is a 61 year old male who presents today for CC of cough, congestion, st, sob. This started 2 days ago. Has tried otc medication without relief. Symptoms are worsened by nothing. Risk factors sick exposures at home. Neg covid test today. .Patient presents with: Cough: Pt reported SOB, denied chest pain x2 days Nasal Congestion PAST MEDICAL HISTORY Diagnosis Date - Acute duodenal ulcer with hemorrhage, perforation, and obstruction (HCC) - GERD (gastroesophageal reflux disease) - Obesity, unspecified - Other and unspecified hyperlipidemia - Other nonspecific findings on examination of blood(790.99) pos. micro albumin - Type II or unspecified type diabetes mellitus without mention of complication, not stated as uncontrolled - Unspecified intellectual disabilities can't read - Ventricular septal defect resolved PAST SURGICAL HISTORY Procedure Laterality Date - ECHO 05/06/2001 - PAST SURGICAL HISTORY OF 05/1985 bilateral partial vasectomy ALLERGIES Asa [Salicylates] and Codeine MEDICATIONS Blood-Glucose Meter monitoring kit Glucose Meter of Choice Kit - Dx: Type 2 DM Uncontrolled Test blood sugar twice daily Insulin:Yes blood sugar diagnostic (BLOOD GLUCOSE TEST) test strip Test blood sugar(s) 2 times daily. Dx: Insulin: Yes Lancets lancets Test blood sugar(s) 2 times daily. Dx: Type 2 DM - Uncontrolled Insulin: No blood sugar diagnostic (PRODIGY NO CODING) test strip Use as instructed to check blood sugar twice daily DM: yes DX: lisinopril 2.5 mg tablet Take 1 tablet by mouth once daily. metFORMIN (GLUCOPHAGE) 1,000 mg tablet Take 1 tablet by mouth twice daily. pantoprazole DR (PROTONIX) 40 mg tablet Take 1 tablet by mouth once daily. Iron Polysacch [id number] (FERREX 150 FORTE) 150-25-1 mg-mcg-mg cap Take 1 capsule by mouth once daily. ipratropium 20 mcg-albuterol 100 mcg (COMBIVENT RESPIMAT) 20-100 mcg/actuation inhaler Inhale 1 Puff as instructed every 6 hours as needed. atorvastatin (LIPITOR) 40 mg tablet Take 1 tablet by mouth every evening. empagliflozin (JARDIANCE) 25 mg tablet Take 1 tablet by mouth once daily. docusate sodium (COLACE) 100 mg capsule Take 1 capsule by mouth once daily. for constipation glucose (DEX4 GLUCOSE) 4 gram chewable tablet Take 3 tablets by mouth as needed. If sugar is less than 70 Insulin [place], Disposable, (PEN NEEDLE) 30 gauge x 5/16 ndle Use once daily as directed. Dx: Type 2 DM - Uncontrolled Insulin: Yes insulin glargine (LANTUS SOLOSTAR U-100 INSULIN) 100 unit/mL (3 mL) Inject 24 Units once daily in the morning dulaglutide (TRULICITY) 0.75 mg/0.5 mL pen injector Inject 0.75 mg subcutaneously one time a week. glimepiride (AMARYL) 4 mg tablet Take 1 tablet by mouth twice daily with meals. Sennosides (SENNA) 8.6 mg cap Take by mouth. diclofenac sodium (VOLTAREN) 1 % topical gel Apply 4 g to affected area four times daily. as needed for knee pain acetaminophen (TYLENOL) 325 mg tablet Take 2 tablets by mouth twice daily. for pain COMPOUNDED PRESCRIPTION Jobst Sensifoot 8-15mmHg Diagnosis varicose vein, leg pain and leg swelling Dispense 3 pair oxyCODONE ir (OXYIR) 5 mg capsule Take 5 mg by mouth every 4 hours as needed. traMADol (ULTRAM) 50 mg tablet Take 50 mg by mouth every 6 hours as needed. COMPOUNDED PRESCRIPTION Adjustable cane COMPOUNDED PRESCRIPTION Cane Dx: 719.46 (R Knee Pain) FAMILY HISTORY Problem Relation Age of Onset - Heart Father - Arthritis Mother - Stroke Sister Social History Tobacco Use - Smoking status: Former Smoker Packs/day: 0.25 Types: Cigarettes Start date: 01/22/2019 - Smokeless tobacco: Never Used Substance Use Topics - Alcohol use: No - Drug use: No Review of Systems Constitutional: Negative for fever. HENT: Positive for congestion and sore throat. Negative for ear pain and nosebleeds. Respiratory: Positive for cough and shortness of breath. Negative for wheezing. Cardiovascular: Negative for chest pain. Gastrointestinal: Negative for diarrhea and vomiting. Musculoskeletal: Negative for neck pain. Skin: Negative for itching and rash. Objective Blood pressure 118/74, pulse 78, temperature 36.6 ?C (97.9 ?F), resp. rate 18, weight 77.1 kg (170 lb), SpO2 98 %. Physical Exam Constitutional: General: He is not in acute distress. Appearance: He is not toxic-appearing or diaphoretic. HENT: Head: Normocephalic and atraumatic. Nose: Nose normal. Mouth/Throat: Pharynx: Uvula midline. No pharyngeal swelling, oropharyngeal exudate, posterior oropharyngeal erythema or uvula swelling. Eyes: General: Lids are normal. No scleral icterus. Right eye: No discharge. Left eye: No discharge. (more content not included)... [facility] 09-10-2021 History of Presen t illness Narrative Subjective HPI HPI William Laguerre is a 61 year old male who presents today for CC of cough, congestion, st, sob. This started 2 days ago. Has tried otc medication without relief. Symptoms are worsened by nothing. Risk factors sick exposures at home. Neg covid test today. .Patient presents with: Cough: Pt reported SOB, denied chest pain x2 days Nasal Congestion PAST MEDICAL HISTORY Diagnosis Date Acute duodenal ulcer with hemorrhage, perforation, and obstruction (HCC) GERD (gastroesophageal reflux disease) Obesity, unspecified Other and unspecified hyperlipidemia Other nonspecific findings on examination of blood(790.99) pos. micro albumin Type II or unspecified type diabetes mellitus without mention of complication, not stated as uncontrolled Unspecified intellectual disabilities can't read Ventricular septal defect resolved PAST SURGICAL HISTORY Procedure Laterality Date ECHO 05/06/2001 PAST SURGICAL HISTORY OF 05/1985 bilateral partial vasectomy ALLERGIES Asa [Salicylates] and Codeine MEDICATIONS Blood-Glucose Meter monitoring kit Glucose Meter of Choice Kit - Dx: Type 2 DM Uncontrolled Test blood sugar twice daily Insulin:Yes blood sugar diagnostic (BLOOD GLUCOSE TEST) test strip Test blood sugar(s) 2 times daily. Dx: Insulin: Yes Lancets lancets Test blood sugar(s) 2 times daily. Dx: Type 2 DM - Uncontrolled Insulin: No blood sugar diagnostic (PRODIGY NO CODING) test strip Use as instructed to check blood sugar twice daily DM: yes DX: lisinopril 2.5 mg tablet Take 1 tablet by mouth once daily. metFORMIN (GLUCOPHAGE) 1,000 mg tablet Take 1 tablet by mouth twice daily. pantoprazole DR (PROTONIX) 40 mg tablet Take 1 tablet by mouth once daily. Iron Polysacch [id number] (FERREX 150 FORTE) 150-25-1 mg-mcg-mg cap Take 1 capsule by mouth once daily. ipratropium 20 mcg-albuterol 100 mcg (COMBIVENT RESPIMAT) 20-100 mcg/actuation inhaler Inhale 1 Puff as instructed every 6 hours as needed. atorvastatin (LIPITOR) 40 mg tablet Take 1 tablet by mouth every evening. empagliflozin (JARDIANCE) 25 mg tablet Take 1 tablet by mouth once daily. docusate sodium (COLACE) 100 mg capsule Take 1 capsule by mouth once daily. for constipation glucose (DEX4 GLUCOSE) 4 gram chewable tablet Take 3 tablets by mouth as needed. If sugar is less than 70 Insulin [place], Disposable, (PEN NEEDLE) 30 gauge x 5/16 ndle Use once daily as directed. Dx: Type 2 DM - Uncontrolled Insulin: Yes insulin glargine (LANTUS SOLOSTAR U-100 INSULIN) 100 unit/mL (3 mL) Inject 24 Units once daily in the morning dulaglutide (TRULICITY) 0.75 mg/0.5 mL pen injector Inject 0.75 mg subcutaneously one time a week. glimepiride (AMARYL) 4 mg tablet Take 1 tablet by mouth twice daily with meals. Sennosides (SENNA) 8.6 mg cap Take by mouth. diclofenac sodium (VOLTAREN) 1 % topical gel Apply 4 g to affected area four times daily. as needed for knee pain acetaminophen (TYLENOL) 325 mg tablet Take 2 tablets by mouth twice daily. for pain COMPOUNDED PRESCRIPTION Jobst Sensifoot 8-15mmHg Diagnosis varicose vein, leg pain and leg swelling Dispense 3 pair oxyCODONE ir (OXYIR) 5 mg capsule Take 5 mg by mouth every 4 hours as needed. traMADol (ULTRAM) 50 mg tablet Take 50 mg by mouth every 6 hours as needed. COMPOUNDED PRESCRIPTION Adjustable cane COMPOUNDED PRESCRIPTION Cane Dx: 719.46 (R Knee Pain) FAMILY HISTORY Problem Relation Age of Onset Heart Father Arthritis Mother Stroke Sister Social History Tobacco Use Smoking status: Former Smoker Packs/day: 0.25 Types: Cigarettes Start date: 01/22/2019 Smokeless tobacco: Never Used Substance Use Topics Alcohol use: No Drug use: No Review of Systems Constitutional: Negative for fever. HENT: Positive for congestion and sore throat. Negative for ear pain and nosebleeds. Respiratory: Positive for cough and shortness of breath. Negative for wheezing. Cardiovascular: Negative for chest pain. Gastrointestinal: Negative for diarrhea and vomiting. Musculoskeletal: Negative for neck pain. Skin: Negative for itching and rash. Objective Blood pressure 118/74, pulse 78, temperature 36.6 C (97.9 F), resp. rate 18, weight 77.1 kg (170 lb), SpO2 98 %. Physical Exam Constitutional: General: He is not in acute distress. Appearance: He is not toxic-appearing or diaphoretic. HENT: Head: Normocephalic and atraumatic. Nose: Nose normal. Mouth/Throat: Pharynx: Uvula midline. No pharyngeal swelling, oropharyngeal exudate, posterior oropharyngeal erythema or uvula swelling. Eyes: General: Lids are normal. No scleral icterus. Right eye: No discharge. Left eye: No discharge. Conjunctiva/sclera: Conjunctivae normal. Pupils: Pupils are equal, round, and reactive to light. Neck: Trachea: Trachea normal. Cardiovascular: Rate and Rhythm: Normal rate and regular rhythm. Heart sounds: Normal heart sounds. Pulmonary: Effort: Pulmonary effort is normal. Breath sounds: Normal breath sounds. Musculoskeletal: Cervical back: Normal range of motion and neck supple. Lymphadenopathy: Cervical: No cervical adenopathy. Right cervical: No superficial cervical adenopathy. Left cervical: No superficial cervical adenopathy. Skin: Findings: No rash. Neurological: Mental Status: He is alert and oriented to person, place, and time. ASSESSMENT/PLAN: 1. URI with cough and congestion - ICD9: 465.9, ICD10: J06.9 - Discussed viral etiology and rationale for treatment. - Symptomatic treatment with prn analgesia - Supportive care with fluids and rest - Follow up in 3-5 days if symptoms persist or sooner if worsening of symptoms - FLUTICASONE PROPIONATE 50 MCG/ACTUATION NASAL SPRAY,SUSPENSION - GUAIFENESIN ER 600 MG TABLET, EXTENDED RELEASE 12 HR - BENZONATATE 100 MG CAPSULE Agrees to plan Kem Ramirez APRN.CNP documented in this encounter [facility] 08-26-2021 Miscellaneous Notes Patient has been identified by name and date of : Yes Pharmacy phones for refill(s): Pending Prescriptions Disp Refills BLOOD-GLUCOSE METER KIT 1 Each 0 Sig: Glucose Meter of Choice - Kit - Dx: Type 2 DM - Uncontrolled E11.65 Test blood sugar twice daily Insulin:Yes HERMAN: No BLOOD GLUCOSE TEST STRIPS 100 Strip 11 Sig: Test blood sugar(s) 2 times daily. Dx: E11.65 Insulin: Yes [facility] calling with request for new scripts for glucometer and test strips due to patient's insurance coverage. Date of last office visit with pcp: Date of last office visit in primary care: 06/16/21 Last 2 Encounter Wt Readings: Date: Wt: 06/16/2021 74.8 kg (165 lb) 05/08/2021 78 kg (172 lb) Previous labs/tests for medication: Diabetes: Hemoglobin A1C (%) Date Value 06/16/2021 9.4 04/24/2020 8.0 Please advise. Thank you. Danuta Webb, RN documented in this encounter [facility] 08-25-2021 Miscellaneous Notes Patient has been identified by name and date of : Yes Patient phones for refill(s): Pending Prescriptions Disp Refills PRODIGY NO CODING STRIPS 100 Strip 11 Sig: Use as instructed to check blood sugar twice daily DM: yes DX: E11.65 HERMAN: No Date of last office visit in primary care: 06/16/2021 6 month follow-up: 01/08/2022 Last 2 Encounter Wt Readings: Date: Wt: 06/16/2021 74.8 kg (165 lb) 05/08/2021 78 kg (172 lb) Previous labs/tests for medication: Diabetes: Hemoglobin A1C (%) Date Value 06/16/2021 9.4 04/24/2020 8.0 Please advise. Thank you. Maria Dolores Palmer LPN Patient has been identified by name and date of : Yes Pending Prescriptions Disp Refills PRODIGY NO CODING STRIPS 100 Strip 11 Sig: Use as instructed to check blood sugar twice daily DM: yes DX: E11.65 HERMAN: No RX INSTRUCTIONS: [facility] is unable to bill patients insurance for the test strips. Patient requests script is sent to [facility] initiated this request. No need to notify patient. Maritza Celeste documented in this encounter [facility] 08-25-2021 Miscellaneous Notes Patient has been identified by name and date of : Yes Pharmacy phones for refill(s): Pending Prescriptions Disp Refills PRODIGY NO CODING STRIPS 100 Strip 11 Sig: Use as instructed to check blood sugar twice daily DM: yes DX: E11.65 HERMAN: No LANCETS 100 Each 11 Sig: Test blood sugar(s) 2 times daily. Dx: Type 2 DM - Uncontrolled E11.65 Insulin: No HERMAN: No Date of last office visit in primary care: 05/08/21 Future visit: 01/08/22 Last 2 Encounter Wt Readings: Date: Wt: 06/16/2021 74.8 kg (165 lb) 05/08/2021 78 kg (172 lb) Previous labs/tests for medication: Diabetes: Hemoglobin A1C (%) Date Value 06/16/2021 9.4 04/24/2020 8.0 Please advise. Thank you. Marleny Christy RN documented in this encounter [facility] 08-24-2021 Note HNO ID: [id number] Author: Minna Falcon APRN.CLEANER TOUCH UP WORKER Service: ? Author Type: Nurse Specialist Type: Progress Notes Filed: 08/24/2021 4:32 PM Note Text: Med list/ refill request received and sent to pharmacy. See scanned documents. [facility] 06-16-2021 Note HNO ID: [id number] Author: Minna Falcon APRN.CLEANER TOUCH UP WORKER Service: ? Author Type: Nurse Specialist Type: Progress Notes Filed: 06/16/2021 10:53 AM Note Text: SUBJECTIVE: William Laguerre is a 61 year old male. SPIROMETRY Never done HEPATITIS C SCREENING Never done HIV SCREENING Never done SHINGRIX VACCINE(1 of 2) Never done COVID-19 VACCINE(3 - Booster for Pfizer series) due on 01/05/2021 DIABETIC FOOT EXAM due on 01/29/2021 LDL CHOLESTEROL due on 04/24/2021 HBA1C due on 05/20/2021 HPI Presents today for emergency department follow-up visit. He is seen at [facility] May 29, 2021 for upper extremity injury. Notes right thumb pain for about 2 to 3 days prior to arrival. No known injury. He notes pain is mostly in the palm of his hand near his thumb primarily. Range of motion preserved. Not swollen. No recent infections. No sore joints other than the thumb. Was seen at [facility] for right hand pain. Notes tylenol has helped somewhat. Rah wrap and splint were recommended in the ER. Today notes he has had the Rah wrap only. No splint provided. He notes Tylenol has helped being somewhat. Using diclofenac gel which is also helping somewhat. Prefers not to take any additional pain medication. DIABETES MELLITUS: Blood sugars taken where he resides showed decreased control consistently greater than 200 after increase of Lantus insulin to 16 units. Notes no special diet available to him where he resides unless he goes to [facility] portion. He prefers not to do this. Without report of excessive thirst or increased frequency of urination, chest pain or dyspnea , numbness, tingling or pain in extremities, new or unusual visual symptoms, low sugar/hypoglycemic reactions, weight loss/gain, lightheadedness/dizziness and bowel changes/loose stools. Patient's last HgA1C was Hemoglobin A1C (%) Date Value 04/24/2020 8.0 01/22/2019 6.4 ) Review of Systems Constitutional: Negative. Endocrine: Negative. Musculoskeletal: Positive for arthralgias. Objective BP 110/58 Pulse 84 Resp 16 Wt 74.8 kg (165 lb) BMI 29.23 kg/m? Physical Exam Vitals and nursing note reviewed. Constitutional: Appearance: Normal appearance. Eyes: Conjunctiva/sclera: Conjunctivae normal. Neck: Thyroid: No thyroid mass, thyromegaly or thyroid tenderness. Vascular: Normal carotid pulses. No carotid bruit or JVD. Cardiovascular: Rate and Rhythm: Normal rate and regular rhythm. Heart sounds: Normal heart sounds. Pulmonary: Effort: Pulmonary effort is normal. Breath sounds: Normal breath sounds. Abdominal: General: Bowel sounds are normal. Palpations: Abdomen is soft. Musculoskeletal: Right lower leg: No edema. Left lower leg: No edema. Skin: General: Skin is warm and dry. Neurological: Mental Status: He is alert. Mental status is at baseline. ALLERGIES Allergen Reactions - Asa [Salicylates] Unknown He doesn't know what happens - Codeine docusate sodium (COLACE) 100 mg capsule Take 1 capsule by mouth once daily. for constipation insulin glargine (LANTUS SOLOSTAR U-100 INSULIN) 100 unit/mL (3 mL) Inject 14 Units once daily in the morning dulaglutide (TRULICITY) 0.75 mg/0.5 mL pen injector Inject 0.75 mg subcutaneously one time a week. Iron Polysacch Zrqnzlt-P63-WG (FERREX 150 FORTE) 150-25-1 mg-mcg-mg cap Take 1 capsule by mouth once daily. Sennosides (SENNA) 8.6 mg cap Take by mouth. pantoprazole DR (PROTONIX) 20 mg tablet Take 2 tablets by mouth twice daily. empagliflozin (JARDIANCE) 25 mg tablet Take 1 tablet by mouth once daily. acetaminophen (TYLENOL) 325 mg tablet Take 2 tablets by mouth twice daily. for pain ipratropium-albuterol (COMBIVENT RESPIMAT) 20-100 mcg/actuation mist Inhale 1 Puff as instructed every 6 hours as needed. glucose (DEX4 GLUCOSE) 4 gram chewable tablet Take 3 tablets by mouth as needed. If sugar is less than 70 lisinopril 2.5 mg tablet Take 1 tablet by mouth once daily. atorvastatin (LIPITOR) 40 mg tablet Take 1 tablet by mouth every evening. Blood-Glucose Meter monitoring kit Glucose Meter of Choice - Kit - Dx: Type 2 DM - Uncontrolled E11.65 Lancets lancets Test blood sugar(s) 2 times daily. Dx: Type 2 DM - Uncontrolled E11.65 Insulin: No blood sugar diagnostic (PRODIGY NO CODING) test strip Use as instructed to check blood sugar twice daily DM: yes DX: E11.65 metFORMIN (GLUCOPHAGE) 1,000 mg tablet Take 1 tablet by mouth twice daily. COMPOUNDED PRESCRIPTION Adjustable cane COMPOUNDED PRESCRIPTION Jobst Sensifoot 8-15mmHg Diagnosis varicose vein, leg pain and leg swelling Dispense 3 pair oxyCODONE ir (OXYIR) 5 mg capsule Take 5 mg by mouth every 4 hours as needed. traMADol (ULTRAM) 50 mg tablet Take 50 mg by mouth every 6 hours as needed. diclofenac sodium (VOLTAREN) 1 % topical gel Apply 4 g to affected area four times daily. as needed for knee pain COMPOUNDED PRESCRIPTION Cane Dx: 719.46 (R Knee (more content not included)... [facility] 05-08-2021 Note HNO ID: [id number] Author: Minna Falcon APRN.CLEANER TOUCH UP WORKER Service: ? Author Type: Nurse Specialist Type: Progress Notes Filed: 05/08/2021 1:07 PM Note Text: SUBJECTIVE: SPIROMETRY Never done HEPATITIS C SCREENING Never done HIV SCREENING Never done SHINGRIX VACCINE(1 of 2) Never done DILATED RETINAL EXAM due on 07/21/2018 COVID-19 VACCINE(3 - Booster for Pfizer series) due on 01/05/2021 DIABETIC FOOT EXAM due on 01/29/2021 LDL CHOLESTEROL due on 04/24/2021 HPI William Laguerre is a 61 year old male. Presents with caregiver. Provides most HPI today. Per caregiver: Presents after appointment time and added into schedule. HPI excerpted from last visit: Notes that he was seen at [facility] in July for upper extremity injury. Subsequently found to have clavicle fracture. Seen by orthopedic provider at [facility], Dr Billy. MRI was completed of the clavicle and left shoulder, concern for possible fracture due to cancer so he was sent to orthopedic oncologist at [facility]. Dr. Johnson. Records not available at the time of his visit for either orthopedic providers' visits today. She notes he was advised he did not have cancer. She noted on record review that he had a nodule reported on chest x-ray at [facility] when he was seen in July 2020. Would like follow-up with this. He is a former smoker. Currently without cough wheeze or shortness of breath. Since last seen in office he was seen at [facility] for concern regarding rectal bleeding. Noted history of hemorrhoids. He noted BRBPR on toilet paper with bowel movement. Has been seen by Dr. Enio Crews in surgery. Impression was bleeding internal hemorrhoids. He was treated with Proctofoam 1%.. DIABETES MELLITUS: Without reported excessive thirst or increased frequency of urination, chest pain or dyspnea , numbness, tingling or pain in extremities, new or unusual visual symptoms, low sugar/hypoglycemic reactions, weight loss/gain, lightheadedness/dizziness and bowel changes/loose stools. Patient's last HgA1C was Hemoglobin A1C (%) Date Value 04/24/2020 8.0 01/22/2019 6.4 ) Reports patient check this summer; only readers recommended Hyperlipidemia. Mr. Laguerre reports doing well on current therapy. His most recent lipid panels are: Cholesterol, Total (mg/dL) Date Value 07/17/2018 127 09/23/2017 105 Total Cholesterol, Nonfasting (mg/dL) Date Value 04/24/2020 94 HDL Cholesterol (mg/dL) Date Value 07/17/2018 44 09/23/2017 34 HDL Cholesterol, Nonfasting (mg/dL) Date Value 04/24/2020 39 LDL Cholesterol (mg/dL) Date Value 07/17/2018 60 09/23/2017 51 LDL Cholesterol, Nonfasting (mg/dL) Date Value 04/24/2020 25 Triglyceride (mg/dL) Date Value 07/17/2018 114 09/23/2017 101 Triglycerides, Nonfasting (mg/dL) Date Value 04/24/2020 150 HTN:Without report of headache, chest pain, palpitations, dyspnea, peripheral edema, orthopnea, fatigue and PND. Last 3 Encounter BP Readings: Date: BP: 05/08/2021 112/70 03/13/2021 122/78 10/28/2020 112/58 Review of Systems Constitutional: Negative. Objective BP 112/70 Pulse 72 Resp 16 Wt 78 kg (172 lb) BMI 30.47 kg/m? Physical Exam Vitals reviewed. Constitutional: Appearance: Normal appearance. HENT: Head: Normocephalic and atraumatic. Eyes: Conjunctiva/sclera: Conjunctivae normal. Cardiovascular: Rate and Rhythm: Normal rate and regular rhythm. Heart sounds: Normal heart sounds. Pulmonary: Effort: Pulmonary effort is normal. Breath sounds: Normal breath sounds. Abdominal: General: Bowel sounds are normal. Skin: General: Skin is warm and dry. Neurological: Mental Status: He is alert. Mental status is at baseline. ALLERGIES Allergen Reactions - Asa [Salicylates] Unknown He doesn't know what happens - Codeine oxyCODONE ir (OXYIR) 5 mg capsule Take 5 mg by mouth every 4 hours as needed. insulin glargine (LANTUS SOLOSTAR U-100 INSULIN) 100 unit/mL (3 mL) Inject 14 Units once daily in the morning dulaglutide (TRULICITY) 0.75 mg/0.5 mL pen injector Inject 0.75 mg subcutaneously one time a week. Iron Polysacch Zajnaln-G33-FD (FERREX 150 FORTE) 150-25-1 mg-mcg-mg cap Take 1 capsule by mouth once daily. Sennosides (SENNA) 8.6 mg cap Take by mouth. diclofenac sodium (VOLTAREN) 1 % topical gel Apply 4 g to affected area four times daily. as needed for knee pain empagliflozin (JARDIANCE) 25 mg tablet Take 1 tablet by mouth once daily. docusate sodium (COLACE) 100 mg capsule Take 1 capsule by mouth twice daily as needed for Constipation (1-2 daily as needed constipation, stop if loose stools). fluticasone (FLONASE) 50 mcg/actuation nasal spray Use 1 [place] in each nostril once daily. Rinse mouth after use. acetaminophen (TYLENOL) 325 mg tablet Take 2 tablets by mouth twice daily. for pain ipratropium-albuterol (COMBIVENT RESPIMAT) 20-100 mcg/actuation (more content not included)... [facility] 05-04-2021 Note HNO ID: [id number] Author: Minna Falcon APRN.CLEANER TOUCH UP WORKER Service: ? Author Type: Nurse Specialist Type: Progress Notes Filed: 05/04/2021 1:52 PM Note Text: Seen at [facility] for concern regarding rectal bleeding. Noted history of hemorrhoids. He noted BRBPR on toilet paper with bowel movement. Has been seen by Dr. Enio Crews in surgery. Impression was bleeding internal hemorrhoids. He was treated with Proctofoam 1%.. [facility] 04-14-2021 Note HNO ID: [id number] Author: Leonidas Johnson MD Service: ? Author Type: Physician Type: Progress Notes Filed: 04/14/2021 8:22 PM Note Text: Provider late to appointment time (ran behind in office). Patient told MA that okay to call any time. Tried to call twice. Left VM twice Will reschedule appointment since is after 8:20 [facility] 03-24-2021 Note Patient Outreach (IN [facility]) WILLIAM LAGUERRE ([id number]) 1960 M Date Time Provider Department 03/24/21 LEONIDAS JOHNSON During your visit today, we recorded the following information about you: Allergies As of Date: 03/24/2021 Noted Allergy Reaction ASA (SALICYLATES) 02/18/2005 16 - Unknown Comments: He doesn't know what happens CODEINE 02/18/2005 Date Reviewed: 03/13/2021 Reviewed by: Yessi Villegas APRN.CHAIR FINISHER - Fully Assessed Visit Diagnosis:Type 2 diabetes mellitus with neurologic complication, without long-term current use of insulin (HCC) [E11.49] Order(s):ALBUMIN/CREAT RATIO RND UR [SQUACR] Order #: [id number] FUTURE BASIC METABOLIC PNL [SQBMP] Order #: [id number] FUTURE Prescriptions as of 03/27/2021 - oxyCODONE ir (OXYIR) 5 mg capsule Take 5 mg by mouth every 4 hours as needed. - traMADol (ULTRAM) 50 mg tablet Take 50 mg by mouth every 6 hours as needed. - insulin glargine (LANTUS SOLOSTAR U-100 INSULIN) 100 unit/mL (3 mL) Inject 14 Units once daily in the morning - dulaglutide (TRULICITY) 0.75 mg/0.5 mL pen injector Inject 0.75 mg subcutaneously one time a week. - Iron Polysacch Lferadt-M15-NW (FERREX 150 FORTE) 150-25-1 mg-mcg-mg cap Take 1 capsule by mouth once daily. - Sennosides (SENNA) 8.6 mg cap Take by mouth. - pantoprazole DR (PROTONIX) 20 mg tablet Take 2 tablets by mouth twice daily. - diclofenac sodium (VOLTAREN) 1 % topical gel Apply 4 g to affected area four times daily. as needed for knee pain - ketoconazole (NIZORAL) 2 % cream Apply 1 application to affected area twice daily. For feet; continue for 1 week after scaling/rash resolves. Repeat for recurrences. - empagliflozin (JARDIANCE) 25 mg tablet Take 1 tablet by mouth once daily. - docusate sodium (COLACE) 100 mg capsule Take 1 capsule by mouth twice daily as needed for Constipation (1-2 daily as needed constipation, stop if loose stools). - fluticasone (FLONASE) 50 mcg/actuation nasal spray Use 1 [place] in each nostril once daily. Rinse mouth after use. - acetaminophen (TYLENOL) 325 mg tablet Take 2 tablets by mouth twice daily. for pain - ipratropium-albuterol (COMBIVENT RESPIMAT) 20-100 mcg/actuation mist Inhale 1 Puff as instructed every 6 hours as needed. - glimepiride (AMARYL) 4 mg tablet Take 1 tablet by mouth twice daily with meals. - glucose (DEX4 GLUCOSE) 4 gram chewable tablet Take 3 tablets by mouth as needed. If sugar is less than 70 - lisinopril 2.5 mg tablet Take 1 tablet by mouth once daily. - atorvastatin (LIPITOR) 40 mg tablet Take 1 tablet by mouth every evening. - Blood-Glucose Meter monitoring kit Glucose Meter of Choice - Kit - Dx: Type 2 DM - Uncontrolled - Lancets lancets Test blood sugar(s) 2 times daily. Dx: Type 2 DM - Uncontrolled Insulin: No - blood sugar diagnostic (PRODIGY NO CODING) test strip Use as instructed to check blood sugar twice daily DM: yes DX: E11. - metFORMIN (GLUCOPHAGE) 1,000 mg tablet Take 1 tablet by mouth twice daily. - COMPOUNDED PRESCRIPTION Adjustable cane - COMPOUNDED PRESCRIPTION Jobst Sensifoot 8-15mmHg Diagnosis varicose vein, leg pain and leg swelling Dispense 3 pair - COMPOUNDED PRESCRIPTION Cane Dx: 719.46 (R Knee Pain) Problem List As Of Date 03/24/2021 Noted Resolved MILD MENTAL RETARDATION [F70] 07/02/2005 Type II or unspecified type diabetes mellitus w*07/02/2005 Mixed hyperlipidemia [E78.2] 07/02/2005 VENTRICULAR SEPT DEFECT [Q21.0] 07/02/2005 HEARING LOSS NOS [H91.90] 08/30/2006 Personal history of tobacco use, presenting haz*12/29/2006 Unspecified Cellulitis and Abscess of Toe [L03.*12/31/2008 08/01/2013 Lateral epicondylitis [M77.10] 04/29/2009 08/01/2013 Other Acquired Deformity of Toe [M20.5X9] 07/17/2009 Dermatophytosis of nail [B35.1] 07/17/2009 08/01/2013 Pain in joint, upper arm [M25.529] 08/11/2009 08/01/2013 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] 07/17/2010 GERD (gastroesophageal reflux disease) [K21.9] Right shoulder pain, at night mostly [M25.511] 10/27/2011 08/01/2013 Shoulder pain, left [M25.512] 01/25/2012 08/01/2013 Fatty liver [K76.0] 08/01/2013 Plantar fascial fibromatosis [M72.2] 12/11/2013 Obesity, unspecified [E66.9] 07/18/2018 Pain in limb [M79.609] 04/22/2014 05/23/2014 Pain in limb [M79.609] 08/30/2014 Type 2 diabetes mellitus with neurologic compli*05/08/2015 Primary osteoarthritis of right hip [M16.11] 09/26/2017 COPD (chronic obstructive pulmonary disease) (H*05/04/2019 Status post right hip replacement [Z96.641] 05/04/2019 Closed nondisplaced fracture of left clavicle w*10/28/2020 Lung nodule seen on imaging study [R91.1] 10/28/2020 Encounter Status:Closed by EPIC, PRODUSER on 03/27/21 [facility] 03-13-2021 Note HNO ID: [id number] Author: Yessi Villegas APRN.CHAIR FINISHER Service: ? Author Type: Nurse Practitioner Type: Progress Notes Filed: 03/13/2021 12:25 PM Note Text: Subjective The history is provided by a caregiver and the patient. Dental Problem Pertinent negatives include no chills, fever, myalgias or rash. HPI William Laguerre is a 61 year old male who presents today for CC of right upper jaw pain and swelling. He has a broken tooth, that is painful to chew on. Denies any drainage or fever. BP 122/78 Pulse 83 Temp 36.9 ?C (98.4 ?F) Resp 16 Wt 80.4 kg (177 lb 3.2 oz) SpO2 98% BMI 31.39 kg/m? Social History Tobacco Use - Smoking status: Former Smoker Packs/day: 0.25 Types: Cigarettes Start date: 01/22/2019 - Smokeless tobacco: Never Used Substance Use Topics - Alcohol use: No - Drug use: No PAST MEDICAL HISTORY Diagnosis Date - Acute duodenal ulcer with hemorrhage, perforation, and obstruction (HCC) - GERD (gastroesophageal reflux disease) - Obesity, unspecified - Other and unspecified hyperlipidemia - Other nonspecific findings on examination of blood(790.99) pos. 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 HENT: Tooth, gum pain swelling Musculoskeletal: Negative for joint pain and myalgias. Skin: Negative for itching and rash. All other systems reviewed and are negative. Component Latest Ref Rng AND Units 04/24/2020 Protein, Total 6.3 - 8.0 g/dL 6.9 Albumin 3.9 - 4.9 g/dL 4.3 Calcium 8.5 - 10.2 mg/dL 9.6 Bilirubin, Total 0.2 - 1.3 mg/dL 0.4 Alkaline Phosphatase 38 - 113 U/L 93 AST 14 - 40 U/L 13 (L) Glucose 74 - 99 mg/dL 273 (H) BUN 9 - 24 mg/dL 16 Creatinine 0.73 - 1.22 mg/dL 0.86 Sodium 136 - 144 mmol/L 138 Potassium 3.7 - 5.1 mmol/L 4.4 Chloride 97 - 105 mmol/L 101 CO2 22 - 30 mmol/L 26 Anion Gap 9 - 18 mmol/L 11 ALT 10 - 54 U/L 11 eGFR- >60 eGFR-All Other Races . >60 Objective Physical Exam Vitals and nursing note reviewed. HENT: Head: Normocephalic and atraumatic. Right Ear: Tympanic membrane, ear canal and external ear normal. Left Ear: Tympanic membrane, ear canal and external ear normal. Mouth/Throat: Mouth: Mucous membranes are moist. Dentition: Abnormal dentition. Gingival swelling and dental caries present. No dental abscesses. Cardiovascular: Rate and Rhythm: Normal rate and regular rhythm. Heart sounds: Normal heart sounds. Pulmonary: Effort: Pulmonary effort is normal. Breath sounds: Normal breath sounds. Lymphadenopathy: Head: Right side of head: No submental, submandibular, tonsillar or preauricular adenopathy. Left side of head: No submental, submandibular, tonsillar or preauricular adenopathy. Skin: General: Skin is warm and dry. Neurological: Mental Status: He is alert and oriented to person, place, and time. Psychiatric: Mood and Affect: Affect normal. ASSESSMENT/PLAN: 1. Pain, dental - ICD9: 525.9, ICD10: K08.89 (primary diagnosis) 2. Jaw swelling - ICD9: 784.2, ICD10: R22.0 Broken tooth, dental caries, possible infection, no palpable mass Augmentin as ordered Warm compresses Tylenol Dentist as soon as possible Diagnosis and treatment plan were discussed and questions were answered to the patient's satisfaction. Pt acknowledged understanding of concepts and follow up plan. Specific signs and symptoms that would indicate the need for higher level of care were discussed in detail warranting prompt ER evaluation. Yessi Villegas APRN.[facility] documented as of this encounter (statuses as of 08/25/2021) [facility]11-17-2014 History of Past illness Narrative* Problem Noted Date Resolved Date Pain in limb 04/22/2014 05/23/2014 Shoulder pain, left 01/25/2012 08/01/2013 Overview: chronic; DJD--pain AC joint Right shoulder pain, at night mostly 10/27/2011 08/01/2013 Overview: intermittent Pain in joint, upper arm 08/11/2009 014 Dermatophytosis of nail 07/17/2009 08/01/19 14 Lateral epicondylitis 04/29/2009 08/01/2013 Unspecified Cellulitis and Abscess of Toe 200808/01/2013 Obesity, unspecified 07/18/2018 documented as of this encounter (statuses as of 08/25/2021) [facility]11-17[facility]2014 History of Past illness Narrative* Problem Noted Date Resolved Date Pain in limb 04/22/2014 05/23/2014 Shoulder pain, left 01/25/2012 08/01/2013 Overview: chronic; DJD--pain AC joint Right shoulder pain, at night mostly 10/27/2011 08/01/2013 Overview: intermittent Pain in joint, upper arm 08/11/2009 014 Dermatophytosis of nail 07/17/2009 08/01/19 14 Lateral epicondylitis 04/29/2009 08/01/2013 Unspecified Cellulitis and Abscess of Toe 200808/01/2013 Obesity, unspecified 07/18/2018 documented as of this encounter (statuses as of 08/27/2021) [facility]11-17[facility]2014 History of Past illness Narrative* Problem Noted Date Resolved Date Pain in limb 04/22/2014 05/23/2014 Shoulder pain, left 01/25/2012 08/01/2013 Overview: chronic; DJD--pain AC joint Right shoulder pain, at night mostly 10/27/2011 08/01/2013 Overview: intermittent Pain in joint, upper arm 08/11/2009 014 Dermatophytosis of nail 07/17/2009 08/01/19 14 Lateral epicondylitis 04/29/2009 08/01/2013 Unspecified Cellulitis and Abscess of Toe 200808/01/2013 Obesity, unspecified 07/18/2018 documented as of this encounter (statuses as of 09/10/2021) [facility] History of Past illness Narrative* Problem Noted Date Resolved Date Pain in limb 04/22/2014 05/23/2014 Shoulder pain, left 01/25/2012 08/01/2013 Overview: chronic; DJD--pain AC joint Right shoulder pain, at night mostly 10/27/2011 08/01/2013 Overview: intermittent Pain in joint, upper arm 08/11/2009 014 Dermatophytosis of nail 07/17/2009 08/01/19 14 Lateral epicondylitis 04/29/2009 08/01/2013 Unspecified Cellulitis and Abscess of Toe 200808/01/2013 Obesity, unspecified 07/18/2018 documented as of this encounter (statuses as of 09/28/2021) [facility] History of Past illness Narrative* Problem Noted Date Resolved Date Pain in limb 04/22/2014 05/23/2014 Shoulder pain, left 01/25/2012 08/01/2013 Overview: chronic; DJD--pain AC joint Right shoulder pain, at night mostly 10/27/2011 08/01/2013 Overview: intermittent Pain in joint, upper arm 08/11/2009 014 Dermatophytosis of nail 07/17/2009 08/01/19 14 Lateral epicondylitis 04/29/2009 08/01/2013 Unspecified Cellulitis and Abscess of Toe 200808/01/2013 Obesity, unspecified 07/18/2018 documented as of this encounter (statuses as of 10/05/2021) [facility] History of Past illness Narrative* Problem Noted Date Resolved Date Pain in limb 04/22/2014 05/23/2014 Shoulder pain, left 01/25/2012 08/01/2013 Overview: chronic; DJD--pain AC joint Right shoulder pain, at night mostly 10/27/2011 08/01/2013 Overview: intermittent Pain in joint, upper arm 08/11/2009 014 Dermatophytosis of nail 07/17/2009 08/01/19 14 Lateral epicondylitis 04/29/2009 08/01/2013 Unspecified Cellulitis and Abscess of Toe 200808/01/2013 Obesity, unspecified 07/18/2018 documented as of this encounter (statuses as of 10/09/2021) [facility] History of Past illness Narrative* Problem Noted Date Resolved Date Pain in limb 04/22/2014 05/23/2014 Shoulder pain, left 01/25/2012 08/01/2013 Overview: chronic; DJD--pain AC joint Right shoulder pain, at night mostly 10/27/2011 08/01/2013 Overview: intermittent Pain in joint, upper arm 08/11/2009 014 Dermatophytosis of nail 07/17/2009 08/01/19 14 Lateral epicondylitis 04/29/2009 08/01/2013 Unspecified Cellulitis and Abscess of Toe 200808/01/2013 Obesity, unspecified 07/18/2018 documented as of this encounter (statuses as of 10/29/2021) [facility] History of Past illness Narrative* Problem Noted Date Resolved Date Pain in limb 04/22/2014 05/23/2014 Shoulder pain, left 01/25/2012 08/01/2013 Overview: chronic; DJD--pain AC joint Right shoulder pain, at night mostly 10/27/2011 08/01/2013 Overview: intermittent Pain in joint, upper arm 08/11/2009 014 Dermatophytosis of nail 07/17/2009 08/01/19 14 Lateral epicondylitis 04/29/2009 08/01/2013 Unspecified Cellulitis and Abscess of Toe 200808/01/2013 Obesity, unspecified 07/18/2018 documented as of this encounter (statuses as of 11/01/2021) [facility] History of Past illness Narrative* Problem Noted Date Resolved Date Pain in limb 04/22/2014 05/23/2014 Shoulder pain, left 01/25/2012 08/01/2013 Overview: chronic; DJD--pain AC joint Right shoulder pain, at night mostly 10/27/2011 08/01/2013 Overview: intermittent Pain in joint, upper arm 08/11/2009 014 Dermatophytosis of nail 07/17/2009 08/01/19 14 Lateral epicondylitis 04/29/2009 08/01/2013 Unspecified Cellulitis and Abscess of Toe 200808/01/2013 Obesity, unspecified 07/18/2018 documented as of this encounter (statuses as of 11/30/2021) [facility] History of Past illness Narrative* Problem Noted Date Resolved Date Pain in limb 04/22/2014 05/23/2014 Shoulder pain, left 01/25/2012 08/01/2013 Overview: chronic; DJD--pain AC joint Right shoulder pain, at night mostly 10/27/2011 08/01/2013 Overview: intermittent Pain in joint, upper arm 08/11/2009 014 Dermatophytosis of nail 07/17/2009 08/01/19 14 Lateral epicondylitis 04/29/2009 08/01/2013 Unspecified Cellulitis and Abscess of Toe 200808/01/2013 Obesity, unspecified 07/18/2018 documented as of this encounter (statuses as of 01/07/2022) [facility] History of Past illness Narrative* Problem Noted Date Resolved Date Pain in limb 04/22/2014 05/23/2014 Shoulder pain, left 01/25/2012 08/01/2013 Overview: chronic; DJD--pain AC joint Right shoulder pain, at night mostly 10/27/2011 08/01/2013 Overview: intermittent Pain in joint, upper arm 08/11/2009 014 Dermatophytosis of nail 07/17/2009 08/01/19 14 Lateral epicondylitis 04/29/2009 08/01/2013 Unspecified Cellulitis and Abscess of Toe 200808/01/2013 Obesity, unspecified 07/18/2018 documented as of this encounter (statuses as of 01/10/2022) [facility] History of Past illness Narrative* Problem Noted Date Resolved Date Pain in limb 04/22/2014 05/23/2014 Shoulder pain, left 01/25/2012 08/01/2013 Overview: chronic; DJD--pain AC joint Right shoulder pain, at night mostly 10/27/2011 08/01/2013 Overview: intermittent Pain in joint, upper arm 08/11/2009 014 Dermatophytosis of nail 07/17/2009 08/01/19 14 Lateral epicondylitis 04/29/2009 08/01/2013 Unspecified Cellulitis and Abscess of Toe 200808/01/2013 Obesity, unspecified 07/18/2018 documented as of this encounter (statuses as of 02/06/2022) [facility] History of Past illness Narrative* Problem Noted Date Resolved Date Pain in limb 04/22/2014 05/23/2014 Shoulder pain, left 01/25/2012 08/01/2013 Overview: chronic; DJD--pain AC joint Right shoulder pain, at night mostly 10/27/2011 08/01/2013 Overview: intermittent Pain in joint, upper arm 08/11/2009 014 Dermatophytosis of nail 07/17/2009 08/01/19 14 Lateral epicondylitis 04/29/2009 08/01/2013 Unspecified Cellulitis and Abscess of Toe 200808/01/2013 Obesity, unspecified 07/18/2018 documented as of this encounter (statuses as of 03/30/2022) [facility] History of Past illness Narrative* Problem Noted Date Resolved Date Pain in limb 04/22/2014 05/23/2014 Shoulder pain, left 01/25/2012 08/01/2013 Overview: chronic; DJD--pain AC joint Right shoulder pain, at night mostly 10/27/2011 08/01/2013 Overview: intermittent Pain in joint, upper arm 08/11/2009 014 Dermatophytosis of nail 07/17/2009 08/01/19 14 Lateral epicondylitis 04/29/2009 08/01/2013 Unspecified Cellulitis and Abscess of Toe 200808/01/2013 Obesity, unspecified 07/18/2018 documented as of this encounter (statuses as of 04/28/2022) [facility] History of Past illness Narrative* Problem Noted Date Resolved Date Pain in limb 04/22/2014 05/23/2014 Shoulder pain, left 01/25/2012 08/01/2013 Overview: chronic; DJD--pain AC joint Right shoulder pain, at night mostly 10/27/2011 08/01/2013 Overview: intermittent Pain in joint, upper arm 08/11/2009 014 Dermatophytosis of nail 07/17/2009 08/01/19 14 Lateral epicondylitis 04/29/2009 08/01/2013 Unspecified Cellulitis and Abscess of Toe 200808/01/2013 Obesity, unspecified 07/18/2018 documented as of this encounter (statuses as of 06/06/2022) [facility] History of Past illness Narrative* Problem Noted Date Resolved Date Pain in limb 04/22/2014 05/23/2014 Shoulder pain, left 01/25/2012 08/01/2013 Overview: chronic; DJD--pain AC joint Right shoulder pain, at night mostly 10/27/2011 08/01/2013 Overview: intermittent Pain in joint, upper arm 08/11/2009 014 Dermatophytosis of nail 07/17/2009 08/01/19 14 Lateral epicondylitis 04/29/2009 08/01/2013 Unspecified Cellulitis and Abscess of Toe 200808/01/2013 Obesity, unspecified 07/18/2018 documented as of this encounter (statuses as of 07/23/2022) [facility] History of Past illness Narrative* Problem Noted Date Resolved Date Pain in limb 04/22/2014 05/23/2014 Shoulder pain, left 01/25/2012 08/01/2013 Overview: chronic; DJD--pain AC joint Right shoulder pain, at night mostly 10/27/2011 08/01/2013 Overview: intermittent Pain in joint, upper arm 08/11/2009 014 Dermatophytosis of nail 07/17/2009 08/01/19 14 Lateral epicondylitis 04/29/2009 08/01/2013 Unspecified Cellulitis and Abscess of Toe 200808/01/2013 Obesity, unspecified 07/18/2018 documented as of this encounter (statuses as of 07/26/2022) [facility] History of Past illness Narrative* Problem Noted Date Resolved Date Pain in limb 04/22/2014 05/23/2014 Shoulder pain, left 01/25/2012 08/01/2013 Overview: chronic; DJD--pain AC joint Right shoulder pain, at night mostly 10/27/2011 08/01/2013 Overview: intermittent Pain in joint, upper arm 08/11/2009 014 Dermatophytosis of nail 07/17/2009 08/01/19 14 Lateral epicondylitis 04/29/2009 08/01/2013 Unspecified Cellulitis and Abscess of Toe 200808/01/2013 Obesity, unspecified 07/18/2018 documented as of this encounter (statuses as of 07/28/2022) [facility] Mixed hyperlipidemia [facility] Diagnosis Mixed hyperlipidemia [facility] Diagnosis Mixed hyperlipidemia documented in this encounter [facility] note* Diagnosis URI with cough and congestion- Primary documented in this encounter [facility] note* Diagnosis URI with cough and congestion [facility] Diagnosis Type 2 diabetes mellitus with diabetic neuropathy, without long-term current use of insulin (HCC)- Primary Hyperkeratosis Acquired keratoderma Xerosis cutis Other specified disease of sebaceous glands [facility] Diagnosis Type 2 diabetes mellitus with diabetic neuropathy, without long-term current use of insulin (HCC) Hemorrhoids, unspecified hemorrhoid type Constipation, unspecified constipation type documented in this encounter [facility] note* Diagnosis Type 2 diabetes mellitus with diabetic neuropathy, without long-term current use of insulin (HCC) documented in this encounter [facility] note* Diagnosis Type 2 diabetes mellitus with diabetic neuropathy, without long-term current use of insulin (HCC) documented in this encounter [facility] Advance Directives Documents on File Type Date Recorded Patient [employer] In[employer] Expl anation Advance Directive(s) Summary Purpose Family History No Family History Records Found Additional Source Comments Source Comments (unrecognize d section and content) In the event this informatio n is protected by the Federal Confidentiality of Alcohol and Drug Abuse Patient Records regulations: The Federal rules restrict any use of the information to criminally investigate or prosecute any alcohol or drug abuse patient.[facility] the event this information is protected by the Federal Confidentiality of Alcohol and Drug Abuse Patient Records regulations: The Federal rules restrict any use of the information to criminally investigate or prosecute any alcohol or drug abuse patient.[facility] the event this information is protected by the Federal Confidentiality of Alcohol and Drug Abuse Patient Records regulations: The Federal rules restrict any use of the information to criminally investigate or prosecute any alcohol or drug abuse patient.[facility] Rehabilitation[facility] the event this information is protected by the Federal Confidentiality of Alcohol and Drug Abuse Patient Records regulations: The Federal rules restrict any use of the information to criminally investigate or prosecute any alcohol or drug abuse patient.[facility] Rehabilitation[facility] the event this information is protected by the Federal Confidentiality of Alcohol and Drug Abuse Patient Records regulations: The Federal rules restrict any use of the information to criminally investigate or prosecute any alcohol or drug abuse patient.[facility] Rehabilitation[facility] the event this information is protected by the Federal Confidentiality of Alcohol and Drug Abuse Patient Records regulations: The Federal rules restrict any use of the information to criminally investigate or prosecute any alcohol or drug abuse patient.[facility] Rehabilitation[facility] the event this information is protected by the Federal Confidentiality of Alcohol and Drug Abuse Patient Records regulations: The Federal rules restrict any use of the information to criminally investigate or prosecute any alcohol or drug abuse patient.[facility] Rehabilitation[facility] the event this information is protected by the Federal Confidentiality of Alcohol and Drug Abuse Patient Records regulations: The Federal rules restrict any use of the information to criminally investigate or prosecute any alcohol or drug abuse patient.[facility] RehabilitationIn the event this information is protected by the Federal Confidentiality of Alcohol and Drug Abuse Patient Records regulations: The Federal rules restrict any use of the information to criminally investigate or prosecute any alcohol or drug abuse patient.[facility] RehabilitationIn the event this information is protected by the Federal Confidentiality of Alcohol and Drug Abuse Patient Records regulations: The Federal rules restrict any use of the information to criminally investigate or prosecute any alcohol or drug abuse patient.[facility] RehabilitationIn the event this information is protected by the Federal Confidentiality of Alcohol and Drug Abuse Patient Records regulations: The Federal rules restrict any use of the information to criminally investigate or prosecute any alcohol or drug abuse patient.[facility] RehabilitationIn the event this information is protected by the Federal Confidentiality of Alcohol and Drug Abuse Patient Records regulations: The Federal rules restrict any use of the information to criminally investigate or prosecute any alcohol or drug abuse patient.[facility] RehabilitationIn the event this information is protected by the Federal Confidentiality of Alcohol and Drug Abuse Patient Records regulations: The Federal rules restrict any use of the information to criminally investigate or prosecute any alcohol or drug abuse patient.[facility] RehabilitationIn the event this information is protected by the Federal Confidentiality of Alcohol and Drug Abuse Patient Records regulations: The Federal rules restrict any use of the information to criminally investigate or prosecute any alcohol or drug abuse patient.[facility] RehabilitationIn the event this information is protected by the Federal Confidentiality of Alcohol and Drug Abuse Patient Records regulations: The Federal rules restrict any use of the information to criminally investigate or prosecute any alcohol or drug abuse patient.[facility] RehabilitationIn the event this information is protected by the Federal Confidentiality of Alcohol and Drug Abuse Patient Records regulations: The Federal rules restrict any use of the information to criminally investigate or prosecute any alcohol or drug abuse patient.[facility] RehabilitationIn the event this information is protected by the Federal Confidentiality of Alcohol and Drug Abuse Patient Records regulations: The Federal rules restrict any use of the information to criminally investigate or prosecute any alcohol or drug abuse patient.[facility] RehabilitationIn the event this information is protected by the Federal Confidentiality of Alcohol and Drug Abuse Patient Records regulations: The Federal rules restrict any use of the information to criminally investigate or prosecute any alcohol or drug abuse patient.[facility] RehabilitationIn the event this information is protected by the Federal Confidentiality of Alcohol and Drug Abuse Patient Records regulations: The Federal rules restrict any use of the information to criminally investigate or prosecute any alcohol or drug abuse patient.[facility] Reason for Visit (unrecogniz ed section and content) Reason Comments Refill Request Reason Comments Cough Pt reported SOB, den ied chest pain x2 days Nasal Congestion Reason Comments Medication Question Reason Onset Date Comments Refill Request 10/05/2021 Reason Onset Date Comments Refill Request 10/09/2021 Reason Onset Date Comments Refill Request 10/29/2021 Reason Onset Date Comments Refill Request 10/31/2021 Reason Comments New Nail care Specialty Diagnoses / Procedures Referred By Brittny seo Referred To Contact Podiatry Diagnoses Type 2 diabetes mellitus with diabetic neuropathy, without long-term current use of insulin (HCC) Procedures CONSULT TO PODIATRY NEW PATIENT VISIT LEVEL 5 Minna Falcon APRN.[employer] [address] [facility] [place] [address] Referral ID Status Reason Start Date Expiration Date V isits Requested Visits Authorized [id number] Closed PCP Requested Referral 05/08/2021 05/08/2022 1 1 Reason Onset Date Comments Refill Request 01/07/2022 Reason Comments Chest Pain Reason Onset Date Comments Refill Request 02/05/2022 Reason Onset Date Comments Refill Request 03/30/2022 Reason Onset Date Comments Refill Request 04/28/2022 Reason Onset Date Comments Refill Request 06/01/2022 Reason Onset Date Comments Refill Request 07/26/2022 Reason Comments Opened In Error Care Teams (unrecognized sec tion and content) Manager Harbor Relationship Specialty Start Date End Date Leonidas Johnson MD [address] [facility] [place] [address] PCP - General Internal Medicine 07/16/10 [facility] [address] [place] [address] Pharmacist Pharmacy 04/28/20 Manager Harbor Relationship Specialty Start Date End Date Leonidas Johnson MD [address] [facility] [place] [address] PCP - General Internal Medicine 07/16/10 [facility] [address] [facility] [place] [address] Pharmacist Pharmacy 04/28/20 Manager Harbor Relationship Specialty Start Date End Date Leonidas Johnson MD [address] [place] [address] PCP - General Internal Medicine 07/16/10 Radha Cavazos [facility] [address] [place] [address] Pharmacist Pharmacy 04/28/20 Manager Harbor Relationship Specialty Start Date End Date Leonidas Johnson MD [address] [facility] [place] [address] PCP - General Internal Medicine 07/16/10 [facility] [address] [facility] [place] [address] Pharmacist Pharmacy 04/28/20 Manager Harbor Relationship Specialty Start Date End Date Leonidas Johnson MD [address] [facility] [place] [address] PCP - General Internal Medicine 07/16/10 [facility] [address] [facility] [place] [address] Pharmacist Pharmacy 04/28/20 Manager Harbor Relationship Specialty Start Date End Date Leonidas Johnson MD [address] [facility] [place] [address] PCP - General Internal Medicine 07/16/10 [facility] [address] [facility] [place] [address] Pharmacist Pharmacy 04/28/20 Manager Harbor Relationship Specialty Start Date End Date Leonidas Johnson MD [address] [facility] [place] [address] PCP - General Internal Medicine 07/16/10 [facility] [address] [facility] [place] [address] Pharmacist Pharmacy 04/28/20 Manager Harbor Relationship Specialty Start Date End Date Leonidas Johnson MD [address] [facility] [place] [address] PCP - General Internal Medicine 07/16/10 Radha Cavazos, [facility] [address] [place], [place] [id number] Pharmacist Pharmacy 04/28/20 Manager Harbor Relationship Specialty Start Date End Date Leonidas Johnson MD [address] [place], [place] [id number] PCP - General Internal Medicine 07/16/10 [facility] [address] [place], [place] [id number] Pharmacist Pharmacy 04/28/20 (unrecognized sect ion and content) No Status Records Found INFORMATION SOURCE (unrecogn ized section and content) FOR RECORDS PERTAINING TO PATIENTS WHO ARE OR HAVE BEEN ENROLLED IN A CHEMICAL DEPENDENCY/SUBSTANCEABUSE PROGRAM, SOME INFORMATION MAY BE OMITTED. This clinical summary was aggregated from multiple sources. Caution should be exercised in using it in the provision of clinical care. This summary normalizes information from multiple sources, and as a consequence, information in this document may materially change the coding, format and clinical context of patient data. In addition, data may be omitted in some cases. CLINICAL DECISIONS SHOULD BE BASED ON THE PRIMARY CLINICAL RECORDS. [employer] provides no warranty or guarantee of the accuracy or completeness of information in this document.
[2023-07-22 17:43] LABS: Reflex Troponin-HS? (from REC) Y
[2023-07-22 19:40] LABS: Troponin-I HS 22 pg/mL (3.0-78.0)
[2023-07-22 19:54] VITALS: BP 118/71; PULSE 72; RESP 14; TEMP 36.3; O2SAT 99
== END 2023-07-22 19:55 | disposition home or self-care (01) ==
PROVIDERS: Emergency Medicine; Emergency Provider Emergency Medicine; PCP Family Medicine Geriatric Medicine; Visit Provider Emergency Medicine
DX: R07.9 Chest pain, unspecified (principal); E11.9 Type 2 diabetes mellitus without complications; Z79.4 Long term (current) use of insulin; Z87.891 Personal history of nicotine dependence; I10 Essential (primary) hypertension; E78.5 Hyperlipidemia, unspecified; Z79.899 Other long term (current) drug therapy; K21.9 Gastro-esophageal reflux disease without esophagitis; Z79.84 Long term (current) use of oral hypoglycemic drugs
CPT/HCPCS: 71045; 80048; 84484; 85025; 93005; 99284; J7030; A4216

== ENCOUNTER → 2023-08-22 | Outpatient (CLI) | payer MEDICARE, MEDICAID, SELFPAY ==
[2023-08-22 11:06] LABS: Absolute Lymphocyte Count 1.08 X10^3/uL (0.83-4.51); Absolute Neutrophil Count 3.5 X10^3/uL (2.0-7.7); Basophil# 0.02 X10^3/uL; Basophil% 0.4 % (0-1); Eosinophil# 0.15 X10^3/uL; Eosinophils% 2.9 % (0-5); Hematocrit 39.1 % (40-54); Hemoglobin 12.4 g/dL (13.0-16.5); Lymphocyte # 1.08 X10^3/ul (0.83-4.51); Lymphocyte % 20.8 % (19-41); Mean Corp Hgb Conc 31.7 g/dL (32-36); Mean Corpuscular Hgb 27.3 pg (27.0-32.0); Mean Corpuscular Volume 86.1 fL (80-94); Monocyte# 0.43 X10^3/uL; Monocyte% 8.3 % (0-10); NRBC Flagged by Analyzer 0 % (0-5); Neutrophil # 3.51 X10^3/uL (2.7-7.7); Neutrophil % 67.4 % (47-70); Platelet Count 168 K/mm3 (150-450); RBC Distribution Width CV 15.9 % (11.6-14.6); Red Blood Count 4.54 M/mm3 (4.6-6.2); White Blood Count 5.2 K/mm3 (4.4-11.0)
[2023-08-22 11:26] LABS: Hemoglobin A1c 7.3 % (3.8-5.6)
[2023-08-22 11:34] LABS: Microalbumin,Random Urine 8.4 mg/L (NO RANGE EST.)
[2023-08-22 12:11] LABS: Vitamin D,25 Hydroxy 25.6 ng/mL
[2023-08-22 12:24] LABS: ALB/GLOB Ratio 1.3 RATIO (0.9-2.4); AST(SGOT) 16 U/L (15-37); Alanine Aminotransfer ALT/SGPT 25 U/L (16-61); Albumin, Serum 3.8 g/dL (3.2-5.0); Alkaline Phosphatase 73 U/L (45-117); Anion Gap 6 (5-15); BUN 16 mg/dL (7-18); BUN/Creat Ratio 16.5 RATIO (10-20); Calcium,Total 8.6 mg/dL (8.5-10.1); Chloride 107 mmol/L (98-107); Cholesterol 100 mg/dL (200); Creatinine, Serum 0.97 mg/dL (0.70-1.30); EST Glomerular Filtration Rate 82 mL/min (>60); Est Glom Filt Rate - Afr Amer 100 mL/min (>60); Glucose 171 mg/dL (74-106); High Density Lipoprotein 56 mg/dL; Potassium 4.3 mmol/L (3.5-5.1); Protein, Total 6.8 g/dL (6.4-8.2); Sodium Level 141 mmol/L (136-145); Thyroid Stim Hormone (TSH) 0.59 uIU/mL (0.358-3.74); Triglycerides 107 mg/dL; Very Low Density Lipoprotein 21 mg/dL (5-40)
== END | disposition home or self-care (01) ==
LOC: POLAB3 10:28
PROVIDERS: PCP Family Medicine Geriatric Medicine; Visit Provider Family Medicine Geriatric Medicine
DX: E11.65 Type 2 diabetes mellitus with hyperglycemia (principal); I10 Essential (primary) hypertension; E78.5 Hyperlipidemia, unspecified; E55.9 Vitamin D deficiency, unspecified; Z12.5 Encounter for screening for malignant neoplasm of prostate
CPT/HCPCS: 36415; 80053; 80061; 82043; 82306; 83036; 84443; 85025

== ENCOUNTER → 2023-09-20 | Outpatient (CLI) | payer MEDICARE, MEDICAID, SELFPAY ==
--- NOTE | 2023-09-20 18:27 | STRESSREP ---
Stress Test Report Pharmacologic myocardial perfusion stress test. 63-year-old male with a history of chest pain or shortness of breath Resting EKG demonstrates sinus rhythm with a rate of 69 bpm. Resting blood pressure is 112/62 mmHg. 0.4 mg of regadenoson was infused per usual protocol followed by rapid intravenous saline flush injection. Continuous EKG monitoring was performed. The maximum heart rate was 86 bpm which was 55% of max impacted heart rate the maximum workload was 1 metabolic equivalent. At rest there were no ST or T wave changes noted to suggest ischemia and at peak infusion nonspecific ST changes were noted which did not meet the criteria for ischemia. No clinical angina is noted. The final blood pressure was 128/70 mmHg. Myocardial perfusion protocol. 10.1 mCi of technetium 99m sestamibi was injected at rest. 0.4 mg of regadenoson was infused per usual protocol. At peak infusion 32.9 mCi of technetium 99m sestamibi was injected stress images were obtained stress and rest images were reconstructed and compared in the short axis vertical long and horizontal long axis. Gated images were also obtained. Perfusion SPECT analysis: Review of the stress images demonstrate normal uptake of tracer noted in all areas of the myocardium. The resting images similar demonstrated normal uptake of tracer noted in all areas of the myocardium. No areas of reversibility are noted to suggest ischemia and no previous infarct is noted. Gated SPECT analysis: The gated ejection fraction is 73%. Conclusion: Normal pharmacologic myocardial perfusion stress test. Preserved ejection fraction.
== END | disposition home or self-care (01) ==
LOC: CVS 07:33
PROVIDERS: PCP Family Medicine Geriatric Medicine; Referring Provider Family Medicine Geriatric Medicine; Visit Provider Family Medicine Geriatric Medicine
DX: R07.9 Chest pain, unspecified (principal); R06.02 Shortness of breath
CPT/HCPCS: 78452; 93017; A9500; A4216; J2785

== ENCOUNTER → 2023-09-26 | Outpatient (CLI) | payer MEDICARE, MEDICAID, SELFPAY ==
--- NOTE | 2023-09-26 15:22 | CT_ITS ---
STUDY: LOW DOSE CT LUNG CANCER SCREENING REASON FOR EXAM: Male, 63 years old. NICOTINE DEPENDENCY RADIATION DOSAGE (If Supplied By Facility): CTDIvol = ( 2.01 ) mGy, DLP = ( 63.44 ) mGycm TECHNIQUE: No contrast was administered. Low dose technique was utilized (average mAS-38 and kVp 120). 1.25 mm axial source images with a slice interval of 1.25-mm were reconstructed in lung windows. 2.5 mm axial source images with a slice interval of 2.5-mm were reconstructed in lung windows. 5.0 mm axial source images with a slice interval of 5.0-mm were reconstructed in soft tissue windows. COMPARISON: No relevant prior comparison study available NODULES: Nodule #: 1 Density: Solid Lung location: Right lower lobe: 0.1 cm from pleura Location in series: Series Number: 2 Image: 167 Size -0.5 cm Nodule #: 2 Density: Solid Lung location: Left lower lobe: 0.6 cm from pleura Location in series: Series Number: 2 Image: 167 Size -0.4 cm Total lung nodules (excluding granulomas): 2 Emphysema: None Endobronchial lesion: None. Aorta: Normal caliber. CORONARY ARTERIES: Coronary artery calcification is seen. Heart: Normal size. No pericardial effusion. Pulmonary artery: Normal size. Mediastinal nodes: None. Other chest and abdominal findings: No acute abnormality of the visualized upper abdomen. CT/Low Dose CT Lung Screening IMPRESSION: Lung-RADS category 2 - Continue annual screening with LDCT in 12 months. IMPORTANT NOTES FOR USE: ACR Lung-RADS Version 1.1 Assessment Categories Release Date: 2018 Category: Coded 0-4 bases on nodule(s) with highest degree of suspicion. Negative screen is defined as categories 1 and 2; a positive screen is defined as categories 3 and 4. Category 3 and 4A nodules that are unchanged on interval CT should be coded as category 2, and individuals returned to screening in 12 months. Category 4X: Category 3 or 4 nodules with additional imaging findings that increase the suspicion of lung cancer, such as spiculation, GGN that doubles in size in 1 year, enlarged lymph notes, etc. Category Modifiers: S (significant finding unrelated to lung cancer) Electronically Signed: Randall Bocanegra MD at 12:20 EDT ,
== END | disposition home or self-care (01) ==
LOC: CT 14:56
PROVIDERS: PCP Family Medicine Geriatric Medicine; Referring Provider Family Medicine Geriatric Medicine; Visit Provider Family Medicine Geriatric Medicine
DX: Z12.2 Encounter for screening for malignant neoplasm of respiratory organs (principal); F17.210 Nicotine dependence, cigarettes, uncomplicated
CPT/HCPCS: 71271

== ENCOUNTER → 2023-10-03 | Outpatient (CLI) | payer MEDICARE, MEDICAID, SELFPAY ==
--- NOTE | 2023-10-03 11:49 | RAD_ITS ---
STUDY: X-RAY - RIGHT SHOULDER REASON FOR EXAM: Male, 63 years old. SHOULDER PAIN TECHNIQUE: 4 views of the right shoulder. COMPARISON: None. FINDINGS: There is minimal glenohumeral arthrosis. There is mild acromioclavicular arthrosis. Normal acromion. Normal humeral head and visualized proximal humerus. The soft tissue structures are unremarkable. There is no demonstrated fracture. Normal visualized pulmonary apex. RAD/Shoulder min 2 Views IMPRESSION: Minimal glenohumeral arthrosis. Mild acromioclavicular arthrosis. Electronically Signed: Saroj Cedeno MD at 9:55 EDT ,
--- NOTE | 2023-10-03 11:49 | RAD_ITS ---
STUDY: X-RAY - LEFT SHOULDER REASON FOR EXAM: Male, 63 years old. SHOULDER PAIN TECHNIQUE: 4 views of the left shoulder. COMPARISON: Chest radiographs dated 07/22/2023. FINDINGS: There is mild glenohumeral arthrosis. There is mild acromioclavicular arthrosis. Normal acromion. There is a chronic complete fracture of the medial third of the left clavicle, with 2 shaft width inferior displacement of the lateral segment. Intact humeral head and visualized proximal humerus. The soft tissue structures are unremarkable. Normal visualized pulmonary apex. 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 Chronic complete fracture of the medial third of the left clavicle, with 2 shaft width inferior displacement of the lateral segment. Electronically Signed: Saroj Cedeno MD at 9:38 EDT ,
--- NOTE | 2023-10-03 11:49 | RAD_ITS ---
INDICATION: Fracture of unspecified part of left clavicle, initial encounter EXAMINATION/TECHNIQUE: X-RAY - XR Spine Cervical 2 or 3 Views COMPARISON: No relevant prior comparison study available FINDINGS: VERTEBRAE: Preserved vertebral body height. No fracture. No spondylolisthesis. There is loss of the normal cervical lordosis. No significant facet arthropathy. DISCS: There is multilevel degenerative disc disease. NECK SOFT TISSUES: No prevertebral soft tissue widening. There are vascular calcifications. LUNG APICES: Clear. There is a fracture of the medial left clavicle with caudal displacement of the distal clavicle. RAD/Cerv Spine 2 or 3 Views IMPRESSION: Multilevel degenerative changes. Left clavicular fracture. Atherosclerosis. Electronically Signed: Lina Negron MD at 8:57 EDT ,
--- NOTE | 2023-10-03 11:50 | RAD_ITS ---
STUDY: X-RAY - LEFT CLAVICLE REASON FOR EXAM: Male, 63 years old. SHOULDER PAIN TECHNIQUE: 2 views of the left clavicle. COMPARISON: Chest radiographs dated 07/22/2023. FINDINGS: There is a chronic complete fracture of the medial third of the left clavicle, with 2 shaft width inferior displacement of the lateral segment. There is mild acromioclavicular articulation. Normal visualized pulmonary apex. RAD/Clavicle IMPRESSION: Chronic complete fracture of the medial third of the left clavicle, with 2 shaft width inferior displacement of the lateral segment. Electronically Signed: Saroj Cedeno MD at 9:39 EDT ,
== END | disposition home or self-care (01) ==
LOC: RAD 11:48
PROVIDERS: PCP Family Medicine Geriatric Medicine; Referring Provider Family Medicine Geriatric Medicine; Visit Provider Family Medicine Geriatric Medicine
DX: S42.002A Fracture of unspecified part of left clavicle, initial encounter for closed fracture (principal); M25.511 Pain in right shoulder
CPT/HCPCS: 72040; 73000; 73030

== ENCOUNTER 2024-02-17 01:17 | Emergency (ER) | payer MEDICARE, MEDICAID, SELFPAY ==
[2024-02-17 01:19] VITALS: BP 117/65; PULSE 76; RESP 18; TEMP 36.5; O2SAT 99; BMI 25.2
--- NOTE | 2024-02-17 01:37 | RAD_ITS ---
EXAM: XR Chest 2 Views INDICATION: Male, 63 years old. Chest pain TECHNIQUE: PA and lateral views COMPARISON: 07/22/2023 FINDINGS: DEVICES: None LUNGS: No confluent air space opacity. No concerning pulmonary nodule. No pleural effusion or pneumothorax. MEDIASTINUM: Cardiac and mediastinal silhouettes are within normal limits. No central pulmonary vascular congestion. . SKELETAL STRUCTURES: No acute skeletal abnormality. Mild multilevel degenerative changes in the spine. UPPER ABDOMEN: Unremarkable RAD/Chest PA and Lateral IMPRESSION: No acute cardiopulmonary disease Electronically Signed: Bill Kilgore MD at 2:13 EDT ,
[2024-02-17 01:48] LABS: Absolute Lymphocyte Count 1.75 X10^3/uL (0.83-4.51); Absolute Neutrophil Count 3.7 X10^3/uL (2.0-7.7); Basophil# 0.04 X10^3/uL; Basophil% 0.6 % (0-1); Eosinophil# 0.15 X10^3/uL; Eosinophils% 2.3 % (0-5); Hematocrit 36.1 % (40-54); Hemoglobin 11.6 g/dL (13.0-16.5); Lymphocyte # 1.75 X10^3/ul (0.83-4.51); Lymphocyte % 26.8 % (19-41); Mean Corp Hgb Conc 32.1 g/dL (32-36); Mean Corpuscular Hgb 28.2 pg (27.0-32.0); Mean Corpuscular Volume 87.6 fL (80-94); Mean Platelet Vol. 10.7 fl (6.2-12.0); Monocyte# 0.89 X10^3/uL; Monocyte% 13.7 % (0-10); NRBC Flagged by Analyzer 0 % (0-5); Neutrophil # 3.68 X10^3/uL (2.7-7.7); Neutrophil % 56.4 % (47-70); Platelet Count 156 K/mm3 (150-450); RBC Distribution Width CV 15.8 % (11.6-14.6); RBC Distribution Width SD 50.5 fl (35.1-43.9); Red Blood Count 4.12 M/mm3 (4.6-6.2); White Blood Count 6.5 K/mm3 (4.4-11.0)
[2024-02-17 02:00] VITALS: BP 95/67; PULSE 67; RESP 18; O2SAT 95
[2024-02-17 02:12] LABS: ALB/GLOB Ratio 1.3 RATIO (0.9-2.4); AST(SGOT) 23 U/L (15-37); Alanine Aminotransfer ALT/SGPT 19 U/L (16-61); Albumin, Serum 3.7 g/dL (3.2-5.0); Alkaline Phosphatase 67 U/L (45-117); Anion Gap 10 (5-15); BUN 29 mg/dL (7-18); BUN/Creat Ratio 20.9 RATIO (10-20); Calcium,Total 8.6 mg/dL (8.5-10.1); Chloride 109 mmol/L (98-107); Creatinine, Serum 1.39 mg/dL (0.70-1.30); EST Glomerular Filtration Rate 54 mL/min (>60); Est Glom Filt Rate - Afr Amer 66 mL/min (>60); Estimated Creatinine Clearance 42.64 ml/min; Globulin 2.8 g/dL (2.2-4.2); Glucose 158 mg/dL (74-106); Lipase 88 U/L (13-75); Potassium 3.9 mmol/L (3.5-5.1); Protein, Total 6.5 g/dL (6.4-8.2); Sodium Level 142 mmol/L (136-145); Troponin-I HS (w/2H Reflex) 28 pg/mL (3.0-78.0)
[2024-02-17 03:09] VITALS: BP 120/63; PULSE 64; RESP 15; TEMP 36.3; O2SAT 97
--- NOTE | 2024-02-17 03:25 | ED.VIS.CHEST ---
HPI History of Present Illness Chief Complaint: Chest Pain Informant: patient Narrative Narrative: Patient is a 63-year-old male with history of diabetes mellitus, hypertension, hyperlipidemia, GERD and intellectual disability presenting with chest pain. [place] and he start having chest pain in the center of his chest. It has been intermittent throughout the day. He describes as sharp. Sometimes it radiates to the left. Denies any pain in his back or abdomen. Denies any aggravating or alleviating factors. Denies any symptoms with taking a deep breath. States he has been told in the past his sternum is sore and this is the cause. Came in for further evaluation. States his pain is currently mild and he is starting to feel better. No other complaints or concerns reported at this time. Denies associated abdominal pain, nausea, vomiting or difficulty breathing. [facility] Medical History Hemorrhoid GERD (gastroesophageal reflux disease) Intellectual disability Dyslipidemia Essential (primary) hypertension DM2 (diabetes mellitus, type 2) Home Medications ?Medication ?Instructions ?Recorded ?Last Taken ?Type ipratropium 20 mcg-albuterol 100 1 puff inhalation BID PRN Sob &/Or 07/10/13 Unknown History mcg/actuation mist for inhalation Wheezing empagliflozin 25 mg tablet 25 mg PO DAILY diabetes 03/16/19 Unknown History (Jardiance) acetaminophen 325 mg tablet 650 mg (2 x 325 mg) PO Q6H PRN PRN 03/24/20 Unknown Rx Pain Score 1-10/Temp > 100.7 F pantoprazole 40 mg tablet,delayed 40 mg PO BID #60 tabs 03/24/20 Unknown Rx release insulin glargine 100 unit/mL (3 14 unit subcut QPM 12/03/20 Unknown History mL) subcutaneous pen (Lantus Solostar U-100 Insulin) dextrose 40 % oral gel (Glucose 20 g PO Q15M PRN Hypoglycemia 05/29/21 Unknown History Gel) docusate sodium 100 mg capsule 100 mg PO DAILY PRN PRN 05/29/21 Unknown History (Colace) Constipation nirmatrelvir 300 mg (150 mg See Rx Instructions PO .COMPLEX 02/04/22 Unknown Rx x2)-ritonavir 100 mg tablet,dose #30 tabs pack (Paxlovid) atorvastatin 40 mg tablet 40 mg PO DAILY 07/22/23 Unknown History dulaglutide 1.5 mg/0.5 mL 3 mg subcut QWEEK 07/22/23 Unknown History subcutaneous pen injector (Trulicity) famotidine 40 mg tablet 40 mg PO DAILY 07/22/23 Unknown History glimepiride 4 mg tablet 4 mg PO DAILY 07/22/23 Unknown History lisinopril 10 mg tablet 10 mg PO DAILY 07/22/23 Unknown History metformin 1,000 mg tablet 1,000 mg PO BID 07/22/23 Unknown History Allergy/AdvReac Type Severity Reaction Status Date / Time aspirin Allergy Unknown Verified 02/17/24 01:18 codeine Allergy Unknown Verified 02/17/24 01:18 Family History Mother Diabetes Surgical History History of colonoscopy (~12/2019) Arthropathy of right hip Social History Smoking Status: Current every day smoker tobacco type: cigarettes alcohol intake: never ROS ROS ED Constitutional Constitutional ED: Denies chills or fever(s) ENT ENT ED: Denies rhinorrhea Cardiovascular Cardiovascular: Reports as per HPI and chest pain; Denies palpitations Respiratory/Chest Respiratory/Chest: Denies cough or dyspnea Gastrointestinal Gastrointestinal: Denies abdominal pain, nausea or vomiting Musculoskeletal Musculoskeletal: Denies back pain Neurologic Neurologic: Denies paresthesias or weakness EXAM Physical Exam Const Vital Signs: 02/17/24 01:19 02/17/24 01:45 02/17/24 02:00 Temperature 97.7 F L Temperature Source Oral Pulse Rate 76 67 Respiratory Rate 18 18 Blood Pressure 117/65 95/67 Blood Pressure Mean 82 77 Pulse Ox 99 95 Oxygen Delivery Method Room Air Room Air 02/17/24 03:09 02/17/24 04:13 Temperature 97.4 F L Temperature Source Oral Pulse Rate 64 64 Respiratory Rate 15 15 Blood Pressure 120/63 124/70 H Blood Pressure Mean 82 88 Pulse Ox 97 96 Oxygen Delivery Method Room Air Room Air Positive well nourished and well developed General Appearance ED: well developed and NAD HEENT Reports moist mucous membranes Eyes PERRL Neck supple Chest Wall inspection of chest normal Chest Narrative: Tenderness palpation over the xiphoid process Resp normal respiratory effort and clear to auscultation bilaterally Cardio regular rate, regular rhythm and no murmurs Peripheral Pulses: pulses 2+ throughout GI normal to inspection, nondistended, normoactive bowel sounds and soft to palpation Extremity normal to inspection General Extremety ED: Negative for edema General Extremity: Negative for edema Neuro oriented x3 Sensorium / Orientation: awake and alert Motor Exam: Negative for general weakness Psych mental status grossly normal Skin no rashes or lesions noted Heart Score History: Slightly/Non-Suspicious ECG: Normal Age: >/= 65 years Risk Factors: >/= 3 Risk Factors or History of CAD Troponin: </= Normal Limit Score: 4 MDM MDM MDM Narrative Medical decision making narrative: Patient presents with chest pain that developed earlier today. Is currently improved. Does have cardiac risk factors including diabetes, hypertension and hyperlipidemia. The pain itself seems to be muscle skeletal is highly reproducible with palpation around the lower sternum/xiphoid process. His vital signs are normal. Cardiac workup is obtained however including CBC, CMP, lipase, delta high-sensitivity troponin and two-view chest x-ray. 2 view chest x-ray viewed by myself as well as radiology does not show any acute process. CBC shows a very mild anemia the hemoglobin 11.6 which is nonspecific. Hemoglobin appears to be near his baseline as he was 12.4 in August of this year. Creatinine is very mildly above his baseline of 1.39 however this is not an YOHANNES. Will be encouraged to increase his fluid intake. Lipase is minimally elevated to 88 however his symptoms are not consistent with pancreatitis he does not have tenderness over the epigastric region but over the xiphoid process.Patient has had elevated lipase in the past as well as true pancreatitis. He does not report report any other GI symptoms and I do not think requires any imaging at this time of the abdomen or pancreas. High-sensitivity opponent is normal at 28 and 29 with a normal delta. Patient will be discharged home with outpatient follow-up. Will be instructed to push fluids. He is agreeable and quite well-appearing the ER. Discharged home in stable condition. Lab Data Attestation: I reviewed the patient's lab results. Labs: Laboratory Results - last 24 hr 02/17/24 02/17/24 01:27 03:46 WBC 6.5 RBC 4.12 L Hgb 11.6 L Hct 36.1 L MCV 87.6 MCH 28.2 MCHC 32.1 RDW Std Deviation 50.5 H RDW Coeff of [place] 15.8 H Plt Count 156 MPV 10.7 Immature Gran % (Auto) 0.200 Neut % (Auto) 56.4 Lymph % (Auto) 26.8 [place] % (Auto) 13.7 H Eos % (Auto) 2.3 Baso % (Auto) 0.6 Absolute Neuts (auto) 3.7 Absolute Lymphs (auto) 1.75 Nucleated RBC % 0 Sodium 142 Potassium 3.9 Chloride 109 H Carbon Dioxide 23.0 Anion Gap 10 BUN 29 H Creatinine 1.39 H Estim Creat Clear Calc 42.64 Est GFR (MDRD) Af Amer 66 Est GFR (MDRD) Non-Af 54 L BUN/Creatinine Ratio 20.9 H Glucose 158 H Calcium 8.6 Total Bilirubin 0.80 AST 23 ALT 19 Alkaline Phosphatase 67 Troponin I High Sens 28 29 Total Protein 6.5 Albumin 3.7 Globulin 2.8 Albumin/Globulin Ratio 1.3 Lipase 88 H Radiography Diagnostic Testing: Clinical Impression(s) from Imaging Studies Chest X-Ray 02/17/24 01:37 IMPRESSION: No acute cardiopulmonary disease Electronically Signed: Bill Kilgore MD at 2:13 EDT , Rhythm Strip Rhythm Strip: Sinus Rhythm Rate: 69 Ectopy: None EKG Initial EKG: Attestation: I personally reviewed and interpreted this EKG as follows: Interpretation: Sinus Rhythm Comments: Normal sinus rhythm rate of 69 bpm Normal axis Normal intervals Normal ST segments Discharge Plan Triage Chief Complaint: Chest Pain ED Provider: Gertrude Olmos Dx/Rx/DC Orders Clinical Impression: Chest pain Instructions: ED Chest Wall Pain, Costochondritis Prescriptions: No Action ipratropium-albuterol 1 PUFF inhaler 1 puff INHALATION BID PRN (Reason: Sob &/Or Wheezing) Jardiance 25 MG tablet 25 mg PO DAILY acetaminophen 325 MG tablet 650 mg PO Q6H PRN PRN (Reason: Pain Score 1-10/Temp > 100.7 F) 0RF pantoprazole 40 MG tablet 40 mg PO BID Qty: 60 0RF insulin glargine [Lantus Solostar U-100 Insulin] 100 unit/mL (3 mL) Insulin Pen 14 unit SUBCUT QPM dextrose [Glucose Gel] 40 % Gel 20 g PO Q15M PRN (Reason: Hypoglycemia) docusate sodium [Colace] 100 mg Capsule 100 mg PO DAILY PRN PRN (Reason: Constipation) Paxlovid 300 mg (150 mg x 2)-100 mg tablets,dose pack See Rx Instructions .ROUTE .COMPLEX Qty: 30 0RF Rx Instructions: take TWO 150 mg tablets of nirmatrelvir with ONE 100 mg tablet of ritonavir twice daily for 5 days atorvastatin 40 mg tablet 40 mg PO DAILY Trulicity 1.5 mg/0.5 mL pen injector 3 mg SUBCUT QWEEK famotidine 40 mg tablet 40 mg PO DAILY glimepiride 4 mg tablet 4 mg PO DAILY lisinopril 10 mg tablet 10 mg PO DAILY metformin 1,000 mg tablet 1,000 mg PO BID Primary Care Provider: Jerry Linda Chi Referrals: Jerry Linda Chi, MD [Primary Care Provider] - Activity Restrictions/Additional Instructions: I suspect the pain in your chest is actually coming from your sternum and I do not think there is an acute problem with your heart at this time. You may take Tylenol as needed for the pain. Please try to avoid anti-inflammatories like ibuprofen, Aleve or Advil. Please try to drink more fluids. Follow-up with your primary care doctor next week for repeat evaluation. Return if you have a progression worsening of your symptoms. Print Language: Surinamese Disposition Disposition: Home, Self Care
[2024-02-17 03:55] LABS: Reflex Troponin-HS? (from REC) Y
[2024-02-17 04:13] VITALS: BP 124/70; PULSE 64; RESP 15; O2SAT 96
[2024-02-17 04:17] LABS: Troponin-I HS 29 pg/mL (3.0-78.0)
[2024-02-17 04:43] VITALS: BP 141/69; PULSE 61; RESP 15; TEMP 36.4; O2SAT 98
== END 2024-02-17 04:51 | disposition home or self-care (01) ==
PROVIDERS: Emergency Provider Emergency Medicine; PCP Family Medicine Geriatric Medicine; Visit Provider Emergency Medicine
DX: R07.9 Chest pain, unspecified (principal); E11.9 Type 2 diabetes mellitus without complications; Z79.4 Long term (current) use of insulin; E78.5 Hyperlipidemia, unspecified; I10 Essential (primary) hypertension; Z79.84 Long term (current) use of oral hypoglycemic drugs; K21.9 Gastro-esophageal reflux disease without esophagitis; Z79.899 Other long term (current) drug therapy; Z79.85 Long-term (current) use of injectable non-insulin antidiabetic drugs; F17.210 Nicotine dependence, cigarettes, uncomplicated
CPT/HCPCS: 71046; 80053; 83690; 84484; 85025; 93005; 99283; A4216

== ENCOUNTER 2024-02-18 14:22 | Emergency (ER) | payer MEDICARE, MEDICAID, SELFPAY ==
[2024-02-18 14:24] VITALS: BP 138/65; PULSE 91; RESP 16; TEMP 36.8; O2SAT 98; BMI 25.1
--- NOTE | 2024-02-18 14:58 | EKG12_ITS ---
Test Reason : CP Blood Pressure : / mmHG Vent. Rate : 069 BPM Atrial Rate : 069 BPM P-R Int : 126 ms QRS Dur : 082 ms QT Int : 398 ms P-R-T Axes : 050 011 045 degrees QTc Int : 426 ms Normal sinus rhythm Confirmed by Adan Bonilla ([id number]), index editor POONAM MCKNIGHT ([id number]) on 02/20/2024 9:57:01 AM Referred By: SONG Confirmed By:Adan Bonilla
[2024-02-18] MEDS: Acetaminophen 325 MG Tablet 650 MG PO (15:15)
--- NOTE | 2024-02-18 15:19 | EX.ED.DYSGE1 ---
HPI <NAYA Yee - Last Filed: 02/18/24 17:11> History of Present Illness Chief Complaint: Chest Pain Narrative Narrative: Patient is a 63-year-old male with history of hypertension hyperlipidemia, diabetes, GERD who presents to the [facility] with midsternal chest pain. Patient was seen here yesterday for the same. Patient received a full cardiac workup with 2 delta troponins that were negative. Patient states that he was at his house today, continually having some pain, and is here for evaluation. He noted some spots on his right leg, and is here for reevaluation. Patient does have slight intellectual delay. He does live by himself. Here for reevaluation. [facility] <NAYA Yee - Last Filed: 02/18/24 17:11> [facility] Medical History Hemorrhoid GERD (gastroesophageal reflux disease) Intellectual disability Dyslipidemia Essential (primary) hypertension DM2 (diabetes mellitus, type 2) Home Medications ?Medication ?Instructions ?Recorded ?Last Taken ?Type ipratropium 20 mcg-albuterol 100 1 puff inhalation BID PRN Sob &/Or 07/10/13 Unknown History mcg/actuation mist for inhalation Wheezing empagliflozin 25 mg tablet 25 mg PO DAILY diabetes 03/16/19 Unknown History (Jardiance) acetaminophen 325 mg tablet 650 mg (2 x 325 mg) PO Q6H PRN PRN 03/24/20 Unknown Rx Pain Score 1-10/Temp > 100.7 F pantoprazole 40 mg tablet,delayed 40 mg PO BID #60 tabs 03/24/20 Unknown Rx release insulin glargine 100 unit/mL (3 14 unit subcut QPM 12/03/20 Unknown History mL) subcutaneous pen (Lantus Solostar U-100 Insulin) dextrose 40 % oral gel (Glucose 20 g PO Q15M PRN Hypoglycemia 05/29/21 Unknown History Gel) docusate sodium 100 mg capsule 100 mg PO DAILY PRN PRN 05/29/21 Unknown History (Colace) Constipation nirmatrelvir 300 mg (150 mg See Rx Instructions PO .COMPLEX 02/04/22 Unknown Rx x2)-ritonavir 100 mg tablet,dose #30 tabs pack (Paxlovid) atorvastatin 40 mg tablet 40 mg PO DAILY 07/22/23 Unknown History dulaglutide 1.5 mg/0.5 mL 3 mg subcut QWEEK 07/22/23 Unknown History subcutaneous pen injector (Trulicity) famotidine 40 mg tablet 40 mg PO DAILY 07/22/23 Unknown History glimepiride 4 mg tablet 4 mg PO DAILY 07/22/23 Unknown History lisinopril 10 mg tablet 10 mg PO DAILY 07/22/23 Unknown History metformin 1,000 mg tablet 1,000 mg PO BID 07/22/23 Unknown History Allergy/AdvReac Type Severity Reaction Status Date / Time aspirin Allergy Unknown Verified 02/18/24 14:24 codeine Allergy Unknown Verified 02/18/24 14:24 Family History Mother Diabetes Surgical History History of colonoscopy (~12/2019) Arthropathy of right hip Social History Smoking Status: Current every day smoker tobacco type: cigarettes alcohol intake: never ROS <NAYA Yee - Last Filed: 02/18/24 17:11> ROS ED ROS Narrative Constitutional: Negative for fever, chills, weight loss, weakness Eyes: Negative for vision loss, vision change, double vision ENT: Negative for any sore throat, ear pain, congestion Cardiovascular: Negative for any tightness, palpitations. Positive for chest pain Respiratory: Negative for any cough, sputum production, hemoptysis, dyspnea, dyspnea on exertion, orthopnea Gastrointestinal: Negative for any abdominal pain, nausea, vomiting, diarrhea, constipation, blood in stool, blood in vomit : Negative for any urinary frequency, dysuria, retention, blood in urine Muscle skeletal: Negative for any neck pain, back pain Neurological: Negative for any headache, syncope, dizziness Skin: Negative for any rashes, itching, abrasions, lacerations. Positive for rash to the right leg Psychiatric: Negative for any depression, anxiety, stress, suicidal ideation, homicidal ideation Hematologic: Negative for any excessive bruising, easy bleeding EXAM <NAYA Yee - Last Filed: 02/18/24 17:11> Physical Exam Narrative Exam Narrative: Vital signs reviewed. HEET: Head normocephalic atraumatic, TMs clear bilaterally. Posterior pharynx is clear, moist mucous membranes. Nares clear bilaterally. Neck: Supple with no lymphadenopathy or tenderness. No signs of meningismus. Cardiac: Regular rate and rhythm no murmurs gallops or rubs, equal peripheral pulses bilaterally. Respiratory: Lungs clear to auscultation bilaterally. Positive for pain to the sternum, this is worse on palpation. Abdomen: Soft, nontender, nondistended. No abdominal bruit or pulsatile masses. No hepatosplenomegaly Extremities: No peripheral edema, no signs of gross trauma or deformity. Active full range of motion of all extremities. Neuro: Cranial nerves II through XII intact, no focal neurological deficits. Skin: Clean dry and intact with no rash, purpura, petechiae, vesicles or pustules. Backs/flank: No CVA tenderness, no midline spinal tenderness, no deformity. Psych: Normal mood and affect. No SI, HI or acute psychosis. Const Vital Signs: 02/18/24 14:24 02/18/24 14:29 02/18/24 16:23 Temperature 98.3 F Temperature Source Oral Pulse Rate 91 71 Respiratory Rate 16 19 H Respiratory Effort Normal Non-Labored Respiratory Pattern Normal Blood Pressure 138/65 H 102/52 L Blood Pressure Mean 89 68 Pulse Ox 98 97 Oxygen Delivery Method Room Air Room Air 02/18/24 17:10 Temperature 98 F Temperature Source Pulse Rate 78 Respiratory Rate 15 Respiratory Effort Respiratory Pattern Blood Pressure 111/58 L Blood Pressure Mean 75 Pulse Ox 97 Oxygen Delivery Method <Dr. Prakash Rico DO - Last Filed: 02/18/24 17:45> Physical Exam Const Vital Signs: 02/18/24 14:24 02/18/24 14:29 02/18/24 16:23 Temperature 98.3 F Temperature Source Oral Pulse Rate 91 71 Respiratory Rate 16 19 H Respiratory Effort Normal Non-Labored Respiratory Pattern Normal Blood Pressure 138/65 H 102/52 L Blood Pressure Mean 89 68 Pulse Ox 98 97 Oxygen Delivery Method Room Air Room Air 02/18/24 17:10 Temperature 98 F Temperature Source Pulse Rate 78 Respiratory Rate 15 Respiratory Effort Respiratory Pattern Blood Pressure 111/58 L Blood Pressure Mean 75 Pulse Ox 97 Oxygen Delivery Method [facility] <NAYA Yee - Last Filed: 02/18/24 17:11> [facility] Lab Data Labs: Laboratory Results - last 24 hr 02/18/24 02/18/24 15:07 15:09 WBC 5.5 RBC 4.56 L Hgb 12.9 L Hct 39.9 L MCV 87.5 MCH 28.3 MCHC 32.3 RDW Std Deviation 51.0 H RDW Coeff of [place] 15.8 H Plt Count 149 L MPV 10.3 Immature Gran % (Auto) 0.400 Neut % (Auto) 69.5 Lymph % (Auto) 17.6 L Esmeralda % (Auto) 10.1 H Eos % (Auto) 2.0 Baso % (Auto) 0.4 Absolute Neuts (auto) 3.8 Absolute Lymphs (auto) 0.96 Nucleated RBC % 0 D-Dimer Quant (PE/DVT) 0.57 H* Sodium 141 Potassium 4.3 Chloride 108 H Carbon Dioxide 25.0 Anion Gap 8 BUN 17 Creatinine 1.23 Estim Creat Clear Calc 48.19 Est GFR (MDRD) Af Amer 76 Est GFR (MDRD) Non-Af 63 BUN/Creatinine Ratio 13.8 Glucose 213 H Calcium 9.1 Total Bilirubin 0.60 Direct Bilirubin 0.21 AST 24 ALT 21 Alkaline Phosphatase 73 Troponin I High Sens 24 Total Protein 7.0 Albumin 3.9 Globulin 3.1 Lipase 115 H EKG Normal sinus rhythm: Attestation: I personally reviewed and interpreted this EKG as follows: Interpretation: Sinus Rhythm Comments: Normal sinus rhythm, rate of 87 bpm, KS interval 134 ms, QRS duration 76 ms, no acute ST elevation, no acute infarct noted. Treatment and Re-Evaluation :: Differential diagnosis includes however is not limited to: ACS, AR, PE, DVT, muscle skeletal chest pain Patient appears to be in no obvious distress, vital signs are stable, nontoxic-appearing. Presenting to the emergency department complaints of ongoing chest pain for the last 2 days. Patient received a repeat cardiac workup including a upper abdominal workup. Patient's EKG was unremarkable, patient's laboratory values show a normal CBC, patient's D-dimer was negative at 0.57 with age adjustment, this is negative. Patient's chemistries show glucose of 213, lipase elevated 115 however patient has no pain to his upper abdomen, patient liver enzymes unremarkable. I spoke with the patient, he will follow-up outpatient. At this time, there is no evidence of any PE, ACS, AR. Patient struck to return for any worsening symptoms. Stable for discharge. ED attending note: I evaluated the patient in conjunction with the PRAVEENA. I agree with his/her statements and above findings. I have personally performed a face to face assessment of the patient and have reviewed the PRAVEENA Note. I performed a substantive portion of the visit including all aspects of the following. I personally saw the patient performed chart review, physical exam, reviewed labs, imaging (if obtained), and formulated a treatment and management plan. 63-year-old male here for second in a row with chest pain. Patient points to the mid lower chest. He notes pain does not radiate. Denies syncope. The patient denies recent surgery in the last 4 weeks or immobilization in the last 3 days, denies previous diagnosis of DVT or PE, hemoptysis, unilateral leg swelling or malignancy with treatment the last 6 months or palliative. No estrogen use noted. Patient denies sudden onset of pain, no tearing sensation, no migratory symptoms, no new numbness, weakness or loss of sensation. Patient denies family history or personal history of Connective tissue disorders (Marfan's Syndrome, Fozia Danlos etc). Denies cough fever chills. Denies associated dyspnea. Exam without murmurs gallops rubs, no rales. Pulses were intact. No calf tenderness, no leg swelling. No focal neurologic deficits. Abdomen soft, nontender, nondistended, with no pulsatile abdominal masses. Will perform a cardiopulmonary workup including high-sensitivity troponins x 2, D-dimer, chest x-ray labs including LFTs and lipase. Will dispo based on results of labs images reassessment of vital sign evaluation. This note was generated with Traxian dictation software. It may contain incorrect words, spelling, and punctuation that were not noted in review of the chart prior to signing. <Dr. Prakash Rico, DO - Last Filed: 02/18/24 17:45> [facility] Lab Data Labs: Laboratory Results - last 24 hr 02/18/24 02/18/24 15:07 15:09 WBC 5.5 RBC 4.56 L Hgb 12.9 L Hct 39.9 L MCV 87.5 MCH 28.3 MCHC 32.3 RDW Std Deviation 51.0 H RDW Coeff of [place] 15.8 H Plt Count 149 L MPV 10.3 Immature Gran % (Auto) 0.400 Neut % (Auto) 69.5 Lymph % (Auto) 17.6 L Esmeralda % (Auto) 10.1 H Eos % (Auto) 2.0 Baso % (Auto) 0.4 Absolute Neuts (auto) 3.8 Absolute Lymphs (auto) 0.96 Nucleated RBC % 0 D-Dimer Quant (PE/DVT) 0.57 H* Sodium 141 Potassium 4.3 Chloride 108 H Carbon Dioxide 25.0 Anion Gap 8 BUN 17 Creatinine 1.23 Estim Creat Clear Calc 48.19 Est GFR (MDRD) Af Amer 76 Est GFR (MDRD) Non-Af 63 BUN/Creatinine Ratio 13.8 Glucose 213 H Calcium 9.1 Total Bilirubin 0.60 Direct Bilirubin 0.21 AST 24 ALT 21 Alkaline Phosphatase 73 Troponin I High Sens 24 Total Protein 7.0 Albumin 3.9 Globulin 3.1 Lipase 115 H Treatment and Re-Evaluation :: Differential diagnosis includes however is not limited to: ACS, AR, PE, DVT, muscle skeletal chest pain Patient appears to be in no obvious distress, vital signs are stable, nontoxic-appearing. Presenting to the emergency department complaints of ongoing chest pain for the last 2 days. Patient received a repeat cardiac workup including a upper abdominal workup. Patient's EKG was unremarkable, patient's laboratory values show a normal CBC, patient's D-dimer was negative at 0.57 with age adjustment, this is negative. Patient's chemistries show glucose of 213, lipase elevated 115 however patient has no pain to his upper abdomen, negative Menon sign, patient liver enzymes unremarkable. I spoke with the patient, he will follow-up outpatient. At this time, there is no evidence of any PE, ACS, AR. Patient struck to return for any worsening symptoms. Stable for discharge. ED attending note: I evaluated the patient in conjunction with the PRAVEENA. I agree with his/her statements and above findings. I have personally performed a face to face assessment of the patient and have reviewed the PRAVEENA Note. I performed a substantive portion of the visit including all aspects of the following. I personally saw the patient performed chart review, physical exam, reviewed labs, imaging (if obtained), and formulated a treatment and management plan. 63-year-old male here for second in a row with chest pain. Patient points to the mid lower chest. He notes pain does not radiate. Denies syncope. The patient denies recent surgery in the last 4 weeks or immobilization in the last 3 days, denies previous diagnosis of DVT or PE, hemoptysis, unilateral leg swelling or malignancy with treatment the last 6 months or palliative. No estrogen use noted. Patient denies sudden onset of pain, no tearing sensation, no migratory symptoms, no new numbness, weakness or loss of sensation. Patient denies family history or personal history of Connective tissue disorders (Marfan's Syndrome, Fozia Danlos etc). Denies cough fever chills. Denies associated dyspnea. Exam without murmurs gallops rubs, no rales. Pulses were intact. No calf tenderness, no leg swelling. No focal neurologic deficits. Abdomen soft, nontender, nondistended, with no pulsatile abdominal masses. Will perform a cardiopulmonary workup including high-sensitivity troponins x 2, D-dimer, chest x-ray labs including LFTs and lipase. Will dispo based on results of labs images reassessment of vital sign evaluation. This note was generated with Traxian dictation software. It may contain incorrect words, spelling, and punctuation that were not noted in review of the chart prior to signing. Discharge Plan Triage Chief Complaint: Chest Pain Other Complaint: Edema ED Midlevel Provider: Jose Leung ED Provider: Prakash Rico Dx/Rx/DC Orders Clinical Impression: Epigastric abdominal pain Instructions: ED Epigastric Pain Uncertain Cause Prescriptions: No Action ipratropium-albuterol 1 PUFF inhaler 1 puff INHALATION BID PRN (Reason: Sob &/Or Wheezing) Jardiance 25 MG tablet 25 mg PO DAILY acetaminophen 325 MG tablet 650 mg PO Q6H PRN PRN (Reason: Pain Score 1-10/Temp > 100.7 F) 0RF pantoprazole 40 MG tablet 40 mg PO BID Qty: 60 0RF insulin glargine [Lantus Solostar U-100 Insulin] 100 unit/mL (3 mL) Insulin Pen 14 unit SUBCUT QPM dextrose [Glucose Gel] 40 % Gel 20 g PO Q15M PRN (Reason: Hypoglycemia) docusate sodium [Colace] 100 mg Capsule 100 mg PO DAILY PRN PRN (Reason: Constipation) Paxlovid 300 mg (150 mg x 2)-100 mg tablets,dose pack See Rx Instructions .ROUTE .COMPLEX Qty: 30 0RF Rx Instructions: take TWO 150 mg tablets of nirmatrelvir with ONE 100 mg tablet of ritonavir twice daily for 5 days atorvastatin 40 mg tablet 40 mg PO DAILY Trulicity 1.5 mg/0.5 mL pen injector 3 mg SUBCUT QWEEK famotidine 40 mg tablet 40 mg PO DAILY glimepiride 4 mg tablet 4 mg PO DAILY lisinopril 10 mg tablet 10 mg PO DAILY metformin 1,000 mg tablet 1,000 mg PO BID Primary Care Provider: Jerry Linda Chi Referrals: Jerry Linda Chi, MD [Primary Care Provider] - Activity Restrictions/Additional Instructions: Please follow-up outpatient Print Language: Yoruba Disposition Disposition: Home, Self Care Discharge Date/Time: 02/18/24 17:15
[2024-02-18 15:27] LABS: Absolute Lymphocyte Count 0.96 X10^3/uL (0.83-4.51); Absolute Neutrophil Count 3.8 X10^3/uL (2.0-7.7); Basophil# 0.02 X10^3/uL; Basophil% 0.4 % (0-1); Eosinophil# 0.11 X10^3/uL; Hematocrit 39.9 % (40-54); Hemoglobin 12.9 g/dL (13.0-16.5); Lymphocyte # 0.96 X10^3/ul (0.83-4.51); Lymphocyte % 17.6 % (19-41); Mean Corp Hgb Conc 32.3 g/dL (32-36); Mean Corpuscular Hgb 28.3 pg (27.0-32.0); Mean Corpuscular Volume 87.5 fL (80-94); Mean Platelet Vol. 10.3 fl (6.2-12.0); Monocyte# 0.55 X10^3/uL; Monocyte% 10.1 % (0-10); NRBC Flagged by Analyzer 0 % (0-5); Neutrophil # 3.81 X10^3/uL (2.7-7.7); Neutrophil % 69.5 % (47-70); Platelet Count 149 K/mm3 (150-450); RBC Distribution Width CV 15.8 % (11.6-14.6); Red Blood Count 4.56 M/mm3 (4.6-6.2); White Blood Count 5.5 K/mm3 (4.4-11.0)
[2024-02-18 15:46] LABS: Anion Gap 8 (5-15); BUN 17 mg/dL (7-18); BUN/Creat Ratio 13.8 RATIO (10-20); Calcium,Total 9.1 mg/dL (8.5-10.1); Chloride 108 mmol/L (98-107); Creatinine, Serum 1.23 mg/dL (0.70-1.30); EST Glomerular Filtration Rate 63 mL/min (>60); Est Glom Filt Rate - Afr Amer 76 mL/min (>60); Estimated Creatinine Clearance 48.19 ml/min; Glucose 213 mg/dL (74-106); Lipase 115 U/L (13-75); Potassium 4.3 mmol/L (3.5-5.1); Sodium Level 141 mmol/L (136-145); Troponin-I HS 24 pg/mL (3.0-78.0)
[2024-02-18 15:58] LABS: D-Dimer Quantitative (DVT/PE) 0.57 FEU/ug/m (0.27-0.49)
[2024-02-18 16:23] VITALS: BP 102/52; PULSE 71; RESP 19; O2SAT 97
[2024-02-18 16:54] LABS: AST(SGOT) 24 U/L (15-37); Alanine Aminotransfer ALT/SGPT 21 U/L (16-61); Albumin, Serum 3.9 g/dL (3.2-5.0); Alkaline Phosphatase 73 U/L (45-117); Bilirubin, Direct 0.21 mg/dL (0.00-0.30); Globulin 3.1 g/dL (2.2-4.2)
[2024-02-18 17:10] VITALS: BP 111/58; PULSE 78; RESP 15; TEMP 36.6; O2SAT 97
== END 2024-02-18 17:15 | disposition home or self-care (01) ==
PROVIDERS: Nurse Practitioner; Emergency Provider Emergency Medicine; PCP Family Medicine Geriatric Medicine; Visit Provider Emergency Medicine
DX: R07.89 Other chest pain (principal); E11.9 Type 2 diabetes mellitus without complications; Z79.4 Long term (current) use of insulin; R10.13 Epigastric pain; R60.9 Edema, unspecified; E78.5 Hyperlipidemia, unspecified; I10 Essential (primary) hypertension; Z79.899 Other long term (current) drug therapy; K21.9 Gastro-esophageal reflux disease without esophagitis; Z79.84 Long term (current) use of oral hypoglycemic drugs; Z79.85 Long-term (current) use of injectable non-insulin antidiabetic drugs; F17.210 Nicotine dependence, cigarettes, uncomplicated
CPT/HCPCS: 80048; 80076; 83690; 84484; 85025; 85379; 93005; 96374; 99284; A4216

== ENCOUNTER → 2024-02-22 | Outpatient (CLI) | payer MEDICARE, MEDICAID, SELFPAY ==
[2024-02-22 10:16] LABS: Absolute Lymphocyte Count 1.25 X10^3/uL (0.83-4.51); Absolute Neutrophil Count 3.6 X10^3/uL (2.0-7.7); Basophil# 0.03 X10^3/uL; Basophil% 0.5 % (0-1); Eosinophil# 0.12 X10^3/uL; Eosinophils% 2.2 % (0-5); Hematocrit 42.3 % (40-54); Hemoglobin 13.5 g/dL (13.0-16.5); Lymphocyte # 1.25 X10^3/ul (0.83-4.51); Lymphocyte % 22.7 % (19-41); Mean Corp Hgb Conc 31.9 g/dL (32-36); Mean Corpuscular Hgb 27.7 pg (27.0-32.0); Mean Corpuscular Volume 86.7 fL (80-94); Mean Platelet Vol. 11.4 fl (6.2-12.0); Monocyte# 0.51 X10^3/uL; Monocyte% 9.3 % (0-10); NRBC Flagged by Analyzer 0 % (0-5); Neutrophil # 3.57 X10^3/uL (2.7-7.7); Neutrophil % 64.9 % (47-70); Platelet Count 170 K/mm3 (150-450); RBC Distribution Width CV 15.6 % (11.6-14.6); RBC Distribution Width SD 49.4 fl (35.1-43.9); Red Blood Count 4.88 M/mm3 (4.6-6.2); White Blood Count 5.5 K/mm3 (4.4-11.0)
[2024-02-22 10:44] LABS: Hemoglobin A1c 6.9 % (3.8-5.6)
[2024-02-22 10:50] LABS: Vitamin D,25 Hydroxy 25.3 ng/mL
[2024-02-22 10:56] LABS: ALB/GLOB Ratio 1.2 RATIO (0.9-2.4); AST(SGOT) 24 U/L (15-37); Alanine Aminotransfer ALT/SGPT 23 U/L (16-61); Albumin, Serum 3.9 g/dL (3.2-5.0); Alkaline Phosphatase 63 U/L (45-117); Anion Gap 4 (5-15); BUN 19 mg/dL (7-18); BUN/Creat Ratio 20.2 RATIO (10-20); Calcium,Total 9.1 mg/dL (8.5-10.1); Chloride 105 mmol/L (98-107); Cholesterol 95 mg/dL (200); Creatinine, Serum 0.94 mg/dL (0.70-1.30); EST Glomerular Filtration Rate 85 mL/min (>60); Est Glom Filt Rate - Afr Amer 103 mL/min (>60); Globulin 3.3 g/dL (2.2-4.2); Glucose 154 mg/dL (74-106); High Density Lipoprotein 63 mg/dL; Potassium 4.3 mmol/L (3.5-5.1); Protein, Total 7.2 g/dL (6.4-8.2); Sodium Level 137 mmol/L (136-145); Triglycerides 61 mg/dL; Very Low Density Lipoprotein 12 mg/dL (5-40)
[2024-02-22 10:58] LABS: Microalbumin,Random Urine 7.2 mg/L (NO RANGE EST.)
== END | disposition home or self-care (01) ==
LOC: POLAB3 09:53
PROVIDERS: PCP Family Medicine Geriatric Medicine; Visit Provider Family Medicine Geriatric Medicine
DX: E78.5 Hyperlipidemia, unspecified (principal); E11.65 Type 2 diabetes mellitus with hyperglycemia; I10 Essential (primary) hypertension; E55.9 Vitamin D deficiency, unspecified
CPT/HCPCS: 36415; 80053; 80061; 82043; 82306; 83036; 84443; 85025

== ENCOUNTER → 2024-06-20 | Outpatient (CLI) | payer MEDICARE, MEDICAID, SELFPAY ==
[2024-06-20 09:36] LABS: Absolute Lymphocyte Count 1.79 X10^3/uL (0.83-4.51); Absolute Neutrophil Count 5.3 X10^3/uL (2.0-7.7); Basophil# 0.03 X10^3/uL; Basophil% 0.4 % (0-1); Eosinophil# 0.14 X10^3/uL; Eosinophils% 1.8 % (0-5); Hemoglobin 15.1 g/dL (13.0-16.5); Lymphocyte # 1.79 X10^3/ul (0.83-4.51); Lymphocyte % 22.4 % (19-41); Mean Corp Hgb Conc 31.5 g/dL (32-36); Mean Corpuscular Hgb 27.6 pg (27.0-32.0); Mean Corpuscular Volume 87.6 fL (80-94); Mean Platelet Vol. 11.3 fl (6.2-12.0); Monocyte# 0.68 X10^3/uL; Monocyte% 8.5 % (0-10); NRBC Flagged by Analyzer 0 % (0-5); Neutrophil # 5.33 X10^3/uL (2.7-7.7); Neutrophil % 66.6 % (47-70); Platelet Count 179 K/mm3 (150-450); RBC Distribution Width CV 14.7 % (11.6-14.6); RBC Distribution Width SD 47.2 fl (35.1-43.9); Red Blood Count 5.48 M/mm3 (4.6-6.2)
--- NOTE | 2024-06-20 10:10 | RAD_ITS ---
INDICATION: RIGHT HIP PAIN EXAMINATION/TECHNIQUE: X-RAY - XR Hip Unilateral with Pelvis when performed; 2-3 Views COMPARISON: March 28, 2019 FINDINGS: PELVIC BONES: No displaced fracture, destructive or sclerotic lesions. Note that overlapping bowel shadows may however obscure fine detail. Sacroiliac joints are unremarkable. No widening of the pubic symphysis. HIPS: The articular structures are unremarkable. A right hip prosthesis is in good position. SOFT TISSUES: No soft tissue swelling or gas. Vascular calcifications. RAD/HIP, UNI W/ Pelvis 2-3 Views IMPRESSION: Stable right hip prosthesis. No acute bone injury. Electronically Signed: Roney Alcocer DO at 16:47 EST Reading Location ID and State: [facility] / [place] Tel [phone], Service support ,
[2024-06-20 10:11] LABS: Vitamin D,25 Hydroxy 12.5 ng/mL
[2024-06-20 10:18] LABS: ALB/GLOB Ratio 1.4 RATIO (0.9-2.4); AST(SGOT) 23 U/L (15-37); Alanine Aminotransfer ALT/SGPT 27 U/L (16-61); Albumin, Serum 4.5 g/dL (3.2-5.0); Alkaline Phosphatase 74 U/L (45-117); Anion Gap 7 (5-15); BUN 17 mg/dL (7-18); BUN/Creat Ratio 17.9 RATIO (10-20); Calcium,Total 10.4 mg/dL (8.5-10.1); Chloride 101 mmol/L (98-107); Cholesterol 114 mg/dL (200); Creatinine, Serum 0.95 mg/dL (0.70-1.30); EST Glomerular Filtration Rate 84 mL/min (>60); Est Glom Filt Rate - Afr Amer 102 mL/min (>60); Globulin 3.3 g/dL (2.2-4.2); Glucose 153 mg/dL (74-106); High Density Lipoprotein 56 mg/dL; Potassium 4.1 mmol/L (3.5-5.1); Protein, Total 7.8 g/dL (6.4-8.2); Sodium Level 139 mmol/L (136-145); Thyroid Stim Hormone (TSH) 0.954 uIU/mL (0.358-3.740); Triglycerides 154 mg/dL; Very Low Density Lipoprotein 31 mg/dL (5-40)
[2024-06-20 12:47] LABS: Hemoglobin A1c 7.7 % (3.8-5.6)
== END | disposition home or self-care (01) ==
PROVIDERS: PCP Family Medicine Geriatric Medicine; Referring Provider Family Medicine Geriatric Medicine; Visit Provider Family Medicine Geriatric Medicine
DX: M25.551 Pain in right hip (principal); E11.65 Type 2 diabetes mellitus with hyperglycemia; E78.5 Hyperlipidemia, unspecified; I10 Essential (primary) hypertension; E55.9 Vitamin D deficiency, unspecified
CPT/HCPCS: 36415; 73502; 80053; 80061; 82306; 83036; 84443; 85025

== ENCOUNTER 2024-07-22 06:20 | Emergency (ER) | payer MEDICARE, MEDICAID, SELFPAY ==
[2024-07-22 06:23] VITALS: BP 138/77; PULSE 118; RESP 20; TEMP 38.4; O2SAT 94; BMI 25.4
--- NOTE | 2024-07-22 06:53 | RAD_ITS ---
PROCEDURE: AP and lateral chest radiographs, two views REASON FOR EXAM: Cough TECHNIQUE: AP and lateral chest radiographs were obtained. COMPARISON: 02/17/2024 FINDINGS: The cardiomediastinal silhouette is similar. Low depth of inspiration. Bones are osteopenic with degenerative changes in the spine. There is respiratory motion artifact at the lung bases on the lateral projection. No focal pneumonia or sizable pleural effusion. RAD/Chest PA and Lateral IMPRESSION: Low depth of inspiration. No definite acute cardiopulmonary process is demonst rated. If there are persistent symptoms or clinical concern, short-term follow-up chest CT evaluation may be considered. Reading Location: [facility]
[2024-07-22] MEDS: Albuterol 2.5 MG/3 ML VIAL.NEB. INHALATION (07:01)
[2024-07-22] MEDS: Ipratropium/Albuterol Sulfate 3 ML AMPUL.NEB INHALATION (07:01)
[2024-07-22] MEDS: Acetaminophen 500 MG Tablet 1000 MG PO (07:05)
[2024-07-22] MEDS: MethylPREDNISolone 125 MG/2 ML Vial IV (07:05)
[2024-07-22 07:06] VITALS: PULSE 110; RESP 16
[2024-07-22 07:13] LABS: Absolute Lymphocyte Count 0.42 X10^3/uL (0.83-4.51); Absolute Neutrophil Count 2.7 X10^3/uL (2.0-7.7); Basophil# 0.01 X10^3/uL; Basophil% 0.3 % (0-1); Eosinophil# 0.06 X10^3/uL; Eosinophils% 1.7 % (0-5); Hematocrit 39.9 % (40-54); Lymphocyte # 0.42 X10^3/ul (0.83-4.51); Lymphocyte % 11.8 % (19-41); Mean Corp Hgb Conc 32.6 g/dL (32-36); Mean Corpuscular Hgb 28.5 pg (27.0-32.0); Mean Corpuscular Volume 87.5 fL (80-94); Mean Platelet Vol. 11.5 fl (6.2-12.0); Monocyte# 0.39 X10^3/uL; Monocyte% 10.9 % (0-10); NRBC Flagged by Analyzer 0 % (0-5); Neutrophil # 2.67 X10^3/uL (2.7-7.7); Neutrophil % 74.7 % (47-70); POSITIVE COUNT YES; POSITIVE DIFFERENTIAL YES; Platelet Count 86 K/mm3 (150-450); RBC Distribution Width CV 14.5 % (11.6-14.6); RBC Distribution Width SD 46.6 fl (35.1-43.9); Red Blood Count 4.56 M/mm3 (4.6-6.2); White Blood Count 3.6 K/mm3 (4.4-11.0)
[2024-07-22 07:21] LABS: Differential Indicated SCAN CRITERIA MET
[2024-07-22 07:24] LABS: Anion Gap 8 (5-15); BUN 15 mg/dL (7-18); BUN/Creat Ratio 15.1 RATIO (10-20); Calcium,Total 9.2 mg/dL (8.5-10.1); Chloride 104 mmol/L (98-107); Creatinine, Serum 0.99 mg/dL (0.70-1.30); EST Glomerular Filtration Rate 80 mL/min (>60); Est Glom Filt Rate - Afr Amer 97 mL/min (>60); Estimated Creatinine Clearance 59.07 ml/min; Glucose 205 mg/dL (74-106); Magnesium 1.3 mg/dL (1.6-2.6); Potassium 3.9 mmol/L (3.5-5.1); Sodium Level 139 mmol/L (136-145)
[2024-07-22 07:43] VITALS: BP 129/68; PULSE 125; RESP 20; TEMP 36.7; O2SAT 93
[2024-07-22 07:46] LABS: Platelet Estimate MOD DEC (ADEQ)
--- NOTE | 2024-07-22 07:47 | EDS_ITS ---
HPI History of Present Illness Chief Complaint: General Illness Informant: patient and EMS Narrative Narrative: Patient is a 64-year-old male with history of hypertension hyperlipidemia type 2 diabetes and intellectual disability. He states that last night he began with cough congestion and some shortness of breath. He denies any history of lung disorder or need for supplemental oxygen and with concern for potential infection EMS was called and he was brought in for evaluation [facility] Medical History Hemorrhoid GERD (gastroesophageal reflux disease) Intellectual disability Dyslipidemia Essential (primary) hypertension DM2 (diabetes mellitus, type 2) Home Medications ?Medication ?Instructions ?Recorded ?Last Taken ?Type empagliflozin 25 mg tablet 25 mg PO DAILY diabetes 04/24 Unknown History (Jardiance) acetaminophen 325 mg tablet 650 mg (2 x 325 mg) PO Q6H PRN PRN 03/24/20 Unknown Rx Pain Score 1-10/Temp > 100.7 F pantoprazole 40 mg tablet,delayed 40 mg PO BID #60 tab s 03/24/20 Unknown Rx release insulin glargine 100 unit/mL (3 14 unit subcut QPM Unknown History mL) subcutaneous pen (Lantus Solostar U-100 Insulin) dextrose 40 % oral gel (Glucose 20 g PO Q15M PRN Hypog lycemia 05/29/21 Unknown History Gel) docusate sodium 100 mg capsule 100 mg PO DAILY PRN PRN 05/29/21 Unknown History (Colace) Constipation atorvastatin 40 mg tablet 40 mg PO DAILY 07/22/23 Unkn own History dulaglutide 1.5 mg/0.5 mL 3 mg subcut QWEEK 07/22/23 U nknown History subcutaneous pen injector (Trulicity) famotidine 40 mg tablet 40 mg PO DAILY 07/22/23 Unkn own History glimepiride 4 mg tablet 4 mg PO DAILY 07/22/23 Unkno wn History lisinopril 10 mg tablet 10 mg PO DAILY 07/22/23 Unkn own History metformin 1,000 mg tablet 1,000 mg PO BID 07/22/23 Unk nown History azelastine 137 mcg (0.1 %) nasal 2 spray intranasal BI D #30 mL 07/22/24 Unknown Rx spray benzonatate 100 mg capsule 100 mg PO TID PRN cough #30 caps 07/22/24 Unknown Rx oseltamivir 75 mg capsule (Tamiflu) 75 mg PO BID 5 day s #10 caps 07/22/24 Unknown Rx Allergy/AdvReac Type Severity Reaction Status Date / Time aspirin Allergy Unknown Verified 07/22/24 06:23 codeine Allergy Unknown Verified 07/22/24 06:23 Family History Mother Diabetes Surgical History History of colonoscopy (~12/2019) Arthropathy of right hip Social History Smoking Status: Current every day smoker tobacco type: cigarettes alcohol intake: never ROS ROS ED Constitutional Constitutional ED: Reports chills and fever(s) ENT ENT ED: Reports rhinorrhea and sore throat Cardiovascular Cardiovascular: Denies chest pain Respiratory/Chest Respiratory/Chest: Reports cough and dyspnea Gastrointestinal Gastrointestinal: Denies abdominal pain, diarrhea, nausea or vomiting Genitourinary Genitourinary ED: Denies dysuria Musculoskeletal Musculoskeletal: Reports myalgias Integumentary Denies rash Neurologic Neurologic: Reports headache(s) Hematologic/Lymphatic Hematologic/Lymphatic: Denies easy bleeding or easy bruising Allergic/Immunologic Allergic/Immunologic ED: Denies mouth swelling or tongue swelling EXAM Physical Exam Const Vital Signs: 07/22/24 06:23 07/22/24 07:06 07/22/24 07:43 Temperature 101.2 F H 98.1 F Temperature Source Oral Oral Pulse Rate 118 H 110 H 125 H Respiratory Rate 20 H 16 20 H Blood Pressure 138/77 H 129/68 H Blood Pressure Mean 97 88 Pulse Ox 94 93 Oxygen Delivery Method Room Air Room Air Positive well nourished and well developed General Appearance ED: well developed; Negative for pallor HEENT HEENT Narrative: Nasal mucosa is hyperemic and boggy There is cobblestoning present in the posterior pharynx consistent with sinus drainage; no airway edema or compromise No secondary findings to suggest Eyes PERRL and EOMs intact bilaterally General Eye ED: Negative for scleral icterus Neck supple and no JVD Neck Narrative: No nuchal rigidity or meningeal signs Chest Wall palpation of chest normal Resp Resp Narrative: Patient is in mild respiratory distress with slight tachypnea and accessory muscle use. Breath sounds are diminished throughout with diffuse expiratory wheeze. No nasal flaring retractions or stridor noted Cardio regular rhythm Rate: tachycardic and other Other Details: Tachycardic rate with regular rhythm Radial and carotid pulses are equal and symmetric GI normal to inspection, nondistended, normoactive bowel sounds, non-tender, non- distended and no masses Auscultation: normoactive bowel sounds Palpation: soft Extremity normal to inspection Extremity Narrative: No asymmetric edema no pitting edema negative Homans' sign bilaterally Neuro oriented x3, CN's II-XII intact bilaterally and no sensory deficits noted Sensorium / Orientation: alert Motor Exam: strength 5/5 throughout Psych mental status grossly normal Skin no rashes or lesions noted General Skin Exam: Negative for jaundice or pallor MDM MDM MDM Narrative Medical decision making narrative: Patient arrived to the ER febrile and in mild respiratory distress but satting in the mid 90s on room air. Constellation of symptoms is most consistent with a viral infection such as COVID versus influenza versus RSV. There is also potential that shortness of breath is due to acute blood loss anemia or acute kidney injury or electrolyte abnormality. Chest x-ray was ordered to check for lung pathology such as pneumonia or pneumothorax or pleural effusion. Patient's blood work revealed no signs of acute blood loss anemia or YOHANNES and there was no clinically significant lab abnormalities present. Chest x-ray revealed no obvious infiltrate or pneumothorax. Viral swab was positive for influenza which correlates with his symptoms and vital signs. At this time however he is not in respiratory distress and he is not requiring supplemental oxygen and therefore there is no need for admission and he can be placed on symptomatic medications and is otherwise safe for discharge History & Record Review Discussion w/independent historian: EMS personnel and Patient Lab Data Attestation: I reviewed the patient's lab results. Labs: Laboratory Results - last 24 hr 07/22/24 06:47 WBC 3.6 L RBC 4.56 L Hgb 13.0 Hct 39.9 L MCV 87.5 MCH 28.5 MCHC 32.6 RDW Std Deviation 46.6 H RDW Coeff of [place] 14.5 Plt Count 86 L MPV 11.5 Immature Gran % (Auto) 0.600 Neut % (Auto) 74.7 H Lymph % (Auto) 11.[address] % (Auto) 10.9 H Eos % (Auto) 1.7 Baso % (Auto) 0.3 Absolute Neuts (auto) 2.7 Absolute Lymphs (auto) 0.42 L Nucleated RBC % 0 Platelet Estimate MOD DEC Sodium 139 Potassium 3.9 Chloride 104 Carbon Dioxide 27.0 Anion Gap 8 BUN 15 Creatinine 0.99 Estim Creat Clear Calc 59.07 Est GFR (MDRD) Af Amer 97 Est GFR (MDRD) Non-Af 80 BUN/Creatinine Ratio 15.1 Glucose 205 H Calcium 9.2 Magnesium 1.3 L Radiography Diagnostic Testing: Clinical Impression(s) from Imaging Studies Chest X-Ray 07/22/24 06:53 IMPRESSION: Low depth of inspiration. No definite acute cardiopulmonary process is demonstrated. If there are persistent symptoms or clinical concern, short-term follow-up chest CT evaluation may be considered. Reading Location: [facility] Chest x-ray as interpreted by the emergency medicine physician reveals atelectasis in the bilateral lower lobes without acute infiltrate or pneumothorax Discharge Plan Triage Chief Complaint: General Illness ED Provider: Loco Lombardi Dx/Rx/DC Orders Clinical Impression: Influenza A, Pyrexia, Essential (primary) hypertension, DM2 (diabetes mellitus, type 2), Intellectual disability Instructions: ED Fever Control (Adult), ED Influenza (Adult) Prescriptions: New azelastine 137 mcg (0.1 %) spray,non-aerosol 2 spray intranasal BID Qty: 30 0RF Rx Instructions: administer into each nostril oseltamivir [Tamiflu] 75 mg capsule 75 mg PO BID 5 Days Qty: 10 0RF benzonatate 100 mg capsule 100 mg PO TID PRN (Reason: cough) Qty: 30 0RF No Action Jardiance 25 MG tablet 25 mg PO DAILY acetaminophen 325 MG tablet 650 mg PO Q6H PRN PRN (Reason: Pain Score 1-10/Temp > 100.7 F) 0RF pantoprazole 40 MG tablet 40 mg PO BID Qty: 60 0RF insulin glargine [Lantus Solostar U-100 Insulin] 100 unit/mL (3 mL) Insulin Pen 14 unit SUBCUT QPM dextrose [Glucose Gel] 40 % Gel 20 g PO Q15M PRN (Reason: Hypoglycemia) docusate sodium [Colace] 100 mg Capsule 100 mg PO DAILY PRN PRN (Reason: Constipation) atorvastatin 40 mg tablet 40 mg PO DAILY Trulicity 1.5 mg/0.5 mL pen injector 3 mg SUBCUT QWEEK famotidine 40 mg tablet 40 mg PO DAILY glimepiride 4 mg tablet 4 mg PO DAILY lisinopril 10 mg tablet 10 mg PO DAILY metformin 1,000 mg tablet 1,000 mg PO BID Primary Care Provider: Jerry Linda Chi Referrals: Jerry Linda Chi, MD [Primary Care Provider] - Activity Restrictions/Additional Instructions: You have influenza A. This is a viral infection that will cause congestion cough shortness of breath headache and upset stomach for approximately 5 to 10 days. Take the prescribed medications as directed to help control symptoms and return to the ER should you have any further concerns. You may have a fever the entire time you have the virus and therefore keep the temperature under control with Tylenol and/or Motrin. Print Language: Bhutanese Disposition Disposition: Home, Self Care
[2024-07-22 08:03] VITALS: BP 129/68; PULSE 106; RESP 18; TEMP 36.6; O2SAT 96
[2024-07-22] MEDS: Albuterol Sulfate 8 gm Inhaler (60 puffs) 2 PUFF INHALATION (08:04)
[2024-07-22] MEDS: diazePAM 5 MG Tablet 2.5 MG PO (08:22)
[2024-07-22 08:31] VITALS: PULSE 110; RESP 18
== END 2024-07-22 09:17 | disposition home or self-care (01) ==
PROVIDERS: Emergency Provider Emergency Medicine; PCP Family Medicine Geriatric Medicine; Visit Provider Emergency Medicine
DX: J10.1 Influenza due to other identified influenza virus with other respiratory manifestations (principal); E11.9 Type 2 diabetes mellitus without complications; E78.5 Hyperlipidemia, unspecified; I10 Essential (primary) hypertension; F79 Unspecified intellectual disabilities; R50.9 Fever, unspecified; F17.210 Nicotine dependence, cigarettes, uncomplicated; K21.9 Gastro-esophageal reflux disease without esophagitis
CPT/HCPCS: 71046; 80048; 83735; 85025; 87631; 94640; 96374; 99284; A4216

== ENCOUNTER → 2024-08-22 | Outpatient (CLI) | payer MEDICARE, MEDICAID, SELFPAY ==
[2024-08-22 09:43] LABS: Absolute Lymphocyte Count 1.12 X10^3/uL (0.83-4.51); Absolute Neutrophil Count 2.9 X10^3/uL (2.0-7.7); Basophil# 0.04 X10^3/uL; Basophil% 0.8 % (0-1); Eosinophil# 0.13 X10^3/uL; Eosinophils% 2.7 % (0-5); Hematocrit 41.1 % (40-54); Hemoglobin 13.4 g/dL (13.0-16.5); Lymphocyte # 1.12 X10^3/ul (0.83-4.51); Lymphocyte % 23.6 % (19-41); Mean Corp Hgb Conc 32.6 g/dL (32-36); Mean Corpuscular Hgb 28.9 pg (27.0-32.0); Mean Corpuscular Volume 88.6 fL (80-94); Mean Platelet Vol. 11.4 fl (6.2-12.0); Monocyte% 10.5 % (0-10); NRBC Flagged by Analyzer 0 % (0-5); Neutrophil # 2.93 X10^3/uL (2.7-7.7); Platelet Count 130 K/mm3 (150-450); RBC Distribution Width CV 14.5 % (11.6-14.6); RBC Distribution Width SD 46.9 fl (35.1-43.9); Red Blood Count 4.64 M/mm3 (4.6-6.2); White Blood Count 4.7 K/mm3 (4.4-11.0)
[2024-08-22 11:05] LABS: Cholesterol 95 mg/dL (<=200); High Density Lipoprotein 60 mg/dL; Low Density Lipoprotein Calc. 20 mg/dL; Triglycerides 78 mg/dL; Very Low Density Lipoprotein 16 mg/dL (5-40); cholesterol:hdl ratio screen 1.58
[2024-08-22 11:19] LABS: ALB/GLOB Ratio 1.8 RATIO (0.9-2.4); AST(SGOT) 30 U/L (<=37); Alanine Aminotransfer ALT/SGPT 20 U/L (<=46); Albumin, Serum 4.4 g/dL (3.4-4.8); Alkaline Phosphatase 72 U/L (40-129); Anion Gap 11 (5-15); BUN 13 mg/dL (4-19); Calcium,Total 9.2 mg/dL (7.6-11.0); Carbon Dioxide 25.6 mmol/L (21.0-32.0); Chloride 100 mmol/L (98-108); Creatinine, Serum 0.95 mg/dL (0.70-1.20); EST Glomerular Filtration Rate 89 (>60); Globulin 2.4 g/dL (2.2-4.2); Glucose 224 mg/dL (70-99); Potassium 4.7 mmol/L (3.3-5.1); Protein, Total 6.8 g/dL (5.9-8.4); Sodium Level 137 mmol/L (133-145); Total Bilirubin 0.56 mg/dL (0.00-1.30); Vitamin D,25 Hydroxy 19.5 ng/mL (30-100)
[2024-08-22 18:27] LABS: Microalbumin,Random Urine < 12.0 mg/L (NO RANGE EST.)
[2024-08-22 19:15] LABS: Microalbumin:Creatinine Ratio UNABLE TO CALCULATE mg/g CRE
== END | disposition home or self-care (01) ==
LOC: POLAB3 09:24
PROVIDERS: PCP Family Medicine Geriatric Medicine; Visit Provider Family Medicine Geriatric Medicine
DX: E78.5 Hyperlipidemia, unspecified (principal); E11.65 Type 2 diabetes mellitus with hyperglycemia; E55.9 Vitamin D deficiency, unspecified; I10 Essential (primary) hypertension
CPT/HCPCS: 36415; 80053; 80061; 82043; 82306; 82570; 83036; 84443; 85025

== ENCOUNTER → 2024-09-21 | Outpatient (CLI) | payer MEDICARE, MEDICAID, SELFPAY ==
[2024-09-21 11:24] LABS: Hemoglobin A1c 7.8 % (<=5.6)
== END | disposition home or self-care (01) ==
PROVIDERS: PCP Family Medicine Geriatric Medicine; Referring Provider Family Medicine Geriatric Medicine; Visit Provider Family Medicine Geriatric Medicine
DX: E11.65 Type 2 diabetes mellitus with hyperglycemia (principal); I10 Essential (primary) hypertension
CPT/HCPCS: 36415; 83036

== ENCOUNTER → 2024-11-28 | Outpatient (CLI) | payer MEDICARE, MEDICAID, SELFPAY ==
[2024-11-28 12:09] LABS: Absolute Lymphocyte Count 0.84 X10^3/uL (0.83-4.51); Basophil# 0.03 X10^3/uL; Basophil% 0.7 % (0-1); Eosinophil# 0.14 X10^3/uL; Eosinophils% 3.1 % (0-5); Hematocrit 39.8 % (40-54); Hemoglobin 12.9 g/dL (13.0-16.5); Lymphocyte # 0.84 X10^3/ul (0.83-4.51); Lymphocyte % 18.8 % (19-41); Mean Corp Hgb Conc 32.4 g/dL (32-36); Mean Corpuscular Hgb 28.7 pg (27.0-32.0); Mean Corpuscular Volume 88.6 fL (80-94); Mean Platelet Vol. 10.9 fl (6.2-12.0); Monocyte# 0.51 X10^3/uL; Monocyte% 11.4 % (0-10); NRBC Flagged by Analyzer 0 % (0-5); Neutrophil # 2.96 X10^3/uL (2.7-7.7); Platelet Count 120 K/mm3 (150-450); RBC Distribution Width CV 14.6 % (11.6-14.6); RBC Distribution Width SD 47.6 fl (35.1-43.9); Red Blood Count 4.49 M/mm3 (4.6-6.2); White Blood Count 4.5 K/mm3 (4.4-11.0)
[2024-11-28 12:39] LABS: Hemoglobin A1c 7.1 % (<=5.6)
[2024-11-28 13:34] LABS: ALB/GLOB Ratio 2.1 RATIO (0.9-2.4); AST(SGOT) 19 U/L (<=37); Alanine Aminotransfer ALT/SGPT 20 U/L (<=46); Albumin, Serum 4.3 g/dL (3.4-4.8); Alkaline Phosphatase 62 U/L (40-129); Anion Gap 11 (5-15); BUN 14 mg/dL (4-19); BUN/Creat Ratio 13.8 RATIO (10-20); Carbon Dioxide 24.9 mmol/L (21.0-32.0); Chloride 106 mmol/L (98-108); Cholesterol 80 mg/dL (<=200); Creatinine, Serum 0.99 mg/dL (0.70-1.20); EST Glomerular Filtration Rate 85 (>60); Globulin 2.1 g/dL (2.2-4.2); Glucose 112 mg/dL (70-99); High Density Lipoprotein 43 mg/dL; Low Density Lipoprotein Calc. 21 mg/dL; Potassium 4.4 mmol/L (3.3-5.1); Protein, Total 6.4 g/dL (5.9-8.4); Sodium Level 142 mmol/L (133-145); Total Bilirubin 0.64 mg/dL (0.00-1.30); Triglycerides 83 mg/dL; Very Low Density Lipoprotein 17 mg/dL (5-40); cholesterol:hdl ratio screen 1.87
[2024-11-28 13:48] LABS: Thyroid Stim Hormone (TSH) 0.759 uIU/mL (0.300-4.200); Vitamin D,25 Hydroxy 23.5 ng/mL (30-100)
== END | disposition home or self-care (01) ==
LOC: LAB 11:25
PROVIDERS: PCP Family Medicine Geriatric Medicine; Referring Provider Family Medicine Geriatric Medicine; Visit Provider Family Medicine Geriatric Medicine
DX: E78.5 Hyperlipidemia, unspecified (principal); E11.65 Type 2 diabetes mellitus with hyperglycemia; I10 Essential (primary) hypertension; E55.9 Vitamin D deficiency, unspecified
CPT/HCPCS: 36415; 80053; 80061; 82306; 83036; 84443; 85025

== ENCOUNTER → 2025-02-27 | Outpatient (CLI) | payer MEDICARE, MEDICAID, SELFPAY ==
[2025-02-27 10:46] LABS: Hematocrit 44.5 % (40-54); Hemoglobin 15.0 g/dL (13.0-16.5); Immature Granulocytes Count 0.010 X10^3/uL (0.0-0.0); Mean Corp Hgb Conc 33.7 g/dL (32-36); Mean Corpuscular Volume 87.9 fL (80-94); Mean Platelet Vol. 10.5 fl (6.2-12.0); NRBC Flagged by Analyzer 0 % (0-5); Platelet Count 168 K/mm3 (150-450); RBC Distribution Width CV 13.6 % (11.6-14.6); RBC Distribution Width SD 44.1 fl (35.1-43.9); Red Blood Count 5.06 M/mm3 (4.6-6.2); White Blood Count 5.2 K/mm3 (4.4-11.0)
--- NOTE | 2025-02-27 11:14 | RAD_ITS ---
EXAM: XR Right Wrist Complete, 3 or More Views CLINICAL INDICATION: RIGHT WRIST PAIN TECHNIQUE: Frontal, lateral and oblique views of the right wrist. COMPARISON: No relevant prior studies available. FINDINGS: BONES/JOINTS: See below. SOFT TISSUES: Soft tissue swelling without acute fracture. No radiopaque foreign body. RAD/Wrist min 3 Views IMPRESSION: 1. Soft tissue swelling without acute fracture. 2. If symptoms persist, repeat radiograph in 10-14 days recommended. Reading Location: [id number]
[2025-02-27 12:15] LABS: Cholesterol 90 mg/dL (<=200); Low Density Lipoprotein Calc. 21 mg/dL; PSA,Total - Annual Screen 0.52 ng/mL (0.02-4.00); Triglycerides 109 mg/dL; Very Low Density Lipoprotein 22 mg/dL (5-40); Vitamin D,25 Hydroxy 27.8 ng/mL (30-100); cholesterol:hdl ratio screen 1.93
[2025-02-27 12:17] LABS: AST(SGOT) 19 U/L (<=37); Alanine Aminotransfer ALT/SGPT 13 U/L (<=46); Albumin, Serum 4.6 g/dL (3.4-4.8); Alkaline Phosphatase 72 U/L (40-129); Anion Gap 13 (5-15); BUN 17 mg/dL (4-19); BUN/Creat Ratio 18.2 RATIO (10-20); Calcium,Total 10.1 mg/dL (7.6-11.0); Carbon Dioxide 25.5 mmol/L (21.0-32.0); Chloride 101 mmol/L (98-108); Globulin 2.6 g/dL (2.2-4.2); Glucose 146 mg/dL (70-99); Potassium 4.8 mmol/L (3.3-5.1)
[2025-02-27 12:47] LABS: Creatinine, Urine (random) 67.30 mg/dL (39.00-259.00); Microalbumin,Random Urine < 12.0 mg/L (<20 mg/L)
[2025-02-27 18:18] LABS: Xtra Tube Kwok EXTRA TUBE
== END | disposition home or self-care (01) ==
LOC: POLAB3 10:15 → RAD 11:03
PROVIDERS: PCP Family Medicine Geriatric Medicine; Referring Provider Family Medicine Geriatric Medicine; Visit Provider Family Medicine Geriatric Medicine
DX: E78.5 Hyperlipidemia, unspecified (principal); E11.65 Type 2 diabetes mellitus with hyperglycemia; I10 Essential (primary) hypertension; E03.9 Hypothyroidism, unspecified; Z12.12 Encounter for screening for malignant neoplasm of rectum; E55.9 Vitamin D deficiency, unspecified; M25.531 Pain in right wrist
CPT/HCPCS: 36415; 73110; 80053; 80061; 82043; 82306; 82570; 83036; 84153; 84443; 85025; G0103